=== PATIENT | female | born 1970 | race Caucasian/White ===

== ENCOUNTER 2016-04-19 21:48 | Emergency (ER) | payer MEDICARE, MEDICAID ==
--- NOTE | 2016-04-20 00:33 | ER Document Report ---
HPI - HPI Patient complains to provider of: left foot pain Onset: Last week Onset/Duration: Persistent Quality of pain: Achy Severity: Severe Pain Level: 5 Context: Patient presents to the emergency department with complaints of left foot pain. Patient reports that she tripped over her own foot last week and hurt her left foot. She denies other symptoms such as fever vomiting diarrhea. No obvious deformities of the foot good pedal pulse Associated Symptoms: None Exacerbated by: Walking Relieved by: Denies Similar symptoms previously: No Recently seen / treated by doctor: No - REPRODUCTIVE LMP: na Reproductive: DENIES: : - DERM Skin Color: Normal Past Medical History - General Information source: Patient - Social History Smoking Status: Never Smoker Chew tobacco use (# tins/day): No Frequency of alcohol use: None Drug Abuse: None Family History: Reviewed & Not Pertinent Patient has suicidal ideation: No Patient has homicidal ideation: No Pulmonary Medical History: Reports: Hx Asthma, Hx COPD Neurological Medical History: Reports: Hx Migraine, Hx Seizures - UNKNOWN Endocrine Medical History: Reports: Hx Diabetes Mellitus Type 2 Renal/ Medical History: Reports: Hx Kidney Stones. Denies: Hx Peritoneal Dialysis Musculoskeltal Medical History: Reports Hx Musculoskeletal Trauma Psychiatric Medical History: Reports: Hx Anxiety, Hx Depression, Hx Schizoaffective Disorder Past Surgical History: Reports: Hx Cholecystectomy, Hx Kidney (Renal Surgery) - stone procedure - Immunizations Immunizations up to date: Yes Hx Diphtheria, Pertussis, Tetanus Vaccination: Yes Vertical Provider Document - CONSTITUTIONAL Agree With Documented VS: Yes Exam Limitations: No Limitations General Appearance: WD/WN, No Apparent Distress - INFECTION CONTROL TRAVEL OUTSIDE OF THE [place] IN LAST 30 DAYS: No - HEENT HEENT: Atraumatic, Normocephalic, PERRLA - NECK Neck: Normal Inspection, Supple - RESPIRATORY Respiratory: Breath Sounds Normal O2 Sat by Pulse Oximetry: 96 - CARDIOVASCULAR Cardiovascular: Regular Rate - MUSCULOSKELETAL/EXTREMETIES Musculoskeletal/Extremeties: MAEW, FROM, Non-Tender - c/o pain to lateral left foot, no obvious deformity, no erythema was informed no swelling no ecchymosis good pedal pulses brisk cap refill - NEURO Level of Consciousness: Awake, Alert, Appropriate Motor/Sensory: No Motor Deficit - DERM Integumentary: Warm, Dry Adult Front & Back Diagram: 1 - Complains of pain Course - Re-evaluation Re-evalutation: 04/20/16 00:38 Patient instructed on negative x-ray. Encouraged to follow-up with her primary care provider and orthopedics as indicated. She is ambulating without problems no crutches ordered. - Vital Signs Vital signs: Temp Pulse Resp BP Pulse Ox 98.3 F 91 18 112/46 L 96 04/19/16 22:21 04/19/16 22:21 04/19/16 22:21 04/19/16 22:21 04/19/16 22:21 - Diagnostic Test Radiology reviewed: Image reviewed, Reports reviewed - IMPRESSION: NEGATIVE STUDY OF THE LEFT FOOT. NO RADIOGRAPHIC EVIDENCE OF ACUTE INJURY Discharge - Discharge Clinical Impression: Left foot pain Condition: Stable Disposition: HOME, SELF-CARE Additional Instructions: *You have been evaluated for left foot pain *The xray was negative for an acute injury *Rest/Ice/Elevate the foot *Follow up with orthopedics for continued pain-call for an appointment *Take tylenol as indicated for the pain *Return to ED for worsening condition, changes, needs Referrals: KATARINA URENA MD [Primary Care Provider] - Follow up in 3-5 days
[2016-04-20 01:02] VITALS: BP 121/56
== END 2016-04-20 01:15 | disposition home or self-care (01) ==
LOC: ER 21:48
DX: M79.672 Pain in left foot (principal); W18.40XA Slipping, tripping and stumbling without falling, unspecified, initial encounter
CPT/HCPCS: 99284

== ENCOUNTER 2016-05-16 17:24 | Emergency (ER) | payer MEDICARE, MEDICAID ==
--- NOTE | 2016-05-16 18:40 | ER Document Report ---
HPI - HPI Patient complains to provider of: back pain Pain Level: 1 Context: Patient is a 46-year-old female suffered from a fall last evening she started to get out of bed and she landed on her bottom. Able to ambulate. Admits to mild pain on the left part of her back. Patient states is chronic back problems. Takes tramadol home. Denies any urinary incontinence or stool incontinence, saddle anesthesia. - REPRODUCTIVE Reproductive: DENIES: : - DERM Skin Color: Normal Past Medical History - Social History Smoking Status: Unknown if Ever Smoked Family History: Reviewed & Not Pertinent Patient has suicidal ideation: No Patient has homicidal ideation: No Pulmonary Medical History: Reports: Hx Asthma, Hx COPD Neurological Medical History: Reports: Hx Migraine, Hx Seizures - UNKNOWN Endocrine Medical History: Reports: Hx Diabetes Mellitus Type 2 Renal/ Medical History: Reports: Hx Kidney Stones. Denies: Hx Peritoneal Dialysis Musculoskeltal Medical History: Reports Hx Musculoskeletal Trauma Psychiatric Medical History: Reports: Hx Anxiety, Hx Depression, Hx Schizoaffective Disorder Past Surgical History: Reports: Hx Cholecystectomy, Hx Kidney (Renal Surgery) - stone procedure - Immunizations Immunizations up to date: Yes Hx Diphtheria, Pertussis, Tetanus Vaccination: Yes Vertical Provider Document - CONSTITUTIONAL Agree With Documented VS: Yes Exam Limitations: No Limitations General Appearance: WD/WN, No Apparent Distress - INFECTION CONTROL TRAVEL OUTSIDE OF THE [place] IN LAST 30 DAYS: No - HEENT HEENT: Atraumatic, Normocephalic - NECK Neck: Normal Inspection, Other - No evidence of spinous process, cervical motion tenderness. No evidence of deformities or step-offs - RESPIRATORY Respiratory: Breath Sounds Normal, No Respiratory Distress, Chest Non-Tender O2 Sat by Pulse Oximetry: 96 - CARDIOVASCULAR Cardiovascular: Regular Rate, Regular Rhythm, No Murmur Pulses: Normal: Radial, Dorsalis pedis - BACK Back: Normal Inspection Notes: No evidence of spine motion tenderness, spinous process tenderness, deformity, ecchymosis, step-off - MUSCULOSKELETAL/EXTREMETIES Musculoskeletal/Extremeties: MAEW, FROM, Non-Tender, No Edema. negative: Eccymosis - NEURO Level of Consciousness: Awake, Alert, Appropriate Motor/Sensory: No Motor Deficit, No Sensory Deficit - DERM Integumentary: Warm, Dry, No Rash Course - Re-evaluation Re-evalutation: 04/03/17 20:57 The patient presents with low back pain without signs of spinal cord compression , cauda equina syndrome, infection, aneurysm, or other serious etiology. The patient is neurologically intact. Given the extremely low risk of these diagnoses further testing and evaluation for these possibilities does not appear to be indicated at this time. The patient has been instructed to return if the symptoms worsen or change in any way. - Vital Signs Vital signs: Temp Pulse Resp BP Pulse Ox 98.1 F 82 18 137/70 H 96 05/16/16 18:06 05/16/16 18:06 05/16/16 18:06 05/16/16 18:06 05/16/16 18:06 Discharge - Discharge Clinical Impression: Low back strain Condition: Good Disposition: HOME, SELF-CARE Additional Instructions: LOW BACK PAIN: Three out of every four people will have an episode of disabling back pain during their lifetime. Most commonly the pain is due to straining of the muscles and ligaments in the low back. Usual treatment includes: (1) Rest on a firm surface. Avoid lying on your stomach. (2) Ice pack the painful area. After a few days, gentle heat may be used intermittently to relax the area, or ice packs can be continued. (3) Medication may be needed -- muscle relaxers and antiinflammatory medicines are commonly used. (4) As the back improves, exercises are prescribed to strengthen the back and abdominal muscles. Your doctor will advise you on the proper care for your back at each stage in your recovery. You may be better in a few days -- or healing may take several weeks. If new symptoms of a "herniated disc" (radiation of pain, numbness, or tingling down the back of the leg or weakness in the leg) occur, you should be re-examined. Further testing may be necessary. MUSCLE RELAXERS: Muscle relaxing medications are usually prescribed for acute muscle spasm or injury to the neck and back. They are often combined with antiinflammatory pain medication for increased relief. You may stop the muscle relaxer when the pain and stiffness have improved. Start the medication again if spasms recur. Muscle relaxers may cause drowsiness, especially with the first dose. Do not operate machinery or drive while under the effects of the medication. Most muscle relaxers last up to 24 hours. Do not combine the medication with alcohol. ICE PACKS: Apply ice packs frequently against the painful area. Many different schedules are recommended, such as "20 minutes on, 20 minutes off" or "one hour ice, two hours rest." If you need to work, you may need to go longer between ice treatments. You should plan to have the area ice packed AT LEAST one fourth of the time. The ice should be applied over the wrap, tape, or splint, or over a layer of cloth -- not directly against the skin. Some ice bags have a built-in cloth and can be put directly on the skin. WARM PACKS: After approximately two days, apply gentle heat (such as a heating pad or hot water bottle) for about 20 to 30 minutes about every two hours -- at least four times daily. Warmth and elevation will help you make a more rapid recovery , and will ease the pain considerably. Do not use HOT heat, and never apply heat for longer than 30 minutes. The continuous heat can invisibly damage skin and muscles -- even when no burn is seen on the surface. Damaged muscles can make you MORE sore. FOLLOW-UP CARE: If you have been referred to a physician for follow-up care, call the physician s office for an appointment as you were instructed or within the next two days. If you experience worsening or a significant change in your symptoms, notify the physician immediately or return to the Emergency Department at any time for re-evaluation. Prescriptions: Cyclobenzaprine HCl [Flexeril 5 mg Tablet] 5 mg PO TIDP PRN #15 tablet PRN Reason: Forms: Elevated Blood Pressure Referrals: KATARINA URENA MD [Primary Care Provider] - Follow up as needed
[2016-05-16 19:17] VITALS: BP 111/74
== END 2016-05-16 20:25 | disposition home or self-care (01) ==
LOC: ER 17:24
DX: S39.012A Strain of muscle, fascia and tendon of lower back, initial encounter (principal); M54.9 Dorsalgia, unspecified; X58.XXXA Exposure to other specified factors, initial encounter
CPT/HCPCS: 99283

== ENCOUNTER 2016-05-22 16:25 | Emergency (ER) | payer MEDICARE, MEDICAID ==
--- NOTE | 2016-05-22 16:33 | ER Document Report ---
ED Psych Disorder / Suicide - General Mode of Arrival: Medic Information source: Patient TRAVEL OUTSIDE OF THE U.S. IN LAST 30 DAYS: No - HPI Patient complains to provider of: Hallucinating, Suicidal ideation Onset: This morning Suicide Risk Factors: Bipolar, Depressed, Hallucinations, Schizophrenia <MARINO CLEMENT - Last Filed: 05/22/16 16:37> <OTILIO CORONEL - Last Filed: 05/22/16 18:23> - General Chief Complaint: Psych Problem Stated Complaint: PSYCH EVALUATION Notes: Patient is a 46-year-old female, with past medical history including bipolar disorder, schizophrenia, and depression, presenting to the emergency department concerned because she is having visual and audible hallucinations to include seeing objects and people as well as hearing people tell her to kill herself. Patient states that she is on psychiatric medications as well as insulin as needed for her diabetes. (MARINO CLEMENT) - Related Data Allergies/Adverse Reactions: ibuprofen [Ibuprofen] Allergy (Mild, Verified 05/16/16 18:01) lips swell acetaminophen [From Tylenol] Allergy (Verified 05/16/16 18:01) Lips swelled aspirin [Aspirin] Allergy (Verified 05/16/16 18:01) Lips swelled Past Medical History - General Information source: Patient - Social History Smoking Status: Never Smoker Drug Abuse: None Family History: Reviewed & Not Pertinent Pulmonary Medical History: Reports: Hx Asthma, Hx COPD Neurological Medical History: Reports: Hx Migraine, Hx Seizures - UNKNOWN Endocrine Medical History: Reports: Hx Diabetes Mellitus Type 2 Renal/ Medical History: Reports: Hx Kidney Stones. Denies: Hx Peritoneal Dialysis Musculoskeltal Medical History: Reports Hx Musculoskeletal Trauma Psychiatric Medical History: Reports: Hx Anxiety, Hx Bipolar Disorder, Hx Depression, Hx Schizoaffective Disorder Past Surgical History: Reports: Hx Cholecystectomy, Hx Kidney (Renal Surgery) - stone procedure - Immunizations Immunizations up to date: Yes Hx Diphtheria, Pertussis, Tetanus Vaccination: Yes <MARINO CLEMENT - Last Filed: 05/22/16 16:37> Review of Systems - Review of Systems Constitutional: No symptoms reported EENT: No symptoms reported Cardiovascular: No symptoms reported Respiratory: No symptoms reported Gastrointestinal: No symptoms reported Genitourinary: No symptoms reported Female Genitourinary: No symptoms reported Musculoskeletal: No symptoms reported Skin: No symptoms reported Hematologic/Lymphatic: No symptoms reported Neurological/Psychological: See HPI, Hallucinations, Suicidal ideation -: Yes All other systems reviewed and negative <MARINO CLEMENT - Last Filed: 05/22/16 16:37> Physical Exam <MARINO CLEMENT - Last Filed: 05/22/16 16:37> - Vital signs Interpretation: Tachypneic <OTILIO CORONEL - Last Filed: 05/22/16 18:23> - Vital signs Vitals: Temp Pulse Resp BP Pulse Ox 98.4 F 94 18 128/67 H 96 05/22/16 16:32 05/22/16 16:32 05/22/16 16:32 05/22/16 16:32 05/22/16 16:32 - Notes Notes: GENERAL: VS as per nursing doc. Well-appearing, well-nourished and in no acute distress. "Stare" noted HEAD: Atraumatic, normocephalic. EYES: Pupils equal round and reactive to light, extraocular movements intact, sclera anicteric, no conjunctival injection or discharge. ENT: Nares patent, oropharynx clear without exudates. Moist mucous membranes. NECK: Normal range of motion, supple LUNGS: Breath sounds clear to auscultation bilaterally and equal. No wheezes rales or rhonchi. HEART: Normal S1S2. Regular rate and rhythm without murmurs. Equal peripheral pulses. ABDOMEN: Soft, non-tender EXTREMITIES: Normal range of motion. No calf tenderness. Negative Homans. No edema. NEUROLOGICAL: GCS 15, Cranial nerves grossly intact. Normal visual rashid. Normal speech without aphasia. Normal gait. Patient reports auditory hallucinations telling her to kill herself. I do not see active evidence of auditory or visual hallucinations during the examination. She maintains good eye contact though prefers to stand during the interview and has increased psychomotor agitation. No evidence of homicidal ideation. Patient is calm directable with slow speech. There is no tangentiality or flight of ideas PSYCH: Normal mood, normal affect. SKIN: Warm, Dry, no cyanosis, Cap refill < 2 sec. (OTILIO CORONEL) Course <MARINO CLEMENT - Last Filed: 05/22/16 16:37> - Laboratory Result Diagrams: 05/22/16 16:50 05/22/16 16:50 - EKG Interpretation by Me EKG shows normal: Sinus rhythm Rate: Normal Rhythm: NSR <OTILIO CORONEL - Last Filed: 05/22/16 18:23> - Re-evaluation Re-evalutation: 05/22/16 18:22 Patient contracts for safety. She is at a nursing home, [facility]. She has been evaluated by psychiatry here and this is consistent with her prior evaluations here. She does not have access to much items that would cause self harm. We will contact [facility] prior to her discharge to coordinate this. ( OTILIO CORONEL) - Vital Signs Vital signs: Temp Pulse Resp BP Pulse Ox 98.4 F 94 18 128/67 H 96 05/22/16 16:32 05/22/16 16:32 05/22/16 16:32 05/22/16 16:32 05/22/16 16:32 - Laboratory Laboratory results interpreted by me: 05/22/16 05/22/16 05/22/16 16:50 16:50 16:50 Hgb 11.9 L Hct 35.7 L RDW 14.2 H Seg Neutrophils % 36.7 L Eosinophils % 15.8 H Absolute Eosinophils 1.1 H Potassium 5.2 H Carbon Dioxide 32 H Glucose 131 H Total Protein 6.2 L Albumin 3.2 L Urine Protein 100 H Urine Ketones TRACE H Ur Leukocyte Esterase TRACE H - EKG Interpretation by Me Additional EKG results interpreted by me: 05/22/16 17:05 No clear ischemia (OTILIO CORONEL) Discharge <MARINO CLEMENT - Last Filed: 05/22/16 16:37> <OTILIO CORONEL - Last Filed: 05/22/16 18:23> - Discharge Clinical Impression: Psychosis, Anemia Condition: Good Disposition: HOME, SELF-CARE Instructions: Depression ([facility]), Schizophrenia ([facility]), Hallucinations ([facility]) Additional Instructions: Please follow up with your psychiatric provider, [facility] to discuss your stressors within your residential settings. Please continue to utilize your coping skills as discussed, to include trying not to listen to the voices and or distracting yourself. Referrals: KATARINA URENA MD [Primary Care Provider] - Follow up as needed Scribe Documentation - Scribe Written by Scribe:: Marino Clement 05/22/2016 1974 acting as scribe for :: Dudley <MARINO CLEMENT - Last Filed: 05/22/16 16:37>
[2016-05-22 17:25] LABS: ABSOLUTE EOSINOPHILS # (AUTO) 1.1 10^3/uL (0.0-0.6); ABSOLUTE LYMPHOCYTES (AUTO) 2.8 10^3/uL (0.5-4.7); ABSOLUTE MONOCYTES (AUTO) 0.5 10^3/uL (0.1-1.4); ABSOLUTE NEUT (AUTO) 2.5 10^3/uL (1.7-8.2); BASOPHILS % (AUTO) 0.4 % (0-2); EOSINOPHILS % (AUTO) 15.8 % (0-6); HEMATOCRIT 35.7 % (36.0-47.0); HEMOGLOBIN 11.9 g/dL (12.0-15.5); LYMPHOCYTES % (AUTO) 40.4 % (13-45); MEAN CORPUSCULAR HEMOGLOBIN 29.6 pg (27.0-33.4); MEAN CORPUSCULAR HGB CONC 33.5 g/dL (32.0-36.0); MEAN CORPUSCULAR VOLUME 88 fl (80-97); MONOCYTES % (AUTO) 6.7 % (3-13); RED BLOOD COUNT 4.04 10^6/uL (3.72-5.28); RED CELL DISTRIBUTION WIDTH 14.2 % (11.5-14.0); SEGMENTED NEUTROPHILS % (AUTO) 36.7 % (42-78); WHITE BLOOD COUNT 6.9 10^3/uL (4.0-10.5)
[2016-05-22 17:32] LABS: APPEARANCE,URINE CLEAR; BILIRUBIN,URINE NEGATIVE (NEGATIVE); GLUCOSE, URINE NEGATIVE (NEGATIVE); KETONES,URINE TRACE mg/dL (NEGATIVE); LEUKOCYTE ESTERASE,URINE TRACE (NEGATIVE); NITRITE,URINE NEGATIVE (NEGATIVE); PROTEIN,URINE 100 mg/dL (NEGATIVE); URINE SPECIFIC GRAVITY 1.013; UROBILINOGEN,URINE NEGATIVE mg/dL (<2.0)
[2016-05-22 17:46] LABS: ALANINE AMINOTRANSFERASE 22 U/L (9-52); ALBUMIN 3.2 g/dL (3.5-5.0); ALCOHOL < 10 mg/dL (NONE DETECTED); ALKALINE PHOSPHATASE 43 U/L (38-126); ANION GAP 10 (5-19); ASPARTATE AMINO TRANSFERASE 14 U/L (14-36); BILIRUBIN,DIRECT 0.2 mg/dL (0.0-0.4); BILIRUBIN,TOTAL 0.2 mg/dL (0.2-1.3); BLOOD UREA NITROGEN 12 mg/dL (7-20); CALCIUM 8.9 mg/dL (8.4-10.2); CARBON DIOXIDE 32 mmol/L (22-30); CHLORIDE 98 mmol/L (98-107); CREATININE RESULT 0.75 mg/dL (0.52-1.25); GLUCOSE 131 mg/dL (75-110); POTASSIUM 5.2 mmol/L (3.6-5.0); SODIUM 139.5 mmol/L (137-145); TOTAL PROTEIN 6.2 g/dL (6.3-8.2)
[2016-05-22 17:53] LABS: URINE BARBITURATES SCREEN NEGATIVE; URINE METHADONE SCREEN NEGATIVE; URINE OPIATES LOW NEGATIVE; URINE PHENCYCLIDINE SCREEN NEGATIVE
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
[2016-05-22 19:50] VITALS: BP 109/78
--- NOTE | 2016-05-22 20:50 | EKG REPORT ---
SEVERITY:- OTHERWISE NORMAL ECG - SINUS RHYTHM ATRIAL PREMATURE COMPLEX BORDERLINE LEFT AXIS DEVIATION : Confirmed by: Parag Huntley 22-May-2016 20:48:44
== END 2016-05-22 19:10 | disposition home or self-care (01) ==
LOC: ER 16:25
DX: F20.9 Schizophrenia, unspecified (principal); F31.9 Bipolar disorder, unspecified; F79 Unspecified intellectual disabilities; J44.9 Chronic obstructive pulmonary disease, unspecified; E11.9 Type 2 diabetes mellitus without complications; D64.9 Anemia, unspecified; Z88.6 Allergy status to analgesic agent; Z79.899 Other long term (current) drug therapy; Z79.52 Long term (current) use of systemic steroids
CPT/HCPCS: 36415; 80053; 80307; 81001; 84703; 85025; 93005; 93010; 99285

== ENCOUNTER 2016-07-05 20:46 | Emergency (ER) | payer MEDICARE, OTHER ==
--- NOTE | 2016-07-05 21:20 | ER Document Report ---
ED Psych Disorder / Suicide - General Chief Complaint: Depression Stated Complaint: SUICIDAL IDEATION Time Seen by Provider: 07/05/16 21:13 Mode of Arrival: Medic Information source: Patient TRAVEL OUTSIDE OF THE U.[place]. IN LAST 30 DAYS: No - HPI Patient complains to provider of: Suicidal ideation Onset: Last week Onset was: Cannot confirm Quality of pain: No pain Suicide Risk Factors: Depressed Situational problems related to: Recent Associated symptoms: Depressed, Flat affect Similar symptoms previously: Yes Recently seen / treated by doctor: Yes Notes: Patient is a 46-year-old female who is a resident of [facility] who presents to the emergency room complaining of depression with passive thoughts of suicide, she reports that her father approximately 1 month ago, she has been depressed since because she was very close to her father, she had some thoughts of suicide over the past week but has no specific plan, she admits that she does not actually want to , she dismisses her father, she follows up at the [facility] and has an appointment on July 15 - Related Data Allergies/Adverse Reactions: ibuprofen [Ibuprofen] Allergy (Mild, Verified 05/16/16 18:01) lips swell acetaminophen [From Tylenol] Allergy (Verified 05/16/16 18:01) Lips swelled aspirin [Aspirin] Allergy (Verified 05/16/16 18:01) Lips swelled Past Medical History - General Information source: Patient - Social History Smoking Status: Unknown if Ever Smoked Family History: Reviewed & Not Pertinent Patient has suicidal ideation: Yes Patient has homicidal ideation: No Pulmonary Medical History: Reports: Hx Asthma, Hx COPD Neurological Medical History: Reports: Hx Migraine, Hx Seizures - UNKNOWN Endocrine Medical History: Reports: Hx Diabetes Mellitus Type 2 Renal/ Medical History: Reports: Hx Kidney Stones. Denies: Hx Peritoneal Dialysis Musculoskeltal Medical History: Reports Hx Musculoskeletal Trauma Psychiatric Medical History: Reports: Hx Anxiety, Hx Bipolar Disorder, Hx Depression, Hx Schizoaffective Disorder Past Surgical History: Reports: Hx Cholecystectomy, Hx Kidney (Renal Surgery) - stone procedure - Immunizations Immunizations up to date: Yes Hx Diphtheria, Pertussis, Tetanus Vaccination: Yes Review of Systems - Review of Systems Constitutional: No symptoms reported EENT: No symptoms reported Cardiovascular: No symptoms reported Respiratory: No symptoms reported Gastrointestinal: No symptoms reported Genitourinary: No symptoms reported Female Genitourinary: No symptoms reported Musculoskeletal: No symptoms reported Skin: No symptoms reported Hematologic/Lymphatic: No symptoms reported Neurological/Psychological: See HPI -: Yes All other systems reviewed and negative Physical Exam - Vital signs Vitals: Temp Pulse Resp BP Pulse Ox 97.2 F 96 20 128/89 H 96 07/05/16 20:50 07/05/16 20:50 07/05/16 20:50 07/05/16 20:50 07/05/16 20:50 - Notes Notes: - General General appearance: Appears well, Alert In distress: None - HEENT Head: Normocephalic, Atraumatic Eyes: Normal Conjunctiva: Normal Extraocular movements intact: Yes Eyelashes: Normal Pupils: PERRL - Respiratory Respiratory status: No respiratory distress - Cardiovascular Rhythm: Regular - Abdominal Inspection: Normal - Back Back: Normal - Extremities General upper extremity: Normal inspection General lower extremity: Normal inspection - Neurological Neuro grossly intact: Yes Orientation: AAOx4 [place] Coma Scale Eye Opening: Spontaneous [place] Coma Scale Verbal: Oriented Dalia Coma Scale Motor: Obeys Commands Dalia Coma Scale Total: 15 - Skin Skin Temperature: Warm Skin Moisture: Dry Skin Color: Normal - Psychological Associated symptoms: Depressed, Flat affect Course - Re-evaluation Re-evalutation: 07/05/16 21:41 46-year-old female who resides at [facility] which is an assisted living facility and is staffed 05/09, she reports that she is increasingly depressed since her father approximately 1 month ago, she has had passive thoughts of suicide, denies having any plan to kill herself, no attempts in the past, she follows up at [facility] and has an appointment coming up next week on July 15. Patient resides in an living facility which is staffed , she has no plan for suicide, and has follow-up with appropriate mental health professionals next week, she will be discharged back to the assisted living facility with instructions, patient is in agreement with this plan - Vital Signs Vital signs: Temp Pulse Resp BP Pulse Ox 97.6 F 96 20 128/89 H 96 07/05/16 20:50 07/05/16 20:50 07/05/16 20:50 07/05/16 20:50 07/05/16 20:50 Discharge - Discharge Clinical Impression: Depression Qualifiers: Depression Type: unspecified Qualified Code(s): F32.9 - Major depressive disorder, single episode, unspecified Condition: Stable Disposition: HOME, SELF-CARE Instructions: Depression ([facility]) Additional Instructions: Follow up with your mental health professional as scheduled on July 15, sooner if needed. Return to the emergency room if any additional concerns.
[2016-07-06 07:09] VITALS: BP 149/99
== END 2016-07-05 22:30 | disposition home or self-care (01) ==
LOC: ER 20:46
DX: F32.9 Major depressive disorder, single episode, unspecified (principal); R45.851 Suicidal ideations; J44.9 Chronic obstructive pulmonary disease, unspecified; E11.9 Type 2 diabetes mellitus without complications; Z88.6 Allergy status to analgesic agent
CPT/HCPCS: 99285

== ENCOUNTER 2016-07-18 23:40 | Emergency (ER) | payer MEDICARE, MEDICAID ==
[2016-07-18 23:50] VITALS: BP 109/70
[2016-07-19] MEDS ORDERED: NAPROXEN 250 MG TABLET PO ONE (01:24)
--- NOTE | 2016-07-19 01:24 | ER Document Report ---
ED Extremity Problem, Lower - General Chief Complaint: Medication Refill Stated Complaint: KNEE PAIN Time Seen by Provider: 07/19/16 01:20 Notes: The patient is a 46-year-old female who presents with her usual chronic bilateral knee pain. She is requesting tramadol. She says that her primary care physician doctor stopped her Tramadol dose and she does not know why. Denies injury, redness, swelling, fevers or difficulty walking. TRAVEL OUTSIDE OF THE [place]. IN LAST 30 DAYS: No - Related Data Allergies/Adverse Reactions: ibuprofen [Ibuprofen] Allergy (Mild, Verified 05/16/16 18:01) lips swell acetaminophen [From Tylenol] Allergy (Verified 05/16/16 18:01) Lips swelled aspirin [Aspirin] Allergy (Verified 05/16/16 18:01) Lips swelled Past Medical History - General Information source: Patient - Social History Smoking Status: Unknown if Ever Smoked Family History: Reviewed & Not Pertinent Patient has suicidal ideation: No Patient has homicidal ideation: No Pulmonary Medical History: Reports: Hx Asthma, Hx COPD Neurological Medical History: Reports: Hx Migraine, Hx Seizures - UNKNOWN Endocrine Medical History: Reports: Hx Diabetes Mellitus Type 2 Renal/ Medical History: Reports: Hx Kidney Stones. Denies: Hx Peritoneal Dialysis Musculoskeltal Medical History: Reports Hx Musculoskeletal Trauma Psychiatric Medical History: Reports: Hx Anxiety, Hx Bipolar Disorder, Hx Depression, Hx Schizoaffective Disorder Past Surgical History: Reports: Hx Cholecystectomy, Hx Kidney (Renal Surgery) - stone procedure - Immunizations Immunizations up to date: Yes Hx Diphtheria, Pertussis, Tetanus Vaccination: Yes Review of Systems - Review of Systems Notes: REVIEW OF SYSTEMS: CONSTITUTIONAL: -fevers, -chills EENT: -eye pain, -difficulty swallowing, -nasal congestion CARDIOVASCULAR:-chest pain, -syncope. RESPIRATORY: -cough, -SOB GASTROINTESTINAL: -abdominal pain, - nausea, -vomiting, -diarrhea GENITOURINARY: -dysuria, -hematuria MUSCULOSKELETAL: -back pain, -neck pain, +B/L knee pain SKIN: -rash or skin lesions. HEMATOLOGIC: -easy bruising or bleeding. LYMPHATIC: -swollen, enlarged glands. NEUROLOGICAL: -altered mental status or loss of consciousness, -headache, - neurologic symptoms PSYCHIATRIC: -anxiety, -depression. ALL OTHER SYSTEMS REVIEWED AND NEGATIVE. Physical Exam - Vital signs Vitals: Temp Pulse Resp BP Pulse Ox 97.6 F 94 16 109/70 95 07/18/16 23:48 07/18/16 23:48 07/18/16 23:48 07/18/16 23:48 07/18/16 23:48 - Notes Notes: PHYSICAL EXAMINATION: GENERAL: Well-appearing, well-nourished and in no acute distress. HEAD: Atraumatic, normocephalic. EYES: Pupils equal round and reactive to light, extraocular movements intact, sclera anicteric, conjunctiva are normal. ENT: nares patent, oropharynx clear without exudates. Moist mucous membranes. NECK: Normal range of motion, supple without lymphadenopathy LUNGS: Breath sounds clear to auscultation bilaterally and equal. No wheezes rales or rhonchi. HEART: Regular rate and rhythm without murmurs ABDOMEN: Soft, nontender, normoactive bowel sounds. No guarding, no rebound. No masses appreciated. EXTREMITIES: Normal range of motion, no pitting or edema. No knee effusions or erythema around knee. No cyanosis. NEUROLOGICAL: Cranial nerves grossly intact. Normal speech, normal gait. Normal sensory and motor exams. PSYCH: Normal mood, normal affect. SKIN: Warm, Dry, normal turgor, no rashes or lesions noted. Course - Re-evaluation Re-evalutation: Patient's knee pain is chronic in nature. Provided patient with [place] emergency department narcotic prescribing guidelines and instructed her to follow-up with her primary care physician and orthopedics. Instructed her to treat with anti-inflammatories and ice. - Vital Signs Vital signs: Temp Pulse Resp BP Pulse Ox 97.6 F 94 16 109/70 95 07/18/16 23:48 07/18/16 23:48 07/18/16 23:48 07/18/16 23:48 07/18/16 23:48 Discharge - Discharge Clinical Impression: Chronic pain of both knees Condition: Stable Disposition: HOME, SELF-CARE Additional Instructions: Arthritis Your symptoms are due to arthritis. Arthritis is an inflammation of the joints. There are many types -- osteoarthritis (due to "wear and tear"), auto- immmune arthritis (such as rheumatoid, lupus, Gerard's, and others), and crystal -induced arthritis (such as gout and pseudogout). The physician's examination, combined with laboratory tests, will determine the cause of your arthritis. All types of arthritis are treated with antiinflammatory medications. Other medication may be required for special types of arthritis, or if your problem does not respond to the antiinflammatory medicine. Local warmth may be helpful. Move the involved joints through the full range of motion daily. Mild exercise is usually still possible for most persons with arthritis (ask your physician). Swimming provides good exercise without damaging the joints. Contact the physician if you are worsening in any way. Referrals: TESSY PERDOMO MD [ACTIVE STAFF] - Follow up as needed
== END 2016-07-19 02:01 | disposition home or self-care (01) ==
LOC: ER 23:40
DX: G89.29 Other chronic pain (principal); M25.561 Pain in right knee; M25.562 Pain in left knee; J44.9 Chronic obstructive pulmonary disease, unspecified; E11.9 Type 2 diabetes mellitus without complications; Z88.6 Allergy status to analgesic agent
CPT/HCPCS: 99281; A9270

== ENCOUNTER → 2016-08-11 | Outpatient (CLI) | payer MEDICARE, MEDICAID ==
[2016-08-11 09:08] LABS: ABSOLUTE EOSINOPHILS # (AUTO) 0.6 10^3/uL (0.0-0.6); ABSOLUTE LYMPHOCYTES (AUTO) 2.6 10^3/uL (0.5-4.7); ABSOLUTE MONOCYTES (AUTO) 0.4 10^3/uL (0.1-1.4); ABSOLUTE NEUT (AUTO) 1.6 10^3/uL (1.7-8.2); BASOPHILS % (AUTO) 0.4 % (0-2); EOSINOPHILS % (AUTO) 11.1 % (0-6); LYMPHOCYTES % (AUTO) 50.6 % (13-45); MEAN CORPUSCULAR HEMOGLOBIN 30.1 pg (27.0-33.4); MEAN CORPUSCULAR HGB CONC 33.4 g/dL (32.0-36.0); MEAN CORPUSCULAR VOLUME 90 fl (80-97); RED BLOOD COUNT 4.33 10^6/uL (3.72-5.28); RED CELL DISTRIBUTION WIDTH 14.6 % (11.5-14.0); SEGMENTED NEUTROPHILS % (AUTO) 30.9 % (42-78); WHITE BLOOD COUNT 5.1 10^3/uL (4.0-10.5)
[2016-08-11 09:45] LABS: ALANINE AMINOTRANSFERASE 22 U/L (9-52); ALBUMIN 3.3 g/dL (3.5-5.0); ALKALINE PHOSPHATASE 44 U/L (38-126); ANION GAP 9 (5-19); ASPARTATE AMINO TRANSFERASE 16 U/L (14-36); BILIRUBIN,DIRECT 0.3 mg/dL (0.0-0.4); BILIRUBIN,TOTAL 0.4 mg/dL (0.2-1.3); BLOOD UREA NITROGEN 16 mg/dL (7-20); CALCIUM 9.1 mg/dL (8.4-10.2); CARBON DIOXIDE 34 mmol/L (22-30); CHLORIDE 91 mmol/L (98-107); CHOLESTEROL 219.37 mg/dL (0-200); Direct HDL 44 mg/dL (>40); GLUCOSE 87 mg/dL (75-110); POTASSIUM 4.9 mmol/L (3.6-5.0); SODIUM 133.5 mmol/L (137-145); TOTAL PROTEIN 6.8 g/dL (6.3-8.2); TRIGLYCERIDES 142 mg/dL (<150)
[2016-08-11 09:56] LABS: DIRECT LDL 137 mg/dL (<100); VALPROIC ACID 72.5 ug/mL (50.0-120.0)
== END ==
LOC: OD 07:56
PROVIDERS: ATTEND Physician Assistant
DX: F25.0 Schizoaffective disorder, bipolar type (principal); Z79.899 Other long term (current) drug therapy
CPT/HCPCS: 36415; 80053; 80061; 80164; 83036; 84146; 85025

== ENCOUNTER 2016-08-31 14:12 | Emergency (ER) | payer MEDICARE, MEDICAID ==
--- NOTE | 2016-08-31 14:32 | ER Document Report ---
HPI - HPI Patient complains to provider of: Urinary tract infection Onset: Other - Several days Quality of pain: Burning Pain Level: 5 Context: 46-year-old obese diabetic who takes sliding scale insulin is complaining of burning with urination and low abdominal pain for several days. She states she has a urinary tract infection because she has had them before. No fever. She does have nausea without vomiting. No flank pain. She called an ambulance today because she did not have any way to get to the hospital. She states her glucose is 89 this morning. Associated Symptoms: None Exacerbated by: Other - Urination Relieved by: Denies Similar symptoms previously: Yes Recently seen / treated by doctor: No - ROS ROS below otherwise negative: Yes Systems Reviewed and Negative: Yes All other systems reviewed and negative - REPRODUCTIVE Reproductive: DENIES: : - DERM Skin Color: Normal Past Medical History - General Information source: Patient - Social History Smoking Status: Never Smoker Frequency of alcohol use: None Drug Abuse: None Family History: Reviewed & Not Pertinent Patient has suicidal ideation: No Patient has homicidal ideation: No Pulmonary Medical History: Reports: Hx Asthma, Hx COPD Neurological Medical History: Reports: Hx Migraine, Hx Seizures - UNKNOWN Endocrine Medical History: Reports: Hx Diabetes Mellitus Type 2 Renal/ Medical History: Reports: Hx Kidney Stones. Denies: Hx Peritoneal Dialysis Musculoskeltal Medical History: Reports Hx Musculoskeletal Trauma Psychiatric Medical History: Reports: Hx Anxiety, Hx Bipolar Disorder, Hx Depression, Hx Schizoaffective Disorder Past Surgical History: Reports: Hx Cholecystectomy, Hx Kidney (Renal Surgery) - stone procedure - Immunizations Immunizations up to date: Yes Hx Diphtheria, Pertussis, Tetanus Vaccination: Yes Vertical Provider Document - CONSTITUTIONAL Agree With Documented VS: Yes Exam Limitations: No Limitations - INFECTION CONTROL TRAVEL OUTSIDE OF THE [place] IN LAST 30 DAYS: No - HEENT HEENT: Normocephalic - NECK Neck: Supple - RESPIRATORY Respiratory: Breath Sounds Normal, No Respiratory Distress O2 Sat by Pulse Oximetry: 95 - CARDIOVASCULAR Cardiovascular: Regular Rate, Regular Rhythm - GI/ABDOMEN Gastrointestinal: Abdomen Soft, Abdomen Non-Tender, No Organomegaly - MUSCULOSKELETAL/EXTREMETIES Musculoskeletal/Extremeties: FELICIA TURNER - NEURO Level of Consciousness: Awake, Alert - DERM Integumentary: Warm, Dry, No Rash Course - Re-evaluation Re-evalutation: 08/31/16 16:18 urinalysis negative for UTI, cbc and comprehensive OK. 08/31/16 16:25 Patient is refusing for me to look at her genitalia or do a pelvic exam to see what causing the dysuria. I told her I would give her a couple days of antibiotics pending the urine culture. - Vital Signs Vital signs: Temp Pulse Resp BP Pulse Ox 98 F 106 H 16 120/86 H 95 08/31/16 14:17 08/31/16 14:17 08/31/16 14:17 08/31/16 14:17 08/31/16 14:17 - Laboratory Result Diagrams: 08/31/16 14:45 08/31/16 14:45 Discharge - Discharge Clinical Impression: Dysuria, Pelvic discomfort Condition: Good Disposition: HOME, SELF-CARE Instructions: Pelvic Pain ([facility]), Cephalexin ([facility]) Additional Instructions: return to er if you get worse, or change mind about doing more physical exam to determine the problem. Urine culture is pending Please complete the patient satisfaction survey if you get one, and return it.. If you do not receive a survey, then you can go to the [facility] website, [email or web address] and place your comments about your very good care. Thank you very much. It was a pleasure being your medical provider today. Prescriptions: Cephalexin Monohydrate [Keflex 500 mg Capsule] 500 mg PO QID #28 capsule Referrals: KATARINA URENA MD [Primary Care Provider] - Follow up as needed
[2016-08-31] MEDS ORDERED: ONDANSETRON 4 MG TAB.RAPDIS PO ONE (14:47)
[2016-08-31 15:16] LABS: ABSOLUTE EOSINOPHILS # (AUTO) 1.2 10^3/uL (0.0-0.6); ABSOLUTE LYMPHOCYTES (AUTO) 3.2 10^3/uL (0.5-4.7); ABSOLUTE MONOCYTES (AUTO) 0.5 10^3/uL (0.1-1.4); ABSOLUTE NEUT (AUTO) 4.7 10^3/uL (1.7-8.2); BASOPHILS % (AUTO) 0.4 % (0-2); EOSINOPHILS % (AUTO) 12.1 % (0-6); HEMATOCRIT 37.1 % (36.0-47.0); HEMOGLOBIN 12.2 g/dL (12.0-15.5); HGB HCT DIFFERENCE -0.5; LYMPHOCYTES % (AUTO) 33.2 % (13-45); MEAN CORPUSCULAR HEMOGLOBIN 29.7 pg (27.0-33.4); MEAN CORPUSCULAR HGB CONC 32.7 g/dL (32.0-36.0); MEAN CORPUSCULAR VOLUME 91 fl (80-97); MONOCYTES % (AUTO) 5.3 % (3-13); RED BLOOD COUNT 4.09 10^6/uL (3.72-5.28); RED CELL DISTRIBUTION WIDTH 14.3 % (11.5-14.0); WHITE BLOOD COUNT 9.6 10^3/uL (4.0-10.5)
[2016-08-31 15:34] LABS: ALANINE AMINOTRANSFERASE 14 U/L (9-52); ALBUMIN 3.2 g/dL (3.5-5.0); ALKALINE PHOSPHATASE 44 U/L (38-126); ANION GAP 10 (5-19); ASPARTATE AMINO TRANSFERASE 14 U/L (14-36); BILIRUBIN,DIRECT 0.3 mg/dL (0.0-0.4); BILIRUBIN,TOTAL 0.3 mg/dL (0.2-1.3); BLOOD UREA NITROGEN 11 mg/dL (7-20); CALCIUM 8.9 mg/dL (8.4-10.2); CARBON DIOXIDE 28 mmol/L (22-30); CHLORIDE 97 mmol/L (98-107); CREATININE RESULT 0.77 mg/dL (0.52-1.25); GLUCOSE 96 mg/dL (75-110); POTASSIUM 5.3 mmol/L (3.6-5.0); SODIUM 135.4 mmol/L (137-145); TOTAL PROTEIN 6.3 g/dL (6.3-8.2)
[2016-08-31 15:44] LABS: APPEARANCE,URINE SLIGHTLY-CLOUDY; BILIRUBIN,URINE NEGATIVE (NEGATIVE); GLUCOSE, URINE NEGATIVE (NEGATIVE); KETONES,URINE TRACE mg/dL (NEGATIVE); LEUKOCYTE ESTERASE,URINE SMALL (NEGATIVE); NITRITE,URINE NEGATIVE (NEGATIVE); PROTEIN,URINE 30 mg/dL (NEGATIVE); URINE SPECIFIC GRAVITY 1.011; UROBILINOGEN,URINE NEGATIVE mg/dL (<2.0)
[2016-08-31 18:31] VITALS: BP 129/72
== END 2016-08-31 18:30 | disposition home or self-care (01) ==
LOC: ER 14:12
DX: R30.0 Dysuria (principal); R10.2 Pelvic and perineal pain; R10.30 Lower abdominal pain, unspecified; R11.0 Nausea; E11.9 Type 2 diabetes mellitus without complications
CPT/HCPCS: 99283; 36415; 87086; 85025; 87088; 80053; 81001; A9270; S0119

== ENCOUNTER 2016-10-30 22:30 | Emergency (ER) | payer MEDICARE, MEDICAID ==
[2016-10-31 00:50] LABS: ABSOLUTE BASOPHILS # (AUTO) 0.1 10^3/uL (0.0-0.2); ABSOLUTE LYMPHOCYTES (AUTO) 2.9 10^3/uL (0.5-4.7); ABSOLUTE MONOCYTES (AUTO) 0.5 10^3/uL (0.1-1.4); ABSOLUTE NEUT (AUTO) 1.9 10^3/uL (1.7-8.2); BASOPHILS % (AUTO) 0.8 % (0-2); EOSINOPHILS % (AUTO) 16.2 % (0-6); HEMATOCRIT 34.4 % (36.0-47.0); HEMOGLOBIN 11.9 g/dL (12.0-15.5); HGB HCT DIFFERENCE 1.3; LYMPHOCYTES % (AUTO) 45.5 % (13-45); MEAN CORPUSCULAR HEMOGLOBIN 31.5 pg (27.0-33.4); MEAN CORPUSCULAR HGB CONC 34.6 g/dL (32.0-36.0); MEAN CORPUSCULAR VOLUME 91 fl (80-97); RED BLOOD COUNT 3.78 10^6/uL (3.72-5.28); RED CELL DISTRIBUTION WIDTH 13.9 % (11.5-14.0); SEGMENTED NEUTROPHILS % (AUTO) 29.5 % (42-78); WHITE BLOOD COUNT 6.4 10^3/uL (4.0-10.5)
[2016-10-31 01:02] LABS: ALANINE AMINOTRANSFERASE 18 U/L (9-52); ALBUMIN 2.8 g/dL (3.5-5.0); ALKALINE PHOSPHATASE 39 U/L (38-126); ANION GAP 5 (5-19); ASPARTATE AMINO TRANSFERASE 12 U/L (14-36); BILIRUBIN,DIRECT 0.3 mg/dL (0.0-0.4); BILIRUBIN,TOTAL 0.3 mg/dL (0.2-1.3); BLOOD UREA NITROGEN 12 mg/dL (7-20); CALCIUM 8.7 mg/dL (8.4-10.2); CARBON DIOXIDE 33 mmol/L (22-30); CHLORIDE 96 mmol/L (98-107); CREATININE RESULT 0.78 mg/dL (0.52-1.25); GLUCOSE 83 mg/dL (75-110); LIPASE 142.5 U/L (23-300); POTASSIUM 4.8 mmol/L (3.6-5.0); SODIUM 133.9 mmol/L (137-145); TOTAL PROTEIN 5.5 g/dL (6.3-8.2)
[2016-10-31 01:10] LABS: APPEARANCE,URINE CLEAR; BILIRUBIN,URINE NEGATIVE (NEGATIVE); GLUCOSE, URINE NEGATIVE (NEGATIVE); KETONES,URINE TRACE mg/dL (NEGATIVE); LEUKOCYTE ESTERASE,URINE SMALL (NEGATIVE); NITRITE,URINE NEGATIVE (NEGATIVE); PROTEIN,URINE 30 mg/dL (NEGATIVE)
--- NOTE | 2016-10-31 01:50 | ER Document Report ---
ED Cardiac - General Chief Complaint: General Weakness Stated Complaint: DIZZINESS Time Seen by Provider: 10/31/16 00:28 TRAVEL OUTSIDE OF THE [place] IN LAST 30 DAYS: No - Related Data Allergies/Adverse Reactions: ibuprofen [Ibuprofen] Allergy (Mild, Verified 10/30/16 23:06) lips swell acetaminophen [From Tylenol] Allergy (Verified 10/30/16 23:06) Lips swelled aspirin [Aspirin] Allergy (Verified 10/30/16 23:06) Lips swelled Past Medical History - Social History Family History: Reviewed & Not Pertinent Patient has suicidal ideation: No Patient has homicidal ideation: No Pulmonary Medical History: Reports: Hx Asthma, Hx COPD Neurological Medical History: Reports: Hx Migraine, Hx Seizures - UNKNOWN Endocrine Medical History: Reports: Hx Diabetes Mellitus Type 2 Renal/ Medical History: Reports: Hx Kidney Stones. Denies: Hx Peritoneal Dialysis Musculoskeltal Medical History: Reports Hx Musculoskeletal Trauma Psychiatric Medical History: Reports: Hx Anxiety, Hx Bipolar Disorder, Hx Depression, Hx Schizoaffective Disorder Past Surgical History: Reports: Hx Cholecystectomy, Hx Kidney (Renal Surgery) - stone procedure - Immunizations Immunizations up to date: Yes Hx Diphtheria, Pertussis, Tetanus Vaccination: Yes Physical Exam - Vital signs Vitals: Temp Pulse Resp BP Pulse Ox 97.5 F 86 16 113/66 94 10/30/16 23:03 10/30/16 23:03 10/30/16 23:03 10/30/16 23:03 10/30/16 23:03 Course - Vital Signs Vital signs: Temp Pulse Resp BP Pulse Ox 97.5 F 86 16 113/66 94 10/30/16 23:04 10/30/16 23:03 10/30/16 23:03 10/30/16 23:03 10/30/16 23:03 - Laboratory Result Diagrams: 10/31/16 00:40 10/31/16 00:40 Laboratory results interpreted by me: 10/31/16 10/31/16 10/31/16 00:40 00:40 00:50 Hgb 11.9 L Hct 34.4 L Seg Neutrophils % 29.5 L Lymphocytes % 45.5 H Eosinophils % 16.2 H Absolute Eosinophils 1.0 H Sodium 133.9 L Chloride 96 L Carbon Dioxide 33 H AST 12 L Total Protein 5.5 L Albumin 2.8 L Urine Protein 30 H Urine Ketones TRACE H Urine Urobilinogen 2.0 H Ur Leukocyte Esterase SMALL H Discharge - Discharge Referrals: KATARINA URENA MD [Primary Care Provider] - Follow up as needed
--- NOTE | 2016-10-31 02:14 | ER Document Report ---
ED General - General Chief Complaint: General Weakness Stated Complaint: DIZZINESS Time Seen by Provider: 10/31/16 00:28 Mode of Arrival: Ambulatory Information source: Patient TRAVEL OUTSIDE OF THE [place] IN LAST 30 DAYS: No - HPI Patient complains to provider of: Lightheadedness Onset: This morning Onset/Duration: Intermittent Quality of pain: No pain Associated symptoms: Nausea Exacerbated by: Denies Relieved by: Denies Notes: Patient is a 46-year-old female presenting to the emergency room for complaints of nausea yesterday which has since resolved, but throughout the day today she reports feeling "woozy", with dizziness, she denies any vomiting, no fevers, no pain anywhere - Related Data Allergies/Adverse Reactions: ibuprofen [Ibuprofen] Allergy (Mild, Verified 10/30/16 23:06) lips swell acetaminophen [From Tylenol] Allergy (Verified 10/30/16 23:06) Lips swelled aspirin [Aspirin] Allergy (Verified 10/30/16 23:06) Lips swelled Past Medical History - General Information source: Patient - Social History Smoking Status: Never Smoker Family History: Reviewed & Not Pertinent Patient has suicidal ideation: No Patient has homicidal ideation: No Pulmonary Medical History: Reports: Hx Asthma, Hx COPD Neurological Medical History: Reports: Hx Migraine, Hx Seizures - UNKNOWN Endocrine Medical History: Reports: Hx Diabetes Mellitus Type 2 Renal/ Medical History: Reports: Hx Kidney Stones. Denies: Hx Peritoneal Dialysis Musculoskeltal Medical History: Reports Hx Musculoskeletal Trauma Psychiatric Medical History: Reports: Hx Anxiety, Hx Bipolar Disorder, Hx Depression, Hx Schizoaffective Disorder Past Surgical History: Reports: Hx Cholecystectomy, Hx Kidney (Renal Surgery) - stone procedure - Immunizations Immunizations up to date: Yes Hx Diphtheria, Pertussis, Tetanus Vaccination: Yes Review of Systems - Review of Systems Constitutional: No symptoms reported EENT: No symptoms reported Cardiovascular: Lightheaded Respiratory: No symptoms reported Gastrointestinal: Nausea Genitourinary: No symptoms reported Female Genitourinary: No symptoms reported Musculoskeletal: No symptoms reported Skin: No symptoms reported Hematologic/Lymphatic: No symptoms reported Neurological/Psychological: No symptoms reported -: Yes All other systems reviewed and negative Physical Exam - Vital signs Vitals: Temp Pulse Resp BP Pulse Ox 97.5 F 86 16 113/66 94 10/30/16 23:03 10/30/16 23:03 10/30/16 23:03 10/30/16 23:03 10/30/16 23:03 Interpretation: Normal - General General appearance: Appears well, Alert - HEENT Head: Normocephalic, Atraumatic Eyes: Normal Pupils: PERRL - Respiratory Respiratory status: No respiratory distress Chest status: Nontender Breath sounds: Normal Chest palpation: Normal - Cardiovascular Rhythm: Regular Heart sounds: Normal auscultation Murmur: No - Abdominal Inspection: Morbidly Obese Distension: No distension Bowel sounds: Normal Tenderness: Nontender Organomegaly: No organomegaly - Back Back: Normal, Nontender - Extremities General upper extremity: Normal inspection, Nontender, Normal color, Normal ROM , Normal temperature General lower extremity: Normal inspection, Nontender, Normal color, Normal ROM , Normal temperature, Normal weight bearing. No: Fe's sign - Neurological Neuro grossly intact: Yes Cognition: Normal Orientation: AAOx4 [place] Coma Scale Eye Opening: Spontaneous Dalia Coma Scale Verbal: Oriented Dalia Coma Scale Motor: Obeys Commands Dalia Coma Scale Total: 15 Speech: Normal Motor strength normal: LUE, RUE, LLE, RLE Sensory: Normal - Psychological Associated symptoms: Normal affect, Normal mood - Skin Skin Temperature: Warm Skin Moisture: Dry Skin Color: Normal Course - Re-evaluation Re-evalutation: 10/31/16 02:13 Patient resting comfortably on stretcher, watching TV, tolerating p.o. intake, vital signs are stable, labs are unremarkable and were discussed with patient at bedside, she will be discharged back to home and advised to follow-up with her primary care provider or return if symptoms worsen, patient acknowledges understanding and agreement with this plan - Vital Signs Vital signs: Temp Pulse Resp BP Pulse Ox 97.8 F 88 16 123/82 96 10/31/16 02:30 10/31/16 02:30 10/31/16 02:30 10/31/16 02:30 10/31/16 02:30 - Laboratory Result Diagrams: 10/31/16 00:40 10/31/16 00:40 Laboratory results interpreted by me: 10/31/16 10/31/16 10/31/16 00:40 00:40 00:50 Hgb 11.9 L Hct 34.4 L Seg Neutrophils % 29.5 L Lymphocytes % 45.5 H Eosinophils % 16.2 H Absolute Eosinophils 1.0 H Sodium 133.9 L Chloride 96 L Carbon Dioxide 33 H AST 12 L Total Protein 5.5 L Albumin 2.8 L Urine Protein 30 H Urine Ketones TRACE H Urine Urobilinogen 2.0 H Ur Leukocyte Esterase SMALL H Discharge - Discharge Clinical Impression: Generalized weakness Condition: Stable Disposition: HOME, SELF-CARE Instructions: Nausea or Vomiting, Nonspecific ([facility]), Weakness ([facility]) Additional Instructions: Follow up with your primary care provider in one to 2 days. Return to the emergency room immediately if symptoms worsen or any additional concerns. Referrals: KATARINA URENA MD [Primary Care Provider] - Follow up as needed
[2016-10-31 02:32] VITALS: BP 123/82
== END 2016-10-31 02:50 | disposition home or self-care (01) ==
LOC: ER 22:30
DX: R53.1 Weakness (principal); R42 Dizziness and giddiness; R11.0 Nausea
CPT/HCPCS: 36415; 80053; 81001; 83690; 85025; 87086; 99285

== ENCOUNTER 2016-11-28 19:19 | Emergency (ER) | payer MEDICARE, MEDICAID ==
[2016-11-28] MEDS ORDERED: LIDOCAINE 5% (700 MG) TRANSDERMAL ADH..PATCH TP ONE (20:25)
--- NOTE | 2016-11-28 20:31 | ER Document Report ---
HPI - HPI Notes: Patient is a 46-year-old female who presents the ED complaining of left lateral leg pain status post fall about 2 weeks ago. Patient states that she rolled out of her bed. Patient states that she has been ambulatory since that time and does not have any trouble walking. Patient did get into an argument with her boyfriend today and she called EMS thereafter. Patient denies any violence or physical contact. Patient has not been using any [id number] meds or conservative measures for her symptoms. The pain does not radiate. No position worsens or improves her pain. The pain is intermittent on occasion. Patient has a medical history of hypertension diabetes. She denies any recent illness or new injury. Denies any headache, fever, head injury, URI, sore throat, chest pain, palpitations, syncope, cough, shortness of breath, wheeze, dyspnea, abdominal pain, nausea/vomiting/diarrhea, urinary retention, dysuria, hematuria, back pain, loss of control of bowel or bladder, numbness/tingling, saddle anesthesia, muscle paralysis/weakness, or rash. - ROS Notes: REVIEW OF SYSTEMS: CONSTITUTIONAL : Denies fever, chills, or sweats. Denies recent illness. EENT: Denies eye, ear, throat, or mouth pain or symptoms. Denies nasal or sinus congestion or discharge. Denies throat, tongue, or mouth swelling or difficulty swallowing. CARDIOVASCULAR: Denies chest pain. Denies palpitations or racing or irregular heart beat. Denies ankle edema. RESPIRATORY: Denies cough, cold, or chest congestion. Denies shortness of breath, difficulty breathing, or wheezing. GASTROINTESTINAL: Denies abdominal pain or distention. Denies nausea, vomiting , or diarrhea. Denies blood in vomitus, stools, or per rectum. Denies black, tarry stools. Denies constipation. GENITOURINARY: Denies difficulty urinating, painful urination, burning, frequency, blood in urine, or discharge. MUSCULOSKELETAL: see hpi SKIN: Denies rash, lesions or sores. NEUROLOGICAL: Denies confusion or altered mental status. Denies passing out or loss of consciousness. Denies dizziness or lightheadedness. Denies headache. Denies weakness or paralysis or loss of use of either side. Denies problems with gait or speech. Denies sensory loss, numbness, or tingling. ALL OTHER SYSTEMS REVIEWED AND NEGATIVE. Dictation was performed using freee voice recognition software - REPRODUCTIVE Reproductive: DENIES: : Past Medical History - Social History Smoking Status: Unknown if Ever Smoked Family History: Reviewed & Not Pertinent Pulmonary Medical History: Reports: Hx Asthma, Hx COPD Neurological Medical History: Reports: Hx Migraine, Hx Seizures Endocrine Medical History: Reports: Hx Diabetes Mellitus Type 2 Renal/ Medical History: Reports: Hx Kidney Stones. Denies: Hx Peritoneal Dialysis Musculoskeltal Medical History: Reports Hx Musculoskeletal Trauma Psychiatric Medical History: Reports: Hx Anxiety, Hx Bipolar Disorder, Hx Depression, Hx Schizoaffective Disorder Past Surgical History: Reports: Hx Cholecystectomy, Hx Kidney (Renal Surgery) - stone procedure - Immunizations Immunizations up to date: Yes Hx Diphtheria, Pertussis, Tetanus Vaccination: Yes Vertical Provider Document - CONSTITUTIONAL Agree With Documented VS: Yes Notes: PHYSICAL EXAMINATION: GENERAL: Well-appearing, well-nourished and in no acute distress. A&O x4. Pt able to move around on the bed and move the leg w/o any difficulty or signs of discomfort. LUNGS: Breath sounds clear to auscultation bilaterally and equal. No wheezes rales or rhonchi. HEART: Regular rate and rhythm without murmurs, rubs, gallops. ABDOMEN: Soft, nontender, nondistended abdomen. No guarding, no rebound. No masses appreciated. Normal bowel sounds present. No CVA tenderness bilaterally. Musculoskeletal: Lt leg: No erythema, ecchymosis, inflammation, abrasion, laceration, deformity. FROM to passive/active. Strength 5+/5. + Tenderness to palp of the troch bursa (tenderness elicited corresponds to pain described). No other pelvis/knee/leg tenderness. N/V intact distal. ZAN negative. Back: nontender. FROM. Strength 5+/5. Extremities: No cyanosis, clubbing, or edema b/l. Peripheral pulses 2+. Capillary refill less than 3 seconds. NEUROLOGICAL: Cranial nerves grossly intact. Normal speech, normal gait. Normal sensory, motor exams PSYCH: Normal mood, normal affect. SKIN: Warm, Dry, normal turgor, no rashes or lesions noted. - INFECTION CONTROL TRAVEL OUTSIDE OF THE [place] IN LAST 30 DAYS: No - RESPIRATORY O2 Sat by Pulse Oximetry: 97 Course - Re-evaluation Re-evalutation: 11/28/16 20:29 Patient is an afebrile, well-hydrated, 46-year-old female who presents to the ED with left trochanteric bursitis based on H&P today. Vitals are stable. PE is otherwise unremarkable for any neurovascular compromise, dislocation, obvious fracture. No imaging warranted at this time based on H&P. Patient to monitor symptoms for any acute changes and seek medical attention if so. Lidoderm patch was applied an ice pack given. Recommend conservative measures for symptoms otherwise. Recheck with your PCM in 3-5 days. Consider consult with orthopedics and physical therapy. Return to the ED with any worsening/ concerning symptoms otherwise as reviewed in discharge. Patient is in agreement. - Vital Signs Vital signs: Temp Pulse Resp BP Pulse Ox 98.3 F 88 16 108/66 97 11/28/16 19:25 11/28/16 19:25 11/28/16 19:25 11/28/16 19:25 11/28/16 19:25 Discharge - Discharge Clinical Impression: Trochanteric bursitis, left hip Condition: Stable Disposition: HOME, SELF-CARE Instructions: Bursitis ([facility]), Ice Massage ([facility]), Ice Packs ([facility]), Warm Packs ( [facility]) Additional Instructions: Rest, Ice, Compression, Elevation Light stretches daily Strength exercises as able Moist heat and massage may help F/u with your PCP in 3-5 days for a recheck Consider consult(s) with Orthopedics/physical therapy for ongoing/worsening symptoms Return to the ED with any worsening symptoms and/or development of fever, headache, chest pain, palpitations, syncope, shortness of breath, trouble breathing, abdominal pain, n/v/d, muscle weakness/paralysis, numbness/tingling, swelling, redness, or other worsening symptoms that are concerning to you. Referrals: KATARINA URENA MD [Primary Care Provider] - Follow up in 3-5 days [facility] [Provider Group] - Follow up as needed
[2016-11-28 21:33] VITALS: BP 119/76
== END 2016-11-28 21:47 | disposition home or self-care (01) ==
LOC: ER 19:19
DX: M70.62 Trochanteric bursitis, left hip (principal); M79.605 Pain in left leg; W06.XXXA Fall from bed, initial encounter; I10 Essential (primary) hypertension; E11.9 Type 2 diabetes mellitus without complications; J44.9 Chronic obstructive pulmonary disease, unspecified
CPT/HCPCS: 99283

== ENCOUNTER 2016-12-23 19:24 | Emergency (ER) | payer MEDICARE, MEDICAID ==
[2016-12-23 21:24] LABS: APPEARANCE,URINE CLEAR; BILIRUBIN,URINE NEGATIVE (NEGATIVE); GLUCOSE, URINE NEGATIVE (NEGATIVE); KETONES,URINE NEGATIVE (NEGATIVE); LEUKOCYTE ESTERASE,URINE TRACE (NEGATIVE); NITRITE,URINE NEGATIVE (NEGATIVE); PROTEIN,URINE NEGATIVE (NEGATIVE); URINE SPECIFIC GRAVITY 1.009; UROBILINOGEN,URINE NEGATIVE mg/dL (<2.0)
[2016-12-23 21:36] LABS: URINE BARBITURATES SCREEN NEGATIVE; URINE METHADONE SCREEN NEGATIVE; URINE OPIATES LOW NEGATIVE; URINE PHENCYCLIDINE SCREEN NEGATIVE
[2016-12-23 21:49] LABS: ABSOLUTE EOSINOPHILS # (AUTO) 0.2 10^3/uL (0.0-0.6); ABSOLUTE LYMPHOCYTES (AUTO) 2.8 10^3/uL (0.5-4.7); ABSOLUTE MONOCYTES (AUTO) 0.4 10^3/uL (0.1-1.4); ABSOLUTE NEUT (AUTO) 2.7 10^3/uL (1.7-8.2); BASOPHILS % (AUTO) 0.5 % (0-2); EOSINOPHILS % (AUTO) 3.1 % (0-6); HEMATOCRIT 36.5 % (36.0-47.0); HEMOGLOBIN 12.6 g/dL (12.0-15.5); HGB HCT DIFFERENCE 1.3; LYMPHOCYTES % (AUTO) 45.3 % (13-45); MEAN CORPUSCULAR HEMOGLOBIN 31.4 pg (27.0-33.4); MEAN CORPUSCULAR HGB CONC 34.4 g/dL (32.0-36.0); MEAN CORPUSCULAR VOLUME 91 fl (80-97); MONOCYTES % (AUTO) 7.1 % (3-13); RED BLOOD COUNT 3.99 10^6/uL (3.72-5.28); RED CELL DISTRIBUTION WIDTH 13.7 % (11.5-14.0); WHITE BLOOD COUNT 6.1 10^3/uL (4.0-10.5)
[2016-12-23 22:01] LABS: ALANINE AMINOTRANSFERASE 24 U/L (9-52); ALBUMIN 3.1 g/dL (3.5-5.0); ALKALINE PHOSPHATASE 41 U/L (38-126); ANION GAP 6 (5-19); ASPARTATE AMINO TRANSFERASE 14 U/L (14-36); BILIRUBIN,DIRECT 0.3 mg/dL (0.0-0.4); BILIRUBIN,TOTAL 0.3 mg/dL (0.2-1.3); BLOOD UREA NITROGEN 15 mg/dL (7-20); CALCIUM 8.6 mg/dL (8.4-10.2); CARBON DIOXIDE 32 mmol/L (22-30); CHLORIDE 93 mmol/L (98-107); CREATININE RESULT 0.83 mg/dL (0.52-1.25); GLUCOSE 82 mg/dL (75-110); POTASSIUM 5.5 mmol/L (3.6-5.0); SODIUM 130.8 mmol/L (137-145)
[2016-12-23 22:02] LABS: ALCOHOL < 10 mg/dL (NONE DETECTED)
[2016-12-24] MEDS ORDERED: TRAMADOL HCL 50 MG TABLET PO ONE (02:47)
--- NOTE | 2016-12-24 03:12 | ER Document Report ---
ED General - General Chief Complaint: Psych Problem Stated Complaint: BLOOD SUGAR PROBLEMS Time Seen by Provider: 12/23/16 20:52 Mode of Arrival: Medic Information source: Patient Notes: This is a 46-year-old female with a history of hypertension, diabetes and schizophrenia who [facility] of [facility] thoughts for 2 weeks. TRAVEL OUTSIDE OF THE [place] IN LAST 30 DAYS: No - HPI Onset: Last week Onset/Duration: Gradual Quality of pain: No pain Severity: None Pain Level: Denies Associated symptoms: denies: Chest pain, Fever, Shortness of breath Exacerbated by: Denies Relieved by: Denies Similar symptoms previously: Yes Recently seen / treated by doctor: No - Related Data Allergies/Adverse Reactions: ibuprofen [Ibuprofen] Allergy (Mild, Verified 11/28/16 19:47) lips swell acetaminophen [From Tylenol] Allergy (Verified 11/28/16 19:47) Lips swelled aspirin [Aspirin] Allergy (Verified 11/28/16 19:47) Lips swelled bee venom protein (honey bee) Allergy (Verified 11/28/16 19:47) Past Medical History - General Information source: Patient - Social History Smoking Status: Unknown if Ever Smoked Cigarette use (# per day): No Chew tobacco use (# tins/day): No Frequency of alcohol use: None Drug Abuse: None Lives with: Alf Family History: Reviewed & Not Pertinent Patient has suicidal ideation: Yes Patient has homicidal ideation: No - Past Medical History Cardiac Medical History: Reports: Hx Hypercholesterolemia Pulmonary Medical History: Reports: Hx Asthma, Hx COPD Neurological Medical History: Reports: Hx Migraine, Hx Seizures Endocrine Medical History: Reports: Hx Diabetes Mellitus Type 2 Renal/ Medical History: Reports: Hx Kidney Stones. Denies: Hx Peritoneal Dialysis GI Medical History: Reports: Hx Gastroesophageal Reflux Disease Musculoskeltal Medical History: Reports Hx Musculoskeletal Trauma Psychiatric Medical History: Reports: Hx Anxiety, Hx Bipolar Disorder, Hx Depression, Hx Schizoaffective Disorder Past Surgical History: Reports: Hx Cholecystectomy, Hx Kidney (Renal Surgery) - stone procedure - Immunizations Immunizations up to date: Yes Hx Diphtheria, Pertussis, Tetanus Vaccination: Yes Review of Systems - Review of Systems Constitutional: denies: Chills, Fever EENT: No symptoms reported Cardiovascular: No symptoms reported Respiratory: No symptoms reported Gastrointestinal: No symptoms reported Genitourinary: No symptoms reported Female Genitourinary: No symptoms reported Musculoskeletal: No symptoms reported Skin: No symptoms reported Hematologic/Lymphatic: No symptoms reported Neurological/Psychological: See HPI Physical Exam - Vital signs Vitals: Temp Pulse Resp BP Pulse Ox 97.5 F 73 18 132/87 H 96 12/23/16 21:06 12/23/16 21:06 12/23/16 21:06 12/23/16 21:06 12/23/16 21:06 Notes: Physical exam: GENERAL: A 6-year-old female, alert and oriented 3, no acute distress HEAD: Atraumatic, normocephalic. EYES: Pupils equal round and reactive to light, extraocular movements intact, sclera anicteric, conjunctiva are normal. ENT: Moist mucous membranes. NECK: Normal range of motion, supple LUNGS: Breath sounds clear to auscultation bilaterally and equal. No wheezes rales or rhonchi. HEART: Regular rate and rhythm without murmurs, rubs or gallops. ABDOMEN: Soft, normoactive bowel sounds. No tenderness to palpation. No guarding, no rebound. No masses appreciated. EXTREMITIES: Normal range of motion, no pitting or edema. No clubbing or cyanosis. NEUROLOGICAL: Cranial nerves II through XII grossly intact. Normal speech, moving all extremities. PSYCH: Depressed mood, states she suicidal, denies any visual or auditory hallucinations SKIN: Warm, Dry, normal turgor, no rashes or lesions noted. Course - Vital Signs Vital signs: Temp Pulse Resp BP Pulse Ox 97.5 F 73 18 132/87 H 96 12/23/16 21:06 12/23/16 21:06 12/23/16 21:06 12/23/16 21:06 12/23/16 21:06 - Laboratory Result Diagrams: 12/23/16 21:30 12/23/16 21:30 Laboratory results interpreted by me: 12/23/16 12/23/16 12/23/16 21:00 21:30 21:30 Lymphocytes % 45.3 H Sodium 130.8 L Potassium 5.5 H Chloride 93 L Carbon Dioxide 32 H Total Protein 6.0 L Albumin 3.1 L Ur Leukocyte Esterase TRACE H Salicylates < 1.0 L Acetaminophen < 10 L - EKG Interpretation by Me Rate: Normal Rhythm: NSR - EKG shows normal sinus rhythm with a ventricular rate of 66, there is some baseline artifact, otherwise, no acute ST-T wave changes Discharge - Discharge Clinical Impression: Depression, Suicidal ideation, UTI Condition: Stable Disposition: HOME, SELF-CARE Prescriptions: Cephalexin Monohydrate [Keflex 500 mg Capsule] 500 mg PO Q6H 5 Days capsule
[2016-12-24] MEDS ORDERED: CEPHALEXIN 500 MG CAPSULE PO SCH ×2 (03:15→09:00)
[2016-12-24] MEDS ORDERED: DIVALPROEX SODIUM 500 MG TAB.SR.24H PO ONE (04:00)
[2016-12-24] MEDS ORDERED: CEPHALEXIN 500 MG CAPSULE PO ONE (04:00)
--- NOTE | 2016-12-24 08:45 | EKG REPORT ---
SEVERITY:- ABNORMAL ECG - SINUS RHYTHM BORDERLINE LEFT AXIS DEVIATION CONSIDER ANTEROSEPTAL INFARCT : Confirmed by: Eduardo Aviles MD 24-Dec-2016 08:44:58
--- NOTE | 2016-12-24 08:57 | PSYCHOLOGICAL NOTE ---
Psych Note - Psych Note Psych Note: Report given per EMS. Pt coming from [facility] and states she has been having suicidal ideations x 2 weeks with no active plan. Pt hx bipolar and diabetes. EMS states pt's blood glucose was 65 on truck intitally. EMS gave oral glucose and did repeat blood sugar which was 89. Pt appears calm with normal skin color for ethnicity. Pt laying in stretcher by nurses station for monitoring. Clinician spoke with patient she states she does not remember how she arrived to [facility] ED and does not understand why she is here. She disclosed that she has been sad because her dad 10 months ago but denies any new events. Patient denies thoughts of wanting to hurt herself or others. Clinician notes patient's eyes are dilated with lights on and showing confusion. Patient's breakfast was in the room and she stated she would like to eat but was unable to lift herself off of the bed. Attending nurse assisted patient. Clinician conducted chart review it is noted the patient was smiling and engaging with staff when she initially arrived. Impression\plan. Patient is considered psychiatrically clear. Patient is demonstrating behaviors more congruent with medical rather than psychological at this time. Patient denies thoughts of wanting to harm herself but agrees that she has been sad since her father [address] Watt was consulted and the care and management of this patient.
[2016-12-24] MEDS ORDERED: LISINOPRIL 10 MG TABLET PO SCH (10:00)
[2016-12-24] MEDS ORDERED: CLONAZEPAM 1 MG TABLET PO SCH (10:00)
[2016-12-24] MEDS ORDERED: SITAGLIPTIN PHOSPHATE 50 MG TABLET PO SCH (10:00)
[2016-12-24] MEDS ORDERED: METFORMIN HCL 500 MG TABLET PO SCH (10:00)
[2016-12-24] MEDS ORDERED: BENZTROPINE MESYLATE 1 MG TABLET PO SCH (10:00)
--- NOTE | 2016-12-24 10:46 | ER Document Report ---
Doctor's Note Notes: 12/24/16 10:45 Patient was evaluated. I have read the previous providers notes. I have read mental health notes. At this time I do not feel patient is a harm to herself. Patient has some electrolyte abnormalities that need to be reevaluated. Possible low-grade urinary tract infection. Patient was started on antibiotics. If her electrolytes are better and is not manifesting any suicidal ideation other than her baseline depression for comfortable discharging her back to her alf facility/assisted living facility. 12/24/16 12:31 Laboratory 12/23/16 12/23/16 12/23/16 21:00 21:00 21:30 WBC 6.1 RBC 3.99 Hgb 12.6 Hct 36.5 MCV 91 MCH 31.4 MCHC 34.4 RDW 13.7 Plt Count 233 Seg Neutrophils % 44.0 Lymphocytes % 45.3 H Monocytes % 7.1 Eosinophils % 3.1 Basophils % 0.5 Absolute Neutrophils 2.7 Absolute Lymphocytes 2.8 Absolute Monocytes 0.4 Absolute Eosinophils 0.2 Absolute Basophils 0.0 Sodium Potassium Chloride Carbon Dioxide Anion Gap BUN Creatinine Est GFR ( Amer) Est GFR (Non-Af Amer) Glucose Calcium Total Bilirubin Direct Bilirubin Indirect Bilirubin Neonat Total Bilirubin AST ALT Alkaline Phosphatase Total Protein Albumin Urine Color YELLOW Urine Appearance CLEAR Urine pH 6.0 Ur Specific [place] 1.009 Urine Protein NEGATIVE Urine Glucose (UA) NEGATIVE Urine Ketones NEGATIVE Urine Blood NEGATIVE Urine Nitrite NEGATIVE Urine Bilirubin NEGATIVE Urine Urobilinogen NEGATIVE Ur Leukocyte Esterase TRACE H Urine WBC (Auto) 13 Urine RBC (Auto) 1 Urine Bacteria (Auto) TRACE Squamous Epi Cells Auto 1 Urine Mucus (Auto) RARE Urine Ascorbic Acid NEGATIVE Salicylates Urine Opiates Screen NEGATIVE Urine Methadone Screen NEGATIVE Acetaminophen Ur Barbiturates Screen NEGATIVE Ur Phencyclidine Scrn NEGATIVE Ur Amphetamines Screen NEGATIVE U Benzodiazepines Scrn NEGATIVE Urine Cocaine Screen NEGATIVE U Marijuana (THC) Screen NEGATIVE Serum Alcohol 12/23/16 12/24/16 21:30 11:37 WBC RBC Hgb Hct MCV MCH MCHC RDW Plt Count Seg Neutrophils % Lymphocytes % Monocytes % Eosinophils % Basophils % Absolute Neutrophils Absolute Lymphocytes Absolute Monocytes Absolute Eosinophils Absolute Basophils Sodium 130.8 L 134.3 L Potassium 5.5 H 5.2 H Chloride 93 L 94 L Carbon Dioxide 32 H 32 H Anion Gap 6 8 BUN 15 12 Creatinine 0.83 0.76 Est GFR ( Amer) > 60 > 60 Est GFR (Non-Af Amer) > 60 > 60 Glucose 82 87 Calcium 8.6 9.8 Total Bilirubin 0.3 Direct Bilirubin 0.3 Indirect Bilirubin Not Reportable Neonat Total Bilirubin Not Reportable AST 14 ALT 24 Alkaline Phosphatase 41 Total Protein 6.0 L Albumin 3.1 L Urine Color Urine Appearance Urine pH Ur Specific [place] Urine Protein Urine Glucose (UA) Urine Ketones Urine Blood Urine Nitrite Urine Bilirubin Urine Urobilinogen Ur Leukocyte Esterase Urine WBC (Auto) Urine RBC (Auto) Urine Bacteria (Auto) Squamous Epi Cells Auto Urine Mucus (Auto) Urine Ascorbic Acid Salicylates < 1.0 L Urine Opiates Screen Urine Methadone Screen Acetaminophen < 10 L Ur Barbiturates Screen Ur Phencyclidine Scrn Ur Amphetamines Screen U Benzodiazepines Scrn Urine Cocaine Screen U Marijuana (THC) Screen Serum Alcohol < 10 Labs are improved patient does not meet criteria for IVC. Mental health has seen and evaluated. Please see their note. Has a mild UTI will continue to treat. Comfortable at this time discharging. Discharge - Discharge Clinical Impression: Depression, Suicidal ideation, UTI Condition: Stable Disposition: HOME, SELF-CARE Instructions: Depression (OM), Urinary Tract Infection (OM) Prescriptions: Cephalexin Monohydrate [Keflex 500 mg Capsule] 500 mg PO Q6H 5 Days capsule
[2016-12-24 12:10] LABS: ANION GAP 8 (5-19); BLOOD UREA NITROGEN 12 mg/dL (7-20); CALCIUM 9.8 mg/dL (8.4-10.2); CARBON DIOXIDE 32 mmol/L (22-30); CHLORIDE 94 mmol/L (98-107); CREATININE RESULT 0.76 mg/dL (0.52-1.25); GLUCOSE 87 mg/dL (75-110); POTASSIUM 5.2 mmol/L (3.6-5.0); SODIUM 134.3 mmol/L (137-145)
[2016-12-24 12:43] VITALS: BP 122/72
[2016-12-24] MEDS ORDERED: DIVALPROEX SODIUM 500 MG TAB.SR.24H PO SCH (22:00)
[2016-12-24] MEDS ORDERED: TRAZODONE HCL 50 MG TABLET PO SCH (22:00)
== END 2016-12-24 13:22 | disposition home or self-care (01) ==
LOC: ER 19:24
DX: N39.0 Urinary tract infection, site not specified (principal); F32.9 Major depressive disorder, single episode, unspecified; R45.851 Suicidal ideations; I10 Essential (primary) hypertension; E11.9 Type 2 diabetes mellitus without complications; F20.9 Schizophrenia, unspecified; E78.00 Pure hypercholesterolemia, unspecified; J44.9 Chronic obstructive pulmonary disease, unspecified; Z88.6 Allergy status to analgesic agent; Z87.442 Personal history of urinary calculi; Z90.49 Acquired absence of other specified parts of digestive tract
CPT/HCPCS: 93005; 99285; 36415; 87086; 80307 ×4; 85025; 87088; 80048; 80053; 81001; 93010; A9270 ×8

== ENCOUNTER 2016-12-30 16:56 | Emergency (ER) | payer MEDICARE, MEDICAID ==
[2016-12-30 17:05] VITALS: BP 120/78
[2016-12-30] MEDS ORDERED: TRAMADOL HCL 50 MG TABLET PO ONE (17:52)
--- NOTE | 2016-12-30 17:54 | ER Document Report ---
ED General - General Mode of Arrival: Ambulatory Information source: Patient TRAVEL OUTSIDE OF THE [place] IN LAST 30 DAYS: No - General Chief Complaint: Headache Stated Complaint: HEADACHE/ABDOMINAL PAIN Time Seen by Provider: 12/30/16 17:42 Notes: Patient is a 46 year old female presenting to the emergency department complaining of headache, and chest pain onset this morning. Patients associated symptoms include numbness around her head. Patient denies itzel blurry vision or neck pain Patient is a poor historian. Patient initially denies chest pain, then when asked again patient states she has chest pain. When performing PEx, patient states that she is not tender around abdomen until asked about a specific location to which she states she is. Patient is only consistent when stating she has a headache. (CARMITA CAREY) - Related Data Allergies/Adverse Reactions: ibuprofen [Ibuprofen] Allergy (Mild, Verified 11/28/16 19:47) lips swell acetaminophen [From Tylenol] Allergy (Verified 11/28/16 19:47) Lips swelled aspirin [Aspirin] Allergy (Verified 11/28/16 19:47) Lips swelled bee venom protein (honey bee) Allergy (Verified 11/28/16 19:47) Past Medical History - General Information source: Patient - Social History Smoking Status: Never Smoker Chew tobacco use (# tins/day): No Frequency of alcohol use: None Drug Abuse: None Family History: Reviewed & Not Pertinent Patient has suicidal ideation: No Patient has homicidal ideation: No - Past Medical History Cardiac Medical History: Reports: Hx Hypercholesterolemia Pulmonary Medical History: Reports: Hx Asthma, Hx COPD Neurological Medical History: Reports: Hx Migraine, Hx Seizures Endocrine Medical History: Reports: Hx Diabetes Mellitus Type 2 Renal/ Medical History: Reports: Hx Kidney Stones. Denies: Hx Peritoneal Dialysis GI Medical History: Reports: Hx Gastroesophageal Reflux Disease Musculoskeltal Medical History: Reports Hx Musculoskeletal Trauma Psychiatric Medical History: Reports: Hx Anxiety, Hx Bipolar Disorder, Hx Depression, Hx Schizoaffective Disorder Past Surgical History: Reports: Hx Cholecystectomy, Hx Kidney (Renal Surgery) - stone procedure - Immunizations Immunizations up to date: Yes Hx Diphtheria, Pertussis, Tetanus Vaccination: Yes Review of Systems - Review of Systems Constitutional: No symptoms reported EENT: No symptoms reported Cardiovascular: See HPI, Chest pain Respiratory: No symptoms reported Gastrointestinal: See HPI, Abdominal pain Genitourinary: No symptoms reported Female Genitourinary: No symptoms reported Musculoskeletal: No symptoms reported Skin: No symptoms reported Hematologic/Lymphatic: No symptoms reported Neurological/Psychological: No symptoms reported -: Yes All other systems reviewed and negative Physical Exam - General General appearance: Alert - HEENT Head: Normocephalic, Atraumatic Pupils: PERRL Tympanic membrane: Injected - right - Respiratory Respiratory status: No respiratory distress Chest status: Tender - reproducable chest pain Breath sounds: Normal - Cardiovascular Rhythm: Regular Heart sounds: Normal auscultation Murmur: No Friction rub: No Gallop: None auscultated - Abdominal Inspection: Obese Tenderness: Tender - No inital tenderness. Diffuse tenderness to abdomen whe specifically asked. 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 Patient states she just wanted to take medicine for her headache but she is allergic to so many things. I did review her records from the retirement and she is prescribed tramadol 50 mg to be taken for pain including headaches, she received this yesterday but did not receive any today. I see no evidence of acute neurologic process. Patient initially stated she had chest pain but then when asked specifically if she had chest pain she said no, specifically denied any other pain but then when asked specifically about abdominal pain during the exam admitted abdominal pain but later denied abdominal pain again. At present I do not see any acute process, patient is at her neurologic baseline, patient is very happy with the plan to try a dose of tramadol and be discharged back to [facility]. 12/30/16 18:47 During discharge process patient states that she wishes to commit suicide. When I discussed this with the patient she states her plan is to kill herself by taking all of her pills. When I discussed this with her further she admitted that she simply does not want to live in [facility] anymore and she would like to live in [facility] instead. Patient admits that she does not have access to her pills at [facility] and that her pills are administered to her by the medical staff at [facility]. This is clearly not a viable plan. On further discussions with the patient she admits that she simply wants to move to [facility], states she is trying to convince [facility] that she can move to [facility] and that they do not want her [facility] anymore. Discussed with patient that this is not the appropriate way to go about trying to transfer facilities and that she will have to discuss this further with Dr. Urena. I do not find patient to be a risk to herself or others at this time and she will continue to be discharged back to [facility]. (KATELYNN LAZO) - Vital Signs Vital signs: Temp Pulse Resp BP Pulse Ox 97.8 F 86 18 120/78 97 12/30/16 17:03 12/30/16 17:03 12/30/16 17:03 12/30/16 17:03 12/30/16 17:03 Discharge - Discharge Clinical Impression: Right-sided headache Condition: Stable Disposition: HOME-ASSISTED LIVING Additional Instructions: I see no signs of stroke and no indication of bleeding in your brain. We treated you with a dose of tramadol 50 mg. If your headaches persist she should follow-up with your primary care physician Dr. Urena. If you develop any new or concerning symptoms you are always welcome to return to the emergency department at any time. Referrals: KATARINA URENA MD [Primary Care Provider] - Follow up as needed Scribe Attestation: 12/30/16 19:13 I personally performed the services described in the documentation, reviewed and edited the documentation which was dictated to the scribe in my presence, and it accurately records my words and actions. (KATELYNN LAZO) Scribe Documentation - Scribe Written by Rudy:: Rudy Donnelly, 12/30/2016 18:53 acting as scribe for :: Raoul
== END 2016-12-30 20:10 | disposition home health service (06) ==
LOC: ER 16:56
DX: R51 Headache (principal); R10.9 Unspecified abdominal pain; R07.9 Chest pain, unspecified; R20.0 Anesthesia of skin
CPT/HCPCS: 99284; A9270

== ENCOUNTER 2017-01-01 12:59 | Emergency (ER) | payer MEDICARE, MEDICAID ==
--- NOTE | 2017-01-01 14:38 | ER Document Report ---
ED Psych Disorder / Suicide - General Chief Complaint: Psych Problem Stated Complaint: PSYCH ISSUE Time Seen by Provider: 01/01/17 14:29 Mode of Arrival: Ambulatory Information source: Patient TRAVEL OUTSIDE OF THE [place] IN LAST 30 DAYS: No - HPI Patient complains to provider of: Suicidal ideation Onset: Last week Quality of pain: No pain Suicide Risk Factors: Lack of social support, Schizophrenia Normal mood: Yes Associated symptoms: Normal affect, Normal mood Similar symptoms previously: Yes Recently seen / treated by doctor: Yes Notes: Patient is a 46-year-old female who is brought to the emergency room by EMS from [facility], with thoughts of suicide, she reports that she gets sad around this time a year when the holidays, because she has no family or friends to spend the holidays with, she reports her sister approximately 10 months ago, she has a history of long-standing schizophrenia and depression, reports that she attempted to cut herself approximately 5 years ago while living in [place], she attempted to show me where she cut herself but there is no scar or evidence of any previous serious injury, she has not attempted any type of suicide since then, she has not attempted anything recently, she says she thinks about cutting herself but has no active plan to do so, reports no other means to injure herself at this point in time, no other complaints today - Related Data Allergies/Adverse Reactions: ibuprofen [Ibuprofen] Allergy (Mild, Verified 11/28/16 19:47) lips swell acetaminophen [From Tylenol] Allergy (Verified 11/28/16 19:47) Lips swelled aspirin [Aspirin] Allergy (Verified 11/28/16 19:47) Lips swelled bee venom protein (honey bee) Allergy (Verified 11/28/16 19:47) Past Medical History - General Information source: Patient - Social History Smoking Status: Unknown if Ever Smoked Chew tobacco use (# tins/day): No Frequency of alcohol use: None Drug Abuse: None Family History: Reviewed & Not Pertinent Patient has suicidal ideation: No Patient has homicidal ideation: No - Past Medical History Cardiac Medical History: Reports: Hx Hypercholesterolemia Pulmonary Medical History: Reports: Hx Asthma, Hx COPD Neurological Medical History: Reports: Hx Migraine, Hx Seizures Endocrine Medical History: Reports: Hx Diabetes Mellitus Type 2 Renal/ Medical History: Reports: Hx Kidney Stones. Denies: Hx Peritoneal Dialysis GI Medical History: Reports: Hx Gastroesophageal Reflux Disease Musculoskeltal Medical History: Reports Hx Musculoskeletal Trauma Psychiatric Medical History: Reports: Hx Anxiety, Hx Bipolar Disorder, Hx Depression, Hx Schizoaffective Disorder Past Surgical History: Reports: Hx Cholecystectomy, Hx Kidney (Renal Surgery) - stone procedure - Immunizations Immunizations up to date: Yes Hx Diphtheria, Pertussis, Tetanus Vaccination: Yes Review of Systems - Review of Systems Constitutional: No symptoms reported EENT: No symptoms reported Cardiovascular: No symptoms reported Respiratory: No symptoms reported Gastrointestinal: No symptoms reported Genitourinary: No symptoms reported Female Genitourinary: No symptoms reported Musculoskeletal: No symptoms reported Skin: No symptoms reported Hematologic/Lymphatic: No symptoms reported Neurological/Psychological: See HPI -: Yes All other systems reviewed and negative Physical Exam - Vital signs Interpretation: Normal - General General appearance: Appears well, Alert - HEENT Head: Normocephalic, Atraumatic Eyes: Normal Pupils: PERRL - Respiratory Respiratory status: No respiratory distress Chest status: Nontender Breath sounds: Normal Chest palpation: Normal - Cardiovascular Rhythm: Regular Heart sounds: Normal auscultation Murmur: No - Abdominal Inspection: Normal, Obese Distension: No distension Bowel sounds: Normal Tenderness: Nontender Organomegaly: No organomegaly - Back Back: Normal, Nontender - Extremities General upper extremity: Normal inspection, Nontender, Normal color, Normal ROM , Normal temperature General lower extremity: Normal inspection, Nontender, Normal color, Normal ROM , Normal temperature, Normal weight bearing. No: Fe's sign - Neurological Neuro grossly intact: Yes Cognition: Normal Orientation: AAOx4 [place] Coma Scale Eye Opening: Spontaneous [place] Coma Scale Verbal: Oriented [place] Coma Scale Motor: Obeys Commands [place] Coma Scale Total: 15 Speech: Normal Motor strength normal: LUE, RUE, LLE, RLE Sensory: Normal - Psychological Associated symptoms: Normal affect, Normal mood - Skin Skin Temperature: Warm Skin Moisture: Dry Skin Color: Normal Course - Re-evaluation Re-evalutation: 01/01/17 14:42 Patient is resting comfortably on stretcher, she comes from [facility] which is a 24 hour staffed facility, she has no means to injure herself or commit suicide, she has been seen here multiple times in the past and generally has no active plan to do so, she is typically just lonely because she has no family or friends, she also states that she really just does not like where she lives at this point in time, but cannot say any specific reasons why she does not like living there, she does report that her roommate of one month's time named Jess is her friend, otherwise she has no social supports outside of [facility], and has not attempted suicide for at least the past 5 years although has been seen in this emergency room on multiple occasions in the past few years with thoughts of suicide, when she does attempt to show me where she attempted to cut herself in the past there is no scar or evidence of any serious injury, therefore patient will be discharged back to [facility] with instructions for follow-up, patient is in agreement with this plan 01/01/17 14:44 Discharge - Discharge Clinical Impression: Suicidal thoughts Condition: Stable Disposition: HOME, SELF-CARE Instructions: Suicidal Ideation ([facility]) Additional Instructions: Follow up with your primary care provider and a mental health provider in one to 2 days. Return to the emergency room immediately if symptoms worsen or any additional concerns. Referrals: KATARINA URENA MD [Primary Care Provider] - Follow up as needed
[2017-01-01 14:44] LABS: AMORPHOUS SEDIMENT,URINE TRACE /HPF; APPEARANCE,URINE CLOUDY; BILIRUBIN,URINE NEGATIVE (NEGATIVE); GLUCOSE, URINE NEGATIVE (NEGATIVE); KETONES,URINE TRACE mg/dL (NEGATIVE); LEUKOCYTE ESTERASE,URINE MODERATE (NEGATIVE); NITRITE,URINE NEGATIVE (NEGATIVE); PROTEIN,URINE 30 mg/dL (NEGATIVE); URINE SPECIFIC GRAVITY 1.016; UROBILINOGEN,URINE NEGATIVE mg/dL (<2.0)
[2017-01-01 14:59] LABS: URINE BARBITURATES SCREEN NEGATIVE; URINE METHADONE SCREEN NEGATIVE; URINE OPIATES LOW NEGATIVE; URINE PHENCYCLIDINE SCREEN NEGATIVE
[2017-01-01 17:29] VITALS: BP 104/74
--- NOTE | 2017-01-02 09:15 | EKG REPORT ---
SEVERITY:- OTHERWISE NORMAL ECG - SINUS RHYTHM BORDERLINE LEFT AXIS DEVIATION : Confirmed by: Parag Huntley 02-Jan-2017 09:14:27
== END 2017-01-01 17:32 | disposition home or self-care (01) ==
LOC: ER 12:59
DX: R45.851 Suicidal ideations (principal); F20.9 Schizophrenia, unspecified; F32.9 Major depressive disorder, single episode, unspecified
CPT/HCPCS: 80307; 81001; 93005; 93010; 99285

== ENCOUNTER 2017-01-01 21:11 | Emergency (ER) | payer MEDICARE, MEDICAID ==
[2017-01-01] MEDS ORDERED: HALOPERIDOL 5 MG TABLET PO ONE (23:18)
[2017-01-01] MEDS ORDERED: TRAZODONE HCL 50 MG TABLET PO ONE (23:18)
--- NOTE | 2017-01-01 23:25 | ER Document Report ---
ED General - General Chief Complaint: Psych Problem Stated Complaint: PSYCH EVAL Time Seen by Provider: 01/01/17 21:29 Mode of Arrival: Medic Information source: Patient, Emergency Med Personnel Notes: Patient states she was suicidal earlier, but is not now. Now her complaint is chest pain. TRAVEL OUTSIDE OF THE [place] IN LAST 30 DAYS: No - HPI Onset: This afternoon Onset/Duration: Gradual Quality of pain: Burning Associated symptoms: None. denies: Chills, Fever, Nausea, Shortness of breath, Sweating Exacerbated by: Denies. denies: Deep breathing Relieved by: Denies Similar symptoms previously: No Recently seen / treated by doctor: Yes - [facility] E[facility] TODAY - Related Data Allergies/Adverse Reactions: ibuprofen [Ibuprofen] Allergy (Mild, Verified 11/28/16 19:47) lips swell acetaminophen [From Tylenol] Allergy (Verified 11/28/16 19:47) Lips swelled aspirin [Aspirin] Allergy (Verified 11/28/16 19:47) Lips swelled bee venom protein (honey bee) Allergy (Verified 11/28/16 19:47) Past Medical History - General Information source: Patient, [facility] Records - Social History Smoking Status: Unknown if Ever Smoked Cigarette use (# per day): No Chew tobacco use (# tins/day): No Frequency of alcohol use: None Drug Abuse: None Lives with: [facility] Family History: Reviewed & Not Pertinent Patient has suicidal ideation: Yes - SAYS IT'S NOW RESOLVED Patient has homicidal ideation: No - Past Medical History Cardiac Medical History: Reports: Hx Hypercholesterolemia Pulmonary Medical History: Reports: Hx Asthma, Hx COPD Neurological Medical History: Reports: Hx Migraine, Hx Seizures Endocrine Medical History: Reports: Hx Diabetes Mellitus Type 2 Renal/ Medical History: Reports: Hx Kidney Stones. Denies: Hx Peritoneal Dialysis GI Medical History: Reports: Hx Gastroesophageal Reflux Disease Musculoskeltal Medical History: Reports Hx Musculoskeletal Trauma Psychiatric Medical History: Reports: Hx Anxiety, Hx Bipolar Disorder, Hx Depression, Hx Schizoaffective Disorder Past Surgical History: Reports: Hx Cholecystectomy, Hx Kidney (Renal Surgery) - stone procedure - Immunizations Immunizations up to date: Yes Hx Diphtheria, Pertussis, Tetanus Vaccination: Yes Review of Systems - Review of Systems Constitutional: No symptoms reported EENT: No symptoms reported Cardiovascular: See HPI Respiratory: No symptoms reported Gastrointestinal: No symptoms reported Genitourinary: No symptoms reported Musculoskeletal: No symptoms reported Skin: No symptoms reported Neurological/Psychological: See HPI Physical Exam - Vital signs Vitals: Temp Pulse Resp BP Pulse Ox 97.8 F 81 18 124/63 95 01/01/17 22:00 01/01/17 22:00 01/01/17 22:00 01/01/17 22:00 01/01/17 22:00 Interpretation: Hypertensive. No: Tachycardic, Tachypneic - General General appearance: Appears well, Alert In distress: None - HEENT Head: Normocephalic Eyes: Normal Conjunctiva: Normal Ears: Normal Nasal: Normal Mouth/Lips: Normal Mucous membranes: Normal Pharynx: Normal Neck: Normal - Respiratory Respiratory status: No respiratory distress Chest status: Tender - R. [place] Breath sounds: Normal - Cardiovascular Rhythm: Regular Heart sounds: Normal auscultation Murmur: No - Abdominal Inspection: Obese Distension: No distension Bowel sounds: Normal Tenderness: Nontender - Back Back: Normal - Extremities General upper extremity: Normal inspection General lower extremity: Normal inspection. No: Tender, Edema - Neurological Neuro grossly intact: Yes Cognition: Normal Orientation: AAOx4 - Psychological Associated symptoms: Normal affect, Normal mood - Skin Skin Temperature: Warm Skin Moisture: Dry Skin Color: Normal Skin Turgor: Elastic Course - Re-evaluation Re-evalutation: 01/02/17 01:05 Results of EKG and chest x-ray discussed with patient. She does recall falling and possibly striking her right chest earlier today. She continues to deny any suicidal ideations at this time. She will be discharged back to her assisted living facility. She states she has an appointment with [facility] tomorrow. - Vital Signs Vital signs: Temp Pulse Resp BP Pulse Ox 97.8 F 81 18 124/63 95 01/01/17 22:00 01/01/17 22:00 01/01/17 22:00 01/01/17 22:00 01/01/17 22:00 - Diagnostic Test Radiology reviewed: Image reviewed, Reports reviewed - EKG Interpretation by Me EKG shows normal: Sinus rhythm, Intervals, QRS Complexes, ST-T Waves. abnormal : [place] Rate: Normal Rhythm: NSR [place]/QRS: Left axis deviation - BORDERLINE Discharge - Discharge Clinical Impression: Suicidal ideation, Chest wall pain Condition: Stable Disposition: HOME-ASSISTED LIVING Instructions: Chest Wall Pain ([facility]), Depression ([facility]), Suicidal Ideation ([facility]) Additional Instructions: CONTINUE USUAL MEDICATIONS. FOLLOW UP WITH [facility] FOR FURTHER EVALUATION OF YOUR SUICIDAL THOUGHTS, CALL TOMORROW FOR APPOINTMENT. FOLLOW UP WITH DR. URENA FOR FURTHER EVALUATION OF YOUR CHEST PAIN IF IT DOES NOT IMPROVE IN THE NEXT 2-3 DAYS. Referrals: KATARINA URENA MD [Primary Care Provider] - Follow up as needed PIETRO PRIDE MD [NO LOCAL MD] - Follow up as needed
--- NOTE | 2017-01-02 00:59 | RADIOLOGY REPORT (SQ) ---
EXAM DESCRIPTION: CHEST PA/LAT CLINICAL HISTORY: R. SIDED CHEST PAIN COMPARISON: None. FINDINGS: Frontal and lateral views of the chest. Low lung volumes. The cardiomediastinal silhouette has normal size and contour. No consolidation, pneumothorax, or pleural effusion. No displaced rib fractures identified. Upper abdominal soft tissues are unremarkable. IMPRESSION: 1. No acute pulmonary process identified.
[2017-01-02 06:40] VITALS: BP 129/74
--- NOTE | 2017-01-02 09:15 | EKG REPORT ---
SEVERITY:- OTHERWISE NORMAL ECG - SINUS RHYTHM BORDERLINE LEFT AXIS DEVIATION : Confirmed by: Parag Huntley 02-Jan-2017 09:14:18
== END 2017-01-02 06:40 | disposition home health service (06) ==
LOC: ER 21:11
DX: R45.851 Suicidal ideations (principal); R07.9 Chest pain, unspecified; E78.00 Pure hypercholesterolemia, unspecified; J44.9 Chronic obstructive pulmonary disease, unspecified; Z88.6 Allergy status to analgesic agent; Z91.030 Bee allergy status; Z87.442 Personal history of urinary calculi; Z90.49 Acquired absence of other specified parts of digestive tract
CPT/HCPCS: 93005; 99285; 71020; 93010; A9270 ×2

== ENCOUNTER 2017-01-02 20:18 | Emergency (ER) | payer MEDICARE, MEDICAID ==
--- NOTE | 2017-01-02 23:16 | ER Document Report ---
ED General - General Chief Complaint: Asthma Exacerbation Stated Complaint: DIFFICUTLY BREATHING Time Seen by Provider: 01/02/17 22:12 Notes: Patient is a 46-year-old female who comes to the ER very frequently. States an assisted living facility. She has been seen here for psych issues in the past. She presents today saying that she is got asthma. She denies any psychiatric problems at this time. She says that she has been coughing a lot and feels short of breath. She denies any fevers. No vomiting. She does not have an albuterol inhaler at home. She has no other complaints at this time. Denies chest pain. TRAVEL OUTSIDE OF THE [place] IN LAST 30 DAYS: No - Related Data Allergies/Adverse Reactions: ibuprofen [Ibuprofen] Allergy (Mild, Verified 11/28/16 19:47) lips swell acetaminophen [From Tylenol] Allergy (Verified 11/28/16 19:47) Lips swelled aspirin [Aspirin] Allergy (Verified 11/28/16 19:47) Lips swelled bee venom protein (honey bee) Allergy (Verified 11/28/16 19:47) Past Medical History - Social History Smoking Status: Unknown if Ever Smoked Frequency of alcohol use: None Drug Abuse: None Family History: Reviewed & Not Pertinent Patient has suicidal ideation: No Patient has homicidal ideation: No - Past Medical History Cardiac Medical History: Reports: Hx Hypercholesterolemia Pulmonary Medical History: Reports: Hx Asthma, Hx COPD Neurological Medical History: Reports: Hx Migraine, Hx Seizures Endocrine Medical History: Reports: Hx Diabetes Mellitus Type 2 Renal/ Medical History: Reports: Hx Kidney Stones. Denies: Hx Peritoneal Dialysis GI Medical History: Reports: Hx Gastroesophageal Reflux Disease Musculoskeltal Medical History: Reports Hx Musculoskeletal Trauma Psychiatric Medical History: Reports: Hx Anxiety, Hx Bipolar Disorder, Hx Depression, Hx Schizoaffective Disorder Past Surgical History: Reports: Hx Cholecystectomy, Hx Kidney (Renal Surgery) - stone procedure - Immunizations Immunizations up to date: Yes Hx Diphtheria, Pertussis, Tetanus Vaccination: Yes Review of Systems - Review of Systems Notes: My Normal Review Basic REVIEW OF SYSTEMS: CONSTITUTIONAL : Denies fever, chills, or sweats. Denies recent illness. EENT: Denies eye, ear, throat, or mouth pain or symptoms. Denies nasal or sinus congestion. CARDIOVASCULAR: Denies chest pain. RESPIRATORY: Coughing and feeling short of breath. GASTROINTESTINAL: Denies abdominal pain. Denies nausea, vomiting, or diarrhea. Denies constipation. Last BM: MUSCULOSKELETAL: Denies neck or back pain or joint pain or swelling. SKIN: Denies rash or skin lesions. NEUROLOGICAL: Denies altered mental status or loss of consciousness. Denies headache. Denies weakness or paralysis or loss of use of either side. Denies problems with gait or speech. Denies sensory or motor loss. ALL OTHER SYSTEMS REVIEWED AND NEGATIVE. Physical Exam - Vital signs Vitals: Temp Pulse Resp BP Pulse Ox 98.3 F 96 16 131/96 H 97 01/02/17 20:24 01/02/17 20:24 01/02/17 20:24 01/02/17 20:24 01/02/17 20:24 - Notes Notes: General Appearance: Well nourished, alert, cooperative, no acute distress, no obvious discomfort. Well-appearing. She is speaking in full sentences. She has no signs of shortness of breath. Vital signs: Vital signs reviewed. Head: no swelling or tenderness to the head Eyes: PERRL, EOMI, Conjuctiva clear Mouth: No decreasd moisture Neck: Supple, no neck tenderness, No thyromegaly Lungs: No wheezing, No rales, No rhonci, No accessory muscle use, good air exchange bilaterally. Heart: Normal rate, Regular rythm, No murmur, no rub Extremities: strength 5/5 in all extremities, good pulses in all extremities, no swelling or tenderness in the extremities, no edema. Skin: warm, dry, appropriate color, no rash Neuro: speech clear, oriented x 3, normal affect, responds appropriately to questions. Course - Re-evaluation Re-evalutation: 01/02/17 23:22 Patient looks well. She is in no distress. Her lung rashid are completely clear. She says she has been having a lot of coughing and cold-like symptoms. At this time I do not think she is an inhaler and steroids. Her lungs completely clear and she has no tachypnea and looks very well. I do not suspect PE. She does not have tachypnea or hypoxemia. She does not have any leg pain or leg swelling. Feel she is safe to be discharged home. I encouraged her return to ER if she has chest pain, difficulty breathing, wheezing, fevers, or if she feels unwell. Patient agrees with plan will be discharged home. Dictation of this chart was performed using voice recognition software; therefore, there may be some unintended grammatical errors. - Vital Signs Vital signs: Temp Pulse Resp BP Pulse Ox 98.3 F 96 16 131/96 H 97 01/02/17 20:24 01/02/17 20:24 01/02/17 20:24 01/02/17 20:24 01/02/17 20:24 Discharge - Discharge Clinical Impression: Cough Condition: Good Disposition: HOME, SELF-CARE Additional Instructions: Please return to the ER immediately if you have fevers, worsening difficulty breathing, vomiting, chest pain, or feel that you are worsening. Your xray today is clear. Your lung sounds are clear; therefore, you do not need an inhaler at this time.
--- NOTE | 2017-01-02 23:43 | RADIOLOGY REPORT (SQ) ---
EXAM DESCRIPTION: CHEST PA/LAT COMPLETED DATE/TIME: 01/02/2017 10:37 pm REASON FOR STUDY: cough, SOB COMPARISON: 01/02/2017. EXAM PARAMETERS: NUMBER OF VIEWS: two views TECHNIQUE: Digital Frontal and Lateral radiographic views of the chest acquired. RADIATION DOSE: NA LIMITATIONS: none FINDINGS: LUNGS AND PLEURA: No opacities, masses or pneumothorax. No pleural effusion. MEDIASTINUM AND HILAR STRUCTURES: No masses or contour abnormalities. HEART AND VASCULAR STRUCTURES: Heart normal size. No evidence for failure. BONES: No acute findings. HARDWARE: None in the chest. OTHER: No other significant finding. IMPRESSION: NO SIGNIFICANT RADIOGRAPHIC FINDING IN THE CHEST. TECHNICAL DOCUMENTATION: JOB ID: [id number] [employer]- All Rights Reserved
[2017-01-02 23:59] VITALS: BP 125/90
== END 2017-01-03 02:01 | disposition home or self-care (01) ==
LOC: ER 20:18
DX: R05 Cough (principal); E78.00 Pure hypercholesterolemia, unspecified; J44.9 Chronic obstructive pulmonary disease, unspecified; E11.9 Type 2 diabetes mellitus without complications; K21.9 Gastro-esophageal reflux disease without esophagitis; Z87.442 Personal history of urinary calculi; Z88.6 Allergy status to analgesic agent; Z90.49 Acquired absence of other specified parts of digestive tract
CPT/HCPCS: 71020; 99283

== ENCOUNTER 2017-01-14 19:04 | Emergency (ER) | payer MEDICARE, MEDICAID ==
[2017-01-14 19:23] LABS: ABSOLUTE EOSINOPHILS # (AUTO) 0.3 10^3/uL (0.0-0.6); ABSOLUTE LYMPHOCYTES (AUTO) 2.7 10^3/uL (0.5-4.7); ABSOLUTE MONOCYTES (AUTO) 0.4 10^3/uL (0.1-1.4); ABSOLUTE NEUT (AUTO) 3.2 10^3/uL (1.7-8.2); BASOPHILS % (AUTO) 0.5 % (0-2); HEMATOCRIT 35.8 % (36.0-47.0); HEMOGLOBIN 12.4 g/dL (12.0-15.5); HGB HCT DIFFERENCE 1.4; LYMPHOCYTES % (AUTO) 40.5 % (13-45); MEAN CORPUSCULAR HEMOGLOBIN 31.5 pg (27.0-33.4); MEAN CORPUSCULAR HGB CONC 34.5 g/dL (32.0-36.0); MEAN CORPUSCULAR VOLUME 91 fl (80-97); MONOCYTES % (AUTO) 6.6 % (3-13); RED BLOOD COUNT 3.93 10^6/uL (3.72-5.28); RED CELL DISTRIBUTION WIDTH 13.7 % (11.5-14.0); SEGMENTED NEUTROPHILS % (AUTO) 47.4 % (42-78); WHITE BLOOD COUNT 6.8 10^3/uL (4.0-10.5)
[2017-01-14 19:48] LABS: ALANINE AMINOTRANSFERASE 15 U/L (9-52); ALKALINE PHOSPHATASE 43 U/L (38-126); ANION GAP 10 (5-19); ASPARTATE AMINO TRANSFERASE 20 U/L (14-36); BILIRUBIN,DIRECT 0.3 mg/dL (0.0-0.4); BILIRUBIN,TOTAL 0.3 mg/dL (0.2-1.3); BLOOD UREA NITROGEN 14 mg/dL (7-20); CALCIUM 8.3 mg/dL (8.4-10.2); CARBON DIOXIDE 28 mmol/L (22-30); CHLORIDE 90 mmol/L (98-107); CREATINE KINASE 53 U/L (30-135); CREATININE RESULT 0.72 mg/dL (0.52-1.25); GLUCOSE 99 mg/dL (75-110); SODIUM 127.7 mmol/L (137-145); TOTAL PROTEIN 5.9 g/dL (6.3-8.2)
[2017-01-14 19:57] LABS: CREATINE KINASE MB 1.32 ng/mL (<4.55)
[2017-01-14 20:00] LABS: TROPONIN I < 0.012 ng/mL
--- NOTE | 2017-01-14 20:14 | RADIOLOGY REPORT (SQ) ---
EXAM DESCRIPTION: CHEST SINGLE VIEW COMPLETED DATE/TIME: 01/14/2017 8:02 pm REASON FOR STUDY: bed 2 cp COMPARISON: None. EXAM PARAMETERS: NUMBER OF VIEWS: One view. TECHNIQUE: Single frontal radiographic view of the chest acquired. RADIATION DOSE: NA LIMITATIONS: None. FINDINGS: LUNGS AND PLEURA: No opacities, masses or pneumothorax. No pleural effusion. MEDIASTINUM AND HILAR STRUCTURES: No masses. Contour normal. HEART AND VASCULAR STRUCTURES: Heart normal in size. Normal vasculature. BONES: No acute findings. HARDWARE: None in the chest. OTHER: No other significant finding. IMPRESSION: NO ACUTE RADIOGRAPHIC FINDING IN THE CHEST. TECHNICAL DOCUMENTATION: JOB ID: [id number] [employer]- All Rights Reserved
[2017-01-14] MEDS ORDERED: NORMAL SALINE 1000 ML 1,000 ML IV PRN (20:53)
[2017-01-15 00:01] VITALS: BP 122/74
--- NOTE | 2017-01-15 01:17 | ER Document Report ---
ED General - General Chief Complaint: Chest Pain Stated Complaint: CHEST PAIN Time Seen by Provider: 01/14/17 20:53 Mode of Arrival: Medic Information source: Patient Notes: This is a 46-year-old female with a history of schizophrenia who was brought into the emergency room with sharp chest pain constant since yesterday. She denies any shortness of breath. Patient denies leg pain. Review of systems. Patient denies Any suicidal ideations. TRAVEL OUTSIDE OF THE [place] IN LAST 30 DAYS: No - HPI Onset: Just prior to arrival Onset/Duration: Gradual Quality of pain: Dull Severity: None Pain Level: Denies Associated symptoms: denies: Fever, Shortness of breath Exacerbated by: Denies Relieved by: Denies Similar symptoms previously: No Recently seen / treated by doctor: No - Related Data Allergies/Adverse Reactions: ibuprofen [Ibuprofen] Allergy (Mild, Verified 11/28/16 19:47) lips swell acetaminophen [From Tylenol] Allergy (Verified 11/28/16 19:47) Lips swelled aspirin [Aspirin] Allergy (Verified 11/28/16 19:47) Lips swelled bee venom protein (honey bee) Allergy (Verified 11/28/16 19:47) Past Medical History - General Information source: Patient - Social History Smoking Status: Unknown if Ever Smoked Cigarette use (# per day): No Chew tobacco use (# tins/day): No Frequency of alcohol use: None Drug Abuse: None Lives with: Family Family History: Reviewed & Not Pertinent Patient has suicidal ideation: No Patient has homicidal ideation: No - Past Medical History Cardiac Medical History: Reports: Hx Hypercholesterolemia Pulmonary Medical History: Reports: Hx Asthma, Hx COPD Neurological Medical History: Reports: Hx Migraine, Hx Seizures Endocrine Medical History: Reports: Hx Diabetes Mellitus Type 2 Renal/ Medical History: Reports: Hx Kidney Stones. Denies: Hx Peritoneal Dialysis GI Medical History: Reports: Hx Gastroesophageal Reflux Disease Musculoskeltal Medical History: Reports Hx Musculoskeletal Trauma Psychiatric Medical History: Reports: Hx Anxiety, Hx Bipolar Disorder, Hx Depression, Hx Schizoaffective Disorder Past Surgical History: Reports: Hx Cholecystectomy, Hx Kidney (Renal Surgery) - stone procedure - Immunizations Immunizations up to date: Yes Hx Diphtheria, Pertussis, Tetanus Vaccination: Yes Review of Systems - Review of Systems Constitutional: denies: Chills, Fever EENT: No symptoms reported Cardiovascular: No symptoms reported Respiratory: No symptoms reported Gastrointestinal: No symptoms reported Genitourinary: No symptoms reported Female Genitourinary: No symptoms reported Musculoskeletal: See HPI Skin: No symptoms reported Hematologic/Lymphatic: No symptoms reported Neurological/Psychological: No symptoms reported Physical Exam - Vital signs Vitals: Resp Pulse Ox 17 98 01/14/17 19:14 01/14/17 19:14 Notes: Physical exam: GENERAL: 46-year-old female, lying in stretcher, no acute distress. HEAD: Atraumatic, normocephalic. EYES: Pupils equal round and reactive to light, extraocular movements intact, sclera anicteric, conjunctiva are normal. ENT: TMs normal, nares patent, oropharynx clear without exudates. Moist mucous membranes. NECK: Normal range of motion, supple without obvious mass or JVD. LUNGS: Breath sounds clear to auscultation bilaterally and equal. No wheezes rales or rhonchi. HEART: Regular rate and rhythm without murmurs, rubs or gallops. ABDOMEN: Soft, normoactive bowel sounds. No tenderness to palpation. No guarding, no rebound. No masses appreciated. EXTREMITIES: Normal range of motion, no pitting or edema. No clubbing or cyanosis. NEUROLOGICAL: Cranial nerves II through XII grossly intact. Normal speech, moving all extremities. PSYCH: Normal mood, normal affect. SKIN: Warm, Dry, normal turgor, no rashes or lesions noted. Course - Vital Signs Vital signs: Temp Pulse Resp BP Pulse Ox 98.2 F 19 122/74 98 01/14/17 19:17 01/14/17 23:01 01/14/17 23:01 01/14/17 22:01 - Laboratory Result Diagrams: 01/14/17 19:13 01/14/17 19:13 Laboratory results interpreted by me: 01/14/17 01/14/17 19:13 19:13 Hct 35.8 L Sodium 127.7 L Chloride 90 L Calcium 8.3 L Total Protein 5.9 L Albumin 3.0 L - Diagnostic Test Radiology reviewed: Image reviewed, Reports reviewed - Chest x-ray shows no infiltrates - EKG Interpretation by Me Rate: Normal Rhythm: NSR - EKG shows normal sinus rhythm with a ventricular rate of 95, no acute ST-T wave changes Discharge - Discharge Clinical Impression: Chest wall pain Condition: Stable Disposition: HOME, SELF-CARE Instructions: Chest Wall Pain ([facility]) Additional Instructions: Patient's chest x-ray and EKG look good. Cardiac enzymes were normal. Renal function studies were good. Patient did have mild hyponatremia which was felt to be due to slight volume depletion and she was given some IV fluids. Anemia studies were good. She was screened for suicidal ideations and she denied any. Recommendations: Continue current medicines Follow-up with therapist and primary care doctor.
--- NOTE | 2017-01-15 09:56 | EKG REPORT ---
SEVERITY:- BORDERLINE ECG - SINUS RHYTHM BORDERLINE LEFT AXIS DEVIATION NONSPECIFIC ST-T CHANGES : Confirmed by: Eduardo Aviles MD 15-Jan-2017 09:56:27
== END 2017-01-15 02:03 | disposition home or self-care (01) ==
LOC: ER 19:04
DX: R07.89 Other chest pain (principal); J44.9 Chronic obstructive pulmonary disease, unspecified; E11.9 Type 2 diabetes mellitus without complications; Z88.6 Allergy status to analgesic agent; Z91.030 Bee allergy status
CPT/HCPCS: 93005; 99285; 96360; 36415; 82553; 82550; 85025; 80053; 84484; 71010; 93010; J7030

== ENCOUNTER 2017-02-17 21:56 | Emergency (ER) | payer MEDICARE, MEDICAID ==
[2017-02-17 22:26] VITALS: BP 108/77
--- NOTE | 2017-02-17 23:22 | ER Document Report ---
ED Fall - General Mode of Arrival: Ambulatory Information source: Patient TRAVEL OUTSIDE OF THE [place]. IN LAST 30 DAYS: No - General Chief Complaint: Pain All Over Stated Complaint: FALL/RIGHT ELBOW Time Seen by Provider: 02/17/17 22:59 Notes: Patient is a 46-year-old female who presents to the emergency department today with complaints of a fall that occurred 2 days ago. Patient states she was at physical therapy when she fell. Patient states she fell from a sitting position. States she fell forward hitting her face, right knee, right elbow. Patient mentioned that she is out of her tramadol prescription. Patient denies any loss of consciousness or usage of blood thinners. (CRAIG HEALY) - Related data Allergies/Adverse Reactions: ibuprofen [Ibuprofen] Allergy (Mild, Verified 02/17/17 22:04) lips swell acetaminophen [From Tylenol] Allergy (Verified 02/17/17 22:04) Lips swelled aspirin [Aspirin] Allergy (Verified 02/17/17 22:04) Lips swelled bee venom protein (honey bee) Allergy (Verified 02/17/17 22:04) Past Medical History - General Information source: Patient, [facility] Records - Social History Smoking Status: Never Smoker Cigarette use (# per day): No Chew tobacco use (# tins/day): No Frequency of alcohol use: None Drug Abuse: None Lives with: Family Family History: Reviewed & Not Pertinent Patient has suicidal ideation: No Patient has homicidal ideation: No - Past Medical History Cardiac Medical History: Reports: Hx Hypercholesterolemia Pulmonary Medical History: Reports: Hx Asthma, Hx COPD Neurological Medical History: Reports: Hx Migraine, Hx Seizures Endocrine Medical History: Reports: Hx Diabetes Mellitus Type 2 Renal/ Medical History: Reports: Hx Kidney Stones GI Medical History: Reports: Hx Gastroesophageal Reflux Disease Musculoskeltal Medical History: Reports Hx Musculoskeletal Trauma Psychiatric Medical History: Reports: Hx Anxiety, Hx Bipolar Disorder, Hx Depression, Hx Schizoaffective Disorder Past Surgical History: Reports: Hx Cholecystectomy, Hx Kidney (Renal Surgery) - stone procedure - Immunizations Immunizations up to date: Yes Hx Diphtheria, Pertussis, Tetanus Vaccination: Yes Review of Systems - Review of Systems Constitutional: No symptoms reported EENT: No symptoms reported Cardiovascular: No symptoms reported Respiratory: No symptoms reported Gastrointestinal: No symptoms reported Genitourinary: No symptoms reported Female Genitourinary: No symptoms reported Musculoskeletal: See HPI, Joint pain - right knee pain, right elbow pain, right chest wall pain Skin: No symptoms reported Hematologic/Lymphatic: No symptoms reported Neurological/Psychological: denies: Lost consciousness -: Yes All other systems reviewed and negative Physical Exam - Vital signs Vitals: Temp Pulse Resp BP Pulse Ox 97.8 F 80 20 108/77 97 02/17/17 22:22 02/17/17 22:22 02/17/17 22:22 02/17/17 22:22 02/17/17 22:22 - Notes Notes: PHYSICAL EXAM GENERAL: Alert, interacts well. No acute distress. HEAD: Normocephalic, atraumatic. EYES: Pupils equal, round, and reactive to light. Extraocular movements intact. ENT: Oral mucosa moist, tongue midline. NECK: Full range of motion. Supple. Trachea midline. LUNGS: Clear to auscultation bilaterally, no wheezes, rales, or rhonchi. No respiratory distress. HEART: Regular rate and rhythm. No murmurs, gallops, or rubs. ABDOMEN: Soft, epigastric tenderness with palpation. Non-distended. Bowel sounds present in all 4 quadrants. EXTREMITIES: Moves all 4 extremities spontaneously. Moves both right knee and right elbow spontaneously without any pain or difficulty, able to use right upper extremity to pull herself up. No edema, radial and dorsalis pedis pulses 2 /4 bilaterally. No cyanosis. NEUROLOGICAL: Alert and oriented x3. Normal speech. PSYCH: Normal affect, normal mood. SKIN: Warm, dry, normal turgor. No rashes or lesions noted. Right elbow, right knee, and right anterior chest ecchymosis. (CRAIG HEALY) Course - Re-evaluation Re-evalutation: 02/17/17 23:22 No evidence of fracture, not taking blood thinners, no loss of consciousness, no altered mental status, no trauma to the head. She had a very lower risk injury which was falling onto her face from a fall from a seated position 2 days ago which was witnessed by physical therapist who did not feel she needed to be evaluated at the time. Patiently currently has a small ecchymosis under the right breast and on the right knee otherwise no evidence of trauma. Patient has been out of her tramadol for 2 weeks, is on this chronic pain medication from Dr. Urena, has been instructed to follow with Dr. Urena as an outpatient. Will be discharged to home. No indication for imaging at this time. (KATELYNN LAZO) - Vital Signs Vital signs: Temp Pulse Resp BP Pulse Ox 97.8 F 80 20 108/77 97 02/17/17 22:22 02/17/17 22:22 02/17/17 22:22 02/17/17 22:22 02/17/17 22:22 Discharge - Discharge Clinical Impression: Fall at home Qualifiers: Encounter type: initial encounter Qualified Code(s): W19.XXXA - Unspecified fall, initial encounter Traumatic ecchymosis of right knee Qualifiers: Encounter type: initial encounter Qualified Code(s): S80.01XA - Contusion of right knee, initial encounter Condition: Stable Disposition: HOME, SELF-CARE Additional Instructions: Please follow-up with Dr. Urena as an outpatient to discuss potentially refilling your tramadol. This is not a medication we refill from the emergency department. Referrals: KATARINA URENA MD [Primary Care Provider] - Follow up as needed Scribe Attestation: 02/18/17 03:30 I personally performed the services described in the documentation, reviewed and edited the documentation which was dictated to the scribe in my presence, and it accurately records my words and actions. (KATELYNN LAZO) Scribe Documentation - Scribe Written by Dieteribe:: Rudy Carmona, 02/18/2017 0153 acting as scribe for :: Raoul
== END 2017-02-17 23:55 | disposition home or self-care (01) ==
LOC: ER 21:56
DX: S80.01XA Contusion of right knee, initial encounter (principal); W19.XXXA Unspecified fall, initial encounter; Y92.531 Health care provider office as the place of occurrence of the external cause; Z88.6 Allergy status to analgesic agent; E78.00 Pure hypercholesterolemia, unspecified; J44.9 Chronic obstructive pulmonary disease, unspecified; E11.9 Type 2 diabetes mellitus without complications; Z87.442 Personal history of urinary calculi; Z90.49 Acquired absence of other specified parts of digestive tract
CPT/HCPCS: 99283

== ENCOUNTER 2017-02-19 16:12 | Emergency (ER) | payer MEDICARE, MEDICAID ==
[2017-02-19 22:37] LABS: ACETAMINOPHEN < 10 ug/mL (10-30); ALCOHOL < 10 mg/dL (NONE DETECTED); SALICYLATE < 1.0 mg/dL (2.0-20.0)
--- NOTE | 2017-02-19 23:03 | RADIOLOGY REPORT (SQ) ---
EXAM DESCRIPTION: CT HEAD WITHOUT COMPLETED DATE/TIME: 02/19/2017 10:46 pm REASON FOR STUDY: FELL OUT OF BED COMPARISON: None. TECHNIQUE: Axial images acquired through the brain without intravenous contrast. Images reviewed wi th bone, brain and subdural windows. Images stored on PACS. All CT scanners at this facility use dose modulation, iterative reconstruction, and/or weight based d osing when appropriate to reduce radiation dose to as low as reasonably achievable (ALARA). [facility]: Dose Right [facility]: CareDose [facility]: Dose Right [facility]: Teradose 4D [facility]: [employer] RADIATION DOSE: mGy. LIMITATIONS: None. FINDINGS: VENTRICLES: Prominent. CEREBRUM: No masses. No hemorrhage. No midline shift. Areas of low density in the white matter mos t likely due to chronic micro-vascular ischemic change. No evidence for acute infarction. CEREBELLUM: No masses. No hemorrhage. No alteration of density. No evidence for acute infarction. EXTRAAXIAL SPACES: Mild age-related involutional change. No fluid collections. No masses. ORBITS AND GLOBE: No intra- or extraconal masses. Normal contour of globe without masses. CALVARIUM: No fracture. PARANASAL SINUSES: Marked chronic left maxillary sinus disease. SOFT TISSUES: No mass or hematoma. OTHER: No other significant finding. IMPRESSION: MILD CHRONIC CHANGES OF ATROPHY AND MICROVASCULAR ISCHEMIA. NO ACUTE PROCESS. EVIDENCE OF ACUTE STROKE: NO. TECHNICAL DOCUMENTATION: JOB ID: [id number] Quality ID # [id number]: Final reports with documentation of one or more dose reduction techniques (e.g., Au tomated exposure control, adjustment of the mA and/or kV according to patient size, use of iterative reconstruction technique) 2010 [employer]- All Rights Reserved
--- NOTE | 2017-02-19 23:03 | RADIOLOGY REPORT (SQ) ---
EXAM DESCRIPTION: CT ABD/PELVIS WITH IV ORAL COMPLETED DATE/TIME: 02/19/2017 10:46 pm REASON FOR STUDY: FELL OUT OF BED COMPARISON: None. TECHNIQUE: CT scan of the abdomen and pelvis performed with intravenous and oral contrast using tatianna lori scanning technique with dynamic intravenous contrast injection. Images reviewed with lung, soft t issue, and bone windows. Reconstructed coronal and sagittal MPR images reviewed. Delayed images for e valuation of the urinary system also acquired. All images stored on PACS. All CT scanners at this facility use dose modulation, iterative reconstruction, and/or weight based d osing when appropriate to reduce radiation dose to as low as reasonably achievable (ALARA). [facility]: Dose Right [facility]: CareDose [facility]: Dose Right [facility]: Teradose 4D [facility]: [employer] A/S CONTRAST TYPE AND DOSE: 100 cc Isovue 370 RENAL FUNCTION: GFR > 60. RADIATION DOSE: . LIMITATIONS: None. FINDINGS: LOWER CHEST: See separate report of the CT of the chest. LIVER: Normal size. No masses. No dilated ducts. SPLEEN: Normal size. No focal lesions. PANCREAS: No masses. No significant calcifications. No adjacent inflammation or peripancreatic fluid collections. Pancreatic duct not dilated. GALLBLADDER: Surgically absent. ADRENAL GLANDS: No significant masses or asymmetry. RIGHT KIDNEY AND URETER: No solid masses. No significant calcifications. No hydronephrosis or hyd roureter. LEFT KIDNEY AND URETER: No solid masses. No significant calcifications. No hydronephrosis or hydr oureter. AORTA AND VESSELS: No aneurysm. No dissection. Renal arteries, SMA, celiac without stenosis. RETROPERITONEUM: No retroperitoneal adenopathy, hemorrhage or masses. BOWEL AND PERITONEAL CAVITY: No obstruction. No visualized masses. No free fluid. No inflammatory ch anges or thickening of bowel wall. APPENDIX: Normal. PELVIS: No significant masses. Normal bladder. No free fluid. ABDOMINAL WALL: No masses. No hernias. BONES: No significant or acute findings. OTHER: No other significant finding. IMPRESSION: NO SIGNIFICANT OR ACUTE FINDINGS IN THE ABDOMEN OR PELVIS. TECHNICAL DOCUMENTATION: JOB ID: [id number] Quality ID # [id number]: Final reports with documentation of one or more dose reduction techniques (e.g., Au tomated exposure control, adjustment of the mA and/or kV according to patient size, use of iterative reconstruction technique) 2010 [employer]- All Rights Reserved
--- NOTE | 2017-02-19 23:04 | RADIOLOGY REPORT (SQ) ---
EXAM DESCRIPTION: CT CHEST WITH COMPLETED DATE/TIME: 02/19/2017 10:46 pm REASON FOR STUDY: FELL OUT OF BED COMPARISON: None. TECHNIQUE: CT scan of the chest performed using helical scanning technique with dynamic intravenous contrast injection. Images reviewed with lung, soft tissue and bone windows. Reconstructed coronal and sagittal MPR images reviewed. All images stored on PACS. All CT scanners at this facility use dose modulation, iterative reconstruction, and/or weight based d osing when appropriate to reduce radiation dose to as low as reasonably achievable (ALARA). [facility]: Dose Right [facility]: CareDose [facility]: Dose Right [facility]: Teradose 4D [facility]: [employer] CONTRAST TYPE AND DOSE: Not available RENAL FUNCTION: Not available RADIATION DOSE: . LIMITATIONS: None. FINDINGS: LUNGS AND PLEURA: No opacities, nodules, masses. No pneumothorax. No effusions. HILAR AND MEDIASTINAL STRUCTURES: No identified masses or abnormal nodes. HEART AND VASCULAR STRUCTURES: No aneurysm or dissection. No central pulmonary emboli. No pericardi al effusion. HARDWARE: None in the chest. UPPER ABDOMEN: See separate report of the CT of the abdomen. THYROID AND OTHER SOFT TISSUES: No masses. No adenopathy. BONES: No significant finding. OTHER: No other significant finding. IMPRESSION: NORMAL CT OF THE CHEST WITH IV CONTRAST. TECHNICAL DOCUMENTATION: JOB ID: [id number] Quality ID # [id number]: Final reports with documentation of one or more dose reduction techniques (e.g., Au tomated exposure control, adjustment of the mA and/or kV according to patient size, use of iterative reconstruction technique) 2010 [employer]- All Rights Reserved
--- NOTE | 2017-02-19 23:05 | RADIOLOGY REPORT (SQ) ---
EXAM DESCRIPTION: CT CERVICAL SPINE WITHOUT COMPLETED DATE/TIME: 02/19/2017 10:46 pm REASON FOR STUDY: FELL OUT OF BED COMPARISON: None. TECHNIQUE: Axial images acquired through the cervical spine without intravenous contrast. Images re viewed with lung, soft tissue and bone windows. Reconstructed coronal and sagittal MPR images review ed. Images stored on PACS. All CT scanners at this facility use dose modulation, iterative reconstruction, and/or weight based d osing when appropriate to reduce radiation dose to as low as reasonably achievable (ALARA). [facility]: Dose Right [facility]: CareDose [facility]: Dose Right [facility]: Teradose 4D [facility]: [employer] RADIATION DOSE: mGy. LIMITATIONS: None. FINDINGS: ALIGNMENT: Anatomic. MINERALIZATION: Normal. VERTEBRAL BODIES: No fractures or dislocation. DISCS: No significant disc disease. FACETS, LATERAL MASSES, POSTERIOR ELEMENTS: No fractures. No dislocation. No acute findings. HARDWARE: None in the spine. VISUALIZED RIBS: No fractures. LUNG APICES AND SOFT TISSUES: No significant or acute findings. OTHER: No other significant finding. IMPRESSION: NO ACUTE OR SIGNIFICANT FINDINGS IN THE CERVICAL SPINE. TECHNICAL DOCUMENTATION: JOB ID: [id number] Quality ID # [id number]: Final reports with documentation of one or more dose reduction techniques (e.g., Au tomated exposure control, adjustment of the mA and/or kV according to patient size, use of iterative reconstruction technique) 2010 [employer]- All Rights Reserved
--- NOTE | 2017-02-19 23:39 | EKG REPORT ---
SEVERITY:- NORMAL ECG - SINUS RHYTHM : Confirmed by: Parag Huntley 19-Feb-2017 23:38:32
[2017-02-20] MEDS ORDERED: HYDROXYZINE PAMOATE 50 MG CAPSULE PO ONE (00:58)
[2017-02-20 01:15] LABS: URINE AMPHETAMINES SCREEN NEGATIVE; URINE BARBITURATES SCREEN NEGATIVE; URINE BENZODIAZEPINES SCREEN NEGATIVE; URINE COCAINE SCREEN NEGATIVE; URINE MARIJUANA (THC) SCREEN NEGATIVE; URINE METHADONE SCREEN NEGATIVE; URINE PHENCYCLIDINE SCREEN NEGATIVE
[2017-02-20 03:59] LABS: ABSOLUTE EOSINOPHILS # (AUTO) 0.5 10^3/uL (0.0-0.6); ABSOLUTE LYMPHOCYTES (AUTO) 2.6 10^3/uL (0.5-4.7); ABSOLUTE MONOCYTES (AUTO) 0.5 10^3/uL (0.1-1.4); ABSOLUTE NEUT (AUTO) 2.8 10^3/uL (1.7-8.2); BASOPHILS % (AUTO) 0.5 % (0-2); EOSINOPHILS % (AUTO) 7.9 % (0-6); HEMATOCRIT 39.8 % (36.0-47.0); HEMOGLOBIN 13.5 g/dL (12.0-15.5); LYMPHOCYTES % (AUTO) 40.8 % (13-45); MEAN CORPUSCULAR HGB CONC 33.9 g/dL (32.0-36.0); MEAN CORPUSCULAR VOLUME 92 fl (80-97); MONOCYTES % (AUTO) 7.2 % (3-13); PLATELET COUNT 276 10^3/uL (150-450); RED BLOOD COUNT 4.35 10^6/uL (3.72-5.28); RED CELL DISTRIBUTION WIDTH 13.9 % (11.5-14.0); SEGMENTED NEUTROPHILS % (AUTO) 43.6 % (42-78); TOTAL CELLS COUNTED % (AUTO) 100 %; WHITE BLOOD COUNT 6.4 10^3/uL (4.0-10.5)
[2017-02-20 04:05] LABS: APPEARANCE,URINE CLEAR; BILIRUBIN,URINE NEGATIVE (NEGATIVE); COLOR,URINE YELLOW; GLUCOSE, URINE NEGATIVE (NEGATIVE); KETONES,URINE NEGATIVE (NEGATIVE); LEUKOCYTE ESTERASE,URINE NEGATIVE (NEGATIVE); NITRITE,URINE NEGATIVE (NEGATIVE); PROTEIN,URINE 30 mg/dL (NEGATIVE); URINE SPECIFIC GRAVITY 1.009; UROBILINOGEN,URINE NEGATIVE mg/dL (<2.0)
--- NOTE | 2017-02-20 08:53 | ER Document Report ---
Doctor's Note Notes: 02/20/17 14:09 As the rounding physician for our psychiatric patients, I have reviewed the chart, vitals, lab work. Patient has been examined and noted to be stable. I am awaiting mental health in put.
--- NOTE | 2017-02-20 08:59 | RADIOLOGY REPORT (SQ) ---
EXAM DESCRIPTION: KNEE LEFT 4 VIEW COMPLETED DATE/TIME: 02/20/2017 12:21 am REASON FOR STUDY: FALL, LEFT KNEE PAIN COMPARISON: None. NUMBER OF VIEWS: Four views. TECHNIQUE: AP, lateral, and both oblique radiographic images acquired of the left knee. LIMITATIONS: None. FINDINGS: MINERALIZATION: Normal. BONES: No acute fracture or dislocation. No worrisome bone lesions. Medial and lateral osteophytes. JOINT: No effusion. SOFT TISSUES: No soft tissue swelling. No radio-opaque foreign body. OTHER: No other significant finding. IMPRESSION: No acute fracture. Degenerative changes. TECHNICAL DOCUMENTATION: JOB ID: [id number] [employer]- All Rights Reserved
--- NOTE | 2017-02-20 10:48 | ER Document Report ---
ED Medical Screen (RME) <MANDI SUH - Last Filed: 02/20/17 10:56> - General TRAVEL OUTSIDE OF THE [place] IN LAST 30 DAYS: No <ILANA FENG - Last Filed: 02/20/17 14:13> - General Chief Complaint: Suicidal Ideation Stated Complaint: psych Time Seen by Provider: 02/19/17 22:24 - Related Data Allergies/Adverse Reactions: ibuprofen [Ibuprofen] Allergy (Mild, Verified 02/17/17 22:04) lips swell acetaminophen [From Tylenol] Allergy (Verified 02/17/17 22:04) Lips swelled aspirin [Aspirin] Allergy (Verified 02/17/17 22:04) Lips swelled bee venom protein (honey bee) Allergy (Verified 02/17/17 22:04) Past Medical History - Past Medical History Cardiac Medical History: Reports: Hx Hypercholesterolemia Pulmonary Medical History: Reports: Hx Asthma, Hx COPD Neurological Medical History: Reports: Hx Migraine, Hx Seizures Endocrine Medical History: Reports: Hx Diabetes Mellitus Type 2 Renal/ Medical History: Reports: Hx Kidney Stones. Denies: Hx Peritoneal Dialysis GI Medical History: Reports: Hx Gastroesophageal Reflux Disease Musculoskeltal Medical History: Reports Hx Musculoskeletal Trauma Psychiatric Medical History: Reports: Hx Anxiety, Hx Bipolar Disorder, Hx Depression, Hx Schizoaffective Disorder Past Surgical History: Reports: Hx Cholecystectomy, Hx Kidney (Renal Surgery) - stone procedure - Immunizations Immunizations up to date: Yes Hx Diphtheria, Pertussis, Tetanus Vaccination: Yes <ILANA FENG - Last Filed: 02/20/17 14:13> - Vital signs Vitals: Temp Pulse Resp BP Pulse Ox 98.2 F 88 20 128/76 H 98 02/20/17 06:17 02/20/17 06:17 02/20/17 06:17 02/20/17 06:17 02/20/17 06:17 Course - Laboratory Result Diagrams: 02/19/17 17:45 02/19/17 17:45 <MANDI SUH - Last Filed: 02/20/17 10:56> - Laboratory Result Diagrams: 02/19/17 17:45 02/19/17 17:45 <ILANA FENG - Last Filed: 02/20/17 14:13> - Vital Signs Vital signs: Temp Pulse Resp BP Pulse Ox 97.9 F 102 H 18 133/91 H 95 02/20/17 11:35 02/20/17 11:35 02/20/17 11:35 02/20/17 11:35 02/20/17 11:35 - Laboratory Laboratory results interpreted by me: 02/19/17 02/19/17 02/19/17 17:45 17:45 17:45 Eosinophils % 7.9 H Sodium Chloride Carbon Dioxide Urine Protein 30 H Salicylates < 1.0 L Acetaminophen < 10 L 02/19/17 17:45 Eosinophils % Sodium 135.1 L Chloride 95 L Carbon Dioxide 32 H Urine Protein Salicylates Acetaminophen Doctor's Discharge <MANDI SUH - Last Filed: 02/20/17 10:56> <ILANA FENG - Last Filed: 02/20/17 14:13> - Discharge Clinical Impression: Suicidal ideation Condition: Stable Disposition: HOME, SELF-CARE Additional Instructions: SUICIDAL IDEATION: Suicidal ideation is a common medical term for thoughts about suicide, which may be as detailed as a formulated plan, without the suicidal act itself. Although most people who undergo suicidal ideation do not commit suicide, some go on to make suicide attempts. The range of suicidal ideation varies greatly from fleeting to detailed planning, role playing, and unsuccessful attempts. While thoughts about suicide are common, most people do not carry out serious actions to commit suicide. Based upon your evaluation and discussion with you, we do not believe you are currently at risk to act upon your thoughts of suicide. You have agreed to return to the Emergency Department, at any time , if you feel inclined to act upon your suicidal thoughts. FOLLOW-UP CARE: You have been discharged to your facility. It is recommended you follow up with your established providers and prescribed medications. Please keep in mind utilization of hospital resources should only be for actual emergencies and/or illnesses. If you experience worsening or a significant change in your symptoms , notify the physician immediately or return to the Emergency Department at any time for re-evaluation. Referrals: KATARINA URENA MD [Primary Care Provider] - Follow up as needed [facility] [Outside] - Follow up as needed
[2017-02-20 11:36] VITALS: BP 133/91
--- NOTE | 2017-02-20 11:54 | PSYCHOLOGICAL NOTE ---
Psych Note - Psych Note Psych Note: Reason for Consult: Suicidal Ideation Consents given: None Patient is a 46 year old woman who presented to the Emergency Department for a fall. Once she presented to the Emergency Department she endorsed suicidal ideation. Patient stated she had flashbacks about her family that has passed in recent years. Patient stated she has lost her mother, sister and father within the past two years. Patient reported she is currently living at the [facility], an Assisted [facility] (GROUP HOME). She stated the facility "gave me a hard time" about calling 911. She stated she was being "bullied" by the aides at her facility. She was unable to explain how they were bullying her. She denied hearing voices but endorsed seeing blue and white lights when no one is around. She stated she did not want to go back to the [facility], she wants to move to another facility. Patient reported she had one previous suicide attempt, in [facility], several years ago. She stated she "cut on myself." When the patient showed this celluloid trimmer her wrist there was no evidence of scarring. Patient stated her current suicidal ideation included a plan to take "all of my meds." This celluloid trimmer asked about where the medication was kept at the facility. The patient stated she kept her medications in her room. It should be noted that per state law, GROUP HOME's monitor patients, patient's have no access to sharp objects , cleaning supplies, or medications. Upon chart review, it was revealed the patient has been seen in the Emergency Department more than a dozen times in the past few months with complaints of suicidal ideation subsequent to disagreements with facility staff or residents. When confronted about access to medications and suicidal ideation, patient admitted she did not have access to her medications and had no suicidal ideation. She stated she "doesn't want to live there anymore." Patient admitted she made suicidal statements so she would not have to return to the facility. Patient was alert and oriented to person, place, time and circumstance. Mood was subdued with congruent affect. Patient denied suicidal/homicidal ideation, intent or plan. Patient admitted she has no access to medications and made the statements because she doesn't like her current living situation. Patient reports visual hallucinations but denied auditory hallucinations. She did not appear to be responding to internal stimuli as evidenced by appropriate eye contact, maintaining conversation and staying on topic. No delusions or psychosis noted. Thought processes were organized and linear. Conversational speech was within normal limits for rate, tone and prosody. Intellectual abilities were estimated in the low average range. Insight, judgment and impulse control were poor. 1. 298.9 (F29) Unspecified Schizophrenia Spectrum and Other Psychotic Disorder, per history 2. 319 (F79) Unspecified Intellectual Disability, per history Impression/Plan: Patient is psychiatrically clear. Patient is recommended for discharge to return to her GROUP HOME. Patient denied suicidal/homicidal ideation, intent or plan. Patient admitted she has no access to medications and made the statements because she doesn't like her current living situation. Patient historically presents with complaints of suicidal ideation when a disagreement occurs within the residential setting, per records. Provided education around using hospital resources appropriately and the consequences of making false statements and inappropriate use of the Emergency Department. Consulted with Dr. Watt regarding the care and management of this patient. ED physician in agreement with disposition and recommendations.
[2017-02-20 12:32] LABS: GLUCOSE 99 mg/dL (75-110)
[2017-02-20 12:33] LABS: ALANINE AMINOTRANSFERASE 19 U/L (9-52); ALBUMIN 3.9 g/dL (3.5-5.0); ALKALINE PHOSPHATASE 50 U/L (38-126); ANION GAP 8 (5-19); ASPARTATE AMINO TRANSFERASE 15 U/L (14-36); BILIRUBIN,DIRECT 0.2 mg/dL (0.0-0.4); BILIRUBIN,TOTAL 0.2 mg/dL (0.2-1.3); BLOOD UREA NITROGEN 10 mg/dL (7-20); CARBON DIOXIDE 32 mmol/L (22-30); CHLORIDE 95 mmol/L (98-107); POTASSIUM 4.8 mmol/L (3.6-5.0); SODIUM 135.1 mmol/L (137-145)
[2017-02-20 12:34] LABS: TOTAL PROTEIN 7.1 g/dL (6.3-8.2)
== END 2017-02-20 11:47 | disposition home or self-care (01) ==
LOC: ER 16:12
DX: R45.851 Suicidal ideations (principal)
CPT/HCPCS: 99285; 36415; 80307 ×4; 85025; 80053; 81001; 73562; 70450; 71260; 72125; 74177; 93005; 93010; A9270

== ENCOUNTER 2017-03-02 11:56 | Emergency (ER) | payer MEDICARE, MEDICAID ==
[2017-03-02 13:10] LABS: ABSOLUTE EOSINOPHILS # (AUTO) 0.4 10^3/uL (0.0-0.6); ABSOLUTE LYMPHOCYTES (AUTO) 1.9 10^3/uL (0.5-4.7); ABSOLUTE MONOCYTES (AUTO) 0.6 10^3/uL (0.1-1.4); ABSOLUTE NEUT (AUTO) 3.7 10^3/uL (1.7-8.2); BASOPHILS % (AUTO) 0.7 % (0-2); EOSINOPHILS % (AUTO) 5.7 % (0-6); HEMATOCRIT 35.1 % (36.0-47.0); LYMPHOCYTES % (AUTO) 28.5 % (13-45); MEAN CORPUSCULAR HEMOGLOBIN 31.5 pg (27.0-33.4); MEAN CORPUSCULAR HGB CONC 34.1 g/dL (32.0-36.0); MEAN CORPUSCULAR VOLUME 92 fl (80-97); MONOCYTES % (AUTO) 8.5 % (3-13); PLATELET COUNT 289 10^3/uL (150-450); RED CELL DISTRIBUTION WIDTH 13.8 % (11.5-14.0); SEGMENTED NEUTROPHILS % (AUTO) 56.6 % (42-78); TOTAL CELLS COUNTED % (AUTO) 100 %; WHITE BLOOD COUNT 6.5 10^3/uL (4.0-10.5)
[2017-03-02] MEDS: NORMAL SALINE 1000 ML 1,000 ML IV PRN ×2 (13:11→13:19)
[2017-03-02 13:29] LABS: ALANINE AMINOTRANSFERASE 14 U/L (9-52); ALBUMIN 3.5 g/dL (3.5-5.0); ALKALINE PHOSPHATASE 43 U/L (38-126); ANION GAP 9 (5-19); ASPARTATE AMINO TRANSFERASE 17 U/L (14-36); BILIRUBIN,DIRECT 0.3 mg/dL (0.0-0.4); BILIRUBIN,TOTAL 0.3 mg/dL (0.2-1.3); BLOOD UREA NITROGEN 11 mg/dL (7-20); CALCIUM 9.1 mg/dL (8.4-10.2); CARBON DIOXIDE 34 mmol/L (22-30); CHLORIDE 97 mmol/L (98-107); GLUCOSE 91 mg/dL (75-110); LIPASE 34.7 U/L (23-300); POTASSIUM 4.9 mmol/L (3.6-5.0); SODIUM 139.5 mmol/L (137-145)
--- NOTE | 2017-03-02 14:25 | RADIOLOGY REPORT (SQ) ---
EXAM DESCRIPTION: CHEST SINGLE VIEW COMPLETED DATE/TIME: 03/02/2017 1:58 pm REASON FOR STUDY: cough COMPARISON: None. EXAM PARAMETERS: NUMBER OF VIEWS: Three views TECHNIQUE: Single frontal radiographic view of the chest acquired. RADIATION DOSE: NA LIMITATIONS: None. FINDINGS: LUNGS AND PLEURA: No opacities, masses or pneumothorax. No pleural effusion. MEDIASTINUM AND HILAR STRUCTURES: No masses. Contour normal. HEART AND VASCULAR STRUCTURES: Heart normal in size. Normal vasculature. BONES: No acute findings. HARDWARE: None in the chest. OTHER: Chest leads in place IMPRESSION: NO ACUTE RADIOGRAPHIC FINDING IN THE CHEST. TECHNICAL DOCUMENTATION: JOB ID: [id number] 2010 [employer]- All Rights Reserved
[2017-03-02] MEDS ORDERED: NORMAL SALINE 1000 ML 1,000 ML IV ONE ×2 (14:56→17:57)
--- NOTE | 2017-03-02 15:11 | ER Document Report ---
ED General - General Chief Complaint: Flu Symptoms Stated Complaint: SORE THROAT, CHILLS Time Seen by Provider: 03/02/17 12:51 Mode of Arrival: Medic Information source: Patient TRAVEL OUTSIDE OF THE [place] IN LAST 30 DAYS: No - HPI Patient complains to provider of: sore throat Context: Pt. is poor historian Associated symptoms: Other - pt. denies Exacerbated by: Denies - Related Data Allergies/Adverse Reactions: ibuprofen [Ibuprofen] Allergy (Mild, Verified 03/02/17 11:57) lips swell acetaminophen [From Tylenol] Allergy (Verified 03/02/17 11:57) Lips swelled aspirin [Aspirin] Allergy (Verified 03/02/17 11:57) Lips swelled bee venom protein (honey bee) Allergy (Verified 03/02/17 11:57) Past Medical History - General Information source: Outside Facility Records - Social History Smoking Status: Never Smoker Frequency of alcohol use: None Drug Abuse: None Lives with: Residential Family History: Reviewed & Not Pertinent Patient has suicidal ideation: No Patient has homicidal ideation: No - Past Medical History Cardiac Medical History: Reports: Hx Hypercholesterolemia Pulmonary Medical History: Reports: Hx Asthma, Hx COPD Neurological Medical History: Reports: Hx Migraine, Hx Seizures Endocrine Medical History: Reports: Hx Diabetes Mellitus Type 2 Renal/ Medical History: Reports: Hx Kidney Stones. Denies: Hx Peritoneal Dialysis GI Medical History: Reports: Hx Gastroesophageal Reflux Disease Musculoskeltal Medical History: Reports Hx Musculoskeletal Trauma Psychiatric Medical History: Reports: Hx Anxiety, Hx Bipolar Disorder, Hx Depression, Hx Schizoaffective Disorder Past Surgical History: Reports: None, Hx Cholecystectomy, Hx Kidney (Renal Surgery) - stone procedure - Immunizations Immunizations up to date: Yes Hx Diphtheria, Pertussis, Tetanus Vaccination: Yes Review of Systems - Review of Systems Constitutional: No symptoms reported EENT: No symptoms reported, See HPI Cardiovascular: No symptoms reported Respiratory: No symptoms reported Gastrointestinal: No symptoms reported Musculoskeletal: No symptoms reported Skin: No symptoms reported Hematologic/Lymphatic: No symptoms reported Neurological/Psychological: No symptoms reported Physical Exam - Vital signs Vitals: Temp Pulse Resp BP Pulse Ox 98.6 F 117 H 22 H 114/56 L 94 03/02/17 12:03 03/02/17 12:03 03/02/17 12:03 03/02/17 12:03 03/02/17 12:03 - Notes Notes: PHYSICAL EXAMINATION: GENERAL: Appears markedly dehydrated, in no acute distress. HEAD: Atraumatic, normocephalic. EYES: Pupils equal round and reactive to light, extraocular movements intact, conjunctiva are normal. ENT: Nares patent, oropharynx clear without exudates. Dry mucous membranes. NECK: Normal range of motion, supple without lymphadenopathy LUNGS: Breath sounds clear to auscultation bilaterally and equal. No wheezes rales or rhonchi. HEART: Regular rate and rhythm without murmurs ABDOMEN: Obese, s know the she is oft, nontender, nondistended abdomen. No guarding, no rebound. No masses appreciated. Female : deferred Musculoskeletal: Normal range of motion, no pitting or edema. No cyanosis. NEUROLOGICAL: Cranial nerves grossly intact. Normal speech, normal gait. Normal sensory, motor exams PSYCH: Normal mood, normal affect. SKIN: Warm, Dry, normal turgor, no rashes or lesions noted. Course - Re-evaluation Re-evalutation: 03/02/17 16:38 His heart rate is 102. Her blood pressure is stable. She sat up in bed when I asked her to. She appears at baseline. She did tolerate p.o. fluids. She states she does not like to drink fluids I told her that she definitely has to start drinking more. Patient verbalized understanding. She will be discharged when her third liter fluid is done infusing. - Vital Signs Vital signs: Temp Pulse Resp BP Pulse Ox 98.6 F 117 H 20 112/64 100 03/02/17 12:03 03/02/17 12:03 03/02/17 15:01 03/02/17 15:01 03/02/17 15:01 - Laboratory Result Diagrams: 03/02/17 12:57 03/02/17 12:57 Laboratory results interpreted by me: 03/02/17 03/02/17 03/02/17 12:57 12:57 15:54 Hct 35.1 L Chloride 97 L Carbon Dioxide 34 H Urine Protein 30 H Urine Ketones 20 H Urine Urobilinogen 4.0 H 03/02/17 15:14 BMP CBC and lactic acid are all unremarkable Discharge - Discharge Clinical Impression: Dehydration Condition: Stable Disposition: HOME, SELF-CARE Additional Instructions: You are clinically dehydrated today. Please increase your water intake. Return to the emergency department if you have any concerns. Referrals: KATARINA URENA MD [Primary Care Provider] - Follow up in 3-5 days (Return to the emergency department if you have high fevers vomiting diarrhea or any other concerns)
[2017-03-02 16:06] LABS: APPEARANCE,URINE CLEAR; BILIRUBIN,URINE NEGATIVE (NEGATIVE); COLOR,URINE YELLOW; GLUCOSE, URINE NEGATIVE (NEGATIVE); KETONES,URINE 20 mg/dL (NEGATIVE); LEUKOCYTE ESTERASE,URINE NEGATIVE (NEGATIVE); NITRITE,URINE NEGATIVE (NEGATIVE); PROTEIN,URINE 30 mg/dL (NEGATIVE); URINE SPECIFIC GRAVITY 1.014
--- NOTE | 2017-03-02 19:33 | ER Document Report ---
Doctor's Note Notes: 03/02/17 19:32 Called to evaluate patient prior to discharge. Patient tachycardic still after 3 L of fluid. Patient has some obvious cognitive challenges making HPI and ROS difficult. Cannot tell me what is going on. Heart rate is 105. Blood pressure 117/81. Of note, initial blood pressures were extremely elevated but question the validity of those readings being that the BP is now normal without intervention. Will add on a cardiac troponin as well as a BNP and an EKG. 03/02/17 19:35 General: Alert no acute distress HEENT: Atraumatic, normocephalic, pupils equal round react to light and accommodation, extraocular muscles are intact, nose is non tender, posterior pharynx is without erythema or exudate. Tongue is unremarkable Heart: Tachycardic rate and rhythm, no murmurs, no rubs, no clicks Lungs: Lungs clear to auscultation bilaterally, no wheezes, rhonchi, rales Abdomen: Abdomen is soft, nontender, nondistended, normal bowel sounds Neuro: cranial nerves II through XII intact, reflexes intact, sensation intact, Extremities:Moving all extremities. Equal strength bilaterally in the upper lower extremities. No significant deformity Skin: No lesions. Skin intact Assessment/plan: We will add cardiac labs and EKG at this time. We will put a hold on the DC and then reassess. EKG: Sinus Tachycardia, nonspecific ST/T wave changes, Left axis deviation 03/02/17 23:[address] angiogram of the chest ordered. Awaiting results at this time. 03/02/17 23:07 Cardiac labs unremarkable. Patient still little tachycardic but blood pressure unremarkable. Uncertain what to make of the recorded blood pressures that were initially extremely high. Patient has not had anymore extreme hypertensive readings. Does not have a fever. Lungs are clear. Afebrile. 03/02/17 23:47 03/03/17 00:01 CTA of chest negative. Will proceed with tthe DC plan as previous planned.
[2017-03-02] MEDS ORDERED: ALBUTEROL SULFATE 0.083% NEB 2.5 MG/3 ML AMPUL NEB ONE (19:35)
[2017-03-02 20:20] LABS: NT PRO BNP 55 pg/mL (<125)
[2017-03-02 20:22] LABS: TROPONIN I < 0.012 ng/mL
[2017-03-02] MEDS ORDERED: HALOPERIDOL 5 MG TABLET PO ONE (21:25)
[2017-03-02] MEDS ORDERED: TRAZODONE HCL 50 MG TABLET PO ONE (21:25)
--- NOTE | 2017-03-02 23:55 | RADIOLOGY REPORT (SQ) ---
EXAM DESCRIPTION: CTA CHEST CLINICAL HISTORY: 46 years Female, tachycardia, low o2 sats COMPARISON: CR, same day. TECHNIQUE: 80 mL Isovue-370 IV contrast. Multiplanar reformat. This exam was performed according to our departmental dose-optimization program, which includes automated exposure control, adjustment of the mA and/or kV according to patient size and/or use of iterative reconstruction technique. Limitation: As below. FINDINGS: No evidence of pulmonary embolus; suboptimal pulmonary arterial enhancement measures 192 Hounsfield units somewhat decreasing sensitivity-specificity. No right ventricular strain. Cholecystectomy clips. Prominent upper abdominal 1.2 x 0.7 cm lymph node. Mild nonspecific dilation of the distal esophagus. Mild L1 vertebral compression deformity. 1.3 cm likely benign left renal cyst/calyceal diverticulum. Inferior neck, axillae, mediastinum, lungs, airway, lymphatics, heart, vasculature, upper abdomen, and musculoskeleton appear otherwise unremarkable. IMPRESSION: No acute cardiopulmonary findings. No evidence of pulmonary embolus. Limitation.
[2017-03-03 01:21] VITALS: BP 125/79
--- NOTE | 2017-03-03 09:47 | EKG REPORT ---
SEVERITY:- ABNORMAL ECG - SINUS TACHYCARDIA BORDERLINE LEFT AXIS DEVIATION NONSPECIFIC T ABNORMALITIES, LATERAL LEADS : Confirmed by: Parag Huntley 03-Mar-2017 09:47:11
== END 2017-03-03 01:45 | disposition home or self-care (01) ==
LOC: ER 11:56
DX: E86.0 Dehydration (principal); R00.0 Tachycardia, unspecified; E66.9 Obesity, unspecified; E78.00 Pure hypercholesterolemia, unspecified; J44.9 Chronic obstructive pulmonary disease, unspecified; E11.9 Type 2 diabetes mellitus without complications; Z90.49 Acquired absence of other specified parts of digestive tract; Z88.6 Allergy status to analgesic agent
CPT/HCPCS: 93005; 94640; 99285; 96360; 96361; 51701; 36415; 87040; 83690; 85025; 80053; 81001; 84484; 83605; 83880; 71045; 71275; 93010; A9270 ×3; J7030

== ENCOUNTER 2017-03-19 22:36 | Inpatient (IN) | payer MEDICARE, MEDICAID ==
--- NOTE | 2017-03-19 23:06 | ER Document Report ---
ED General - General Information source: Patient TRAVEL OUTSIDE OF THE [place] IN LAST 30 DAYS: No <CARMITA CAREY - Last Filed: 03/20/17 06:34> <KATELYNN LAZO - Last Filed: 03/20/17 06:50> - General Chief Complaint: Tremor Stated Complaint: NOT FEELING WELL Time Seen by Provider: 03/19/17 22:59 Notes: Patient is a 46 year old female with a history of diabetes type 2, anxiety, depression, bipolar disorder, schizoaffective disorder presents to the emergency department complaining of not feeling well per nurses note. At bedside patient is less verbal than usual and does not answer orientation questions. At bedside patient only states she feels pain but can not elaborate. Patient's PCP is Dr. Zhang. (CARMITA CAREY) - Related Data Allergies/Adverse Reactions: ibuprofen [Ibuprofen] Allergy (Mild, Verified 03/02/17 11:57) lips swell acetaminophen [From Tylenol] Allergy (Verified 03/02/17 11:57) Lips swelled aspirin [Aspirin] Allergy (Verified 03/02/17 11:57) Lips swelled bee venom protein (honey bee) Allergy (Verified 03/02/17 11:57) Past Medical History - General Information source: Patient Cannot obtain history due to: Other - Social History Smoking Status: Unknown if Ever Smoked Family History: Reviewed & Not Pertinent - Past Medical History Cardiac Medical History: Reports: Hx Hypercholesterolemia Pulmonary Medical History: Reports: Hx Asthma, Hx COPD Neurological Medical History: Reports: Hx Migraine, Hx Seizures Endocrine Medical History: Reports: Hx Diabetes Mellitus Type 2 Renal/ Medical History: Reports: Hx Kidney Stones GI Medical History: Reports: Hx Gastroesophageal Reflux Disease Musculoskeltal Medical History: Reports Hx Musculoskeletal Trauma Psychiatric Medical History: Reports: Hx Anxiety, Hx Bipolar Disorder, Hx Depression, Hx Schizoaffective Disorder Past Surgical History: Reports: Hx Cholecystectomy, Hx Kidney (Renal Surgery) - stone procedure - Immunizations Immunizations up to date: Yes Hx Diphtheria, Pertussis, Tetanus Vaccination: Yes <CARMITA CAREY - Last Filed: 03/20/17 06:34> Review of Systems - Review of Systems -: Yes ROS unobtainable due to patient's medical condition <CARMITA CAREY - Last Filed: 03/20/17 06:34> Physical Exam <CARMITA CAREY - Last Filed: 03/20/17 06:34> <KATELYNN LAZO - Last Filed: 03/20/17 06:50> - Vital signs Vitals: Temp Pulse Resp BP Pulse Ox 99.9 F 110 H 20 124/85 95 03/19/17 22:36 03/19/17 22:36 03/19/17 22:36 03/19/17 22:36 03/19/17 22:36 - Notes Notes: GENERAL: Somnolent , patient is less verbal than normal, does not answer orientation questions. No acute distress. HEAD: Normocephalic, atraumatic. EYES: Pupils equal, round, and reactive to light. Extraocular movements intact. ENT: Oral mucosa is dry, tongue midline. NECK: Full range of motion. Supple. Trachea midline. LUNGS: Clear to auscultation bilaterally, no wheezes, rales, or rhonchi. No respiratory distress. HEART: Tachycardic. No murmurs, gallops, or rubs. ABDOMEN: Soft, diffuse right sided tenderness to palpation. Non-distended. Bowel sounds present in all 4 quadrants. EXTREMITIES: Moves all 4 extremities spontaneously. No edema, radial and dorsalis pedis pulses 2/4 bilaterally. No cyanosis. NEUROLOGICAL: Somnolent, does not answers questions. PSYCH: Patient will say hello but does not answer orientation questions, less responsive than baseline, follows command to sit up then proceeded to lay back down. SKIN: Warm, dry, normal turgor. No rashes or lesions noted. (CARMITA CAREY) Course - Laboratory Result Diagrams: 03/19/17 23:35 03/19/17 23:35 <CARMITA CAREY - Last Filed: 03/20/17 06:34> - Laboratory Result Diagrams: 03/19/17 23:35 03/19/17 23:35 <KATELYNN LAZO - Last Filed: 03/20/17 06:50> - Re-evaluation Re-evalutation: 03/20/17 04:52 Patient is quite different than her baseline, somnolent, not answering questions appropriately, not her usual cheerful interactive self. Speaks very little. I am concerned for possibility of sepsis at this point. CBC unremarkable, coags normal, CMP shows elevated potassium of 5.2, elevated BUN at 26, otherwise unremarkable, lactic acid is normal, urinalysis shows moderate leukocyte esterase and 1+ bacteria. Patient was treated with Rocephin. Patient was tender in the right lower quadrant versus CT scan of the abdomen and pelvis was performed, this was negative for acute process, chest x-ray also showed no acute process. It had mild cardiomegaly with no vascular congestion. CT scan of the head did not show any acute bleed but it did show complete opacification of left maxillary sinus with interval increase in the lobulated low-attenuation soft tissue density extending into the left nostril which may represent large mucocele. ENT should be consulted as an inpatient. Venous blood gas showed acidosis with elevated CO2, arterial blood gas confirms this as well with a PCO2 of 69 and some change. Patient was initially unable to tolerate BiPAP. We are going to try it again. Should she still be unable to tolerate it we may have to intubate the patient for her altered mental status however she is currently protecting her airway well. 03/20/17 04:[address] Ortiz who agrees to admit the patient to the hospital while covering for Dr. Zhang to the IMCU. 03/20/17 06:50 Patient tolerated BiPAP well for approximately 30 minutes then took it off again , she was given 0.5 of Ativan is now tolerating BiPAP quite well and has been for the past hour. (KATELYNN LAZO) - Vital Signs Vital signs: Temp Pulse Resp BP Pulse Ox 99.9 F 110 H 14 108/59 L 96 03/19/17 22:36 03/19/17 22:36 03/20/17 06:30 03/20/17 06:03 03/20/17 06:30 - Laboratory Laboratory results interpreted by mi: 03/19/17 03/19/17 03/20/17 23:35 23:35 00:20 RDW 14.4 H Carbonic Acid ABG pH ABG pCO2 ABG pO2 ABG HCO3 ABG Total CO2 ABG O2 Saturation VBG pCO2 VBG HCO3 Potassium 5.2 H Carbon Dioxide 37 H BUN 26 H Est GFR (Non-Af Amer) 55 L ALT 8 L Urine Protein 30 H Urine Ketones TRACE H Urine Bilirubin SMALL H Urine Urobilinogen 4.0 H Ur Leukocyte Esterase MODERATE H 03/20/17 03/20/17 02:44 04:05 RDW Carbonic Acid 2.10 H ABG pH 7.32 L ABG pCO2 69.8 H* ABG pO2 75.2 L ABG HCO3 35.1 H ABG Total CO2 37.2 H ABG O2 Saturation 93.4 L VBG pCO2 71.8 H* VBG HCO3 35.5 H Potassium Carbon Dioxide BUN Est GFR (Non-Af Amer) ALT Urine Protein Urine Ketones Urine Bilirubin Urine Urobilinogen Ur Leukocyte Esterase - EKG Interpretation by Me Additional EKG results interpreted by me: 03/20/17 04:58 EKG shows sinus tachycardia at a rate of 104, left axis deviation, normal intervals, no ST segment elevations or depressions, no T-wave inversions per my interpretation. (KATELYNN LAZO) Discharge <CARMITA CAREY - Last Filed: 03/20/17 06:34> - Discharge Admitting Provider: [facility] Unit Admitted: IMCU <KATELYNN LAZO - Last Filed: 03/20/17 06:50> - Discharge Clinical Impression: CO2 narcosis, Acute respiratory acidosis Altered mental status Qualifiers: Altered mental status type: somnolence Qualified Code(s): R40.0 - Somnolence Urinary tract infection Qualifiers: Urinary tract infection type: acute cystitis Hematuria presence: with hematuria Qualified Code(s): N30.01 - Acute cystitis with hematuria Condition: Serious Disposition: ADMITTED INPATIENT Scribe Attestation: 03/20/17 06:50 I personally performed the services described in the documentation, reviewed and edited the documentation which was dictated to the scribe in my presence, and it accurately records my words and actions. (KATELYNN LAZO) Scribe Documentation - Scribe Written by Rudy:: Rudy Donnelly, 03/19/2017 23:29 acting as scribe for :: Raoul <CARMITA CAREY - Last Filed: 03/20/17 06:34>
[2017-03-19] MEDS ORDERED: NORMAL SALINE 1000 ML 1,000 ML IV ONE (23:07)
[2017-03-19 23:49] LABS: ABSOLUTE EOSINOPHILS # (AUTO) 0.2 10^3/uL (0.0-0.6); ABSOLUTE LYMPHOCYTES (AUTO) 1.9 10^3/uL (0.5-4.7); ABSOLUTE MONOCYTES (AUTO) 0.4 10^3/uL (0.1-1.4); ABSOLUTE NEUT (AUTO) 2.2 10^3/uL (1.7-8.2); BASOPHILS % (AUTO) 0.9 % (0-2); EOSINOPHILS % (AUTO) 3.7 % (0-6); HEMATOCRIT 37.9 % (36.0-47.0); HEMOGLOBIN 12.5 g/dL (12.0-15.5); LYMPHOCYTES % (AUTO) 40.4 % (13-45); MEAN CORPUSCULAR HEMOGLOBIN 31.2 pg (27.0-33.4); MEAN CORPUSCULAR HGB CONC 32.9 g/dL (32.0-36.0); MEAN CORPUSCULAR VOLUME 95 fl (80-97); MONOCYTES % (AUTO) 8.1 % (3-13); PLATELET COUNT 212 10^3/uL (150-450); RED CELL DISTRIBUTION WIDTH 14.4 % (11.5-14.0); SEGMENTED NEUTROPHILS % (AUTO) 46.9 % (42-78); TOTAL CELLS COUNTED % (AUTO) 100 %; WHITE BLOOD COUNT 4.7 10^3/uL (4.0-10.5)
--- NOTE | 2017-03-19 23:56 | RADIOLOGY REPORT (SQ) ---
EXAM DESCRIPTION: CHEST SINGLE VIEW COMPLETED DATE/TIME: 03/19/2017 11:47 pm REASON FOR STUDY: altered mental status COMPARISON: CT angiogram chest 03/02/2017. Chest x-ray 01/14/2017. EXAM PARAMETERS: NUMBER OF VIEWS: One view. TECHNIQUE: Single frontal radiographic view of the chest acquired. RADIATION DOSE: NA LIMITATIONS: None. FINDINGS: LUNGS AND PLEURA: No consolidation, pneumothorax or pleural effusion. MEDIASTINUM AND HILAR STRUCTURES: No masses. Contour normal. HEART AND VASCULAR STRUCTURES: The heart is mildly enlarged. Normal vasculature. BONES: No acute findings. HARDWARE: None in the chest. IMPRESSION: Mild cardiomegaly with no vascular congestion. TECHNICAL DOCUMENTATION: JOB ID: [id number] [place]-[id number] 2010 [employer]- All Rights Reserved
[2017-03-20 00:02] LABS: INTERNATIONAL RATION (INR) 0.92
[2017-03-20 00:16] LABS: ALANINE AMINOTRANSFERASE 8 U/L (9-52); ALBUMIN 3.8 g/dL (3.5-5.0); ALKALINE PHOSPHATASE 43 U/L (38-126); ANION GAP 7 (5-19); ASPARTATE AMINO TRANSFERASE 32 U/L (14-36); BILIRUBIN,DIRECT 0.3 mg/dL (0.0-0.4); BILIRUBIN,TOTAL 0.4 mg/dL (0.2-1.3); BLOOD UREA NITROGEN 26 mg/dL (7-20); CALCIUM 9.2 mg/dL (8.4-10.2); CARBON DIOXIDE 37 mmol/L (22-30); CHLORIDE 100 mmol/L (98-107); GLUCOSE 102 mg/dL (75-110); POTASSIUM 5.2 mmol/L (3.6-5.0); SODIUM 144.3 mmol/L (137-145); TOTAL PROTEIN 7.6 g/dL (6.3-8.2)
[2017-03-20 01:17] LABS: APPEARANCE,URINE CLEAR; BILIRUBIN,URINE SMALL (NEGATIVE); COLOR,URINE DARK YELLOW; GLUCOSE, URINE NEGATIVE (NEGATIVE); KETONES,URINE TRACE mg/dL (NEGATIVE); LEUKOCYTE ESTERASE,URINE MODERATE (NEGATIVE); NITRITE,URINE NEGATIVE (NEGATIVE); PROTEIN,URINE 30 mg/dL (NEGATIVE); URINE SPECIFIC GRAVITY 1.024
[2017-03-20] MEDS ORDERED: CEFTRIAXONE 1 GM/D5W RTU 1 GM/50 ML RTUPB IV ONE ×2 (01:31→23:00)
[2017-03-20] MEDS ORDERED: CEFTRIAXONE INJ 1000 MG VIAL ONE ×2 (02:19→23:31)
[2017-03-20 02:50] LABS: VENOUS BLOOD BASE EXCESS 7.2 mmol/L; VENOUS BLOOD HCO3 35.5 mmol/L (20-32); VENOUS BLOOD PH 7.31 (7.30-7.42)
[2017-03-20 02:52] LABS: VENOUS BLOOD PCO2 71.8 mmHg (35-63)
--- NOTE | 2017-03-20 04:02 | RADIOLOGY REPORT (SQ) ---
EXAM DESCRIPTION: CT HEAD WITHOUT COMPLETED DATE/TIME: 03/20/2017 3:43 am REASON FOR STUDY: altered mental status, confusion COMPARISON: CT brain 03/01/2017. TECHNIQUE: Axial images acquired through the brain without intravenous contrast. Images reviewed wi th bone, brain and subdural windows. Images stored on PACS. All CT scanners at this facility use dose modulation, iterative reconstruction, and/or weight based d osing when appropriate to reduce radiation dose to as low as reasonably achievable (ALARA). [facility]: Dose Right [facility]: CareDose [facility]: Dose Right [facility]: Teradose 4D [facility]: [employer] RADIATION DOSE: CT Rad equipment meets quality standard of care and radiation dose reduction techniq ues were employed. CTDIvol: 55.2 mGy. DLP: 974 mGy-cm. mGy. LIMITATIONS: None. FINDINGS: VENTRICLES: Normal size and contour. CEREBRUM: No mass effect. No hemorrhage. No midline shift. Normal gandhi/white matter differentiatio n. No evidence for acute territorial infarction. CEREBELLUM: No mass effect. No hemorrhage. No alteration of density. No evidence for acute infarct ion. EXTRAAXIAL SPACES: No fluid collections. ORBITS AND GLOBE: Symmetrical contour of the globes. CALVARIUM: No depressed skull fracture. PARANASAL SINUSES: No air-fluid level. There is complete opacification of the left maxillary sinus w ith lobulated soft tissue density extending into the left nostril, increased in size in the interval. There is periosteal reaction at the ricardo of the left maxillary sinus. SOFT TISSUES: No hematoma. IMPRESSION: 1. No acute intracranial hemorrhage or acute territorial infarct. 2. Complete opacification of the left maxillary sinus with interval increase in the lobulated low-att enuation soft tissue density extending into the left nostril, may represent a large mucocele. ENT co nsult recommended. Evaluation with contrast-enhanced MRI may be worthwhile to exclude neoplasm. EVIDENCE OF ACUTE STROKE: NO. COMMENT: Quality ID # [id number]: Final reports with documentation of one or more dose reduction techniques (e.g., Automated exposure control, adjustment of the mA and/or kV according to patient size, use of iterative reconstruction technique) TECHNICAL DOCUMENTATION: JOB ID: [id number] [place]-[id number] 2010 [employer]- All Rights Reserved
--- NOTE | 2017-03-20 04:13 | RADIOLOGY REPORT (SQ) ---
EXAM DESCRIPTION: CT ABD/PELVIS WITH IV ONLY COMPLETED DATE/TIME: 03/20/2017 3:43 am REASON FOR STUDY: RLQ tenderness to palpation COMPARISON: CT chest, abdomen and pelvis 02/19/2017. TECHNIQUE: CT scan of the abdomen and pelvis performed using helical scanning technique with dynamic intravenous contrast injection. No oral contrast. Images reviewed with lung, soft tissue, and bone windows. Reconstructed coronal and sagittal MPR images reviewed. Delayed images for evaluation of the urinary system also acquired. All images stored on PACS. All CT scanners at this facility use dose modulation, iterative reconstruction, and/or weight based d osing when appropriate to reduce radiation dose to as low as reasonably achievable (ALARA). [facility]: Dose Right [facility]: CareDose [facility]: Dose Right [facility]: Teradose 4D [facility]: [employer] CONTRAST TYPE AND DOSE: contrast/concentration: Isovue 370.00 mg/ml; Total Contrast Delivered: 182.0 ml; Total Saline Delivered: 60.0 ml RENAL FUNCTION: Creatinine 1.07 RADIATION DOSE: CT Rad equipment meets quality standard of care and radiation dose reduction techniq ues were employed. CTDIvol: 20.4 mGy. DLP: 4480 mGy-cm.. LIMITATIONS: Motion. FINDINGS: LOWER CHEST: No consolidation or pleural effusion. The heart is enlarged. LIVER: Normal size. No masses. No dilated ducts. SPLEEN: Normal size. PANCREAS: No significant calcifications. No adjacent inflammation or peripancreatic fluid collections . Pancreatic duct not dilated. GALLBLADDER: Surgically absent. ADRENAL GLANDS: No significant masses or asymmetry. RIGHT KIDNEY AND URETER: Lobulated contour of the kidney. No significant calcifications. No hydron ephrosis or hydroureter. LEFT KIDNEY AND URETER: Lobulated contour of the kidney. There is a 1.2 cm cyst at the superior pole of the left kidney. No significant calcifications. No hydronephrosis or hydroureter. AORTA AND VESSELS: No abdominal aortic aneurysm. RETROPERITONEUM: No retroperitoneal hemorrhage or masses. BOWEL AND PERITONEAL CAVITY: No dilated bowel loops or focal inflammatory changes. No free fluid or free air. APPENDIX: Normal. PELVIS: The urinary bladder is partially distended. The uterus has a lobulated contour, suggestive o f fibroids. No free fluid. ABDOMINAL WALL: No hernias. BONES: Degenerative changes in the spine. Remote compression deformity through the superior endplat e of L1 vertebral body. IMPRESSION: 1. No acute findings in the abdomen or pelvis. 2. Fibroid uterus. 3. Cardiomegaly. TECHNICAL DOCUMENTATION: JOB ID: [id number] [facility] Quality ID # [id number]: Final reports with documentation of one or more dose reduction techniques (e.g., Au tomated exposure control, adjustment of the mA and/or kV according to patient size, use of iterative reconstruction technique) 2010 [employer]- All Rights Reserved
[2017-03-20 04:22] LABS: ARTERIAL BLOOD HCO3 35.1 mmol/L (20-26); ARTERIAL BLOOD O2 SATURATION 93.4 % (94-98); ARTERIAL BLOOD PH 7.32 (7.35-7.45); ARTERIAL BLOOD PO2 75.2 mmHg (80-100); ARTERIAL BLOOD TOTAL CO2 37.2 mmol/L (21-25)
[2017-03-20 04:26] LABS: ARTERIAL BLOOD FIO2 3L
[2017-03-20 04:28] LABS: ARTERIAL BLOOD PCO2 69.8 mmHg (35-45)
[2017-03-20] MEDS ORDERED: LORAZEPAM INJ 2 MG/1 ML VIAL IV ONE (05:29)
--- NOTE | 2017-03-20 06:30 | EKG REPORT ---
SEVERITY:- ABNORMAL ECG - SINUS TACHYCARDIA BORDERLINE LEFT AXIS DEVIATION NONSPECIFIC T ABNORMALITIES, LATERAL LEADS : Confirmed by: Eduardo Aviles MD 20-Mar-2017 06:29:54
[2017-03-20] MEDS ORDERED: IPRATROPIUM/ALBUTEROL 0.5-2.5 MG/3 ML AMPUL NEB PRN (08:00)
[2017-03-20] MEDS: ENOXAPARIN SODIUM INJ 40 MG/0.4 ML DISP.SYRIN SUBCUT SCH (10:43)
[2017-03-20 10:54] LABS: INTERNATIONAL RATION (INR) 0.95; PROTHROMBIN TIME 13.4 SEC (11.4-15.4)
[2017-03-20 10:55] LABS: PARTIAL THROMBOPLASTIN TIME 30.9 SEC (23.5-35.8)
[2017-03-20] MEDS: NORMAL SALINE 1000 ML 1,000 ML IV PRN (10:56)
[2017-03-20 13:31] LABS: LIPASE 54.4 U/L (23-300); MAGNESIUM 1.8 mg/dL (1.6-2.3); PHOSPHORUS 4.1 mg/dL (2.5-4.5)
[2017-03-20 13:32] LABS: AMYLASE < 30 U/L (30-110)
[2017-03-20 13:45] LABS: CREATINE KINASE MB 0.51 ng/mL (<4.55); TROPONIN I < 0.012 ng/mL
[2017-03-20 13:48] LABS: FREE T4 (FREE THYROXINE) 1.87 ng/dL (0.78-2.19)
[2017-03-20 14:02] LABS: THYROID STIMULATING HORMONE 1.55 uIU/mL (0.47-4.68)
[2017-03-20 14:10] LABS: URINE AMPHETAMINES SCREEN NEGATIVE; URINE BARBITURATES SCREEN NEGATIVE; URINE BENZODIAZEPINES SCREEN NEGATIVE; URINE COCAINE SCREEN NEGATIVE; URINE MARIJUANA (THC) SCREEN NEGATIVE; URINE METHADONE SCREEN NEGATIVE; URINE PHENCYCLIDINE SCREEN NEGATIVE
[2017-03-20 19:06] LABS: CREATINE KINASE MB 0.44 ng/mL (<4.55)
[2017-03-20 19:10] LABS: TROPONIN I < 0.012 ng/mL
[2017-03-20] MEDS ORDERED: DEXTROSE 40% GEL 15 GM TUBE PO PRN ×2 (21:56)
[2017-03-20] MEDS ORDERED: INSULIN LISPRO 100 UNIT/ML 3 ML VIAL SUBCUT PRN (21:56)
[2017-03-20] MEDS ORDERED: GLUCAGON,HUMAN RECOMB 1 MG INJ IM PRN (21:56)
[2017-03-20] MEDS ORDERED: DEXTROSE 50%-WATER 25 GM/50 ML DISP.SYRIN IV PRN ×2 (21:56)
[2017-03-20] MEDS ORDERED: ALBUTEROL SULFATE HFA (90 MCG/PUFF) 8 GM MDI (1 MDI/ER DISP) IH PRN (21:57)
--- NOTE | 2017-03-20 22:08 | PDOC H&P ---
History of Present Illness Admission Date/PCP: 03/20/17 05:28 History of Present Illness: STEVE CONKLIN is a 46 year old female, She is a resident of assisted living facility she was transferred from the facility to the emergency room for evaluation of altered mental status. The emergency room she was evaluated CT head without contrast was obtained he showed no acute intracranial hemorrhage but there was complete opacification of the left maxillary sinus with interval increase in the lobulated low attenuation soft tissue density extending into the left nostril, blood gas was done in the ER, pH 7.32 PCO2 39.8 PO2 35.2 bicarbonate 35.1, FiO2 3 L the exact etiology of the acute hypercapnic respiratory failure was not clear, she was supported with a noninvasive positive pressure ventilation BiPAP in the emergency room Past Medical History Cardiac Medical History: Reports: Hyperlipidema Pulmonary Medical History: Reports: Asthma Neurological Medical History: Reports: Migraine, Seizures Endocrine Medical History: Reports: Diabetes Mellitus Type 2 GI Medical History: Reports: Gastroesophageal Reflux Disease Psychiatric Medical History: Reports: Bipolar Disorder, Depression, Schizoaffective Disorder Hematology: Denies: Anemia Past Surgical History Past Surgical History: Reports: Cholecystectomy Social History Smoking Status: Never Smoker Frequency of Alcohol Use: None Hx Recreational Drug Use: No Hx Prescription Drug Abuse: No - Advance Directive Resuscitation Status: Full Code Family History Family History: Reviewed & Not Pertinent Parental Family History Reviewed: Yes Children Family History Reviewed: Yes Sibling(s) Family History Reviewed.: Yes Medication/Allergy Home Medications: Albuterol Sulfate [Ventolin HFA MDI 18 GM] 2 puff IH Q4HP PRN 03/20/17 Benztropine Mesylate 1 mg PO BID 03/20/17 Bismuth Subsalicylate [Bismuth] 30 ml PO Q4HP PRN 03/20/17 Cetirizine HCl [Zyrtec 10 mg Tablet] 10 mg PO DAILY 03/20/17 Clonazepam [Klonopin] 0.25 mg PO Q12 03/20/17 Diphenhydramine HCl [Benadryl 25 mg Capsule] 50 mg PO QHS 03/20/17 Divalproex Sodium [Depakote ER 500 mg Tab.sr] 2,000 mg PO QHS 03/20/17 Docusate Sodium [Colace 100 mg Capsule] 100 mg PO BIDP PRN 03/20/17 Duloxetine HCl [Cymbalta] 60 mg PO Q12 03/20/17 Fluticasone Propionate [Flonase Nasal Reubens 50 Mcg/Reubens 16 gm] 2 spray NASL Q12 03/20/17 Haloperidol 10 mg PO DAILY 03/20/17 Insulin Regular, Human [Novolin R (Reg) Insulin 100 unit/mL] 0 unit SQ .SLIDING SCALE 03/20/17 Lisinopril [Prinivil 40 mg Tablet] 40 mg PO DAILY 03/20/17 Metformin HCl [Glucophage] 1,000 mg PO Q12 03/20/17 Omeprazole 20 mg PO DAILY 03/20/17 Prazosin HCl [Minipress] 1 mg PO QHS 03/20/17 Sitagliptin Phosphate [Januvia] 100 mg PO DAILY 03/20/17 Tramadol HCl [Ultram 50 mg Tablet] 50 mg PO Q8 03/20/17 Trazodone HCl [Desyrel 50 mg Tablet] 50 mg PO QHS 03/20/17 Zolpidem Tartrate [Ambien] 10 mg PO QHS 03/20/17 Allergies/Adverse Reactions: ibuprofen [Ibuprofen] Allergy (Mild, Verified 03/02/17 11:57) lips swell acetaminophen [From Tylenol] Allergy (Verified 03/02/17 11:57) Lips swelled aspirin [Aspirin] Allergy (Verified 03/02/17 11:57) Lips swelled bee venom protein (honey bee) Allergy (Verified 03/02/17 11:57) Review of Systems ROS unobtainable: Due to mental status Ears: ABSENT: hearing changes Physical Exam Vital Signs: Temp Pulse Resp BP Pulse Ox 99.2 F 89 14 115/67 100 03/20/17 17:42 03/20/17 19:00 03/20/17 17:42 03/20/17 17:12 03/20/17 17:42 Intake & Output 03/19/17 03/20/17 03/21/17 06:59 06:59 06:59 Intake Total 140 Balance 140 Weight 88.9 kg General appearance: PRESENT: no acute distress, well-developed, well-nourished Head exam: PRESENT: atraumatic, normocephalic Eye exam: PRESENT: conjunctiva pink, EOMI, PERRLA. ABSENT: scleral icterus Ear exam: PRESENT: normal external ear exam Mouth exam: PRESENT: moist, tongue midline Neck exam: PRESENT: full ROM Respiratory exam: PRESENT: clear to auscultation kim Cardiovascular exam: PRESENT: RRR, +S1, +S2 Vascular exam: PRESENT: normal capillary refill GI/Abdominal exam: PRESENT: normal bowel sounds, soft Rectal exam: PRESENT: deferred Neurological exam: PRESENT: alert, altered Skin exam: PRESENT: dry, intact, warm. ABSENT: cyanosis, rash Results Laboratory Results: 03/20/17 03/20/17 03/20/17 12:25 12:25 12:25 Phosphorus 4.1 Magnesium 1.8 Ammonia 31.9 Amylase < 30 L Lipase 54.4 TSH 1.55 Free T4 1.87 03/20/17 03/20/17 03/20/17 12:25 12:25 18:15 Creatine Kinase 33 29 L CK-MB (CK-2) 0.51 Troponin I < 0.012 03/20/17 18:15 Creatine Kinase CK-MB (CK-2) 0.44 Troponin I < 0.012 Impressions: Chest X-Ray 03/19/17 23:07 IMPRESSION: Mild cardiomegaly with no vascular congestion. Abdomen/Pelvis CT 03/20/17 00:00 IMPRESSION: 1. No acute findings in the abdomen or pelvis. 2. Fibroid uterus. 3. Cardiomegaly. Head CT 03/20/17 02:31 IMPRESSION: 1. No acute intracranial hemorrhage or acute territorial infarct. 2. Complete opacification of the left maxillary sinus with interval increase in the lobulated low-attenuation soft tissue density extending into the left nostril, may represent a large mucocele. ENT consult recommended. Evaluation with contrast-enhanced MRI may be worthwhile to exclude neoplasm. EVIDENCE OF ACUTE STROKE: NO. Assessment & Plan - Diagnosis (1) Acute hypercapnic respiratory failure Is this a current diagnosis for this admission?: Yes Plan: The differential diagnosis includes obesity associated hypoventilation syndrome , psychotropic medications, presently she is supported with noninvasive positive pressure ventilation (2) Urinary tract infection Qualifiers: Urinary tract infection type: acute cystitis Hematuria presence: with hematuria Qualified Code(s): N30.01 - Acute cystitis with hematuria Is this a current diagnosis for this admission?: Yes Plan: The urinalysis suggests UTI with bacteriuria, pyuria, she will be treated empirically with IV antibiotic pending results of urine culture (3) Abnormal CT scan, sinus Plan: CT scan of the head suggests complete opacification of the left maxillary sinus with a soft tissue density cannot rule out neoplasm, MRI with contrast to be ordered
[2017-03-20] MEDS ORDERED: LISINOPRIL 10 MG TABLET PO ONE (22:30)
[2017-03-20] MEDS ORDERED: LANSOPRAZOLE 15 MG TAB.RAP.DR PO ONE (22:30)
[2017-03-20] MEDS ORDERED: SITAGLIPTIN PHOSPHATE 50 MG TABLET PO ONE (22:30)
[2017-03-20] MEDS: METFORMIN HCL 500 MG TABLET PO SCH (23:02)
[2017-03-20] MEDS: TRAMADOL HCL 50 MG TABLET PO SCH (23:02)
[2017-03-20] MEDS: DULOXETINE HCL 30 MG CAPSULE.DR PO SCH (23:07)
[2017-03-20] MEDS: TRAZODONE HCL 50 MG TABLET PO SCH (23:07)
[2017-03-20] MEDS: CLONAZEPAM 1 MG TABLET PO SCH (23:07)
[2017-03-20] MEDS: DIVALPROEX SODIUM 500 MG TAB.SR.24H PO SCH (23:08)
[2017-03-21 02:15] LABS: CREATINE KINASE MB 0.55 ng/mL (<4.55)
[2017-03-21 02:19] LABS: TROPONIN I < 0.012 ng/mL
[2017-03-21 06:03] LABS: ABSOLUTE EOSINOPHILS # (AUTO) 0.3 10^3/uL (0.0-0.6); ABSOLUTE LYMPHOCYTES (AUTO) 1.9 10^3/uL (0.5-4.7); ABSOLUTE MONOCYTES (AUTO) 0.4 10^3/uL (0.1-1.4); ABSOLUTE NEUT (AUTO) 1.6 10^3/uL (1.7-8.2); BASOPHILS % (AUTO) 0.6 % (0-2); EOSINOPHILS % (AUTO) 6.6 % (0-6); HEMATOCRIT 35.1 % (36.0-47.0); HEMOGLOBIN 11.5 g/dL (12.0-15.5); LYMPHOCYTES % (AUTO) 44.8 % (13-45); MEAN CORPUSCULAR HGB CONC 32.9 g/dL (32.0-36.0); MEAN CORPUSCULAR VOLUME 94 fl (80-97); MONOCYTES % (AUTO) 10.1 % (3-13); PLATELET COUNT 169 10^3/uL (150-450); RED BLOOD COUNT 3.72 10^6/uL (3.72-5.28); RED CELL DISTRIBUTION WIDTH 13.9 % (11.5-14.0); SEGMENTED NEUTROPHILS % (AUTO) 37.9 % (42-78); TOTAL CELLS COUNTED % (AUTO) 100 %; WHITE BLOOD COUNT 4.2 10^3/uL (4.0-10.5)
[2017-03-21 06:23] LABS: ALANINE AMINOTRANSFERASE 15 U/L (9-52); ALBUMIN 2.9 g/dL (3.5-5.0); ALKALINE PHOSPHATASE 37 U/L (38-126); ANION GAP 6 (5-19); ASPARTATE AMINO TRANSFERASE 9 U/L (14-36); BILIRUBIN,DIRECT 0.3 mg/dL (0.0-0.4); BILIRUBIN,TOTAL 0.3 mg/dL (0.2-1.3); BLOOD UREA NITROGEN 14 mg/dL (7-20); CARBON DIOXIDE 31 mmol/L (22-30); CHLORIDE 105 mmol/L (98-107); CHOLESTEROL 179.63 mg/dL (0-200); GLUCOSE 83 mg/dL (75-110); POTASSIUM 4.6 mmol/L (3.6-5.0); SODIUM 142.1 mmol/L (137-145); TOTAL PROTEIN 6.2 g/dL (6.3-8.2); TRIGLYCERIDES 211 mg/dL (<150)
[2017-03-21] MEDS: TRAMADOL HCL 50 MG TABLET PO SCH ×3 (06:33→22:00)
[2017-03-21 06:34] LABS: DIRECT LDL 91 mg/dL (<100)
[2017-03-21] MEDS ORDERED: ALBUTEROL SULFATE HFA (90 MCG/PUFF) 200 PUFF/8.5 GM MDI IH PRN (07:06)
[2017-03-21 07:25] LABS: VLDL CHOLESTEROL 42.2 mg/dL (10-31)
[2017-03-21 08:26] LABS: ARTERIAL BLOOD BASE EXCESS 6.6 mmol/L; ARTERIAL BLOOD FIO2 36%; ARTERIAL BLOOD H2CO3 2.15 mmol/L (1.05-1.35); ARTERIAL BLOOD HCO3 34.9 mmol/L (20-26); ARTERIAL BLOOD O2 SATURATION 96.4 % (94-98); ARTERIAL BLOOD PH 7.31 (7.35-7.45); ARTERIAL BLOOD PO2 95.4 mmHg (80-100)
[2017-03-21 08:28] LABS: ARTERIAL BLOOD PCO2 71.3 mmHg (35-45)
[2017-03-21] MEDS: DULOXETINE HCL 30 MG CAPSULE.DR PO SCH ×2 (11:43→22:00)
[2017-03-21] MEDS: CLONAZEPAM 1 MG TABLET PO SCH ×2 (11:44→22:00)
[2017-03-21] MEDS: SITAGLIPTIN PHOSPHATE 50 MG TABLET PO SCH (11:44)
[2017-03-21] MEDS: LISINOPRIL 10 MG TABLET PO SCH (11:46)
[2017-03-21] MEDS: METFORMIN HCL 500 MG TABLET PO SCH ×2 (11:47→22:00)
[2017-03-21] MEDS: LANSOPRAZOLE 15 MG TAB.RAP.DR PO SCH (11:48)
[2017-03-21] MEDS: ENOXAPARIN SODIUM INJ 40 MG/0.4 ML DISP.SYRIN SUBCUT SCH (11:48)
--- NOTE | 2017-03-21 14:53 | RADIOLOGY REPORT (SQ) ---
EXAM DESCRIPTION: MRI HEAD COMBO COMPLETED DATE/TIME: 03/21/2017 2:23 pm REASON FOR STUDY: suspicious lesion in left maxilla COMPARISON: CT brain 03/20/2017, 02/19/2017 TECHNIQUE: Multiplanar imaging includes noncontrasted T1, T2, FLAIR, diffusion with ADC map and post gadolinium contrast T1 sequences. Images stored on PACS. CONTRAST TYPE AND DOSE: 15 mL Multihance. RENAL FUNCTION: GFR > 60. LIMITATIONS: Motion artifact on the coronal and sagittal post contrasted images FINDINGS: The left maxillary sinus is near completely opacified with mucous membrane thickening. Th ere are dried secretions centrally in the left maxillary sinus. Multi cystic appearing mucous membra ne thickening extends through the left maxillary sinus outlet into the posterior half of the nasal ca vity and nasopharynx with a multi septated 4 x 2.5 cm cyst present on axial image 7. There is mild m ucosal surface contrast enhancement. No discrete enhancing mass worrisome for papilloma Elsewhere in the paranasal sinuses, there is opacification of the left sphenoid sinus with fluid and mucous membrane thickening in the right sphenoid sinus and left ethmoid air cells. Trace fluid in the bilateral mastoid air cells. ANATOMY: No developmental anomalies. Normal vascular flow voids. Pituitary fossa normal. CSF SPACES: Normal in size and contour. No hemorrhage. CEREBRUM: Sulci and gyri normal in size and contour. Minimal spotty increased white matter signal on FLAIR imaging from small vessel disease. No evidence of hemorrhage, mass, or extraaxial fluid collec tion. No abnormal enhancement post contrast. POSTERIOR FOSSA: No signal alteration. No hemorrhage. No edema, masses, or mass effect. Internal jhonny tory canals, cerebellopontine angles, mastoids normal. No enhancing lesions. No abnormal enhancement post contrast. DIFFUSION IMAGING: Negative for acute or subacute infarction. ORBITS: No masses. Globes normal. PARANASAL SINUSES: As above OTHER: No other significant finding. IMPRESSION: Fluid signal cystic lesion extending through the left maxillary sinus outlet into the po sterior half of the nasal cavity and nasopharynx. Dried secretions in the left maxillary sinus centr ally. Findings likely represent benign hypertrophy. Inverting papilloma could not entirely be exclu ded. No acute intracranial changes. Minimal white matter disease, chronic EVIDENCE OF ACUTE STROKE: NO. TECHNICAL DOCUMENTATION: JOB ID: [id number] [employer]- All Rights Reserved
[2017-03-21 17:01] LABS: ARTERIAL BLOOD BASE EXCESS 6.9 mmol/L; ARTERIAL BLOOD FIO2 40%; ARTERIAL BLOOD H2CO3 2.13 mmol/L (1.05-1.35); ARTERIAL BLOOD HCO3 35.8 mmol/L (20-26); ARTERIAL BLOOD O2 SATURATION 98.8 % (94-98); ARTERIAL BLOOD PH 7.32 (7.35-7.45); ARTERIAL BLOOD PO2 154.5 mmHg (80-100); ARTERIAL BLOOD TOTAL CO2 37.9 mmol/L (21-25)
[2017-03-21 17:04] LABS: ARTERIAL BLOOD PCO2 70.7 mmHg (35-45)
--- NOTE | 2017-03-21 20:56 | PDOC PROGRESS REPORT ---
Subjective Progress Note for:: 03/21/17 Subjective:: She was seen by the bedside, she continues to require BiPAP, the setting was adjusted to optimize oxygenation and acid-base balance. MRI of the head was done with contrast he showed that the left maxillary sinus was near completely opacified with mucosal membrane thickening. There are dried secretions centrally in the left axillary sinus. Multicystic appearing mucosal membrane thickening extends to the left maxillary sinus outlet into the posterior half of the nasal cavity and nasopharynx with a moderate-sized septated 4 x 2.5 cm cyst. There is mild mucosal surface contrast enhancement no discrete enhancing mass worrisome for papilloma. Reason For Visit: ACUTE HYPERCAPNIC RESPIRATORY FAILURE Physical Exam Vital Signs: Temp Pulse Resp BP Pulse Ox 97.4 F 91 10 L 128/89 H 100 03/21/17 20:09 03/21/17 20:09 03/21/17 20:09 03/21/17 20:09 03/21/17 20:09 Intake & Output 03/20/17 03/21/17 03/22/17 06:59 06:59 06:59 Intake Total 840 Balance 840 Weight 88.9 kg General appearance: PRESENT: morbidly obese Eye exam: PRESENT: PERRLA Respiratory exam: PRESENT: clear to auscultation kim Cardiovascular exam: PRESENT: +S1, +S2 GI/Abdominal exam: PRESENT: soft Neurological exam: PRESENT: altered Results Laboratory Results: 03/21/17 05:12 03/21/17 05:12 03/21/17 03/21/17 03/21/17 05:12 05:12 07:38 WBC 4.2 RBC 3.72 Hgb 11.5 L Hct 35.1 L MCV 94 MCH 31.0 MCHC 32.9 RDW 13.9 Plt Count 169 Seg Neutrophils % 37.9 L Lymphocytes % 44.8 Monocytes % 10.1 Eosinophils % 6.6 H Basophils % 0.6 Absolute Neutrophils 1.6 L Absolute Lymphocytes 1.9 Absolute Monocytes 0.4 Absolute Eosinophils 0.3 Absolute Basophils 0.0 Carbonic Acid 2.15 H HCO3/H2CO3 Ratio 16:1 ABG pH 7.31 L ABG pCO2 71.3 H* ABG pO2 95.4 ABG HCO3 34.9 H ABG O2 Saturation 96.4 ABG Base Excess 6.6 FiO2 36% Sodium 142.1 Potassium 4.6 Chloride 105 Carbon Dioxide 31 H Anion Gap 6 BUN 14 Creatinine 0.72 Est GFR ( Amer) > 60 Est GFR (Non-Af Amer) > 60 Glucose 83 Calcium 9.0 Total Bilirubin 0.3 AST 9 L ALT 15 Alkaline Phosphatase 37 L Total Protein 6.2 L Albumin 2.9 L Triglycerides 211 H Cholesterol 179.63 LDL Cholesterol Direct 91 VLDL Cholesterol 42.2 H HDL Cholesterol 33 L 03/21/17 16:00 WBC RBC Hgb Hct MCV MCH MCHC RDW Plt Count Seg Neutrophils % Lymphocytes % Monocytes % Eosinophils % Basophils % Absolute Neutrophils Absolute Lymphocytes Absolute Monocytes Absolute Eosinophils Absolute Basophils Carbonic Acid 2.13 H HCO3/H2CO3 Ratio 16:1 ABG pH 7.32 L ABG pCO2 70.7 H* ABG pO2 154.5 H ABG HCO3 35.8 H ABG O2 Saturation 98.8 H ABG Base Excess 6.9 FiO2 40% Sodium Potassium Chloride Carbon Dioxide Anion Gap BUN Creatinine Est GFR ( Amer) Est GFR (Non-Af Amer) Glucose Calcium Total Bilirubin AST ALT Alkaline Phosphatase Total Protein Albumin Triglycerides Cholesterol LDL Cholesterol Direct VLDL Cholesterol HDL Cholesterol 03/20/17 03/20/17 03/20/17 12:25 12:25 18:15 Creatine Kinase 33 29 L CK-MB (CK-2) 0.51 Troponin I < 0.012 03/20/17 03/21/17 03/21/17 18:15 00:30 00:30 Creatine Kinase Cancelled CK-MB (CK-2) 0.44 Cancelled Troponin I < 0.012 Cancelled 03/21/17 03/21/17 01:30 01:30 Creatine Kinase 32 CK-MB (CK-2) 0.55 Troponin I < 0.012 Impressions: Chest X-Ray 03/19/17 23:07 IMPRESSION: Mild cardiomegaly with no vascular congestion. Abdomen/Pelvis CT 03/20/17 00:00 IMPRESSION: 1. No acute findings in the abdomen or pelvis. 2. Fibroid uterus. 3. Cardiomegaly. Head CT 03/20/17 02:31 IMPRESSION: 1. No acute intracranial hemorrhage or acute territorial infarct. 2. Complete opacification of the left maxillary sinus with interval increase in the lobulated low-attenuation soft tissue density extending into the left nostril, may represent a large mucocele. ENT consult recommended. Evaluation with contrast-enhanced MRI may be worthwhile to exclude neoplasm. EVIDENCE OF ACUTE STROKE: NO. Head MRI 03/21/17 00:00 IMPRESSION: Fluid signal cystic lesion extending through the left maxillary sinus outlet into the posterior half of the nasal cavity and nasopharynx. Dried secretions in the left maxillary sinus centrally. Findings likely represent benign hypertrophy. Inverting papilloma could not entirely be excluded. No acute intracranial changes. Minimal white matter disease, chronic EVIDENCE OF ACUTE STROKE: NO. Assessment & Plan - Diagnosis (1) Acute hypercapnic respiratory failure Is this a current diagnosis for this admission?: Yes Plan: She continues to require noninvasive positive pressure ventilation with BiPAP (2) Urinary tract infection Qualifiers: Urinary tract infection type: acute cystitis Hematuria presence: with hematuria Qualified Code(s): N30.01 - Acute cystitis with hematuria Is this a current diagnosis for this admission?: Yes (3) Maxillary sinus cyst Is this a current diagnosis for this admission?: Yes Plan: Outpatient ENT evaluation once stable (4) Left maxillary sinus opacification Is this a current diagnosis for this admission?: Yes (5) Type 2 diabetes mellitus Qualifiers: Diabetes mellitus complication status: with unspecified complications Diabetes mellitus jail insulin use: without buttermilk drier operator use Qualified Code( s): E11.8 - Type 2 diabetes mellitus with unspecified complications Is this a current diagnosis for this admission?: Yes
[2017-03-21] MEDS: CEFTRIAXONE SODIUM 1,000 MG in NORMAL SALINE 50 ML IV SCH (21:35)
[2017-03-21] MEDS ORDERED: CEFTRIAXONE 1 GM/D5W RTU 1 GM/50 ML RTUPB IV SCH (22:00)
[2017-03-21] MEDS: TRAZODONE HCL 50 MG TABLET PO SCH (22:00)
[2017-03-21] MEDS: DIVALPROEX SODIUM 500 MG TAB.SR.24H PO SCH (22:00)
[2017-03-22] MEDS: NORMAL SALINE 1000 ML 1,000 ML IV PRN (04:01)
[2017-03-22] MEDS: TRAMADOL HCL 50 MG TABLET PO SCH ×3 (05:30→21:33)
[2017-03-22 06:06] LABS: ABSOLUTE EOSINOPHILS # (AUTO) 0.1 10^3/uL (0.0-0.6); ABSOLUTE LYMPHOCYTES (AUTO) 1.5 10^3/uL (0.5-4.7); ABSOLUTE MONOCYTES (AUTO) 0.4 10^3/uL (0.1-1.4); BASOPHILS % (AUTO) 0.6 % (0-2); EOSINOPHILS % (AUTO) 3.4 % (0-6); HEMATOCRIT 32.9 % (36.0-47.0); HEMOGLOBIN 11.2 g/dL (12.0-15.5); LYMPHOCYTES % (AUTO) 38.2 % (13-45); MEAN CORPUSCULAR HEMOGLOBIN 31.4 pg (27.0-33.4); MEAN CORPUSCULAR HGB CONC 33.9 g/dL (32.0-36.0); MEAN CORPUSCULAR VOLUME 93 fl (80-97); MONOCYTES % (AUTO) 8.9 % (3-13); PLATELET COUNT 165 10^3/uL (150-450); RED BLOOD COUNT 3.56 10^6/uL (3.72-5.28); RED CELL DISTRIBUTION WIDTH 13.5 % (11.5-14.0); SEGMENTED NEUTROPHILS % (AUTO) 48.9 % (42-78); TOTAL CELLS COUNTED % (AUTO) 100 %; WHITE BLOOD COUNT 4.1 10^3/uL (4.0-10.5)
[2017-03-22 06:24] LABS: ALANINE AMINOTRANSFERASE 16 U/L (9-52); ALKALINE PHOSPHATASE 36 U/L (38-126); ANION GAP 6 (5-19); ASPARTATE AMINO TRANSFERASE 11 U/L (14-36); BILIRUBIN,DIRECT 0.1 mg/dL (0.0-0.4); BILIRUBIN,TOTAL 0.2 mg/dL (0.2-1.3); BLOOD UREA NITROGEN 12 mg/dL (7-20); CARBON DIOXIDE 33 mmol/L (22-30); CHLORIDE 104 mmol/L (98-107); GLUCOSE 77 mg/dL (75-110); SODIUM 142.6 mmol/L (137-145); TOTAL PROTEIN 6.1 g/dL (6.3-8.2)
[2017-03-22] MEDS: CLONAZEPAM 1 MG TABLET PO SCH ×2 (10:19→21:34)
[2017-03-22] MEDS: DULOXETINE HCL 30 MG CAPSULE.DR PO SCH ×2 (10:19→21:33)
[2017-03-22] MEDS: ENOXAPARIN SODIUM INJ 40 MG/0.4 ML DISP.SYRIN SUBCUT SCH (10:20)
[2017-03-22] MEDS: LISINOPRIL 10 MG TABLET PO SCH (10:21)
[2017-03-22] MEDS: LANSOPRAZOLE 15 MG TAB.RAP.DR PO SCH (10:21)
[2017-03-22] MEDS: METFORMIN HCL 500 MG TABLET PO SCH ×2 (10:23→21:34)
[2017-03-22] MEDS: SITAGLIPTIN PHOSPHATE 50 MG TABLET PO SCH (10:23)
[2017-03-22] MEDS ORDERED: DOCUSATE SODIUM 100 MG CAPSULE PO PRN (16:53)
--- NOTE | 2017-03-22 16:56 | PDOC PROGRESS REPORT ---
Subjective Progress Note for:: 03/22/17 Subjective:: Patient was seen by the bedside, she is better today compared to yesterday, not presently on the noninvasive device BiPAP, she will be started back on psychotropic drugs, because she is beginning to show signs of agitation. Reason For Visit: ACUTE HYPERCAPNIC RESPIRATORY FAILURE Physical Exam Vital Signs: Temp Pulse Resp BP Pulse Ox 97.9 F 97 20 115/56 L 96 03/22/17 15:22 03/22/17 15:22 03/22/17 15:22 03/22/17 15:22 03/22/17 16:24 Intake & Output 03/21/17 03/22/17 03/23/17 06:59 06:59 06:59 Intake Total 840 700 50 Balance 840 700 50 Weight 88.9 kg 92.5 kg General appearance: PRESENT: no acute distress Eye exam: PRESENT: PERRLA Respiratory exam: PRESENT: clear to auscultation kim Cardiovascular exam: PRESENT: +S1, +S2 GI/Abdominal exam: PRESENT: soft Neurological exam: PRESENT: alert Results Laboratory Results: 03/22/17 05:27 03/22/17 05:27 03/21/17 03/22/17 03/22/17 16:00 05:27 05:27 WBC 4.1 RBC 3.56 L Hgb 11.2 L Hct 32.9 L MCV 93 MCH 31.4 MCHC 33.9 RDW 13.5 Plt Count 165 Seg Neutrophils % 48.9 Lymphocytes % 38.2 Monocytes % 8.9 Eosinophils % 3.4 Basophils % 0.6 Absolute Neutrophils 2.0 Absolute Lymphocytes 1.5 Absolute Monocytes 0.4 Absolute Eosinophils 0.1 Absolute Basophils 0.0 Carbonic Acid 2.13 H HCO3/H2CO3 Ratio 16:1 ABG pH 7.32 L ABG pCO2 70.7 H* ABG pO2 154.5 H ABG HCO3 35.8 H ABG O2 Saturation 98.8 H ABG Base Excess 6.9 FiO2 40% Sodium 142.6 Potassium 5.0 Chloride 104 Carbon Dioxide 33 H Anion Gap 6 BUN 12 Creatinine 0.67 Est GFR ( Amer) > 60 Est GFR (Non-Af Amer) > 60 Glucose 77 Calcium 9.0 Total Bilirubin 0.2 AST 11 L ALT 16 Alkaline Phosphatase 36 L Total Protein 6.1 L Albumin 3.0 L 03/20/17 03/20/17 03/20/17 12:25 12:25 18:15 Creatine Kinase 33 29 L CK-MB (CK-2) 0.51 Troponin I < 0.012 03/20/17 03/21/17 03/21/17 18:15 00:30 00:30 Creatine Kinase Cancelled CK-MB (CK-2) 0.44 Cancelled Troponin I < 0.012 Cancelled 03/21/17 03/21/17 01:30 01:30 Creatine Kinase 32 CK-MB (CK-2) 0.55 Troponin I < 0.012 Impressions: Chest X-Ray 03/19/17 23:07 IMPRESSION: Mild cardiomegaly with no vascular congestion. Abdomen/Pelvis CT 03/20/17 00:00 IMPRESSION: 1. No acute findings in the abdomen or pelvis. 2. Fibroid uterus. 3. Cardiomegaly. Head CT 03/20/17 02:31 IMPRESSION: 1. No acute intracranial hemorrhage or acute territorial infarct. 2. Complete opacification of the left maxillary sinus with interval increase in the lobulated low-attenuation soft tissue density extending into the left nostril, may represent a large mucocele. ENT consult recommended. Evaluation with contrast-enhanced MRI may be worthwhile to exclude neoplasm. EVIDENCE OF ACUTE STROKE: NO. Head MRI 03/21/17 00:00 IMPRESSION: Fluid signal cystic lesion extending through the left maxillary sinus outlet into the posterior half of the nasal cavity and nasopharynx. Dried secretions in the left maxillary sinus centrally. Findings likely represent benign hypertrophy. Inverting papilloma could not entirely be excluded. No acute intracranial changes. Minimal white matter disease, chronic EVIDENCE OF ACUTE STROKE: NO. Assessment & Plan - Diagnosis (1) Acute hypercapnic respiratory failure Is this a current diagnosis for this admission?: Yes (2) Urinary tract infection Qualifiers: Urinary tract infection type: acute cystitis Hematuria presence: with hematuria Qualified Code(s): N30.01 - Acute cystitis with hematuria Is this a current diagnosis for this admission?: Yes (3) Maxillary sinus cyst Is this a current diagnosis for this admission?: Yes (4) Left maxillary sinus opacification Is this a current diagnosis for this admission?: Yes (5) Type 2 diabetes mellitus Qualifiers: Diabetes mellitus complication status: with unspecified complications Diabetes mellitus technician terminal and repeater insulin use: without technician terminal and repeater use Qualified Code( s): E11.8 - Type 2 diabetes mellitus with unspecified complications Is this a current diagnosis for this admission?: Yes - Plan Summary Plan Summary: She will be started on psychotropic drugs, she we continue antibiotic for presumed UTI, she has standby BiPAP in case needed
[2017-03-22] MEDS ORDERED: (PENDING PHARMACY ID) (Haloperidol [Haloperidol] 10 MG) PO SCH (17:00)
[2017-03-22] MEDS ORDERED: CETIRIZINE 10 MG TABLET PO ONE (18:00)
[2017-03-22] MEDS ORDERED: HALOPERIDOL 5 MG TABLET PO ONE (18:00)
[2017-03-22] MEDS: BENZTROPINE MESYLATE 1 MG TABLET PO SCH (18:38)
[2017-03-22] MEDS: TRAZODONE HCL 50 MG TABLET PO SCH (21:33)
[2017-03-22] MEDS: DIVALPROEX SODIUM 500 MG TAB.SR.24H PO SCH (21:34)
[2017-03-22] MEDS: CEFTRIAXONE SODIUM 1,000 MG in NORMAL SALINE 50 ML IV SCH (21:41)
[2017-03-22] MEDS ORDERED: (PENDING PHARMACY ID) (Prazosin Hcl [Minipress] 1 MG) PO SCH (22:00)
[2017-03-23 04:30] LABS: UR PRO/CREAT RATIO RESULT 0.9 mg/mg (0.0-0.2); URINE CREATININE 47.5 mg/dL (15-278); URINE PROTEIN 40.7 mg/dL (<12)
[2017-03-23] MEDS: TRAMADOL HCL 50 MG TABLET PO SCH ×3 (05:39→21:59)
[2017-03-23 06:27] LABS: ALANINE AMINOTRANSFERASE 13 U/L (9-52); ALBUMIN 2.8 g/dL (3.5-5.0); ALKALINE PHOSPHATASE 37 U/L (38-126); ANION GAP 6 (5-19); ASPARTATE AMINO TRANSFERASE 12 U/L (14-36); BILIRUBIN,DIRECT 0.3 mg/dL (0.0-0.4); BILIRUBIN,TOTAL 0.3 mg/dL (0.2-1.3); BLOOD UREA NITROGEN 10 mg/dL (7-20); CALCIUM 9.3 mg/dL (8.4-10.2); CARBON DIOXIDE 30 mmol/L (22-30); CHLORIDE 104 mmol/L (98-107); GLUCOSE 70 mg/dL (75-110); POTASSIUM 4.6 mmol/L (3.6-5.0); TOTAL PROTEIN 6.1 g/dL (6.3-8.2)
[2017-03-23 06:40] LABS: ABSOLUTE EOSINOPHILS # (AUTO) 0.2 10^3/uL (0.0-0.6); ABSOLUTE LYMPHOCYTES (AUTO) 1.9 10^3/uL (0.5-4.7); ABSOLUTE MONOCYTES (AUTO) 0.4 10^3/uL (0.1-1.4); ABSOLUTE NEUT (AUTO) 1.5 10^3/uL (1.7-8.2); BASOPHILS % (AUTO) 0.8 % (0-2); EOSINOPHILS % (AUTO) 4.4 % (0-6); HEMOGLOBIN 11.2 g/dL (12.0-15.5); LYMPHOCYTES % (AUTO) 47.7 % (13-45); MEAN CORPUSCULAR HEMOGLOBIN 31.1 pg (27.0-33.4); MEAN CORPUSCULAR HGB CONC 33.8 g/dL (32.0-36.0); MEAN CORPUSCULAR VOLUME 92 fl (80-97); PLATELET COUNT 160 10^3/uL (150-450); RED BLOOD COUNT 3.59 10^6/uL (3.72-5.28); RED CELL DISTRIBUTION WIDTH 13.5 % (11.5-14.0); SEGMENTED NEUTROPHILS % (AUTO) 38.1 % (42-78); TOTAL CELLS COUNTED % (AUTO) 100 %; WHITE BLOOD COUNT 3.9 10^3/uL (4.0-10.5)
[2017-03-23] MEDS: NORMAL SALINE 1000 ML 1,000 ML IV PRN (09:42)
[2017-03-23] MEDS: BENZTROPINE MESYLATE 1 MG TABLET PO SCH ×2 (10:04→17:18)
[2017-03-23] MEDS: CETIRIZINE 10 MG TABLET PO SCH (10:06)
[2017-03-23] MEDS: CLONAZEPAM 1 MG TABLET PO SCH ×2 (10:07→21:59)
[2017-03-23] MEDS: DULOXETINE HCL 30 MG CAPSULE.DR PO SCH ×2 (10:07→21:59)
[2017-03-23] MEDS: ENOXAPARIN SODIUM INJ 40 MG/0.4 ML DISP.SYRIN SUBCUT SCH (10:08)
[2017-03-23] MEDS: HALOPERIDOL 5 MG TABLET PO SCH (10:10)
[2017-03-23] MEDS: LANSOPRAZOLE 15 MG TAB.RAP.DR PO SCH (10:11)
[2017-03-23] MEDS: LISINOPRIL 10 MG TABLET PO SCH (10:12)
[2017-03-23] MEDS: METFORMIN HCL 500 MG TABLET PO SCH ×2 (10:13→21:59)
[2017-03-23] MEDS: SITAGLIPTIN PHOSPHATE 50 MG TABLET PO SCH (10:15)
--- NOTE | 2017-03-23 21:45 | PDOC PROGRESS REPORT ---
Subjective Progress Note for:: 03/23/17 Subjective:: Patient is seen by the bedside, she is less agitated, not requiring BiPAP as much as she was in the last 2 days though still somewhat sleepy but easily arousable Reason For Visit: ACUTE HYPERCAPNIC RESPIRATORY FAILURE Physical Exam Vital Signs: Temp Pulse Resp BP Pulse Ox 97.4 F 84 18 127/91 H 93 03/23/17 20:01 03/23/17 20:01 03/23/17 20:01 03/23/17 20:01 03/23/17 20:01 Intake & Output 03/22/17 03/23/17 03/24/17 06:59 06:59 06:59 Intake Total 700 2550 864 Balance 700 2550 864 Weight 92.5 kg 91.8 kg General appearance: PRESENT: no acute distress Head exam: PRESENT: atraumatic, normocephalic Eye exam: PRESENT: PERRLA Ear exam: PRESENT: normal external ear exam Mouth exam: PRESENT: moist, tongue midline Neck exam: PRESENT: full ROM Respiratory exam: PRESENT: clear to auscultation kim Cardiovascular exam: PRESENT: RRR, +S1, +S2 Pulses: PRESENT: normal dorsalis pedis pul, +2 pedal pulses bilateral Vascular exam: PRESENT: normal capillary refill GI/Abdominal exam: PRESENT: normal bowel sounds, soft Rectal exam: PRESENT: deferred Neurological exam: PRESENT: alert, awake, oriented to person, oriented to place , oriented to time, oriented to situation, CN II-XII grossly intact Psychiatric exam: PRESENT: appropriate affect, normal mood Skin exam: PRESENT: dry, intact, warm Results Laboratory Results: 03/23/17 05:27 03/23/17 05:27 03/23/17 03/23/17 05:27 05:27 WBC 3.9 L RBC 3.59 L Hgb 11.2 L Hct 33.0 L MCV 92 MCH 31.1 MCHC 33.8 RDW 13.5 Plt Count 160 Seg Neutrophils % 38.1 L Lymphocytes % 47.7 H Monocytes % 9.0 Eosinophils % 4.4 Basophils % 0.8 Absolute Neutrophils 1.5 L Absolute Lymphocytes 1.9 Absolute Monocytes 0.4 Absolute Eosinophils 0.2 Absolute Basophils 0.0 Sodium 140.0 Potassium 4.6 Chloride 104 Carbon Dioxide 30 Anion Gap 6 BUN 10 Creatinine 0.65 Est GFR ( Amer) > 60 Est GFR (Non-Af Amer) > 60 Glucose 70 L Calcium 9.3 Total Bilirubin 0.3 AST 12 L ALT 13 Alkaline Phosphatase 37 L Total Protein 6.1 L Albumin 2.8 L 03/20/17 03/20/17 03/20/17 12:25 12:25 18:15 Creatine Kinase 33 29 L CK-MB (CK-2) 0.51 Troponin I < 0.012 03/20/17 03/21/17 03/21/17 18:15 00:30 00:30 Creatine Kinase Cancelled CK-MB (CK-2) 0.44 Cancelled Troponin I < 0.012 Cancelled 03/21/17 03/21/17 01:30 01:30 Creatine Kinase 32 CK-MB (CK-2) 0.55 Troponin I < 0.012 Impressions: Chest X-Ray 03/19/17 23:07 IMPRESSION: Mild cardiomegaly with no vascular congestion. Abdomen/Pelvis CT 03/20/17 00:00 IMPRESSION: 1. No acute findings in the abdomen or pelvis. 2. Fibroid uterus. 3. Cardiomegaly. Head CT 03/20/17 02:31 IMPRESSION: 1. No acute intracranial hemorrhage or acute territorial infarct. 2. Complete opacification of the left maxillary sinus with interval increase in the lobulated low-attenuation soft tissue density extending into the left nostril, may represent a large mucocele. ENT consult recommended. Evaluation with contrast-enhanced MRI may be worthwhile to exclude neoplasm. EVIDENCE OF ACUTE STROKE: NO. Head MRI 03/21/17 00:00 IMPRESSION: Fluid signal cystic lesion extending through the left maxillary sinus outlet into the posterior half of the nasal cavity and nasopharynx. Dried secretions in the left maxillary sinus centrally. Findings likely represent benign hypertrophy. Inverting papilloma could not entirely be excluded. No acute intracranial changes. Minimal white matter disease, chronic EVIDENCE OF ACUTE STROKE: NO. Assessment & Plan - Diagnosis (1) Acute hypercapnic respiratory failure Is this a current diagnosis for this admission?: Yes (2) Urinary tract infection Qualifiers: Urinary tract infection type: acute cystitis Hematuria presence: with hematuria Qualified Code(s): N30.01 - Acute cystitis with hematuria Is this a current diagnosis for this admission?: Yes (3) Maxillary sinus cyst Is this a current diagnosis for this admission?: Yes (4) Left maxillary sinus opacification Is this a current diagnosis for this admission?: Yes (5) Type 2 diabetes mellitus Qualifiers: Diabetes mellitus complication status: with unspecified complications Diabetes mellitus detention insulin use: without detention use Qualified Code( s): E11.8 - Type 2 diabetes mellitus with unspecified complications Is this a current diagnosis for this admission?: Yes
[2017-03-23] MEDS: DIVALPROEX SODIUM 500 MG TAB.SR.24H PO SCH (21:58)
[2017-03-23] MEDS: TRAZODONE HCL 50 MG TABLET PO SCH (21:59)
[2017-03-23] MEDS: CEFTRIAXONE SODIUM 1,000 MG in NORMAL SALINE 50 ML IV SCH (21:59)
[2017-03-24] MEDS: TRAMADOL HCL 50 MG TABLET PO SCH ×3 (05:44→22:03)
[2017-03-24] MEDS: NORMAL SALINE 1000 ML 1,000 ML IV PRN (06:04)
[2017-03-24] MEDS: METFORMIN HCL 500 MG TABLET PO SCH ×2 (09:13→22:02)
[2017-03-24] MEDS: LISINOPRIL 10 MG TABLET PO SCH (09:13)
[2017-03-24] MEDS: DULOXETINE HCL 30 MG CAPSULE.DR PO SCH ×2 (09:14→22:03)
[2017-03-24] MEDS: CETIRIZINE 10 MG TABLET PO SCH (09:14)
[2017-03-24] MEDS: SITAGLIPTIN PHOSPHATE 50 MG TABLET PO SCH (09:14)
[2017-03-24] MEDS: LANSOPRAZOLE 15 MG TAB.RAP.DR PO SCH (09:14)
[2017-03-24] MEDS: ENOXAPARIN SODIUM INJ 40 MG/0.4 ML DISP.SYRIN SUBCUT SCH (09:14)
[2017-03-24] MEDS: CLONAZEPAM 1 MG TABLET PO SCH ×2 (09:14→22:04)
[2017-03-24] MEDS: BENZTROPINE MESYLATE 1 MG TABLET PO SCH ×2 (09:14→17:12)
[2017-03-24] MEDS: HALOPERIDOL 5 MG TABLET PO SCH (09:17)
[2017-03-24 10:15] LABS: ABSOLUTE EOSINOPHILS # (AUTO) 0.3 10^3/uL (0.0-0.6); ABSOLUTE LYMPHOCYTES (AUTO) 1.7 10^3/uL (0.5-4.7); ABSOLUTE MONOCYTES (AUTO) 0.3 10^3/uL (0.1-1.4); ABSOLUTE NEUT (AUTO) 1.5 10^3/uL (1.7-8.2); BASOPHILS % (AUTO) 0.7 % (0-2); HEMOGLOBIN 11.6 g/dL (12.0-15.5); MEAN CORPUSCULAR HEMOGLOBIN 31.3 pg (27.0-33.4); MEAN CORPUSCULAR HGB CONC 34.2 g/dL (32.0-36.0); MEAN CORPUSCULAR VOLUME 92 fl (80-97); MONOCYTES % (AUTO) 7.8 % (3-13); PLATELET COUNT 172 10^3/uL (150-450); RED BLOOD COUNT 3.71 10^6/uL (3.72-5.28); SEGMENTED NEUTROPHILS % (AUTO) 39.5 % (42-78); TOTAL CELLS COUNTED % (AUTO) 100 %; WHITE BLOOD COUNT 3.8 10^3/uL (4.0-10.5)
[2017-03-24 10:34] LABS: ALANINE AMINOTRANSFERASE 14 U/L (9-52); ALBUMIN 3.1 g/dL (3.5-5.0); ALKALINE PHOSPHATASE 41 U/L (38-126); ANION GAP 7 (5-19); ASPARTATE AMINO TRANSFERASE 15 U/L (14-36); BILIRUBIN,DIRECT 0.3 mg/dL (0.0-0.4); BILIRUBIN,TOTAL 0.3 mg/dL (0.2-1.3); BLOOD UREA NITROGEN 8 mg/dL (7-20); CALCIUM 9.3 mg/dL (8.4-10.2); CARBON DIOXIDE 31 mmol/L (22-30); CHLORIDE 101 mmol/L (98-107); GLUCOSE 74 mg/dL (75-110); POTASSIUM 4.3 mmol/L (3.6-5.0); SODIUM 138.6 mmol/L (137-145); TOTAL PROTEIN 6.5 g/dL (6.3-8.2)
--- NOTE | 2017-03-24 21:20 | PDOC PROGRESS REPORT ---
Subjective Progress Note for:: 03/24/17 Subjective:: She was admitted for the management of acute hypercapnic respiratory failure associated with encephalopathy, she is no longer requiring BiPAP to support breathing, she is more awake, responsive, would like to go home Reason For Visit: ACUTE HYPERCAPNIC RESPIRATORY FAILURE Physical Exam Vital Signs: Temp Pulse Resp BP Pulse Ox 98.0 F 92 17 140/90 H 96 03/24/17 15:25 03/24/17 15:25 03/24/17 15:25 03/24/17 15:25 03/24/17 15:25 Intake & Output 03/23/17 03/24/17 03/25/17 06:59 06:59 06:59 Intake Total 2550 1704 597 Output Total 450 Balance 2550 1704 147 Weight 91.8 kg 91.7 kg General appearance: PRESENT: no acute distress, well-developed, well-nourished Head exam: PRESENT: atraumatic, normocephalic Eye exam: PRESENT: conjunctiva pink, EOMI, PERRLA Ear exam: PRESENT: normal external ear exam Mouth exam: PRESENT: moist, tongue midline Neck exam: PRESENT: full ROM Respiratory exam: PRESENT: clear to auscultation kim Cardiovascular exam: PRESENT: RRR, +S1, +S2 Pulses: PRESENT: normal dorsalis pedis pul, +2 pedal pulses bilateral Vascular exam: PRESENT: normal capillary refill GI/Abdominal exam: PRESENT: normal bowel sounds, soft Rectal exam: PRESENT: deferred Neurological exam: PRESENT: alert Psychiatric exam: PRESENT: appropriate affect, normal mood Skin exam: PRESENT: dry, intact, warm Results Laboratory Results: 03/24/17 09:50 03/24/17 09:50 03/24/17 03/24/17 09:50 09:50 WBC 3.8 L RBC 3.71 L Hgb 11.6 L Hct 34.0 L MCV 92 MCH 31.3 MCHC 34.2 RDW 14.0 Plt Count 172 Seg Neutrophils % 39.5 L Lymphocytes % 45.0 Monocytes % 7.8 Eosinophils % 7.0 H Basophils % 0.7 Absolute Neutrophils 1.5 L Absolute Lymphocytes 1.7 Absolute Monocytes 0.3 Absolute Eosinophils 0.3 Absolute Basophils 0.0 Sodium 138.6 Potassium 4.3 Chloride 101 Carbon Dioxide 31 H Anion Gap 7 BUN 8 Creatinine 0.66 Est GFR ( Amer) > 60 Est GFR (Non-Af Amer) > 60 Glucose 74 L Calcium 9.3 Total Bilirubin 0.3 AST 15 ALT 14 Alkaline Phosphatase 41 Total Protein 6.5 Albumin 3.1 L 03/20/17 03/20/17 03/20/17 12:25 12:25 18:15 Creatine Kinase 33 29 L CK-MB (CK-2) 0.51 Troponin I < 0.012 03/20/17 03/21/17 03/21/17 18:15 00:30 00:30 Creatine Kinase Cancelled CK-MB (CK-2) 0.44 Cancelled Troponin I < 0.012 Cancelled 03/21/17 03/21/17 01:30 01:30 Creatine Kinase 32 CK-MB (CK-2) 0.55 Troponin I < 0.012 Impressions: Chest X-Ray 03/19/17 23:07 IMPRESSION: Mild cardiomegaly with no vascular congestion. Abdomen/Pelvis CT 03/20/17 00:00 IMPRESSION: 1. No acute findings in the abdomen or pelvis. 2. Fibroid uterus. 3. Cardiomegaly. Head CT 03/20/17 02:31 IMPRESSION: 1. No acute intracranial hemorrhage or acute territorial infarct. 2. Complete opacification of the left maxillary sinus with interval increase in the lobulated low-attenuation soft tissue density extending into the left nostril, may represent a large mucocele. ENT consult recommended. Evaluation with contrast-enhanced MRI may be worthwhile to exclude neoplasm. EVIDENCE OF ACUTE STROKE: NO. Head MRI 03/21/17 00:00 IMPRESSION: Fluid signal cystic lesion extending through the left maxillary sinus outlet into the posterior half of the nasal cavity and nasopharynx. Dried secretions in the left maxillary sinus centrally. Findings likely represent benign hypertrophy. Inverting papilloma could not entirely be excluded. No acute intracranial changes. Minimal white matter disease, chronic EVIDENCE OF ACUTE STROKE: NO. Assessment & Plan - Diagnosis (1) Acute hypercapnic respiratory failure Is this a current diagnosis for this admission?: Yes (2) Urinary tract infection Qualifiers: Urinary tract infection type: acute cystitis Hematuria presence: with hematuria Qualified Code(s): N30.01 - Acute cystitis with hematuria Is this a current diagnosis for this admission?: Yes (3) Maxillary sinus cyst Is this a current diagnosis for this admission?: Yes (4) Left maxillary sinus opacification Is this a current diagnosis for this admission?: Yes (5) Type 2 diabetes mellitus Qualifiers: Diabetes mellitus complication status: with unspecified complications Diabetes mellitus intermediate insulin use: without intermediate use Qualified Code( s): E11.8 - Type 2 diabetes mellitus with unspecified complications Is this a current diagnosis for this admission?: Yes
[2017-03-24] MEDS: DIVALPROEX SODIUM 500 MG TAB.SR.24H PO SCH (22:03)
[2017-03-24] MEDS: CEFTRIAXONE SODIUM 1,000 MG in NORMAL SALINE 50 ML IV SCH (22:04)
[2017-03-24] MEDS: TRAZODONE HCL 50 MG TABLET PO SCH (22:04)
[2017-03-25] MEDS: TRAMADOL HCL 50 MG TABLET PO SCH ×2 (05:08→14:01)
[2017-03-25] MEDS: CLONAZEPAM 1 MG TABLET PO SCH (09:52)
[2017-03-25] MEDS: BENZTROPINE MESYLATE 1 MG TABLET PO SCH (09:52)
[2017-03-25] MEDS: DULOXETINE HCL 30 MG CAPSULE.DR PO SCH (09:52)
[2017-03-25] MEDS: CETIRIZINE 10 MG TABLET PO SCH (09:52)
[2017-03-25] MEDS: LANSOPRAZOLE 15 MG TAB.RAP.DR PO SCH (09:53)
[2017-03-25] MEDS: SITAGLIPTIN PHOSPHATE 50 MG TABLET PO SCH (09:53)
[2017-03-25] MEDS: METFORMIN HCL 500 MG TABLET PO SCH (09:53)
[2017-03-25] MEDS: ENOXAPARIN SODIUM INJ 40 MG/0.4 ML DISP.SYRIN SUBCUT SCH (09:53)
[2017-03-25] MEDS: LISINOPRIL 10 MG TABLET PO SCH (09:53)
[2017-03-25] MEDS: HALOPERIDOL 5 MG TABLET PO SCH (09:54)
[2017-03-25 11:55] VITALS: BP 123/65
--- NOTE | 2017-03-25 13:46 | PDOC TRANSFER SUMMARY ---
General - Admit/Disc Date/PCP Admission Date/Primary Care Provider: 03/20/17 05:28 Discharge Date: 03/25/17 - Discharge Diagnosis (1) Acute hypercapnic respiratory failure Is this a current diagnosis for this admission?: Yes (2) Urinary tract infection Is this a current diagnosis for this admission?: Yes (3) Maxillary sinus cyst Is this a current diagnosis for this admission?: Yes (4) Left maxillary sinus opacification Is this a current diagnosis for this admission?: Yes (5) Type 2 diabetes mellitus Is this a current diagnosis for this admission?: Yes (6) Obesity hypoventilation syndrome Is this a current diagnosis for this admission?: Yes - Additional Information Resuscitation Status: Full Code Discharge Activity: Activity As Tolerated Home Medications: Albuterol Sulfate [Ventolin HFA MDI 18 GM] 2 puff IH Q4HP PRN 03/20/17 Benztropine Mesylate 1 mg PO BID 03/20/17 Bismuth Subsalicylate [Bismuth] 30 ml PO Q4HP PRN 03/20/17 Cetirizine HCl [Zyrtec 10 mg Tablet] 10 mg PO DAILY 03/20/17 Clonazepam [Klonopin] 0.25 mg PO Q12 03/20/17 Diphenhydramine HCl [Benadryl 25 mg Capsule] 50 mg PO QHS 03/20/17 Divalproex Sodium [Depakote ER 500 mg Tab.sr] 2,000 mg PO QHS 03/20/17 Docusate Sodium [Colace 100 mg Capsule] 100 mg PO BIDP PRN 03/20/17 Duloxetine HCl [Cymbalta] 60 mg PO Q12 03/20/17 Fluticasone Propionate [Flonase Nasal [place] 50 Mcg/[place] 16 gm] 2 spray NASL Q12 03/20/17 Haloperidol 10 mg PO DAILY 03/20/17 Insulin Regular, Human [Novolin R (Reg) Insulin 100 unit/mL] 0 unit SQ .SLIDING SCALE 03/20/17 Lisinopril [Prinivil 40 mg Tablet] 40 mg PO DAILY 03/20/17 Metformin HCl [Glucophage] 1,000 mg PO Q12 03/20/17 Omeprazole 20 mg PO DAILY 03/20/17 Prazosin HCl [Minipress] 1 mg PO QHS 02/05/18 Sitagliptin Phosphate [Januvia] 100 mg PO DAILY 03/20/17 Trazodone HCl [Desyrel 50 mg Tablet] 50 mg PO QHS 03/20/17 History of Present Illness Admission Date/PCP: 03/20/17 05:28 History of Present Illness: STEVE CONKLIN is a 46 year old female, She is a resident of assisted living facility she was transferred from the facility to the emergency room for evaluation of altered mental status. The emergency room she was evaluated CT head without contrast was obtained he showed no acute intracranial hemorrhage but there was complete opacification of the left maxillary sinus with interval increase in the lobulated low attenuation soft tissue density extending into the left nostril, blood gas was done in the ER, pH 7.32 PCO2 39.8 PO2 35.2 bicarbonate 35.1, FiO2 3 L the exact etiology of the acute hypercapnic respiratory failure was not clear, she was supported with a noninvasive positive pressure ventilation BiPAP in the emergency room Hospital Course Hospital Course: She was admitted for the management of hypercapnic respiratory failure, she requires positive pressure ventilation with BiPAP machine. MRI brain was done partly to evaluate for the etiology of the hypercapnic respiratory failure, it showed a cystic lesion in the left maxilla and extending into the nasal cavity. There was abnormal urinalysis does suggest UTI no specific pathogen was isolated from urine culture, she was empirically treated with IV antibiotic for UTI. It was felt that the etiology of the hypercapnic respiratory failure is due to the combination of obesity and psychotropic drugs. She improved with treatment, the plan is to discharge her back to assisted living facility. Physical Exam Vital Signs: Temp Pulse Resp BP Pulse Ox 98.2 F 92 17 123/65 93 03/25/17 11:16 03/25/17 11:16 03/25/17 11:16 03/25/17 11:16 03/25/17 11:16 Intake & Output 03/24/17 03/25/17 03/26/17 06:59 06:59 06:59 Intake Total 1704 1794 Output Total 450 Balance 1704 1344 Weight 91.7 kg 93.1 kg General appearance: PRESENT: no acute distress, well-developed, well-nourished Head exam: PRESENT: atraumatic, normocephalic Eye exam: PRESENT: conjunctiva pink, EOMI, PERRLA Ear exam: PRESENT: normal external ear exam Mouth exam: PRESENT: moist, tongue midline Respiratory exam: PRESENT: clear to auscultation kim Cardiovascular exam: PRESENT: RRR Pulses: PRESENT: normal dorsalis pedis pul Vascular exam: PRESENT: normal capillary refill GI/Abdominal exam: PRESENT: normal bowel sounds, soft Rectal exam: PRESENT: deferred Extremities exam: PRESENT: full ROM Neurological exam: PRESENT: alert, awake, oriented to person, oriented to place , oriented to time, oriented to situation, CN II-XII grossly intact Psychiatric exam: PRESENT: appropriate affect, normal mood Skin exam: PRESENT: dry, intact, warm Results Laboratory Results: 03/24/17 09:50 03/24/17 09:50 03/20/17 03/20/17 03/20/17 12:25 12:25 18:15 Creatine Kinase 33 29 L CK-MB (CK-2) 0.51 Troponin I < 0.012 03/20/17 03/21/17 03/21/17 18:15 00:30 00:30 Creatine Kinase Cancelled CK-MB (CK-2) 0.44 Cancelled Troponin I < 0.012 Cancelled 03/21/17 03/21/17 01:30 01:30 Creatine Kinase 32 CK-MB (CK-2) 0.55 Troponin I < 0.012 Impressions: Chest X-Ray 03/19/17 23:07 IMPRESSION: Mild cardiomegaly with no vascular congestion. Abdomen/Pelvis CT 03/20/17 00:00 IMPRESSION: 1. No acute findings in the abdomen or pelvis. 2. Fibroid uterus. 3. Cardiomegaly. Head CT 03/20/17 02:31 IMPRESSION: 1. No acute intracranial hemorrhage or acute territorial infarct. 2. Complete opacification of the left maxillary sinus with interval increase in the lobulated low-attenuation soft tissue density extending into the left nostril, may represent a large mucocele. ENT consult recommended. Evaluation with contrast-enhanced MRI may be worthwhile to exclude neoplasm. EVIDENCE OF ACUTE STROKE: NO. Head MRI 03/21/17 00:00 IMPRESSION: Fluid signal cystic lesion extending through the left maxillary sinus outlet into the posterior half of the nasal cavity and nasopharynx. Dried secretions in the left maxillary sinus centrally. Findings likely represent benign hypertrophy. Inverting papilloma could not entirely be excluded. No acute intracranial changes. Minimal white matter disease, chronic EVIDENCE OF ACUTE STROKE: NO. Transfer Plan - Disposition Transfer Plan: She will need to see ENT outpatient for the evaluation of the cystic lesion in the left maxilla she may need surgical intervention and evacuation of this lesion.
== END 2017-03-25 16:15 | DRG 189 ==
LOC: ER 22:36 → EH 03-20 05:28 → 3W 03-20 16:54 → 4N 03-24 05:40
PROVIDERS: ADMIT Internal Medicine; ATTEND Internal Medicine
PROC: 5A09557 Assistance with Respiratory Ventilation, Greater than 96 Consecutive Hours, Continuous Positive Airway Pressure (ICD-10-PCS; principal; 2017-03-20)
DX: J96.02 Acute respiratory failure with hypercapnia (principal); E66.2 Morbid (severe) obesity with alveolar hypoventilation; Z68.41 Body mass index [BMI] 40.0-44.9, adult; N39.0 Urinary tract infection, site not specified; T43.95XA Adverse effect of unspecified psychotropic drug, initial encounter; E78.2 Mixed hyperlipidemia; J45.909 Unspecified asthma, uncomplicated; G43.909 Migraine, unspecified, not intractable, without status migrainosus; R41.82 Altered mental status, unspecified; J34.1 Cyst and mucocele of nose and nasal sinus; E78.5 Hyperlipidemia, unspecified; E11.9 Type 2 diabetes mellitus without complications; K21.9 Gastro-esophageal reflux disease without esophagitis; F25.9 Schizoaffective disorder, unspecified; F31.9 Bipolar disorder, unspecified; Z90.49 Acquired absence of other specified parts of digestive tract; Z79.4 Long term (current) use of insulin; Z88.6 Allergy status to analgesic agent; Z91.030 Bee allergy status
CPT/HCPCS: 36415; 36600; 70450; 70553; 71045; 74177; 80048; 80053; 80061; 80076; 80307; 81001; 82140; 82150; 82550; 82553; 82570; 82803; 82962; 83605; 83690; 83735; 84100; 84156; 84439; 84443; 84484; 85025; 85610; 85730; 87040; 87086; 93005; 93010; 94660; 99285; A9577; J0696; J1650; J2060; J3490; J7030

== ENCOUNTER 2017-04-07 10:10 | Emergency (ER) | payer MEDICARE, MEDICAID ==
--- NOTE | 2017-04-07 10:39 | ER Document Report ---
ED General - General Chief Complaint: Fall Stated Complaint: FALL/HEAD PAIN Time Seen by Provider: 04/07/17 10:24 Mode of Arrival: Medic Information source: Patient, Emergency Med Personnel Cannot obtain history due to: Dementia Notes: 46-year-old female history of dementia diabetic who was given her Januvia and metformin this morning without being fed presents after a fall. Patient's roommate notes she fell when she was trying to get up and put her pants on. Patient herself denies any pain denies any complaints, EMS notes she is at her baseline TRAVEL OUTSIDE OF THE [place] IN LAST 30 DAYS: No - HPI Patient complains to provider of: She noted to be hypoglycemic by EMS given glucose Onset: Just prior to arrival Onset/Duration: Sudden Quality of pain: No pain Severity: Mild Pain Level: Denies Associated symptoms: None Exacerbated by: Denies Relieved by: Denies Similar symptoms previously: Yes Recently seen / treated by doctor: Yes - Related Data Allergies/Adverse Reactions: ibuprofen [Ibuprofen] Allergy (Mild, Verified 03/02/17 11:57) lips swell acetaminophen [From Tylenol] Allergy (Verified 03/02/17 11:57) Lips swelled aspirin [Aspirin] Allergy (Verified 03/02/17 11:57) Lips swelled bee venom protein (honey bee) Allergy (Verified 03/02/17 11:57) Past Medical History - Social History Smoking Status: Never Smoker Cigarette use (# per day): No Chew tobacco use (# tins/day): No Smoking Education Provided: No Family History: Reviewed & Not Pertinent - Past Medical History Cardiac Medical History: Reports: Hx Hypercholesterolemia Pulmonary Medical History: Reports: Hx Asthma, Hx COPD Neurological Medical History: Reports: Hx Migraine, Hx Seizures Endocrine Medical History: Reports: Hx Diabetes Mellitus Type 2 Renal/ Medical History: Reports: Hx Kidney Stones. Denies: Hx Peritoneal Dialysis GI Medical History: Reports: Hx Gastroesophageal Reflux Disease Musculoskeltal Medical History: Reports Hx Musculoskeletal Trauma Psychiatric Medical History: Reports: Hx Anxiety, Hx Bipolar Disorder, Hx Depression, Hx Schizoaffective Disorder Past Surgical History: Reports: Hx Cholecystectomy, Hx Kidney (Renal Surgery) - stone procedure - Immunizations Immunizations up to date: Yes Hx Diphtheria, Pertussis, Tetanus Vaccination: Yes Review of Systems - Review of Systems Notes: REVIEW OF SYSTEMS: CONSTITUTIONAL : Denies fever, chills, or sweats. Denies recent illness. EENT: Denies eye, ear, throat, or mouth pain or symptoms. Denies nasal or sinus congestion or discharge. Denies throat, tongue, or mouth swelling or difficulty swallowing. CARDIOVASCULAR: Denies chest pain. Denies palpitations or racing or irregular heart beat. Denies ankle edema. RESPIRATORY: Denies cough, cold, or chest congestion. Denies shortness of breath, difficulty breathing, or wheezing. GASTROINTESTINAL: Denies abdominal pain or distention. Denies nausea, vomiting , or diarrhea. Denies blood in vomitus, stools, or per rectum. Denies black, tarry stools. Denies constipation. GENITOURINARY: Denies difficulty urinating, painful urination, burning, frequency, blood in urine, or discharge. FEMALE GENITOURINARY: Denies vaginal bleeding, heavy or abnormal periods, irregular periods. Denies vaginal discharge or odor. MUSCULOSKELETAL: Denies back or neck pain or stiffness. Denies joint pain or swelling. SKIN: Denies rash, lesions or sores. HEMATOLOGIC : Denies easy bruising or bleeding. LYMPHATIC: Denies swollen, enlarged glands. NEUROLOGICAL: Denies confusion or altered mental status. Denies passing out or loss of consciousness. Denies dizziness or lightheadedness. Denies headache. Denies weakness or paralysis or loss of use of either side. Denies problems with gait or speech. Denies sensory loss, numbness, or tingling. Denies seizures. PSYCHIATRIC: Denies anxiety or stress. Denies depression, suicidal ideation, or homicidal ideation. ALL OTHER SYSTEMS REVIEWED AND NEGATIVE. PHYSICAL EXAMINATION: GENERAL: Baseline appearing female no acute distress HEAD: Atraumatic, normocephalic. EYES: Pupils equal round and reactive to light, extraocular movements intact, conjunctiva are normal. ENT: Nares patent, oropharynx clear without exudates. Moist mucous membranes. NECK: Normal range of motion, supple without lymphadenopathy LUNGS: Breath sounds clear to auscultation bilaterally and equal. No wheezes rales or rhonchi. HEART: Regular rate and rhythm without murmurs ABDOMEN: Soft, nontender, nondistended abdomen. No guarding, no rebound. No masses appreciated. Female : deferred Musculoskeletal: Normal range of motion, no pitting or edema. No cyanosis. NEUROLOGICAL: Baseline mentation PSYCH: Normal mood, normal affect. SKIN: Warm, Dry, normal turgor, no rashes or lesions noted. Dictation was performed using [employer] voice recognition software Physical Exam - Vital signs Vitals: Temp Pulse Resp BP Pulse Ox 98.1 F 98 15 117/62 90 L 04/07/17 10:19 04/07/17 10:19 04/07/17 10:19 04/07/17 10:19 04/07/17 10:19 Course - Re-evaluation Re-evalutation: 04/07/17 10:38 Patient was given Januvia metformin and Accu-Chek was evaluated this morning was noted to be 92 Novolin was not given, her blood sugar is now upon arrival 62 after glucose was given it went up to 73 on recheck I will feed the patient as she has not been fed this morning otherwise she denies any complaints 04/07/17 11:16 Patient is eating now is alert and oriented to herself and location, given that she looks well has no complaints is able to tell me where she is located I believe she is stable for discharge After performing a Medical Screening Examination, I estimate there is LOW risk for ACUTE CORONARY SYNDROME, PULMONARY EMBOLI, RESPIRATORY FAILURE, SEPSIS OR MENINGITIS, thus I consider the discharge disposition reasonable. I have reevaluated this patient multiple times and no significant life threatening changes are noted. The patient and I have discussed the diagnosis and risks, and we agree with discharging home with close follow-up. We also discussed returning to the Emergency Department immediately if new or worsening symptoms occur. We have discussed the symptoms which are most concerning (e.g., changing or worsening pain, trouble swallowing or breathing, neck stiffness, fever) that necessitate immediate return. Obviously given patient's dementia I would rely heavily on care facility to make these decisions as well - Vital Signs Vital signs: Temp Pulse Resp BP Pulse Ox 98.1 F 98 15 117/62 90 L 04/07/17 10:19 04/07/17 10:19 04/07/17 10:04/07/17 10:19 04/07/17 10:19 Discharge - Discharge Clinical Impression: Hypoglycemia Fall Qualifiers: Encounter type: initial encounter Qualified Code(s): W19.XXXA - Unspecified fall, initial encounter Condition: Stable Disposition: HOME, SELF-CARE Instructions: Hypoglycemia ([facility]) Additional Instructions: Please make sure patient eats prior to giving her any medications for diabetes, obviously this will lower her blood sugar inappropriately Referrals: KATARINA URENA MD [Primary Care Provider] - Follow up as needed
[2017-04-07 12:25] VITALS: BP 112/74
== END 2017-04-07 12:25 | disposition home or self-care (01) ==
LOC: ER 10:10
DX: N30.00 Acute cystitis without hematuria (principal); R41.82 Altered mental status, unspecified; R53.1 Weakness
CPT/HCPCS: 82962; 99285

== ENCOUNTER 2017-04-08 09:03 | Inpatient (IN) | payer MEDICARE, MEDICAID ==
[2017-04-08] MEDS ORDERED: NORMAL SALINE 1000 ML 1,000 ML IV ONE (09:23)
--- NOTE | 2017-04-08 09:30 | ER Document Report ---
ED General - General Stated Complaint: WEAKNESS Time Seen by Provider: 04/08/17 09:15 Mode of Arrival: Medic Information source: Patient, Transfer Record, Emergency Med Personnel Notes: 46-year-old female with past medical history including schizophrenia who comes from the [facility] after some increased confusion with some "dry lips" this morning. Patient supposedly fell while attempting to put on her pants yesterday and was seen and evaluated and discharged home. Patient received no imaging at that time. Patient supposedly has had no fevers, vomiting, diarrhea , complaints of chest pain, shortness of breath, or abdominal pain. Patient denies any complaints at this time. Accu-Chek 92 by EMS. TRAVEL OUTSIDE OF THE [place] IN LAST 30 DAYS: No - HPI Onset: Other - See above Onset/Duration: Gradual Quality of pain: No pain Severity: Mild Pain Level: 1 Associated symptoms: Other - See above Exacerbated by: Denies Relieved by: Denies Similar symptoms previously: No Recently seen / treated by doctor: No - Related Data Allergies/Adverse Reactions: ibuprofen [Ibuprofen] Allergy (Mild, Verified 03/02/17 11:57) lips swell acetaminophen [From Tylenol] Allergy (Verified 03/02/17 11:57) Lips swelled aspirin [Aspirin] Allergy (Verified 03/02/17 11:57) Lips swelled bee venom protein (honey bee) Allergy (Verified 03/02/17 11:57) Past Medical History - General Information source: Patient - Social History Smoking Status: Unknown if Ever Smoked Cigarette use (# per day): No Chew tobacco use (# tins/day): No Smoking Education Provided: No Frequency of alcohol use: None Family History: Reviewed & Not Pertinent - Past Medical History Cardiac Medical History: Reports: Hx Hypercholesterolemia Pulmonary Medical History: Reports: Hx Asthma, Hx COPD Neurological Medical History: Reports: Hx Migraine, Hx Seizures Endocrine Medical History: Reports: Hx Diabetes Mellitus Type 2 Renal/ Medical History: Reports: Hx Kidney Stones. Denies: Hx Peritoneal Dialysis GI Medical History: Reports: Hx Gastroesophageal Reflux Disease Musculoskeltal Medical History: Reports Hx Musculoskeletal Trauma Psychiatric Medical History: Reports: Hx Anxiety, Hx Bipolar Disorder, Hx Depression, Hx Schizoaffective Disorder Past Surgical History: Reports: Hx Cholecystectomy, Hx Kidney (Renal Surgery) - stone procedure - Immunizations Immunizations up to date: Yes Hx Diphtheria, Pertussis, Tetanus Vaccination: Yes Review of Systems - Review of Systems Constitutional: denies: Fever EENT: denies: Eye discharge, Nose discharge Cardiovascular: denies: Chest pain Respiratory: denies: Short of breath Gastrointestinal: denies: Vomiting Genitourinary: denies: Dysuria Musculoskeletal: denies: Leg swelling Skin: Other - no hives. denies: Rash Neurological/Psychological: Other - no slurred speech -: Yes All other systems reviewed and negative Physical Exam - Vital signs Vitals: Temp Pulse Resp BP Pulse Ox 97.7 F 104 H 19 105/76 98 04/08/17 09:36 04/08/17 09:36 04/08/17 09:36 04/08/17 09:36 04/08/17 09:36 Notes: Reviewed vital signs and nursing note as charted by RN. CONSTITUTIONAL: Alert and answers questions but seems slightly confused. This is baseline according to EMS HEAD: Normocephalic; atraumatic EYES: PERRL ENT: Normal nose; no rhinorrhea; dry mucous membranes; pharynx without lesions noted NECK: Supple without meningismus; non-tender CARD: Tachycardic and regular; no murmurs RESP: Normal chest excursion without splinting or tachypnea; breath sounds clear and equal bilaterally ABD/GI: Normal bowel sounds; non-distended; soft, non-tender BACK: The back appears normal and is non-tender to palpation, there is no CVA tenderness EXT: Normal ROM in all joints; non-tender to palpation SKIN: Normal color for age and race; no acute lesions noted NEURO: CN 2-12 intact; Moves all extremities equally; Motor and sensory function intact PSYCH: The patient's mood and manner are appropriate. Grooming and personal hygiene are appropriate. Course - Re-evaluation Re-evalutation: 04/08/17 09:30 Given the history of a fall, no tenderness to the back, ribs, or extremities, with some slightly altered mental status today supposedly above baseline, with dry mucous membranes, slightly tachycardic, we will evaluate for possible intracranial abnormality as well as electrolyte imbalance. We will also perform a catheterized urine analysis. 04/08/17 11:42 Catheterized urine analysis as recorded showing what appears to be an obvious urinary tract infection. Vital signs are stable with a heart rate of 85. Blood pressure was stable. Kidney function is recorded. I have provided a liter and a half of fluid and have provided antibiotics. Urine culture has been sent. CT scan of the head as recorded. Given the lack of vomiting, pain, with stable vital signs as recorded, I believe it is reasonable to discharge the patient home to her facility with strict return precautions and antibiotics that I will prescribe. - Vital Signs Vital signs: Temp Pulse Resp BP Pulse Ox 97.7 F 104 H 15 100/59 L 98 04/08/17 09:36 04/08/17 09:36 04/08/17 11:01 04/08/17 11:01 04/08/17 09:36 - Laboratory Result Diagrams: 04/08/17 08:22 04/08/17 08:22 Laboratory results interpreted by me: 04/08/17 04/08/17 04/08/17 08:22 08:22 09:30 RDW 14.4 H Potassium 5.1 H Carbon Dioxide 31 H Est GFR (Non-Af Amer) 57 L AST 12 L Urine Protein 30 H Urine Ketones TRACE H Urine Bilirubin SMALL H Urine Urobilinogen 4.0 H Ur Leukocyte Esterase MODERATE H Discharge - Discharge Clinical Impression: Altered mental status, unspecified Qualifiers: Altered mental status type: unspecified Qualified Code(s): R41.82 - Altered mental status, unspecified UTI (urinary tract infection) Qualifiers: Urinary tract infection type: acute cystitis Hematuria presence: without hematuria Qualified Code(s): N30.00 - Acute cystitis without hematuria Condition: Good Disposition: HOME, SELF-CARE Additional Instructions: Come back immediately for any pain, vomiting, worsening mental status, inability to urinate, rash, or any other acute problems. Please provide the antibiotics as prescribed and please follow-up with the primary care physician for reassessment and evaluation of the urine culture we have sent in the next 48 hours. Prescriptions: Cephalexin Monohydrate [Keflex 500 mg Capsule] 500 mg PO QID #28 capsule
[2017-04-08 09:48] LABS: ABSOLUTE EOSINOPHILS # (AUTO) 0.2 10^3/uL (0.0-0.6); ABSOLUTE LYMPHOCYTES (AUTO) 1.7 10^3/uL (0.5-4.7); ABSOLUTE MONOCYTES (AUTO) 0.4 10^3/uL (0.1-1.4); ABSOLUTE NEUT (AUTO) 2.5 10^3/uL (1.7-8.2); BASOPHILS % (AUTO) 0.1 % (0-2); EOSINOPHILS % (AUTO) 4.2 % (0-6); HEMATOCRIT 42.7 % (36.0-47.0); HEMOGLOBIN 14.3 g/dL (12.0-15.5); LYMPHOCYTES % (AUTO) 35.4 % (13-45); MEAN CORPUSCULAR HEMOGLOBIN 31.3 pg (27.0-33.4); MEAN CORPUSCULAR HGB CONC 33.6 g/dL (32.0-36.0); MEAN CORPUSCULAR VOLUME 93 fl (80-97); PLATELET COUNT 212 10^3/uL (150-450); RED BLOOD COUNT 4.58 10^6/uL (3.72-5.28); RED CELL DISTRIBUTION WIDTH 14.4 % (11.5-14.0); SEGMENTED NEUTROPHILS % (AUTO) 52.3 % (42-78); TOTAL CELLS COUNTED % (AUTO) 100 %; WHITE BLOOD COUNT 4.9 10^3/uL (4.0-10.5)
--- NOTE | 2017-04-08 10:00 | RADIOLOGY REPORT (SQ) ---
EXAM DESCRIPTION: CT HEAD WITHOUT COMPLETED DATE/TIME: 04/08/2017 9:49 am REASON FOR STUDY: 16, fall yesterday; change in mental status COMPARISON: 03/21/2017 and 03/20/2017 TECHNIQUE: Axial images acquired through the brain without intravenous contrast. Images reviewed wi th bone, brain and subdural windows. Images stored on PACS. All CT scanners at this facility use dose modulation, iterative reconstruction, and/or weight based d osing when appropriate to reduce radiation dose to as low as reasonably achievable (ALARA). [facility]: Dose Right [facility]: CareDose [facility]: Dose Right [facility]: Teradose 4D [facility]: Smart [employer] RADIATION DOSE: CT Rad equipment meets quality standard of care and radiation dose reduction techniq ues were employed. CTDIvol: 64.6 mGy. DLP: 1163 mGy-cm. mGy. LIMITATIONS: None. FINDINGS: VENTRICLES: Normal size and contour. CEREBRUM: No masses. No hemorrhage. No midline shift. No evidence for acute infarction. Normal gra y/white matter differentiation. No areas of low density in the white matter. CEREBELLUM: No masses. No hemorrhage. No alteration of density. No evidence for acute infarction. EXTRAAXIAL SPACES: No fluid collections. No masses. ORBITS AND GLOBE: No intra- or extraconal masses. Normal contour of globe without masses. CALVARIUM: No fracture. PARANASAL SINUSES: Similar appearance from prior exam with complete opacification of the left maxilla ry sinus and lobular soft tissue extending out of the left maxillary sinus. SOFT TISSUES: No mass or hematoma. OTHER: No other significant finding. IMPRESSION: 1. No evidence of an acute intracranial process 2. Similar appearance of the left maxillary sinus process, previously evaluated on MRI EVIDENCE OF ACUTE STROKE: NO. COMMENT: Quality ID # [id number]: Final reports with documentation of one or more dose reduction techniques (e.g., Automated exposure control, adjustment of the mA and/or kV according to patient size, use of iterative reconstruction technique) TECHNICAL DOCUMENTATION: JOB ID: [id number] [employer]- All Rights Reserved Reading location - IP/workstation name: [email or web address]
[2017-04-08 10:02] LABS: APPEARANCE,URINE CLOUDY; BILIRUBIN,URINE SMALL (NEGATIVE); COLOR,URINE AMBER; GLUCOSE, URINE NEGATIVE (NEGATIVE); KETONES,URINE TRACE mg/dL (NEGATIVE); LEUKOCYTE ESTERASE,URINE MODERATE (NEGATIVE); NITRITE,URINE NEGATIVE (NEGATIVE); PROTEIN,URINE 30 mg/dL (NEGATIVE); URINE SPECIFIC GRAVITY 1.025
[2017-04-08 10:06] LABS: ALANINE AMINOTRANSFERASE 13 U/L (9-52); ALBUMIN 3.9 g/dL (3.5-5.0); ALKALINE PHOSPHATASE 71 U/L (38-126); ANION GAP 12 (5-19); ASPARTATE AMINO TRANSFERASE 12 U/L (14-36); BILIRUBIN,DIRECT 0.3 mg/dL (0.0-0.4); BILIRUBIN,TOTAL 0.5 mg/dL (0.2-1.3); BLOOD UREA NITROGEN 20 mg/dL (7-20); CALCIUM 9.6 mg/dL (8.4-10.2); CARBON DIOXIDE 31 mmol/L (22-30); CHLORIDE 99 mmol/L (98-107); GLUCOSE 91 mg/dL (75-110); POTASSIUM 5.1 mmol/L (3.6-5.0); SODIUM 141.7 mmol/L (137-145); TOTAL PROTEIN 7.4 g/dL (6.3-8.2)
[2017-04-08] MEDS ORDERED: CEFTRIAXONE 1 GM/D5W RTU 1 GM/50 ML RTUPB IV ONE (10:40)
[2017-04-08] MEDS ORDERED: CEFTRIAXONE INJ 500 MG VIAL ONE (11:14)
[2017-04-08] MEDS ORDERED: NORMAL SALINE 1000 ML 500 ML IV ONE (11:40)
[2017-04-08] MEDS ORDERED: ZOLPIDEM TARTRATE 5 MG TABLET PO PRN (17:03)
[2017-04-08] MEDS ORDERED: TRAMADOL HCL 50 MG TABLET PO PRN (17:03)
[2017-04-08] MEDS ORDERED: DOCUSATE SODIUM 100 MG CAPSULE PO PRN (17:03)
[2017-04-08] MEDS ORDERED: (PENDING PHARMACY ID) (Bismuth Subsalicylate 30 ML) PO PRN (17:03)
[2017-04-08] MEDS ORDERED: ALBUTEROL SULFATE HFA (90 MCG/PUFF) 8 GM MDI (1 MDI/ER DISP) IH PRN (17:15)
[2017-04-08] MEDS ORDERED: BISMUTH SUBSALICYLATE 262 MG TAB.CHEW PO PRN (17:16)
[2017-04-08] MEDS: CLONAZEPAM 1 MG TABLET PO SCH (18:02)
[2017-04-08] MEDS: BENZTROPINE MESYLATE 1 MG TABLET PO SCH (18:02)
[2017-04-08] MEDS ORDERED: DIPHENHYDRAMINE HCL 25 MG CAPSULE PO SCH (22:00)
[2017-04-08] MEDS: DULOXETINE HCL 30 MG CAPSULE.DR PO SCH (22:24)
[2017-04-08] MEDS: DIVALPROEX SODIUM 500 MG TAB.SR.24H PO SCH (22:25)
[2017-04-08] MEDS: ATORVASTATIN CALCIUM 10 MG TABLET PO SCH (22:25)
[2017-04-08] MEDS: TRAZODONE HCL 50 MG TABLET PO SCH (22:27)
[2017-04-08] MEDS ORDERED: FLUTICASONE NASAL SPRAY 50 MCG/SPRY 120 SPRAY/16 GM ONE (22:30)
[2017-04-08] MEDS: FLUTICASONE NASAL SPRAY 50 MCG/SPRY 120 SPRAY/16 GM NASL SCH (22:34)
[2017-04-08] MEDS: DOXAZOSIN MESYLATE 2 MG TABLET PO SCH (22:56)
[2017-04-08] MEDS: NORMAL SALINE 1000 ML 1,000 ML IV PRN (23:02)
[2017-04-09] MEDS: LANSOPRAZOLE 15 MG TAB.RAP.DR PO SCH (05:47)
[2017-04-09] MEDS: CLONAZEPAM 1 MG TABLET PO SCH ×2 (05:47→17:48)
[2017-04-09] MEDS: BENZTROPINE MESYLATE 1 MG TABLET PO SCH ×2 (05:47→17:48)
[2017-04-09] MEDS ORDERED: ALBUTEROL SULFATE HFA (90 MCG/PUFF) 200 PUFF/8.5 GM MDI IH PRN (09:00)
[2017-04-09] MEDS: METFORMIN HCL 500 MG TABLET PO SCH ×2 (09:28→17:48)
[2017-04-09] MEDS: DULOXETINE HCL 30 MG CAPSULE.DR PO SCH ×2 (09:29→22:52)
[2017-04-09] MEDS: LISINOPRIL 10 MG TABLET PO SCH (09:29)
[2017-04-09] MEDS: HALOPERIDOL 5 MG TABLET PO SCH (09:30)
[2017-04-09] MEDS: CETIRIZINE 10 MG TABLET PO SCH (09:30)
[2017-04-09] MEDS: SITAGLIPTIN PHOSPHATE 50 MG TABLET PO SCH (09:30)
[2017-04-09] MEDS: FLUTICASONE NASAL SPRAY 50 MCG/SPRY 120 SPRAY/16 GM NASL SCH ×2 (09:31→22:53)
[2017-04-09] MEDS: CEFTRIAXONE 2 GM/D5W RTU 2 GM/50 ML RTUPB IV SCH (11:34)
--- NOTE | 2017-04-09 12:27 | PDOC H&P ---
History of Present Illness Admission Date/PCP: 04/08/17 13:17 KATARINA URENA MD History of Present Illness: STEVE CONKLIN is a 46 year old female she came to the emergency room for evaluation of confusion, resident of assisted living facility, in the emergency room she was found to have urinary tract infection she was initially discharged from the emergency room but ultimately the plan was changed that she needed to be admitted for observation. She had a history of schizophrenia, obesity, type 2 diabetes mellitus, sedentary lifestyle. Past Medical History Cardiac Medical History: Reports: Hyperlipidema Pulmonary Medical History: Reports: Asthma, Chronic Obstructive Pulmonary Disease (COPD) Neurological Medical History: Reports: Migraine, Seizures Endocrine Medical History: Reports: Diabetes Mellitus Type 2 GI Medical History: Reports: Gastroesophageal Reflux Disease Psychiatric Medical History: Reports: Bipolar Disorder, Depression, Schizoaffective Disorder Past Surgical History Past Surgical History: Reports: Cholecystectomy Social History Smoking Status: Unknown if Ever Smoked Frequency of Alcohol Use: None Hx Recreational Drug Use: No Drugs: None Hx Prescription Drug Abuse: No - Advance Directive Resuscitation Status: Full Code Family History Family History: Reviewed & Not Pertinent Parental Family History Reviewed: Yes Children Family History Reviewed: Yes Sibling(s) Family History Reviewed.: Yes Medication/Allergy Home Medications: Albuterol Sulfate [Ventolin Hfa] 2 puff IH Q4HP PRN 04/08/17 Atorvastatin Calcium [Lipitor 10 mg Tablet] 10 mg PO QHS 04/08/17 Benztropine Mesylate 1 mg PO Q12 04/08/17 Bismuth Subsalicylate [Pepto-Bismol Susp 524 mg/30 ml Udcup] 30 ml PO Q4HP PRN 04/08/17 Cetirizine HCl [Zyrtec 10 mg Tablet] 10 mg PO DAILY 04/08/17 Clonazepam [Klonopin] 0.25 mg PO Q12 04/08/17 Diphenhydramine HCl [Benadryl 25 mg Capsule] 50 mg PO QHS 04/08/17 Divalproex Sodium [Depakote ER 500 mg Tab.sr] 2,000 mg PO QHS 04/08/17 Docusate Sodium [Colace 100 mg Capsule] 100 mg PO BIDP PRN 04/08/17 Duloxetine HCl [Cymbalta] 60 mg PO Q12 04/08/17 Fluticasone Propionate [Flonase Nasal Jennings 50 Mcg/Jennings 16 gm] 2 spray NASL Q12 04/08/17 Haloperidol 10 mg PO DAILY 04/08/17 Insulin Regular, Human [Novolin R (Reg) Insulin 100 unit/mL] See Protocol SQ BID 04/08/17 Lisinopril [Zestril] 40 mg PO DAILY 04/08/17 Metformin HCl [Glucophage] 1,000 mg PO Q12 04/08/17 Omeprazole 20 mg PO DAILY 04/08/17 Prazosin HCl [Minipress] 1 mg PO QHS 04/08/17 Sitagliptin Phosphate [Januvia] 100 mg PO DAILY 04/08/17 Tramadol HCl [Ultram 50 mg Tablet] 50 mg PO Q8HP PRN 04/08/17 Trazodone HCl [Desyrel 50 mg Tablet] 50 mg PO QHS 04/08/17 Zolpidem Tartrate [Ambien 5 mg Tablet] 5 mg PO HSP PRN 04/08/17 Allergies/Adverse Reactions: ibuprofen [Ibuprofen] Allergy (Mild, Verified 03/02/17 11:57) lips swell acetaminophen [From Tylenol] Allergy (Verified 03/02/17 11:57) Lips swelled aspirin [Aspirin] Allergy (Verified 03/02/17 11:57) Lips swelled bee venom protein (honey bee) Allergy (Verified 03/02/17 11:57) Review of Systems Eyes: ABSENT: visual disturbances Ears: ABSENT: hearing changes Cardiovascular: ABSENT: chest pain, dyspnea on exertion, edema, orthropnea, palpitations Respiratory: ABSENT: cough, hemoptysis Gastrointestinal: ABSENT: abdominal pain, constipation, diarrhea, hematemesis, hematochezia, nausea, vomiting Genitourinary: ABSENT: dysuria, hematuria Musculoskeletal: ABSENT: joint swelling Integumentary: ABSENT: rash, wounds Neurological: ABSENT: abnormal gait, abnormal speech, confusion, dizziness, focal weakness, syncope Psychiatric: ABSENT: anxiety, depression, homidical ideation, suicidal ideation Endocrine: ABSENT: cold intolerance, heat intolerance, menstrual abnormalities, polydipsia, polyuria Hematologic/Lymphatic: ABSENT: easy bleeding, easy bruising, lymphadenopathy Physical Exam Vital Signs: Temp Pulse Resp BP Pulse Ox 98.0 F 99 24 H 113/63 96 04/09/17 08:00 04/09/17 08:00 04/09/17 08:00 04/09/17 08:00 04/09/17 08:00 Intake & Output 04/08/17 04/09/17 04/10/17 06:59 06:59 06:59 Intake Total 200 Balance 200 Weight 88.7 kg General appearance: PRESENT: no acute distress, well-developed, well-nourished Head exam: PRESENT: atraumatic, normocephalic Eye exam: PRESENT: conjunctiva pink, EOMI, PERRLA Ear exam: PRESENT: normal external ear exam Mouth exam: PRESENT: moist, tongue midline Neck exam: PRESENT: full ROM Respiratory exam: PRESENT: clear to auscultation kim Cardiovascular exam: PRESENT: RRR, +S1, +S2 Pulses: PRESENT: normal dorsalis pedis pul, +2 pedal pulses bilateral Vascular exam: PRESENT: normal capillary refill GI/Abdominal exam: PRESENT: normal bowel sounds, soft Rectal exam: PRESENT: deferred Neurological exam: PRESENT: alert, awake, oriented to person, oriented to place , oriented to time, oriented to situation, CN II-XII grossly intact Psychiatric exam: PRESENT: appropriate affect, normal mood Skin exam: PRESENT: dry, intact, warm Results Impressions: Head CT 04/08/17 09:24 IMPRESSION: 1. No evidence of an acute intracranial process 2. Similar appearance of the left maxillary sinus process, previously evaluated on MRI EVIDENCE OF ACUTE STROKE: NO. Assessment & Plan - Diagnosis (1) Urinary tract infection Qualifiers: Urinary tract infection type: acute cystitis Hematuria presence: without hematuria Qualified Code(s): N30.00 - Acute cystitis without hematuria Is this a current diagnosis for this admission?: Yes Plan: She supposedly had altered mental status but when I saw she was oriented to time place and person, she is admitted for observation for the management of UTI.
[2017-04-09] MEDS: DIPHENHYDRAMINE HCL 50 MG CAPSULE PO SCH (22:52)
[2017-04-09] MEDS: DOXAZOSIN MESYLATE 2 MG TABLET PO SCH (22:52)
[2017-04-09] MEDS: ATORVASTATIN CALCIUM 10 MG TABLET PO SCH (22:52)
[2017-04-09] MEDS: DIVALPROEX SODIUM 500 MG TAB.SR.24H PO SCH (22:53)
[2017-04-09] MEDS: TRAZODONE HCL 50 MG TABLET PO SCH (22:54)
[2017-04-10] MEDS: LANSOPRAZOLE 15 MG TAB.RAP.DR PO SCH (06:35)
[2017-04-10] MEDS: BENZTROPINE MESYLATE 1 MG TABLET PO SCH ×2 (06:36→18:40)
[2017-04-10] MEDS: CLONAZEPAM 1 MG TABLET PO SCH ×2 (06:36→18:40)
[2017-04-10] MEDS: METFORMIN HCL 500 MG TABLET PO SCH ×2 (09:39→17:47)
[2017-04-10] MEDS: CEFTRIAXONE 2 GM/D5W RTU 2 GM/50 ML RTUPB IV SCH (09:39)
[2017-04-10] MEDS: FLUTICASONE NASAL SPRAY 50 MCG/SPRY 120 SPRAY/16 GM NASL SCH ×2 (09:40→22:58)
[2017-04-10] MEDS: SITAGLIPTIN PHOSPHATE 50 MG TABLET PO SCH (09:40)
[2017-04-10] MEDS: HALOPERIDOL 5 MG TABLET PO SCH (09:40)
[2017-04-10] MEDS: CETIRIZINE 10 MG TABLET PO SCH (09:40)
[2017-04-10] MEDS: LISINOPRIL 10 MG TABLET PO SCH (09:40)
[2017-04-10] MEDS: DULOXETINE HCL 30 MG CAPSULE.DR PO SCH ×2 (09:40→22:57)
[2017-04-10] MEDS: NORMAL SALINE 1000 ML 1,000 ML IV PRN (17:35)
--- NOTE | 2017-04-10 21:42 | PDOC PROGRESS REPORT ---
Subjective Progress Note for:: 04/10/17 Subjective:: She was seen by the bedside, she is sometimes confused, continues to receive IV antibiotic Reason For Visit: UTI Physical Exam Vital Signs: Temp Pulse Resp BP Pulse Ox 98.4 F 102 H 18 120/80 91 L 04/10/17 15:28 04/10/17 15:28 04/10/17 15:28 04/10/17 15:28 04/10/17 15:28 Intake & Output 04/09/17 04/10/17 04/11/17 06:59 06:59 06:59 Intake Total 676 Balance 676 General appearance: PRESENT: no acute distress Eye exam: PRESENT: PERRLA Respiratory exam: PRESENT: clear to auscultation kim Cardiovascular exam: PRESENT: +S1, +S2 GI/Abdominal exam: PRESENT: soft Neurological exam: PRESENT: alert Results Impressions: Head CT 04/08/17 09:24 IMPRESSION: 1. No evidence of an acute intracranial process 2. Similar appearance of the left maxillary sinus process, previously evaluated on MRI EVIDENCE OF ACUTE STROKE: NO. 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
[2017-04-10 22:23] LABS: ABSOLUTE EOSINOPHILS # (AUTO) 0.1 10^3/uL (0.0-0.6); ABSOLUTE LYMPHOCYTES (AUTO) 1.8 10^3/uL (0.5-4.7); ABSOLUTE MONOCYTES (AUTO) 0.3 10^3/uL (0.1-1.4); BASOPHILS % (AUTO) 0.4 % (0-2); EOSINOPHILS % (AUTO) 3.4 % (0-6); HEMATOCRIT 32.1 % (36.0-47.0); LYMPHOCYTES % (AUTO) 42.3 % (13-45); MEAN CORPUSCULAR HEMOGLOBIN 31.4 pg (27.0-33.4); MEAN CORPUSCULAR HGB CONC 34.3 g/dL (32.0-36.0); MEAN CORPUSCULAR VOLUME 92 fl (80-97); MONOCYTES % (AUTO) 7.3 % (3-13); PLATELET COUNT 118 10^3/uL (150-450); RED CELL DISTRIBUTION WIDTH 13.8 % (11.5-14.0); SEGMENTED NEUTROPHILS % (AUTO) 46.6 % (42-78); TOTAL CELLS COUNTED % (AUTO) 100 %; WHITE BLOOD COUNT 4.2 10^3/uL (4.0-10.5)
[2017-04-10 22:35] LABS: ALANINE AMINOTRANSFERASE 17 U/L (9-52); ALBUMIN 2.9 g/dL (3.5-5.0); ALKALINE PHOSPHATASE 48 U/L (38-126); ANION GAP 9 (5-19); ASPARTATE AMINO TRANSFERASE 13 U/L (14-36); BILIRUBIN,DIRECT 0.2 mg/dL (0.0-0.4); BILIRUBIN,TOTAL 0.2 mg/dL (0.2-1.3); BLOOD UREA NITROGEN 8 mg/dL (7-20); CARBON DIOXIDE 29 mmol/L (22-30); CHLORIDE 101 mmol/L (98-107); GLUCOSE 75 mg/dL (75-110); TOTAL PROTEIN 5.7 g/dL (6.3-8.2)
[2017-04-10 22:45] LABS: POTASSIUM 4.5 mmol/L (3.6-5.0)
[2017-04-10] MEDS: DIVALPROEX SODIUM 500 MG TAB.SR.24H PO SCH (22:56)
[2017-04-10] MEDS: DIPHENHYDRAMINE HCL 50 MG CAPSULE PO SCH (22:56)
[2017-04-10] MEDS: TRAZODONE HCL 50 MG TABLET PO SCH (22:57)
[2017-04-10] MEDS: DOXAZOSIN MESYLATE 2 MG TABLET PO SCH (22:57)
[2017-04-10] MEDS: ATORVASTATIN CALCIUM 10 MG TABLET PO SCH (22:57)
[2017-04-11 05:17] LABS: ABSOLUTE EOSINOPHILS # (AUTO) 0.2 10^3/uL (0.0-0.6); ABSOLUTE LYMPHOCYTES (AUTO) 1.9 10^3/uL (0.5-4.7); ABSOLUTE MONOCYTES (AUTO) 0.3 10^3/uL (0.1-1.4); ABSOLUTE NEUT (AUTO) 1.6 10^3/uL (1.7-8.2); BASOPHILS % (AUTO) 0.4 % (0-2); EOSINOPHILS % (AUTO) 4.4 % (0-6); HEMATOCRIT 33.7 % (36.0-47.0); HEMOGLOBIN 11.5 g/dL (12.0-15.5); LYMPHOCYTES % (AUTO) 48.1 % (13-45); MEAN CORPUSCULAR HEMOGLOBIN 31.3 pg (27.0-33.4); MEAN CORPUSCULAR VOLUME 92 fl (80-97); MONOCYTES % (AUTO) 7.8 % (3-13); PLATELET COUNT 110 10^3/uL (150-450); RED BLOOD COUNT 3.66 10^6/uL (3.72-5.28); RED CELL DISTRIBUTION WIDTH 14.1 % (11.5-14.0); SEGMENTED NEUTROPHILS % (AUTO) 39.3 % (42-78); TOTAL CELLS COUNTED % (AUTO) 100 %
[2017-04-11] MEDS: CLONAZEPAM 1 MG TABLET PO SCH ×2 (05:30→17:21)
[2017-04-11] MEDS: LANSOPRAZOLE 15 MG TAB.RAP.DR PO SCH (05:30)
[2017-04-11] MEDS: BENZTROPINE MESYLATE 1 MG TABLET PO SCH ×2 (05:30→17:21)
[2017-04-11 05:34] LABS: ALANINE AMINOTRANSFERASE 19 U/L (9-52); ALBUMIN 2.7 g/dL (3.5-5.0); ALKALINE PHOSPHATASE 43 U/L (38-126); ANION GAP 6 (5-19); ASPARTATE AMINO TRANSFERASE 13 U/L (14-36); BILIRUBIN,DIRECT 0.3 mg/dL (0.0-0.4); BILIRUBIN,TOTAL 0.3 mg/dL (0.2-1.3); BLOOD UREA NITROGEN 7 mg/dL (7-20); CALCIUM 8.9 mg/dL (8.4-10.2); CARBON DIOXIDE 29 mmol/L (22-30); CHLORIDE 104 mmol/L (98-107); GLUCOSE 69 mg/dL (75-110); POTASSIUM 4.4 mmol/L (3.6-5.0); SODIUM 138.9 mmol/L (137-145); TOTAL PROTEIN 5.8 g/dL (6.3-8.2)
[2017-04-11] MEDS: DULOXETINE HCL 30 MG CAPSULE.DR PO SCH ×2 (09:53→22:47)
[2017-04-11] MEDS: LISINOPRIL 10 MG TABLET PO SCH (09:54)
[2017-04-11] MEDS: METFORMIN HCL 500 MG TABLET PO SCH ×2 (09:54→17:20)
[2017-04-11] MEDS: CETIRIZINE 10 MG TABLET PO SCH (09:54)
[2017-04-11] MEDS: SITAGLIPTIN PHOSPHATE 50 MG TABLET PO SCH (09:54)
[2017-04-11] MEDS: HALOPERIDOL 5 MG TABLET PO SCH (09:56)
[2017-04-11] MEDS: FLUTICASONE NASAL SPRAY 50 MCG/SPRY 120 SPRAY/16 GM NASL SCH ×2 (09:56→22:47)
[2017-04-11] MEDS: CEFTRIAXONE 2 GM/D5W RTU 2 GM/50 ML RTUPB IV SCH (09:56)
--- NOTE | 2017-04-11 19:36 | PDOC PROGRESS REPORT ---
Subjective Progress Note for:: 04/11/17 Subjective:: Patient was seen by the bedside she is very deconditioned, presently from [facility] she will need to be discharged to long-term care for rehab and physical therapy Reason For Visit: UTI Physical Exam Vital Signs: Temp Pulse Resp BP Pulse Ox 99.0 F 119 H 16 131/71 H 99 04/11/17 15:28 04/11/17 15:28 04/11/17 15:28 04/11/17 15:28 04/11/17 15:28 Intake & Output 04/10/17 04/11/17 04/12/17 06:59 06:59 06:59 Intake Total 1326 1519 Balance 1326 1519 General appearance: PRESENT: no acute distress Eye exam: PRESENT: PERRLA Respiratory exam: PRESENT: clear to auscultation kim Cardiovascular exam: PRESENT: +S1, +S2 GI/Abdominal exam: PRESENT: soft Results Laboratory Results: 04/11/17 03:54 04/11/17 03:54 04/10/17 04/10/17 04/11/17 22:00 22:00 03:54 WBC 4.2 4.0 RBC 3.50 L 3.66 L Hgb 11.0 L D 11.5 L Hct 32.1 L 33.7 L MCV 92 92 MCH 31.4 31.3 MCHC 34.3 34.0 RDW 13.8 14.1 H Plt Count 118 L 110 L Seg Neutrophils % 46.6 39.3 L Lymphocytes % 42.3 48.1 H Monocytes % 7.3 7.8 Eosinophils % 3.4 4.4 Basophils % 0.4 0.4 Absolute Neutrophils 2.0 1.6 L Absolute Lymphocytes 1.8 1.9 Absolute Monocytes 0.3 0.3 Absolute Eosinophils 0.1 0.2 Absolute Basophils 0.0 0.0 Sodium 139.0 Potassium 4.5 Chloride 101 Carbon Dioxide 29 Anion Gap 9 BUN 8 Creatinine 0.67 Est GFR ( Amer) > 60 Est GFR (Non-Af Amer) > 60 Glucose 75 Calcium 9.0 Total Bilirubin 0.2 AST 13 L ALT 17 Alkaline Phosphatase 48 Total Protein 5.7 L Albumin 2.9 L 04/11/17 03:54 WBC RBC Hgb Hct MCV MCH MCHC RDW Plt Count Seg Neutrophils % Lymphocytes % Monocytes % Eosinophils % Basophils % Absolute Neutrophils Absolute Lymphocytes Absolute Monocytes Absolute Eosinophils Absolute Basophils Sodium 138.9 Potassium 4.4 Chloride 104 Carbon Dioxide 29 Anion Gap 6 BUN 7 Creatinine 0.62 Est GFR ( Amer) > 60 Est GFR (Non-Af Amer) > 60 Glucose 69 L Calcium 8.9 Total Bilirubin 0.3 AST 13 L ALT 19 Alkaline Phosphatase 43 Total Protein 5.8 L Albumin 2.7 L Impressions: Head CT 04/08/17 09:24 IMPRESSION: 1. No evidence of an acute intracranial process 2. Similar appearance of the left maxillary sinus process, previously evaluated on MRI EVIDENCE OF ACUTE STROKE: NO. Assessment & Plan - Diagnosis (1) Urinary tract infection Qualifiers: Urinary tract infection type: acute cystitis Hematuria presence: without hematuria Qualified Code(s): N30.00 - Acute cystitis without hematuria Is this a current diagnosis for this admission?: Yes (2) Schizophrenia Qualifiers: Schizophrenia type: unspecified Qualified Code(s): F20.9 - Schizophrenia, unspecified Is this a current diagnosis for this admission?: Yes (3) Type 2 diabetes mellitus Qualifiers: Diabetes mellitus complication status: with unspecified complications Diabetes mellitus m[facility] insulin use: without recreational therapy aide use Qualified Code( s): E11.8 - Type 2 diabetes mellitus with unspecified complications Is this a current diagnosis for this admission?: Yes
[2017-04-11] MEDS: DOXAZOSIN MESYLATE 2 MG TABLET PO SCH (22:47)
[2017-04-11] MEDS: DIVALPROEX SODIUM 500 MG TAB.SR.24H PO SCH (22:47)
[2017-04-11] MEDS: ATORVASTATIN CALCIUM 10 MG TABLET PO SCH (22:47)
[2017-04-11] MEDS: DIPHENHYDRAMINE HCL 50 MG CAPSULE PO SCH (22:48)
[2017-04-11] MEDS: TRAZODONE HCL 50 MG TABLET PO SCH (22:48)
[2017-04-12] MEDS: BENZTROPINE MESYLATE 1 MG TABLET PO SCH ×2 (05:34→17:08)
[2017-04-12] MEDS: LANSOPRAZOLE 15 MG TAB.RAP.DR PO SCH (05:34)
[2017-04-12] MEDS: CLONAZEPAM 1 MG TABLET PO SCH ×2 (05:34→17:08)
[2017-04-12] MEDS: SITAGLIPTIN PHOSPHATE 50 MG TABLET PO SCH (09:40)
[2017-04-12] MEDS: CETIRIZINE 10 MG TABLET PO SCH (09:40)
[2017-04-12] MEDS: NORMAL SALINE 1000 ML 1,000 ML IV PRN (09:40)
[2017-04-12] MEDS: DULOXETINE HCL 30 MG CAPSULE.DR PO SCH ×2 (09:41→21:25)
[2017-04-12] MEDS: LISINOPRIL 10 MG TABLET PO SCH (09:41)
[2017-04-12] MEDS: METFORMIN HCL 500 MG TABLET PO SCH ×2 (09:41→17:08)
[2017-04-12] MEDS: CEFTRIAXONE 2 GM/D5W RTU 2 GM/50 ML RTUPB IV SCH (09:42)
[2017-04-12] MEDS: FLUTICASONE NASAL SPRAY 50 MCG/SPRY 120 SPRAY/16 GM NASL SCH ×2 (09:42→21:25)
[2017-04-12] MEDS: HALOPERIDOL 5 MG TABLET PO SCH (09:43)
--- NOTE | 2017-04-12 21:22 | PDOC PROGRESS REPORT ---
Subjective Progress Note for:: 04/11/17 Subjective:: Patient came from assisted living facility she has underlining schizophrenia she is deconditioned, she will need rehabilitation Reason For Visit: UTI Physical Exam Vital Signs: Temp Pulse Resp BP Pulse Ox 97.4 F 84 16 126/69 H 98 04/12/17 11:47 04/12/17 14:00 04/12/17 11:47 04/12/17 11:47 04/12/17 11:47 Intake & Output 04/11/17 04/12/17 04/13/17 06:59 06:59 06:59 Intake Total 1326 2194 1539 Balance 1326 2194 1539 General appearance: PRESENT: no acute distress Eye exam: PRESENT: PERRLA Respiratory exam: PRESENT: clear to auscultation kim Cardiovascular exam: PRESENT: +S1, +S2 GI/Abdominal exam: PRESENT: soft Neurological exam: PRESENT: alert Results Laboratory Results: 04/11/17 03:54 04/11/17 03:54 Impressions: Head CT 04/08/17 09:24 IMPRESSION: 1. No evidence of an acute intracranial process 2. Similar appearance of the left maxillary sinus process, previously evaluated on MRI EVIDENCE OF ACUTE STROKE: NO. Assessment & Plan - Diagnosis (1) Urinary tract infection Qualifiers: Urinary tract infection type: acute cystitis Hematuria presence: without hematuria Qualified Code(s): N30.00 - Acute cystitis without hematuria Is this a current diagnosis for this admission?: Yes (2) Schizophrenia Qualifiers: Schizophrenia type: unspecified Qualified Code(s): F20.9 - Schizophrenia, unspecified Is this a current diagnosis for this admission?: Yes (3) Type 2 diabetes mellitus Qualifiers: Diabetes mellitus complication status: with unspecified complications Diabetes mellitus fci insulin use: without fci use Qualified Code( s): E11.8 - Type 2 diabetes mellitus with unspecified complications Is this a current diagnosis for this admission?: Yes
--- NOTE | 2017-04-12 21:24 | PDOC PROGRESS REPORT ---
Subjective Progress Note for:: 04/12/17 Subjective:: She was seen by the bedside, discharge planning consultation will be requested Reason For Visit: UTI Physical Exam Vital Signs: Temp Pulse Resp BP Pulse Ox 97.4 F 84 16 126/69 H 98 04/12/17 11:47 04/12/17 14:00 04/12/17 11:47 04/12/17 11:47 04/12/17 11:47 Intake & Output 04/11/17 04/12/17 04/13/17 06:59 06:59 06:59 Intake Total 1326 2194 1539 Balance 1326 2194 1539 General appearance: PRESENT: no acute distress Eye exam: PRESENT: PERRLA Respiratory exam: PRESENT: clear to auscultation kim Cardiovascular exam: PRESENT: +S1, +S2 GI/Abdominal exam: PRESENT: soft Neurological exam: PRESENT: alert Results Laboratory Results: 04/11/17 03:54 04/11/17 03:54 Impressions: Head CT 04/08/17 09:24 IMPRESSION: 1. No evidence of an acute intracranial process 2. Similar appearance of the left maxillary sinus process, previously evaluated on MRI EVIDENCE OF ACUTE STROKE: NO. Assessment & Plan - Diagnosis (1) Urinary tract infection Qualifiers: Urinary tract infection type: acute cystitis Hematuria presence: without hematuria Qualified Code(s): N30.00 - Acute cystitis without hematuria Is this a current diagnosis for this admission?: Yes (2) Schizophrenia Qualifiers: Schizophrenia type: unspecified Qualified Code(s): F20.9 - Schizophrenia, unspecified Is this a current diagnosis for this admission?: Yes (3) Type 2 diabetes mellitus Qualifiers: Diabetes mellitus complication status: with unspecified complications Diabetes mellitus prison insulin use: without prison use Qualified Code( s): E11.8 - Type 2 diabetes mellitus with unspecified complications Is this a current diagnosis for this admission?: Yes
[2017-04-12] MEDS: DOXAZOSIN MESYLATE 2 MG TABLET PO SCH (21:25)
[2017-04-12] MEDS: ATORVASTATIN CALCIUM 10 MG TABLET PO SCH (21:25)
[2017-04-12] MEDS: TRAZODONE HCL 50 MG TABLET PO SCH (21:25)
[2017-04-12] MEDS: DIPHENHYDRAMINE HCL 50 MG CAPSULE PO SCH (21:25)
[2017-04-12] MEDS: DIVALPROEX SODIUM 500 MG TAB.SR.24H PO SCH (21:25)
[2017-04-13] MEDS: NORMAL SALINE 1000 ML 1,000 ML IV PRN (02:47)
[2017-04-13] MEDS: LANSOPRAZOLE 15 MG TAB.RAP.DR PO SCH (05:30)
[2017-04-13] MEDS: CLONAZEPAM 1 MG TABLET PO SCH ×2 (05:30→18:30)
[2017-04-13] MEDS: BENZTROPINE MESYLATE 1 MG TABLET PO SCH ×2 (05:31→18:30)
[2017-04-13] MEDS: DULOXETINE HCL 30 MG CAPSULE.DR PO SCH ×2 (11:30→23:09)
[2017-04-13] MEDS: FLUTICASONE NASAL SPRAY 50 MCG/SPRY 120 SPRAY/16 GM NASL SCH ×2 (11:30→23:00)
[2017-04-13] MEDS: CETIRIZINE 10 MG TABLET PO SCH (11:45)
[2017-04-13] MEDS: METFORMIN HCL 500 MG TABLET PO SCH ×2 (11:45→18:00)
[2017-04-13] MEDS: HALOPERIDOL 5 MG TABLET PO SCH (11:45)
[2017-04-13] MEDS: LISINOPRIL 10 MG TABLET PO SCH (11:45)
[2017-04-13] MEDS: SITAGLIPTIN PHOSPHATE 50 MG TABLET PO SCH (11:45)
[2017-04-13] MEDS: CEFTRIAXONE 2 GM/D5W RTU 2 GM/50 ML RTUPB IV SCH (11:53)
--- NOTE | 2017-04-13 22:17 | PDOC PROGRESS REPORT ---
Subjective Progress Note for:: 04/13/17 Subjective:: Patient was seen by the bedside she is very deconditioned, presently from [facility] she will need to be discharged to long-term care for rehab and physical therapy Reason For Visit: UTI Physical Exam Vital Signs: Temp Pulse Resp BP Pulse Ox 98.9 F 94 17 131/78 H 92 04/13/17 15:23 04/13/17 15:23 04/13/17 15:23 04/13/17 15:23 04/13/17 15:23 Intake & Output 04/12/17 04/13/17 04/14/17 06:59 06:59 06:59 Intake Total 2194 1779 760 Balance 2194 1779 760 General appearance: PRESENT: no acute distress Eye exam: PRESENT: PERRLA Respiratory exam: PRESENT: clear to auscultation kim Cardiovascular exam: PRESENT: +S1, +S2 GI/Abdominal exam: PRESENT: soft Neurological exam: PRESENT: alert Results Laboratory Results: 04/11/17 03:54 04/11/17 03:54 Impressions: Head CT 04/08/17 09:24 IMPRESSION: 1. No evidence of an acute intracranial process 2. Similar appearance of the left maxillary sinus process, previously evaluated on MRI EVIDENCE OF ACUTE STROKE: NO. 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
[2017-04-13] MEDS: TRAZODONE HCL 50 MG TABLET PO SCH (23:10)
[2017-04-13] MEDS: ATORVASTATIN CALCIUM 10 MG TABLET PO SCH (23:12)
[2017-04-13] MEDS: DOXAZOSIN MESYLATE 2 MG TABLET PO SCH (23:15)
[2017-04-13] MEDS: DIVALPROEX SODIUM 500 MG TAB.SR.24H PO SCH (23:15)
[2017-04-13] MEDS: DIPHENHYDRAMINE HCL 50 MG CAPSULE PO SCH (23:15)
[2017-04-14] MEDS: BENZTROPINE MESYLATE 1 MG TABLET PO SCH ×2 (05:30→17:23)
[2017-04-14] MEDS: CLONAZEPAM 1 MG TABLET PO SCH ×2 (05:31→17:23)
[2017-04-14] MEDS: LANSOPRAZOLE 15 MG TAB.RAP.DR PO SCH (05:31)
[2017-04-14] MEDS: METFORMIN HCL 500 MG TABLET PO SCH ×2 (10:00→17:23)
[2017-04-14] MEDS: CETIRIZINE 10 MG TABLET PO SCH (10:00)
[2017-04-14] MEDS: DULOXETINE HCL 30 MG CAPSULE.DR PO SCH ×2 (10:00→21:53)
[2017-04-14] MEDS: SITAGLIPTIN PHOSPHATE 50 MG TABLET PO SCH (10:00)
[2017-04-14] MEDS: CEFTRIAXONE 2 GM/D5W RTU 2 GM/50 ML RTUPB IV SCH (10:00)
[2017-04-14] MEDS: LISINOPRIL 10 MG TABLET PO SCH (10:01)
[2017-04-14] MEDS: FLUTICASONE NASAL SPRAY 50 MCG/SPRY 120 SPRAY/16 GM NASL SCH ×2 (10:01→21:54)
[2017-04-14] MEDS: HALOPERIDOL 5 MG TABLET PO SCH (10:02)
[2017-04-14] MEDS: DIPHENHYDRAMINE HCL 50 MG CAPSULE PO SCH (21:53)
[2017-04-14] MEDS: DOXAZOSIN MESYLATE 2 MG TABLET PO SCH (21:53)
[2017-04-14] MEDS: ATORVASTATIN CALCIUM 10 MG TABLET PO SCH (21:53)
[2017-04-14] MEDS: TRAZODONE HCL 50 MG TABLET PO SCH (21:53)
[2017-04-14] MEDS: DIVALPROEX SODIUM 500 MG TAB.SR.24H PO SCH (21:53)
[2017-04-15] MEDS: BENZTROPINE MESYLATE 1 MG TABLET PO SCH ×2 (05:15→17:09)
[2017-04-15] MEDS: LANSOPRAZOLE 15 MG TAB.RAP.DR PO SCH (05:15)
[2017-04-15] MEDS: CLONAZEPAM 1 MG TABLET PO SCH (05:15)
[2017-04-15] MEDS: SITAGLIPTIN PHOSPHATE 50 MG TABLET PO SCH (10:23)
[2017-04-15] MEDS: HALOPERIDOL 5 MG TABLET PO SCH (10:23)
[2017-04-15] MEDS: CETIRIZINE 10 MG TABLET PO SCH (10:23)
[2017-04-15] MEDS: FLUTICASONE NASAL SPRAY 50 MCG/SPRY 120 SPRAY/16 GM NASL SCH ×2 (10:23→22:48)
[2017-04-15] MEDS: LISINOPRIL 10 MG TABLET PO SCH (10:23)
[2017-04-15] MEDS: METFORMIN HCL 500 MG TABLET PO SCH ×2 (10:24→17:09)
[2017-04-15] MEDS: CEFTRIAXONE 2 GM/D5W RTU 2 GM/50 ML RTUPB IV SCH (10:24)
[2017-04-15] MEDS: DULOXETINE HCL 30 MG CAPSULE.DR PO SCH ×2 (10:24→22:44)
--- NOTE | 2017-04-15 11:17 | PDOC PROGRESS REPORT ---
Subjective Progress Note for:: 04/15/17 Subjective:: Patients from the assisted living's admitted because of the urinary tract infections Currently doing well Denied any chest pain denied any shortness of the breath per to the patient's she usually walk with the physical therapy Reason For Visit: UTI Physical Exam Vital Signs: Temp Pulse Resp BP Pulse Ox 98.4 F 96 16 137/92 H 100 04/15/17 07:34 04/15/17 07:34 04/15/17 07:34 04/15/17 07:34 04/15/17 07:34 Intake & Output 04/14/17 04/15/17 04/16/17 06:59 06:59 06:59 Intake Total 1730 1740 Output Total 3 Balance 1730 1737 General appearance: PRESENT: no acute distress, well-developed, well-nourished Head exam: PRESENT: atraumatic, normocephalic Eye exam: PRESENT: conjunctiva pink, EOMI, PERRLA. ABSENT: scleral icterus Ear exam: PRESENT: normal external ear exam Mouth exam: PRESENT: moist, tongue midline Neck exam: PRESENT: full ROM. ABSENT: carotid bruit, JVD, lymphadenopathy, thyromegaly Respiratory exam: PRESENT: clear to auscultation kim Cardiovascular exam: PRESENT: RRR. ABSENT: diastolic murmur, rubs, systolic murmur Pulses: PRESENT: normal dorsalis pedis pul, +2 pedal pulses bilateral Vascular exam: PRESENT: normal capillary refill GI/Abdominal exam: PRESENT: normal bowel sounds, soft. ABSENT: distended, guarding, mass, organolmegaly, rebound, tenderness Rectal exam: PRESENT: deferred Extremities exam: ABSENT: pedal edema Neurological exam: PRESENT: alert, awake, oriented to person, oriented to place , oriented to time, oriented to situation, CN II-XII grossly intact. ABSENT: motor sensory deficit Psychiatric exam: PRESENT: appropriate affect, normal mood. ABSENT: homicidal ideation, suicidal ideation Skin exam: PRESENT: dry, intact, warm. ABSENT: cyanosis, rash Results Laboratory Results: 04/11/17 03:54 04/11/17 03:54 Impressions: Head CT 04/08/17 09:24 IMPRESSION: 1. No evidence of an acute intracranial process 2. Similar appearance of the left maxillary sinus process, previously evaluated on MRI EVIDENCE OF ACUTE STROKE: NO. Assessment & Plan - Diagnosis (1) Urinary tract infection Qualifiers: Urinary tract infection type: acute cystitis Hematuria presence: without hematuria Qualified Code(s): N30.00 - Acute cystitis without hematuria Is this a current diagnosis for this admission?: Yes (2) Schizophrenia Qualifiers: Schizophrenia type: unspecified Qualified Code(s): F20.9 - Schizophrenia, unspecified Is this a current diagnosis for this admission?: Yes (3) Obesity hypoventilation syndrome Is this a current diagnosis for this admission?: Yes (4) Type 2 diabetes mellitus Qualifiers: Diabetes mellitus complication status: with unspecified complications Diabetes mellitus senior care insulin use: without senior care use Qualified Code( s): E11.8 - Type 2 diabetes mellitus with unspecified complications Is this a current diagnosis for this admission?: Yes (5) Morbid (severe) obesity due to excess calories Is this a current diagnosis for this admission?: Yes - Time Time Spent with patient: 15-24 minutes Medications reviewed and adjusted accordingly: Yes Anticipated discharge: Other Within: Other - Inpatient Certification Medical Necessity: Need Close Monitoring Due to Risk of Patient Decompensation, Need for IV Antibiotics Post Hospital Care: D/C Activity Therapy Specialist Documentation - Plan Summary Plan Summary: Continues to IV antibiotic will order the CBC and Chem-7 in the morning and order the physical therapy
[2017-04-15] MEDS: DIPHENHYDRAMINE HCL 50 MG CAPSULE PO SCH (22:44)
[2017-04-15] MEDS: DIVALPROEX SODIUM 500 MG TAB.SR.24H PO SCH (22:44)
[2017-04-15] MEDS: DOXAZOSIN MESYLATE 2 MG TABLET PO SCH (22:44)
[2017-04-15] MEDS: TRAZODONE HCL 50 MG TABLET PO SCH (22:48)
[2017-04-15] MEDS: ATORVASTATIN CALCIUM 10 MG TABLET PO SCH (22:48)
[2017-04-16] MEDS: LANSOPRAZOLE 15 MG TAB.RAP.DR PO SCH (05:16)
[2017-04-16] MEDS: BENZTROPINE MESYLATE 1 MG TABLET PO SCH ×2 (05:16→17:37)
[2017-04-16 07:50] LABS: ABSOLUTE EOSINOPHILS # (AUTO) 0.3 10^3/uL (0.0-0.6); ABSOLUTE LYMPHOCYTES (AUTO) 2.3 10^3/uL (0.5-4.7); ABSOLUTE MONOCYTES (AUTO) 0.6 10^3/uL (0.1-1.4); BASOPHILS % (AUTO) 0.3 % (0-2); EOSINOPHILS % (AUTO) 5.2 % (0-6); HEMATOCRIT 31.9 % (36.0-47.0); HEMOGLOBIN 10.9 g/dL (12.0-15.5); LYMPHOCYTES % (AUTO) 36.9 % (13-45); MEAN CORPUSCULAR HEMOGLOBIN 31.2 pg (27.0-33.4); MEAN CORPUSCULAR HGB CONC 34.1 g/dL (32.0-36.0); MEAN CORPUSCULAR VOLUME 92 fl (80-97); MONOCYTES % (AUTO) 9.2 % (3-13); PLATELET COUNT 159 10^3/uL (150-450); RED BLOOD COUNT 3.48 10^6/uL (3.72-5.28); RED CELL DISTRIBUTION WIDTH 14.3 % (11.5-14.0); SEGMENTED NEUTROPHILS % (AUTO) 48.4 % (42-78); TOTAL CELLS COUNTED % (AUTO) 100 %; WHITE BLOOD COUNT 6.2 10^3/uL (4.0-10.5)
[2017-04-16 08:17] LABS: ANION GAP 7 (5-19); BLOOD UREA NITROGEN 9 mg/dL (7-20); CALCIUM 8.9 mg/dL (8.4-10.2); CARBON DIOXIDE 31 mmol/L (22-30); CHLORIDE 101 mmol/L (98-107); GLUCOSE 85 mg/dL (75-110)
[2017-04-16] MEDS: FLUTICASONE NASAL SPRAY 50 MCG/SPRY 120 SPRAY/16 GM NASL SCH ×2 (09:42→21:26)
[2017-04-16] MEDS: DULOXETINE HCL 30 MG CAPSULE.DR PO SCH ×2 (09:43→21:26)
[2017-04-16] MEDS: METFORMIN HCL 500 MG TABLET PO SCH ×2 (09:43→17:37)
[2017-04-16] MEDS: HALOPERIDOL 5 MG TABLET PO SCH (09:43)
[2017-04-16] MEDS: CETIRIZINE 10 MG TABLET PO SCH (09:43)
[2017-04-16] MEDS: SITAGLIPTIN PHOSPHATE 50 MG TABLET PO SCH (09:43)
[2017-04-16] MEDS: LISINOPRIL 10 MG TABLET PO SCH (09:44)
--- NOTE | 2017-04-16 10:28 | PDOC PROGRESS REPORT ---
Subjective Progress Note for:: 04/16/17 Subjective:: Patients from the assisted living's admitted because of the urinary tract infections Currently doing well Denied any chest pain denied any shortness of the breath per to the patient's she usually walk with the physical therapy Reason For Visit: UTI Physical Exam Vital Signs: Temp Pulse Resp BP Pulse Ox 99.9 F 100 16 146/86 H 99 04/15/17 19:34 04/16/17 07:00 04/15/17 19:34 04/15/17 19:34 04/15/17 19:34 Intake & Output 04/15/17 04/16/17 04/17/17 06:59 06:59 06:59 Intake Total 1740 1540 Output Total 3 Balance 1737 1540 General appearance: PRESENT: no acute distress, well-developed, well-nourished Head exam: PRESENT: atraumatic, normocephalic Eye exam: PRESENT: conjunctiva pink, EOMI, PERRLA. ABSENT: scleral icterus Ear exam: PRESENT: normal external ear exam Mouth exam: PRESENT: moist, tongue midline Neck exam: PRESENT: full ROM. ABSENT: carotid bruit, JVD, lymphadenopathy, thyromegaly Respiratory exam: PRESENT: clear to auscultation kim Cardiovascular exam: PRESENT: RRR. ABSENT: diastolic murmur, rubs, systolic murmur Pulses: PRESENT: normal dorsalis pedis pul, +2 pedal pulses bilateral Vascular exam: PRESENT: normal capillary refill GI/Abdominal exam: PRESENT: normal bowel sounds, soft. ABSENT: distended, guarding, mass, organolmegaly, rebound, tenderness Rectal exam: PRESENT: deferred Neurological exam: PRESENT: alert, awake, oriented to person, oriented to place. ABSENT: motor sensory deficit Psychiatric exam: PRESENT: appropriate affect, normal mood. ABSENT: homicidal ideation, suicidal ideation Skin exam: PRESENT: dry, intact, warm. ABSENT: cyanosis, rash Results Laboratory Results: 04/16/17 06:36 04/16/17 06:36 04/16/17 04/16/17 06:36 06:36 WBC 6.2 RBC 3.48 L Hgb 10.9 L Hct 31.9 L MCV 92 MCH 31.2 MCHC 34.1 RDW 14.3 H Plt Count 159 Seg Neutrophils % 48.4 Lymphocytes % 36.9 Monocytes % 9.2 Eosinophils % 5.2 Basophils % 0.3 Absolute Neutrophils 3.0 Absolute Lymphocytes 2.3 Absolute Monocytes 0.6 Absolute Eosinophils 0.3 Absolute Basophils 0.0 Sodium 139.0 Potassium 4.0 Chloride 101 Carbon Dioxide 31 H Anion Gap 7 BUN 9 Creatinine 0.61 Est GFR ( Amer) > 60 Est GFR (Non-Af Amer) > 60 Glucose 85 Calcium 8.9 Impressions: Head CT 04/08/17 09:24 IMPRESSION: 1. No evidence of an acute intracranial process 2. Similar appearance of the left maxillary sinus process, previously evaluated on MRI EVIDENCE OF ACUTE STROKE: NO. Assessment & Plan - Diagnosis (1) Urinary tract infection Qualifiers: Urinary tract infection type: acute cystitis Hematuria presence: without hematuria Qualified Code(s): N30.00 - Acute cystitis without hematuria Is this a current diagnosis for this admission?: Yes (2) Schizophrenia Qualifiers: Schizophrenia type: unspecified Qualified Code(s): F20.9 - Schizophrenia, unspecified Is this a current diagnosis for this admission?: Yes (3) Obesity hypoventilation syndrome Is this a current diagnosis for this admission?: Yes (4) Type 2 diabetes mellitus Qualifiers: Diabetes mellitus complication status: with unspecified complications Diabetes mellitus rodent exterminator insulin use: without snf use Qualified Code( s): E11.8 - Type 2 diabetes mellitus with unspecified complications Is this a current diagnosis for this admission?: Yes (5) Morbid (severe) obesity due to excess calories Is this a current diagnosis for this admission?: Yes - Time Time Spent with patient: 15-24 minutes Medications reviewed and adjusted accordingly: Yes Anticipated discharge: Other Within: Other - Inpatient Certification Medical Necessity: Need Close Monitoring Due to Risk of Patient Decompensation, Need for IV Antibiotics 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
[2017-04-16] MEDS: DOXAZOSIN MESYLATE 2 MG TABLET PO SCH (21:26)
[2017-04-16] MEDS: ATORVASTATIN CALCIUM 10 MG TABLET PO SCH (21:26)
[2017-04-16] MEDS: TRAZODONE HCL 50 MG TABLET PO SCH (21:26)
[2017-04-16] MEDS: DIVALPROEX SODIUM 500 MG TAB.SR.24H PO SCH (21:26)
[2017-04-16] MEDS: DIPHENHYDRAMINE HCL 50 MG CAPSULE PO SCH (21:26)
[2017-04-17 05:41] LABS: ANION GAP 5 (5-19); BLOOD UREA NITROGEN 8 mg/dL (7-20); CALCIUM 8.5 mg/dL (8.4-10.2); GLUCOSE 72 mg/dL (75-110)
[2017-04-17 05:46] LABS: CARBON DIOXIDE 30 mmol/L (22-30); CHLORIDE 104 mmol/L (98-107); SODIUM 139.3 mmol/L (137-145)
[2017-04-17] MEDS: BENZTROPINE MESYLATE 1 MG TABLET PO SCH ×2 (05:46→17:08)
[2017-04-17] MEDS: LANSOPRAZOLE 15 MG TAB.RAP.DR PO SCH (05:46)
[2017-04-17] MEDS: HALOPERIDOL 5 MG TABLET PO SCH (09:16)
[2017-04-17] MEDS: CETIRIZINE 10 MG TABLET PO SCH (09:16)
[2017-04-17] MEDS: METFORMIN HCL 500 MG TABLET PO SCH ×2 (09:16→17:08)
[2017-04-17] MEDS: NORMAL SALINE 1000 ML 1,000 ML IV PRN (09:16)
[2017-04-17] MEDS: DULOXETINE HCL 30 MG CAPSULE.DR PO SCH ×2 (09:16→22:09)
[2017-04-17] MEDS: LISINOPRIL 10 MG TABLET PO SCH (09:16)
[2017-04-17] MEDS: FLUTICASONE NASAL SPRAY 50 MCG/SPRY 120 SPRAY/16 GM NASL SCH ×2 (09:17→22:09)
[2017-04-17] MEDS: SITAGLIPTIN PHOSPHATE 50 MG TABLET PO SCH (09:17)
--- NOTE | 2017-04-17 21:01 | PDOC PROGRESS REPORT ---
Subjective Progress Note for:: 04/17/17 Subjective:: Patient was seen by the bedside, she is deconditioned, she needs rehabilitation in the intermediate consultation will be requested from discharge planning to arrange for intermediate placement for rehabilitation Reason For Visit: UTI Physical Exam Vital Signs: Temp Pulse Resp BP Pulse Ox 99.2 F 80 14 123/78 97 04/17/17 19:33 04/17/17 19:33 04/17/17 19:33 04/17/17 19:33 04/17/17 19:33 Intake & Output 04/16/17 04/17/17 04/18/17 06:59 06:59 06:59 Intake Total 1540 1777 660 Output Total 2 Balance 1540 1777 658 General appearance: PRESENT: no acute distress Eye exam: PRESENT: PERRLA Respiratory exam: PRESENT: clear to auscultation kim Cardiovascular exam: PRESENT: +S1, +S2 GI/Abdominal exam: PRESENT: soft Neurological exam: PRESENT: alert Results Laboratory Results: 04/16/17 06:36 04/17/17 04:08 04/17/17 04:08 Sodium 139.3 Potassium 4.0 Chloride 104 Carbon Dioxide 30 Anion Gap 5 BUN 8 Creatinine 0.61 Est GFR ( Amer) > 60 Est GFR (Non-Af Amer) > 60 Glucose 72 L Calcium 8.5 Impressions: Head CT 04/08/17 09:24 IMPRESSION: 1. No evidence of an acute intracranial process 2. Similar appearance of the left maxillary sinus process, previously evaluated on MRI EVIDENCE OF ACUTE STROKE: NO. Assessment & Plan - Diagnosis (1) Urinary tract infection Qualifiers: Urinary tract infection type: acute cystitis Hematuria presence: without hematuria Qualified Code(s): N30.00 - Acute cystitis without hematuria Is this a current diagnosis for this admission?: Yes (2) Schizophrenia Qualifiers: Schizophrenia type: unspecified Qualified Code(s): F20.9 - Schizophrenia, unspecified Is this a current diagnosis for this admission?: Yes (3) Type 2 diabetes mellitus Qualifiers: Diabetes mellitus complication status: with unspecified complications Diabetes mellitus rn long term care insulin use: without rn long term care use Qualified Code( s): E11.8 - Type 2 diabetes mellitus with unspecified complications Is this a current diagnosis for this admission?: Yes
[2017-04-17] MEDS: DIPHENHYDRAMINE HCL 50 MG CAPSULE PO SCH (22:09)
[2017-04-17] MEDS: DOXAZOSIN MESYLATE 2 MG TABLET PO SCH (22:09)
[2017-04-17] MEDS: DIVALPROEX SODIUM 500 MG TAB.SR.24H PO SCH (22:09)
[2017-04-17] MEDS: ATORVASTATIN CALCIUM 10 MG TABLET PO SCH (22:09)
[2017-04-17] MEDS: TRAZODONE HCL 50 MG TABLET PO SCH (22:09)
[2017-04-18 05:30] LABS: ANION GAP 8 (5-19); BLOOD UREA NITROGEN 9 mg/dL (7-20); CALCIUM 8.9 mg/dL (8.4-10.2); CARBON DIOXIDE 30 mmol/L (22-30); CHLORIDE 104 mmol/L (98-107); GLUCOSE 71 mg/dL (75-110); POTASSIUM 4.1 mmol/L (3.6-5.0); SODIUM 141.8 mmol/L (137-145)
[2017-04-18] MEDS: BENZTROPINE MESYLATE 1 MG TABLET PO SCH ×2 (05:30→16:54)
[2017-04-18] MEDS: LANSOPRAZOLE 15 MG TAB.RAP.DR PO SCH (05:30)
[2017-04-18] MEDS: METFORMIN HCL 500 MG TABLET PO SCH ×2 (09:09→16:54)
[2017-04-18] MEDS: CETIRIZINE 10 MG TABLET PO SCH (09:09)
[2017-04-18] MEDS: DULOXETINE HCL 30 MG CAPSULE.DR PO SCH ×2 (09:10→23:27)
[2017-04-18] MEDS: LISINOPRIL 10 MG TABLET PO SCH (09:10)
[2017-04-18] MEDS: SITAGLIPTIN PHOSPHATE 50 MG TABLET PO SCH (09:10)
[2017-04-18] MEDS: HALOPERIDOL 5 MG TABLET PO SCH (09:10)
[2017-04-18] MEDS: FLUTICASONE NASAL SPRAY 50 MCG/SPRY 120 SPRAY/16 GM NASL SCH ×2 (09:10→23:29)
--- NOTE | 2017-04-18 20:38 | PDOC PROGRESS REPORT ---
Subjective Progress Note for:: 04/18/17 Subjective:: She is waiting for placement in a long-term home for rehabilitation Reason For Visit: UTI Physical Exam Vital Signs: Temp Pulse Resp BP Pulse Ox 98.8 F 92 17 124/78 95 04/18/17 15:12 04/18/17 15:12 04/18/17 15:12 04/18/17 15:12 04/18/17 15:12 Intake & Output 04/17/17 04/18/17 04/19/17 06:59 06:59 06:59 Intake Total 1777 1360 818 Output Total 2 Balance 1777 1358 818 Weight 88.1 kg General appearance: PRESENT: no acute distress Eye exam: PRESENT: PERRLA Respiratory exam: PRESENT: clear to auscultation kim Cardiovascular exam: PRESENT: +S1, +S2 GI/Abdominal exam: PRESENT: soft Neurological exam: PRESENT: alert Results Laboratory Results: 04/16/17 06:36 04/18/17 04:18 04/18/17 04:18 Sodium 141.8 Potassium 4.1 Chloride 104 Carbon Dioxide 30 Anion Gap 8 BUN 9 Creatinine 0.59 Est GFR ( Amer) > 60 Est GFR (Non-Af Amer) > 60 Glucose 71 L Calcium 8.9 Impressions: Head CT 04/08/17 09:24 IMPRESSION: 1. No evidence of an acute intracranial process 2. Similar appearance of the left maxillary sinus process, previously evaluated on MRI EVIDENCE OF ACUTE STROKE: NO. Assessment & Plan - Diagnosis (1) Urinary tract infection Qualifiers: Urinary tract infection type: acute cystitis Hematuria presence: without hematuria Qualified Code(s): N30.00 - Acute cystitis without hematuria Is this a current diagnosis for this admission?: Yes (2) Schizophrenia Qualifiers: Schizophrenia type: unspecified Qualified Code(s): F20.9 - Schizophrenia, unspecified Is this a current diagnosis for this admission?: Yes (3) Type 2 diabetes mellitus Qualifiers: Diabetes mellitus complication status: with unspecified complications Diabetes mellitus stable helper insulin use: without retirement use Qualified Code( s): E11.8 - Type 2 diabetes mellitus with unspecified complications Is this a current diagnosis for this admission?: Yes
[2017-04-18] MEDS: DIVALPROEX SODIUM 500 MG TAB.SR.24H PO SCH (23:28)
[2017-04-18] MEDS: DIPHENHYDRAMINE HCL 50 MG CAPSULE PO SCH (23:28)
[2017-04-18] MEDS: ATORVASTATIN CALCIUM 10 MG TABLET PO SCH (23:28)
[2017-04-18] MEDS: DOXAZOSIN MESYLATE 2 MG TABLET PO SCH (23:28)
[2017-04-18] MEDS: TRAZODONE HCL 50 MG TABLET PO SCH (23:28)
[2017-04-19] MEDS: BENZTROPINE MESYLATE 1 MG TABLET PO SCH ×2 (05:12→18:45)
[2017-04-19] MEDS: LANSOPRAZOLE 15 MG TAB.RAP.DR PO SCH (05:12)
[2017-04-19] MEDS: METFORMIN HCL 500 MG TABLET PO SCH ×2 (08:34→18:44)
[2017-04-19] MEDS: DULOXETINE HCL 30 MG CAPSULE.DR PO SCH ×2 (09:07→21:18)
[2017-04-19] MEDS: CETIRIZINE 10 MG TABLET PO SCH (09:07)
[2017-04-19] MEDS: SITAGLIPTIN PHOSPHATE 50 MG TABLET PO SCH (09:07)
[2017-04-19] MEDS: HALOPERIDOL 5 MG TABLET PO SCH (09:07)
[2017-04-19] MEDS: LISINOPRIL 10 MG TABLET PO SCH (09:07)
[2017-04-19] MEDS: FLUTICASONE NASAL SPRAY 50 MCG/SPRY 120 SPRAY/16 GM NASL SCH ×2 (09:08→21:22)
--- NOTE | 2017-04-19 15:24 | PDOC PROGRESS REPORT ---
Subjective Progress Note for:: 04/26/17 Subjective:: She is waiting for placement in a long-term home for rehabilitation Reason For Visit: UTI Physical Exam Vital Signs: Temp Pulse Resp BP Pulse Ox 98.8 F 83 17 124/71 94 04/19/17 11:33 04/19/17 11:33 04/19/17 11:33 04/19/17 11:33 04/19/17 11:33 Intake & Output 04/18/17 04/19/17 04/20/17 06:59 06:59 06:59 Intake Total 1360 1018 Output Total 2 Balance 1358 1018 Weight 88.1 kg General appearance: PRESENT: no acute distress Eye exam: PRESENT: PERRLA Cardiovascular exam: PRESENT: +S1, +S2 GI/Abdominal exam: PRESENT: soft Neurological exam: PRESENT: alert Results Laboratory Results: 04/16/17 06:36 04/18/17 04:18 Impressions: Head CT 04/08/17 09:24 IMPRESSION: 1. No evidence of an acute intracranial process 2. Similar appearance of the left maxillary sinus process, previously evaluated on MRI EVIDENCE OF ACUTE STROKE: NO. Assessment & Plan - Diagnosis (1) Urinary tract infection Qualifiers: Urinary tract infection type: acute cystitis Hematuria presence: without hematuria Qualified Code(s): N30.00 - Acute cystitis without hematuria Is this a current diagnosis for this admission?: Yes (2) Schizophrenia Qualifiers: Schizophrenia type: unspecified Qualified Code(s): F20.9 - Schizophrenia, unspecified Is this a current diagnosis for this admission?: Yes (3) Type 2 diabetes mellitus Qualifiers: Diabetes mellitus complication status: with unspecified complications Diabetes mellitus nocturnist insulin use: without nocturnist use Qualified Code( s): E11.8 - Type 2 diabetes mellitus with unspecified complications Is this a current diagnosis for this admission?: Yes
[2017-04-19] MEDS: DIVALPROEX SODIUM 500 MG TAB.SR.24H PO SCH (21:16)
[2017-04-19] MEDS: TRAZODONE HCL 50 MG TABLET PO SCH (21:18)
[2017-04-19] MEDS: ATORVASTATIN CALCIUM 10 MG TABLET PO SCH (21:19)
[2017-04-19] MEDS: DIPHENHYDRAMINE HCL 50 MG CAPSULE PO SCH (21:19)
[2017-04-19] MEDS: DOXAZOSIN MESYLATE 2 MG TABLET PO SCH (21:20)
[2017-04-20] MEDS: BENZTROPINE MESYLATE 1 MG TABLET PO SCH ×2 (05:17→18:54)
[2017-04-20] MEDS: LANSOPRAZOLE 15 MG TAB.RAP.DR PO SCH (05:17)
[2017-04-20] MEDS: HALOPERIDOL 5 MG TABLET PO SCH (09:16)
[2017-04-20] MEDS: LISINOPRIL 10 MG TABLET PO SCH (09:16)
[2017-04-20] MEDS: METFORMIN HCL 500 MG TABLET PO SCH ×2 (09:17→18:54)
[2017-04-20] MEDS: DULOXETINE HCL 30 MG CAPSULE.DR PO SCH ×2 (09:17→21:57)
[2017-04-20] MEDS: SITAGLIPTIN PHOSPHATE 50 MG TABLET PO SCH (09:17)
[2017-04-20] MEDS: CETIRIZINE 10 MG TABLET PO SCH (09:17)
[2017-04-20] MEDS: FLUTICASONE NASAL SPRAY 50 MCG/SPRY 120 SPRAY/16 GM NASL SCH ×2 (09:17→21:58)
--- NOTE | 2017-04-20 20:25 | PDOC DISCHARGE SUMMARY ---
General - Admit/Disc Date/PCP Admission Date/Primary Care Provider: 04/10/17 14:10 KATARINA URENA MD Discharge Date: 04/21/17 - Discharge Diagnosis (1) Urinary tract infection Is this a current diagnosis for this admission?: Yes (2) Schizophrenia Is this a current diagnosis for this admission?: Yes (3) Type 2 diabetes mellitus Is this a current diagnosis for this admission?: Yes (4) Physical deconditioning Is this a current diagnosis for this admission?: Yes (5) Morbid obesity Is this a current diagnosis for this admission?: Yes (6) Metabolic encephalopathy Is this a current diagnosis for this admission?: Yes - Additional Information Resuscitation Status: Full Code Discharge Diet: Diabetic Discharge Activity: Activity As Tolerated Home Medications: Albuterol Sulfate [Ventolin Hfa] 2 puff IH Q4HP PRN 04/08/17 Atorvastatin Calcium [Lipitor 10 mg Tablet] 10 mg PO QHS 04/08/17 Benztropine Mesylate 1 mg PO Q12 04/08/17 Bismuth Subsalicylate [Pepto-Bismol Susp 524 mg/30 ml Udcup] 30 ml PO Q4HP PRN 04/08/17 Cetirizine HCl [Zyrtec 10 mg Tablet] 10 mg PO DAILY 04/08/17 Divalproex Sodium [Depakote ER 500 mg Tab.sr] 2,000 mg PO QHS 04/08/17 Docusate Sodium [Colace 100 mg Capsule] 100 mg PO BIDP PRN 04/08/17 Duloxetine HCl [Cymbalta] 60 mg PO Q12 04/08/17 Fluticasone Propionate [Flonase Nasal [place] 50 Mcg/[place] 16 gm] 2 spray NASL Q12 04/08/17 Haloperidol 10 mg PO DAILY 04/08/17 Lisinopril [Zestril] 40 mg PO DAILY 04/08/17 Metformin HCl [Glucophage] 1,000 mg PO Q12 04/08/17 Omeprazole 20 mg PO DAILY 04/08/17 Prazosin HCl [Minipress] 1 mg PO QHS 04/08/17 Sitagliptin Phosphate [Januvia] 100 mg PO DAILY 04/08/17 Trazodone HCl [Desyrel 50 mg Tablet] 50 mg PO QHS 04/08/17 Clonazepam [Klonopin] 0.25 mg PO Q12 #60 04/20/17 History of Present Illness History of Present Illness: STEVE CONKLIN is a 46 year old female she came to the emergency room for evaluation of confusion, resident of assisted living facility, in the emergency room she was found to have urinary tract infection she was initially discharged from the emergency room but ultimately the plan was changed that she needed to be admitted for observation. She had a history of schizophrenia, obesity, type 2 diabetes mellitus, sedentary lifestyle. Hospital Course Hospital Course: She was admitted for the management of urinary tract infection associated with metabolic encephalopathy. She has history of schizophrenia, resident of [facility], she is physically deconditioned, morbidly obese. She was treated successfully with IV antibiotic she regained full consciousness she was more alert and oriented to time place and person was able to engage in conversation but she is physically deconditioned she would need physical therapy and that is the reason for transfer to correction home for rehabilitation. Physical Exam Vital Signs: Temp Pulse Resp BP Pulse Ox 98.4 F 120 H 20 131/70 H 91 L 04/20/17 15:07 04/20/17 15:07 04/20/17 15:07 04/20/17 15:07 04/20/17 15:07 Intake & Output 04/19/17 04/20/17 04/21/17 06:59 06:59 06:59 Intake Total 1018 1004 300 Balance 1018 1004 300 General appearance: PRESENT: no acute distress Eye exam: PRESENT: PERRLA Respiratory exam: PRESENT: clear to auscultation kim Cardiovascular exam: PRESENT: +S1, +S2 GI/Abdominal exam: PRESENT: soft Neurological exam: PRESENT: alert, CN II-XII grossly intact Results Laboratory Results: 04/16/17 06:36 04/18/17 04:18 Impressions: Head CT 04/08/17 09:24 IMPRESSION: 1. No evidence of an acute intracranial process 2. Similar appearance of the left maxillary sinus process, previously evaluated on MRI EVIDENCE OF ACUTE STROKE: NO. Qualifiers - * PATEINT BEING DISCHARGED WITH ANY OF THE FOLLOWING DIAGNOSIS?: No
--- NOTE | 2017-04-20 20:32 | PDOC TRANSFER SUMMARY ---
General - Admit/Disc Date/PCP Admission Date/Primary Care Provider: 04/10/17 14:10 KATARINA URENA MD Discharge Date: 04/21/17 - Discharge Diagnosis (1) Urinary tract infection Is this a current diagnosis for this admission?: Yes (2) Schizophrenia Is this a current diagnosis for this admission?: Yes (3) Type 2 diabetes mellitus Is this a current diagnosis for this admission?: Yes (4) Physical deconditioning Is this a current diagnosis for this admission?: Yes (5) Morbid obesity Is this a current diagnosis for this admission?: Yes (6) Metabolic encephalopathy Is this a current diagnosis for this admission?: Yes - Additional Information Resuscitation Status: Full Code Discharge Diet: Diabetic Discharge Activity: Activity As Tolerated Home Medications: Albuterol Sulfate [Ventolin Hfa] 2 puff IH Q4HP PRN 04/08/17 Atorvastatin Calcium [Lipitor 10 mg Tablet] 10 mg PO QHS 04/08/17 Benztropine Mesylate 1 mg PO Q12 04/08/17 Bismuth Subsalicylate [Pepto-Bismol Susp 524 mg/30 ml Udcup] 30 ml PO Q4HP PRN 04/08/17 Cetirizine HCl [Zyrtec 10 mg Tablet] 10 mg PO DAILY 04/08/17 Divalproex Sodium [Depakote ER 500 mg Tab.sr] 2,000 mg PO QHS 04/08/17 Docusate Sodium [Colace 100 mg Capsule] 100 mg PO BIDP PRN 04/08/17 Duloxetine HCl [Cymbalta] 60 mg PO Q12 04/08/17 Fluticasone Propionate [Flonase Nasal [place] 50 Mcg/[place] 16 gm] 2 spray NASL Q12 04/08/17 Haloperidol 10 mg PO DAILY 04/08/17 Lisinopril [Zestril] 40 mg PO DAILY 04/08/17 Metformin HCl [Glucophage] 1,000 mg PO Q12 04/08/17 Omeprazole 20 mg PO DAILY 04/08/17 Prazosin HCl [Minipress] 1 mg PO QHS 04/08/17 Sitagliptin Phosphate [Januvia] 100 mg PO DAILY 04/08/17 Trazodone HCl [Desyrel 50 mg Tablet] 50 mg PO QHS 04/08/17 Clonazepam [Klonopin] 0.25 mg PO Q12 #60 04/20/17 History of Present Illness Admission Date/PCP: 04/10/17 14:10 KATARINA URENA MD History of Present Illness: STEVE CONKLIN is a 46 year old female she came to the emergency room for evaluation of confusion, resident of assisted living facility, in the emergency room she was found to have urinary tract infection she was initially discharged from the emergency room but ultimately the plan was changed that she needed to be admitted for observation. She had a history of schizophrenia, obesity, type 2 diabetes mellitus, sedentary lifestyle. Hospital Course Hospital Course: See the discharge summary for details Physical Exam Vital Signs: Temp Pulse Resp BP Pulse Ox 98.4 F 120 H 20 131/70 H 91 L 04/20/17 15:07 04/20/17 15:07 04/20/17 15:07 04/20/17 15:07 04/20/17 15:07 Intake & Output 04/19/17 04/20/17 04/21/17 06:59 06:59 06:59 Intake Total 1018 1004 300 Balance 1018 1004 300 General appearance: PRESENT: no acute distress Eye exam: PRESENT: PERRLA Respiratory exam: PRESENT: clear to auscultation kim Neurological exam: PRESENT: alert, CN II-XII grossly intact Results Laboratory Results: 04/16/17 06:36 04/18/17 04:18 Impressions: Head CT 04/08/17 09:24 IMPRESSION: 1. No evidence of an acute intracranial process 2. Similar appearance of the left maxillary sinus process, previously evaluated on MRI EVIDENCE OF ACUTE STROKE: NO. Qualifiers - * PATEINT BEING DISCHARGED WITH ANY OF THE FOLLOWING DIAGNOSIS?: No
[2017-04-20] MEDS: DIVALPROEX SODIUM 500 MG TAB.SR.24H PO SCH (21:57)
[2017-04-20] MEDS: ATORVASTATIN CALCIUM 10 MG TABLET PO SCH (21:57)
[2017-04-20] MEDS: TRAZODONE HCL 50 MG TABLET PO SCH (21:57)
[2017-04-20] MEDS: DIPHENHYDRAMINE HCL 50 MG CAPSULE PO SCH (21:57)
[2017-04-20] MEDS: DOXAZOSIN MESYLATE 2 MG TABLET PO SCH (21:57)
[2017-04-21] MEDS: BENZTROPINE MESYLATE 1 MG TABLET PO SCH ×2 (06:18→17:53)
[2017-04-21] MEDS: LANSOPRAZOLE 15 MG TAB.RAP.DR PO SCH (06:18)
[2017-04-21] MEDS: LISINOPRIL 10 MG TABLET PO SCH (09:53)
[2017-04-21] MEDS: METFORMIN HCL 500 MG TABLET PO SCH ×2 (09:53→17:53)
[2017-04-21] MEDS: DULOXETINE HCL 30 MG CAPSULE.DR PO SCH ×2 (09:53→21:34)
[2017-04-21] MEDS: HALOPERIDOL 5 MG TABLET PO SCH (09:53)
[2017-04-21] MEDS: FLUTICASONE NASAL SPRAY 50 MCG/SPRY 120 SPRAY/16 GM NASL SCH ×2 (09:53→21:34)
[2017-04-21] MEDS: SITAGLIPTIN PHOSPHATE 50 MG TABLET PO SCH (09:53)
[2017-04-21] MEDS: CETIRIZINE 10 MG TABLET PO SCH (09:53)
[2017-04-21] MEDS: DIPHENHYDRAMINE HCL 50 MG CAPSULE PO SCH (21:34)
[2017-04-21] MEDS: DOXAZOSIN MESYLATE 2 MG TABLET PO SCH (21:34)
[2017-04-21] MEDS: ATORVASTATIN CALCIUM 10 MG TABLET PO SCH (21:34)
[2017-04-21] MEDS: DIVALPROEX SODIUM 500 MG TAB.SR.24H PO SCH (21:34)
[2017-04-21] MEDS: TRAZODONE HCL 50 MG TABLET PO SCH (21:34)
[2017-04-22] MEDS: BENZTROPINE MESYLATE 1 MG TABLET PO SCH ×2 (05:22→17:13)
[2017-04-22] MEDS: LANSOPRAZOLE 15 MG TAB.RAP.DR PO SCH (05:22)
[2017-04-22] MEDS: METFORMIN HCL 500 MG TABLET PO SCH ×2 (08:10→16:27)
[2017-04-22] MEDS: HALOPERIDOL 5 MG TABLET PO SCH (09:30)
[2017-04-22] MEDS: LISINOPRIL 10 MG TABLET PO SCH (09:31)
[2017-04-22] MEDS: SITAGLIPTIN PHOSPHATE 50 MG TABLET PO SCH (09:31)
[2017-04-22] MEDS: DULOXETINE HCL 30 MG CAPSULE.DR PO SCH ×2 (09:32→21:03)
[2017-04-22] MEDS: FLUTICASONE NASAL SPRAY 50 MCG/SPRY 120 SPRAY/16 GM NASL SCH ×2 (09:32→21:05)
[2017-04-22] MEDS: CETIRIZINE 10 MG TABLET PO SCH (09:32)
[2017-04-22] MEDS ORDERED: INSULIN LISPRO 100 UNIT/ML 3 ML VIAL SUBCUT PRN (16:20)
[2017-04-22] MEDS ORDERED: DEXTROSE 40% GEL 15 GM TUBE X 2 PO PRN (16:20)
[2017-04-22] MEDS ORDERED: DEXTROSE 50%-WATER SYRINGE 12.5 GM/25 ML DOSE IV PRN (16:20)
[2017-04-22] MEDS ORDERED: DEXTROSE 40% GEL 15 GM TUBE PO PRN (16:20)
[2017-04-22] MEDS ORDERED: DEXTROSE 50%-WATER SYRINGE 25 GM/50 ML DOSE IV PRN (16:20)
[2017-04-22] MEDS ORDERED: GLUCAGON,HUMAN RECOMB 1 MG INJ IM PRN (16:20)
[2017-04-22] MEDS: DIPHENHYDRAMINE HCL 50 MG CAPSULE PO SCH (21:03)
[2017-04-22] MEDS: DOXAZOSIN MESYLATE 2 MG TABLET PO SCH (21:04)
[2017-04-22] MEDS: ATORVASTATIN CALCIUM 10 MG TABLET PO SCH (21:04)
[2017-04-22] MEDS: TRAZODONE HCL 50 MG TABLET PO SCH (21:04)
[2017-04-22] MEDS: DIVALPROEX SODIUM 500 MG TAB.SR.24H PO SCH (21:04)
[2017-04-23] MEDS: LANSOPRAZOLE 15 MG TAB.RAP.DR PO SCH (05:39)
[2017-04-23] MEDS: BENZTROPINE MESYLATE 1 MG TABLET PO SCH ×2 (05:39→17:45)
[2017-04-23] MEDS: SITAGLIPTIN PHOSPHATE 50 MG TABLET PO SCH (10:03)
[2017-04-23] MEDS: METFORMIN HCL 500 MG TABLET PO SCH ×2 (10:03→17:45)
[2017-04-23] MEDS: CETIRIZINE 10 MG TABLET PO SCH (10:04)
[2017-04-23] MEDS: LISINOPRIL 10 MG TABLET PO SCH (10:04)
[2017-04-23] MEDS: DULOXETINE HCL 30 MG CAPSULE.DR PO SCH ×2 (10:04→22:21)
[2017-04-23] MEDS: FLUTICASONE NASAL SPRAY 50 MCG/SPRY 120 SPRAY/16 GM NASL SCH ×2 (10:06→22:22)
[2017-04-23] MEDS: HALOPERIDOL 5 MG TABLET PO SCH (10:06)
--- NOTE | 2017-04-23 13:02 | PDOC PROGRESS REPORT ---
Subjective Progress Note for:: 04/23/17 Subjective:: Patient is seen by the bedside still awaiting bed for transfer Reason For Visit: UTI Physical Exam Vital Signs: Temp Pulse Resp BP Pulse Ox 98.4 F 95 16 126/85 H 94 04/23/17 07:32 04/23/17 07:32 04/23/17 07:32 04/23/17 07:32 04/23/17 07:32 Intake & Output 04/22/17 04/23/17 04/24/17 05:59 06:59 06:59 Intake Total Balance Weight General appearance: PRESENT: no acute distress Eye exam: PRESENT: PERRLA Respiratory exam: PRESENT: decreased breath sounds Cardiovascular exam: PRESENT: +S1, +S2 GI/Abdominal exam: PRESENT: soft Neurological exam: PRESENT: alert Results Laboratory Results: 04/16/17 06:36 04/18/17 04:18 Impressions: Head CT 04/08/17 09:24 IMPRESSION: 1. No evidence of an acute intracranial process 2. Similar appearance of the left maxillary sinus process, previously evaluated on MRI EVIDENCE OF ACUTE STROKE: NO. Assessment & Plan - Diagnosis (1) Urinary tract infection Qualifiers: Urinary tract infection type: acute cystitis Hematuria presence: without hematuria Qualified Code(s): N30.00 - Acute cystitis without hematuria Is this a current diagnosis for this admission?: Yes (2) Schizophrenia Qualifiers: Schizophrenia type: unspecified Qualified Code(s): F20.9 - Schizophrenia, unspecified Is this a current diagnosis for this admission?: Yes (3) Type 2 diabetes mellitus Qualifiers: Diabetes mellitus fdc insulin use: without fdc use Diabetes mellitus complication status: with unspecified complications Qualified Code(s) : E11.8 - Type 2 diabetes mellitus with unspecified complications Is this a current diagnosis for this admission?: Yes (4) Physical deconditioning Is this a current diagnosis for this admission?: Yes (5) Morbid obesity Is this a current diagnosis for this admission?: Yes (6) Metabolic encephalopathy Is this a current diagnosis for this admission?: Yes
[2017-04-23] MEDS ORDERED: LORAZEPAM 1 MG TABLET PO PRN (15:40)
[2017-04-23] MEDS ORDERED: LORAZEPAM INJ 2 MG/1 ML VIAL IM PRN ×2 (16:00)
[2017-04-23] MEDS: TRAZODONE HCL 50 MG TABLET PO SCH (22:21)
[2017-04-23] MEDS: DIPHENHYDRAMINE HCL 50 MG CAPSULE PO SCH (22:21)
[2017-04-23] MEDS: ATORVASTATIN CALCIUM 10 MG TABLET PO SCH (22:21)
[2017-04-23] MEDS: DIVALPROEX SODIUM 500 MG TAB.SR.24H PO SCH (22:21)
[2017-04-23] MEDS: DOXAZOSIN MESYLATE 2 MG TABLET PO SCH (22:21)
[2017-04-24] MEDS: BENZTROPINE MESYLATE 1 MG TABLET PO SCH ×2 (05:39→17:18)
[2017-04-24] MEDS: LANSOPRAZOLE 15 MG TAB.RAP.DR PO SCH (05:39)
[2017-04-24] MEDS: LISINOPRIL 10 MG TABLET PO SCH (12:24)
[2017-04-24] MEDS: DULOXETINE HCL 30 MG CAPSULE.DR PO SCH ×2 (12:25→23:12)
[2017-04-24] MEDS: CETIRIZINE 10 MG TABLET PO SCH (12:25)
[2017-04-24] MEDS: HALOPERIDOL 5 MG TABLET PO SCH (12:26)
[2017-04-24] MEDS: FLUTICASONE NASAL SPRAY 50 MCG/SPRY 120 SPRAY/16 GM NASL SCH ×2 (12:27→23:02)
[2017-04-24] MEDS: METFORMIN HCL 500 MG TABLET PO SCH ×2 (12:38→17:18)
[2017-04-24] MEDS: SITAGLIPTIN PHOSPHATE 50 MG TABLET PO SCH (14:37)
[2017-04-24] MEDS: DIPHENHYDRAMINE HCL 50 MG CAPSULE PO SCH (23:12)
[2017-04-24] MEDS: ATORVASTATIN CALCIUM 10 MG TABLET PO SCH (23:12)
[2017-04-24] MEDS: DIVALPROEX SODIUM 500 MG TAB.SR.24H PO SCH (23:12)
[2017-04-24] MEDS: TRAZODONE HCL 50 MG TABLET PO SCH (23:12)
[2017-04-25] MEDS: DOXAZOSIN MESYLATE 2 MG TABLET PO SCH ×2 (03:13→23:27)
[2017-04-25] MEDS: BENZTROPINE MESYLATE 1 MG TABLET PO SCH ×2 (06:07→18:16)
[2017-04-25] MEDS: LANSOPRAZOLE 15 MG TAB.RAP.DR PO SCH (06:07)
[2017-04-25] MEDS: LISINOPRIL 10 MG TABLET PO SCH (11:30)
[2017-04-25] MEDS: CETIRIZINE 10 MG TABLET PO SCH (11:39)
[2017-04-25] MEDS: SITAGLIPTIN PHOSPHATE 50 MG TABLET PO SCH (11:40)
[2017-04-25] MEDS: METFORMIN HCL 500 MG TABLET PO SCH ×2 (11:40→18:12)
[2017-04-25] MEDS: FLUTICASONE NASAL SPRAY 50 MCG/SPRY 120 SPRAY/16 GM NASL SCH ×2 (11:40→23:28)
[2017-04-25] MEDS: DULOXETINE HCL 30 MG CAPSULE.DR PO SCH ×2 (11:41→23:26)
[2017-04-25] MEDS: HALOPERIDOL 5 MG TABLET PO SCH (12:00)
[2017-04-25] MEDS: DIVALPROEX SODIUM 500 MG TAB.SR.24H PO SCH (23:27)
[2017-04-25] MEDS: ATORVASTATIN CALCIUM 10 MG TABLET PO SCH (23:27)
[2017-04-25] MEDS: TRAZODONE HCL 50 MG TABLET PO SCH (23:28)
[2017-04-25] MEDS: DIPHENHYDRAMINE HCL 50 MG CAPSULE PO SCH (23:28)
[2017-04-26] MEDS: LANSOPRAZOLE 15 MG TAB.RAP.DR PO SCH (06:06)
[2017-04-26] MEDS: BENZTROPINE MESYLATE 1 MG TABLET PO SCH (06:07)
[2017-04-26] MEDS: METFORMIN HCL 500 MG TABLET PO SCH (08:33)
[2017-04-26] MEDS: LISINOPRIL 10 MG TABLET PO SCH (11:26)
[2017-04-26] MEDS: SITAGLIPTIN PHOSPHATE 50 MG TABLET PO SCH (11:27)
[2017-04-26] MEDS: DULOXETINE HCL 30 MG CAPSULE.DR PO SCH (11:27)
[2017-04-26] MEDS: CETIRIZINE 10 MG TABLET PO SCH (11:28)
[2017-04-26] MEDS: FLUTICASONE NASAL SPRAY 50 MCG/SPRY 120 SPRAY/16 GM NASL SCH (11:28)
[2017-04-26] MEDS: HALOPERIDOL 5 MG TABLET PO SCH (11:28)
[2017-04-26 11:53] VITALS: BP 103/68
== END 2017-04-26 16:10 | DRG 71 ==
LOC: ER 09:03 → EH 13:17 → 4N 16:35 → OBSVTOIN 04-10 14:10 → 4W 04-19 04:09 → 4N 04-19 04:10
PROVIDERS: ADMIT Internal Medicine; ATTEND Internal Medicine
DX: G93.41 Metabolic encephalopathy (principal); N30.00 Acute cystitis without hematuria; E66.01 Morbid (severe) obesity due to excess calories; R56.9 Unspecified convulsions; F20.9 Schizophrenia, unspecified; E11.9 Type 2 diabetes mellitus without complications; Z68.35 Body mass index [BMI] 35.0-35.9, adult; Z79.899 Other long term (current) drug therapy; E78.5 Hyperlipidemia, unspecified; G43.909 Migraine, unspecified, not intractable, without status migrainosus; K21.9 Gastro-esophageal reflux disease without esophagitis; Z90.49 Acquired absence of other specified parts of digestive tract
CPT/HCPCS: 36415; 51701; 70450; 80048; 80053; 80076; 80164; 81001; 82962; 85025; 87086; 96361; 96365; 99285; G0378; G8978-GP; G8979-GP; J0696; J3490; J7030

== ENCOUNTER 2017-05-10 11:13 | Observation (INO) | payer MEDICARE, MEDICAID ==
[2017-05-10] MEDS ORDERED: NORMAL SALINE 1000 ML 1,000 ML IV ONE (11:57)
--- NOTE | 2017-05-10 11:57 | ER Document Report ---
ED Medical Screen (RME) - General Chief Complaint: Shortness Of Breath Stated Complaint: SHORTNESS OF BREATH Time Seen by Provider: 05/10/17 11:56 Notes: Patient has a history of bipolar disorder and schizophrenia. She lives at an assisted living. EMS was called for low oxygen saturations. EMS states when they arrived saturations were in the low 80s. They state that they asked her to take deep breaths and they came up to 100. Patient denies any symptoms but seems somewhat somnolent. Patient is not a good historian. TRAVEL OUTSIDE OF THE [place] IN LAST 30 DAYS: No - Related Data Allergies/Adverse Reactions: ibuprofen [Ibuprofen] Allergy (Mild, Verified 03/02/17 11:57) lips swell acetaminophen [From Tylenol] Allergy (Verified 03/02/17 11:57) Lips swelled aspirin [Aspirin] Allergy (Verified 03/02/17 11:57) Lips swelled bee venom protein (honey bee) Allergy (Verified 03/02/17 11:57) Past Medical History - Social History Chew tobacco use (# tins/day): No Frequency of alcohol use: None Drug Abuse: None - Past Medical History Cardiac Medical History: Reports: Hx Hypercholesterolemia Pulmonary Medical History: Reports: Hx Asthma, Hx COPD Neurological Medical History: Reports: Hx Migraine, Hx Seizures Endocrine Medical History: Reports: Hx Diabetes Mellitus Type 2 Renal/ Medical History: Reports: Hx Kidney Stones. Denies: Hx Peritoneal Dialysis GI Medical History: Reports: Hx Gastroesophageal Reflux Disease Musculoskeltal Medical History: Reports Hx Musculoskeletal Trauma Psychiatric Medical History: Reports: Hx Anxiety, Hx Bipolar Disorder, Hx Depression, Hx Schizoaffective Disorder, Hx Schizophrenia Past Surgical History: Reports: Hx Cholecystectomy, Hx Kidney (Renal Surgery) - stone procedure - Immunizations Immunizations up to date: Yes Hx Diphtheria, Pertussis, Tetanus Vaccination: Yes History of Influenza Vaccine for 11/2016 - 04/2017 Season: Yes Influenza Administration Date for 11/2016 - 04/2017 Season: 12/08/16 Physical Exam - Vital signs Vitals: Temp Pulse Resp BP Pulse Ox 97.7 F 82 12 96/75 L 99 05/10/17 11:22 05/10/17 11:22 05/10/17 11:22 05/10/17 11:22 05/10/17 11:22 Course - Vital Signs Vital signs: Temp Pulse Resp BP Pulse Ox 97.7 F 82 12 96/75 L 99 05/10/17 11:22 05/10/17 11:22 05/10/17 11:22 05/10/17 11:22 05/10/17 11:22
[2017-05-10 12:58] LABS: ABSOLUTE EOSINOPHILS # (AUTO) 0.1 10^3/uL (0.0-0.6); ABSOLUTE MONOCYTES (AUTO) 0.4 10^3/uL (0.1-1.4); ABSOLUTE NEUT (AUTO) 1.4 10^3/uL (1.7-8.2); BASOPHILS % (AUTO) 0.3 % (0-2); HEMATOCRIT 36.5 % (36.0-47.0); HEMOGLOBIN 12.1 g/dL (12.0-15.5); LYMPHOCYTES % (AUTO) 51.7 % (13-45); MEAN CORPUSCULAR HEMOGLOBIN 31.3 pg (27.0-33.4); MEAN CORPUSCULAR HGB CONC 33.3 g/dL (32.0-36.0); MEAN CORPUSCULAR VOLUME 94 fl (80-97); MONOCYTES % (AUTO) 9.9 % (3-13); PLATELET COUNT 139 10^3/uL (150-450); RED BLOOD COUNT 3.88 10^6/uL (3.72-5.28); SEGMENTED NEUTROPHILS % (AUTO) 35.1 % (42-78); TOTAL CELLS COUNTED % (AUTO) 100 %; WHITE BLOOD COUNT 3.9 10^3/uL (4.0-10.5)
[2017-05-10 13:24] LABS: ALANINE AMINOTRANSFERASE 17 U/L (9-52); ALBUMIN 3.2 g/dL (3.5-5.0); ALKALINE PHOSPHATASE 44 U/L (38-126); ASPARTATE AMINO TRANSFERASE 16 U/L (14-36); BILIRUBIN,DIRECT 0.4 mg/dL (0.0-0.4); BILIRUBIN,TOTAL 0.4 mg/dL (0.2-1.3); BLOOD UREA NITROGEN 19 mg/dL (7-20); CALCIUM 9.2 mg/dL (8.4-10.2); CARBON DIOXIDE 33 mmol/L (22-30); CHLORIDE 99 mmol/L (98-107); GLUCOSE 71 mg/dL (75-110); TOTAL PROTEIN 6.8 g/dL (6.3-8.2)
[2017-05-10 13:29] LABS: ANION GAP 5 (5-19); SODIUM 136.7 mmol/L (137-145)
--- NOTE | 2017-05-10 14:12 | RADIOLOGY REPORT (SQ) ---
EXAM DESCRIPTION: CHEST SINGLE VIEW COMPLETED DATE/TIME: 05/10/2017 1:50 pm REASON FOR STUDY: Low O2 sat COMPARISON: CT chest 02/20/2017, 02/19/2017 AP chest 03/19/2017 EXAM PARAMETERS: NUMBER OF VIEWS: One view. TECHNIQUE: Single frontal radiographic view of the chest acquired. RADIATION DOSE: NA LIMITATIONS: None. FINDINGS: LUNGS AND PLEURA: No opacities, masses or pneumothorax. No pleural effusion. MEDIASTINUM AND HILAR STRUCTURES: No masses. Contour normal. HEART AND VASCULAR STRUCTURES: Heart normal in size. Normal vasculature. BONES: No acute findings. HARDWARE: None in the chest. OTHER: No other significant finding. IMPRESSION: NO ACUTE RADIOGRAPHIC FINDING IN THE CHEST. TECHNICAL DOCUMENTATION: JOB ID: [id number] [employer]- All Rights Reserved Reading location - IP/workstation name: [email or web address]
[2017-05-10 14:42] LABS: ARTERIAL BLOOD BASE EXCESS -1.3 mmol/L; ARTERIAL BLOOD H2CO3 1.41 mmol/L (1.05-1.35); ARTERIAL BLOOD HCO3 24.8 mmol/L (20-26); ARTERIAL BLOOD O2 SATURATION 93.3 % (94-98); ARTERIAL BLOOD PH 7.34 (7.35-7.45); ARTERIAL BLOOD PO2 71.3 mmHg (80-100); ARTERIAL BLOOD TOTAL CO2 26.2 mmol/L (21-25)
[2017-05-10 14:46] LABS: ARTERIAL BLOOD FIO2 ROOM AIR
[2017-05-10 16:11] LABS: APPEARANCE,URINE CLEAR; BILIRUBIN,URINE NEGATIVE (NEGATIVE); COLOR,URINE YELLOW; GLUCOSE, URINE NEGATIVE (NEGATIVE); KETONES,URINE TRACE mg/dL (NEGATIVE); LEUKOCYTE ESTERASE,URINE NEGATIVE (NEGATIVE); NITRITE,URINE NEGATIVE (NEGATIVE); PROTEIN,URINE NEGATIVE (NEGATIVE); URINE SPECIFIC GRAVITY 1.016
--- NOTE | 2017-05-10 16:39 | ER Document Report ---
ED General - General Chief Complaint: Shortness Of Breath Stated Complaint: SHORTNESS OF BREATH Time Seen by Provider: 05/10/17 11:56 Notes: Patient was brought in by EMS for low oxygen saturation level. She lives in assisted living at [facility]. Staff there noted her O2 sats to be in the low 80s and called EMS. EMS verified her oxygen level to be low. She was given oxygen which improved her levels. She said that she felt short of breath , denies having much cough or cold or chest congestion. Denies any fevers. Patient does not have oxygen available at her living facility. She says that she does have a history of COPD. TRAVEL OUTSIDE OF THE [place] IN LAST 30 DAYS: No - Related Data Allergies/Adverse Reactions: ibuprofen [Ibuprofen] Allergy (Mild, Verified 03/02/17 11:57) lips swell acetaminophen [From Tylenol] Allergy (Verified 03/02/17 11:57) Lips swelled aspirin [Aspirin] Allergy (Verified 03/02/17 11:57) Lips swelled bee venom protein (honey bee) Allergy (Verified 03/02/17 11:57) Past Medical History - Social History Smoking Status: Never Smoker Chew tobacco use (# tins/day): No Frequency of alcohol use: None Drug Abuse: None Family History: Reviewed & Not Pertinent Patient has suicidal ideation: No Patient has homicidal ideation: No - Past Medical History Cardiac Medical History: Reports: Hx Hypercholesterolemia Pulmonary Medical History: Reports: Hx Asthma, Hx COPD Neurological Medical History: Reports: Hx Migraine, Hx Seizures Endocrine Medical History: Reports: Hx Diabetes Mellitus Type 2 Renal/ Medical History: Reports: Hx Kidney Stones GI Medical History: Reports: Hx Gastroesophageal Reflux Disease Musculoskeltal Medical History: Reports Hx Musculoskeletal Trauma Psychiatric Medical History: Reports: Hx Anxiety, Hx Bipolar Disorder, Hx Depression, Hx Schizoaffective Disorder, Hx Schizophrenia Past Surgical History: Reports: Hx Cholecystectomy, Hx Kidney (Renal Surgery) - stone procedure - Immunizations Immunizations up to date: Yes Hx Diphtheria, Pertussis, Tetanus Vaccination: Yes Review of Systems - Review of Systems Notes: REVIEW OF SYSTEMS: CONSTITUTIONAL : Denies fever. EENT: Denies eye, ear, nose or mouth or throat pain or other symptoms. CARDIOVASCULAR: Denies chest pain. RESPIRATORY: Denies cough, chest congestion, but felt some shortness of breath. GASTROINTESTINAL: Denies abdominal pain or nausea, vomiting, or diarrhea. GENITOURINARY: Denies difficulty or painful urinating, urinary frequency, blood in urine. MUSCULOSKELETAL: Denies back or neck pain. Denies joint pain or swelling. SKIN: Denies rash or skin lesions. NEUROLOGICAL: Denies LOC or altered mental status. Denies headache. Denies sensory loss or motor deficits. Psychiatric: Patient has a history of multiple psychiatric disorders. ALL OTHER SYSTEMS REVIEWED AND NEGATIVE. Physical Exam - Vital signs Vitals: Temp Pulse Resp BP Pulse Ox 97.7 F 82 12 96/75 L 99 05/10/17 11:22 05/10/17 11:22 05/10/17 11:22 05/10/17 11:22 05/10/17 11:22 Interpretation: Hypotensive - Mild.. No: Hypoxic - Notes Notes: PHYSICAL EXAMINATION: GENERAL: Well-appearing, in no acute distress. Sleepy. Seems to answer questions appropriately, however. HEAD: Atraumatic, normocephalic. EYES: Pupils equal round and reactive to light, extraocular movements intact. ENT: oropharynx clear without exudates. Moist mucous membranes. NECK: Normal range of motion, supple. LUNGS: Breath sounds clear and equal bilaterally. HEART: Regular rate and rhythm without murmurs. ABDOMEN: Soft, nontender. No guarding or rebound. No masses. BACK: No tenderness throughout entire back. EXTREMITIES: Normal range of motion without pain. NEUROLOGICAL: Normal speech. Normal sensory, motor, and reflex exams. Awake, alert, and oriented x3. PSYCH: Normal mood, normal affect. SKIN: Warm, dry, no rashes. Course - Re-evaluation Re-evalutation: 05/10/17 16:39 Patient was put on BiPAP to assist her respirations. Lab studies were all essentially normal except for low-grade hypoxia with a slightly low PO2 and O2 sat on the patient's arterial blood gas specimen. Chest x-ray was unremarkable. Spoke with Dr. Urena and patient will be observed while he can arrange for her to have oxygen at her assisted living facility. - Vital Signs Vital signs: Temp Pulse Resp BP Pulse Ox 97.7 F 82 0 L 106/69 97 05/10/17 11:22 05/10/17 11:22 05/10/17 15:34 05/10/17 15:34 05/10/17 15:02 - Laboratory Result Diagrams: 05/10/17 12:40 05/10/17 12:40 Laboratory results interpreted by me: 05/10/17 05/10/17 05/10/17 12:40 12:40 13:50 WBC 3.9 L RDW 15.0 H Plt Count 139 L Seg Neutrophils % 35.1 L Lymphocytes % 51.7 H Absolute Neutrophils 1.4 L Carbonic Acid 1.41 H ABG pH 7.34 L ABG pCO2 47.0 H ABG pO2 71.3 L ABG Total CO2 26.2 H ABG O2 Saturation 93.3 L Sodium 136.7 L Carbon Dioxide 33 H Glucose 71 L Albumin 3.2 L Urine Ketones Urine Urobilinogen 05/10/17 14:37 WBC RDW Plt Count Seg Neutrophils % Lymphocytes % Absolute Neutrophils Carbonic Acid ABG pH ABG pCO2 ABG pO2 ABG Total CO2 ABG O2 Saturation Sodium Carbon Dioxide Glucose Albumin Urine Ketones TRACE H Urine Urobilinogen 2.0 H - Diagnostic Test Radiology results interpreted by me: 05/10/17 16:40 Chest x-ray is unremarkable and normal. Spoke with Dr. Hunter. This is patient's primary care provider. He wants the patient admitted for observation while he ranges oxygen for her at the assisted living facility. Discharge - Discharge Clinical Impression: Hypoxia Condition: Stable Disposition: ADMITTED OBSERVATION Admitting Provider: Vicente Unit Admitted: Telemetry Referrals: KATARINA URENA MD [Primary Care Provider] - Follow up as needed
[2017-05-10 20:27] LABS: HEMATOCRIT 32.2 % (36.0-47.0); HEMOGLOBIN 10.8 g/dL (12.0-15.5); MEAN CORPUSCULAR HEMOGLOBIN 31.3 pg (27.0-33.4); MEAN CORPUSCULAR HGB CONC 33.5 g/dL (32.0-36.0); MEAN CORPUSCULAR VOLUME 94 fl (80-97); PLATELET COUNT 124 10^3/uL (150-450); RED BLOOD COUNT 3.44 10^6/uL (3.72-5.28); RED CELL DISTRIBUTION WIDTH 14.8 % (11.5-14.0); WHITE BLOOD COUNT 3.3 10^3/uL (4.0-10.5)
[2017-05-10] MEDS ORDERED: ENOXAPARIN SODIUM INJ 40 MG/0.4 ML DISP.SYRIN SUBCUT ONE (20:30)
[2017-05-10] MEDS ORDERED: BISMUTH SUBSALICYLATE 262 MG TAB.CHEW PO PRN (21:46)
[2017-05-10] MEDS ORDERED: ALBUTEROL SULFATE HFA (90 MCG/PUFF) 8 GM MDI (1 MDI/ER DISP) IH PRN (21:46)
[2017-05-10] MEDS ORDERED: ZOLPIDEM TARTRATE 5 MG TABLET PO PRN (21:46)
[2017-05-10] MEDS ORDERED: LORAZEPAM 1 MG TABLET PO PRN (21:46)
[2017-05-10] MEDS ORDERED: DOCUSATE SODIUM 100 MG CAPSULE PO PRN (21:46)
[2017-05-10 21:59] LABS: BLOOD UREA NITROGEN 17 mg/dL (7-20); CALCIUM 8.5 mg/dL (8.4-10.2); CREATINE KINASE 23 U/L (30-135); GLUCOSE 65 mg/dL (75-110); PHOSPHORUS 4.5 mg/dL (2.5-4.5); POTASSIUM 5.2 mmol/L (3.6-5.0)
[2017-05-10] MEDS ORDERED: (PENDING PHARMACY ID) (Clonazepam [Klonopin] 0.25 MG) PO SCH (22:00)
[2017-05-10] MEDS ORDERED: (PENDING PHARMACY ID) (Prazosin Hcl [Minipress] 1 MG) PO SCH (22:00)
[2017-05-10] MEDS ORDERED: DIPHENHYDRAMINE HCL 25 MG CAPSULE PO SCH (22:00)
[2017-05-10 22:05] LABS: CARBON DIOXIDE 31 mmol/L (22-30); CHLORIDE 102 mmol/L (98-107); SODIUM 136.3 mmol/L (137-145)
[2017-05-10] MEDS ORDERED: ALBUTEROL SULFATE HFA (90 MCG/PUFF) 200 PUFF/8.5 GM MDI IH PRN (22:06)
[2017-05-10 22:09] LABS: ANION GAP 3 (5-19)
[2017-05-10] MEDS: DIVALPROEX SODIUM 500 MG TAB.SR.24H PO SCH (22:56)
[2017-05-10] MEDS: METFORMIN HCL 500 MG TABLET PO SCH (22:56)
[2017-05-10] MEDS: ATORVASTATIN CALCIUM 10 MG TABLET PO SCH (22:57)
[2017-05-10] MEDS: DULOXETINE HCL 30 MG CAPSULE.DR PO SCH (22:57)
[2017-05-10] MEDS: BENZTROPINE MESYLATE 1 MG TABLET PO SCH (22:57)
[2017-05-10] MEDS: CLONAZEPAM 1 MG TABLET PO SCH (22:58)
[2017-05-10] MEDS: TRAZODONE HCL 50 MG TABLET PO SCH (22:58)
[2017-05-10] MEDS: DOXAZOSIN MESYLATE 2 MG TABLET PO SCH (22:58)
[2017-05-10] MEDS: FLUTICASONE NASAL SPRAY 50 MCG/SPRY 120 SPRAY/16 GM NASL SCH (23:04)
[2017-05-11] MEDS: LANSOPRAZOLE 15 MG TAB.RAP.DR PO SCH (05:06)
[2017-05-11 07:22] LABS: CHOLESTEROL 125.53 mg/dL (0-200); TRIGLYCERIDES 206 mg/dL (<150)
[2017-05-11] MEDS ORDERED: LORAZEPAM 1 MG TABLET PO PRN (07:30)
[2017-05-11 07:34] LABS: DIRECT LDL 49 mg/dL (<100)
[2017-05-11 07:37] LABS: VLDL CHOLESTEROL 41.2 mg/dL (10-31)
[2017-05-11] MEDS: BENZTROPINE MESYLATE 1 MG TABLET PO SCH ×2 (09:33→21:06)
[2017-05-11] MEDS: CLONAZEPAM 1 MG TABLET PO SCH ×2 (09:33→21:07)
[2017-05-11] MEDS: SITAGLIPTIN PHOSPHATE 50 MG TABLET PO SCH (09:33)
[2017-05-11] MEDS: HALOPERIDOL 5 MG TABLET PO SCH (09:33)
[2017-05-11] MEDS: METFORMIN HCL 500 MG TABLET PO SCH ×2 (09:33→21:08)
[2017-05-11] MEDS: LISINOPRIL 10 MG TABLET PO SCH (09:33)
[2017-05-11] MEDS: DULOXETINE HCL 30 MG CAPSULE.DR PO SCH ×2 (09:33→21:06)
[2017-05-11] MEDS: ENOXAPARIN SODIUM INJ 40 MG/0.4 ML DISP.SYRIN SUBCUT SCH (09:34)
[2017-05-11] MEDS: FLUTICASONE NASAL SPRAY 50 MCG/SPRY 120 SPRAY/16 GM NASL SCH ×2 (09:34→21:08)
[2017-05-11] MEDS: CETIRIZINE 10 MG TABLET PO SCH (09:34)
[2017-05-11] MEDS ORDERED: (PENDING PHARMACY ID) (Haloperidol [Haloperidol] 10 MG) PO SCH (10:00)
[2017-05-11] MEDS ORDERED: (PENDING PHARMACY ID) (Pantoprazole Sodium [Protonix] 20 MG) PO SCH (10:00)
[2017-05-11] MEDS: NYSTATIN TOPICAL POWDER 15 GM TP SCH (18:28)
[2017-05-11] MEDS: DIVALPROEX SODIUM 500 MG TAB.SR.24H PO SCH (21:05)
[2017-05-11] MEDS: DOXAZOSIN MESYLATE 2 MG TABLET PO SCH (21:07)
[2017-05-11] MEDS: ATORVASTATIN CALCIUM 10 MG TABLET PO SCH (21:07)
[2017-05-11] MEDS: TRAZODONE HCL 50 MG TABLET PO SCH (21:07)
[2017-05-11] MEDS: DIPHENHYDRAMINE HCL 50 MG CAPSULE PO SCH (21:08)
--- NOTE | 2017-05-11 21:08 | PDOC H&P ---
History of Present Illness Admission Date/PCP: 05/10/17 17:09 KATARINA URENA MD History of Present Illness: STEVE CONKLIN is a 47 year old female,She has a history of schizophrenia, resident of assisted living at [facility] EMS was called to [facility] because patient oxygen saturation was low in the 80s, when EMS arrived at the facility the low oxygen saturation was verified she was placed on nasal cannula oxygen with improvement in the oxygen saturation she was then transferred to the emergency room for further evaluation.The arterial blood gas on room air that was done in the emergency room, pH 7.34, PO2 71.3, PCO2 47, bicarbonate 24.8, this is consistent with acute respiratory acidosis with mild hypoxemia. She has manifested hypercapnic respiratory failure in the past which was attributed to morbid obesity. She has obesity hypoventilation syndrome. She needs a noninvasive positive pressure ventilation more that she needs the oxygen. Past Medical History Cardiac Medical History: Reports: Hyperlipidema Pulmonary Medical History: Reports: Asthma, Chronic Obstructive Pulmonary Disease (COPD) Neurological Medical History: Reports: Migraine, Seizures Endocrine Medical History: Reports: Diabetes Mellitus Type 2, Obesity GI Medical History: Reports: Gastroesophageal Reflux Disease Psychiatric Medical History: Reports: Bipolar Disorder, Depression, Schizoaffective Disorder Past Surgical History Past Surgical History: Reports: Cholecystectomy Social History Smoking Status: Never Smoker Frequency of Alcohol Use: None Hx Recreational Drug Use: No Drugs: None Hx Prescription Drug Abuse: No - Advance Directive Resuscitation Status: Full Code Family History Family History: Reviewed & Not Pertinent Parental Family History Reviewed: Yes Children Family History Reviewed: Yes Sibling(s) Family History Reviewed.: Yes Medication/Allergy Home Medications: Albuterol Sulfate [Ventolin HFA MDI 18 GM] 2 puff IH Q4HP PRN 05/10/17 Atorvastatin Calcium [Lipitor 10 mg Tablet] 10 mg PO QHS 05/10/17 Benztropine Mesylate 1 mg PO Q12 05/10/17 Bismuth Subsalicylate [Bismuth] 262 mg PO Q4HP PRN 05/10/17 Cetirizine HCl [Zyrtec 10 mg Tablet] 10 mg PO DAILY 05/10/17 Clonazepam [Klonopin] 0.25 mg PO Q12 05/10/17 Diphenhydramine HCl [Benadryl 25 mg Capsule] 50 mg PO QHS 05/10/17 Divalproex Sodium [Divalproex Sodium ER] 2,000 mg PO QHS 05/10/17 Docusate Sodium [Colace 100 mg Capsule] 100 mg PO BIDP PRN 05/10/17 Doxazosin Mesylate [Cardura 2 mg Tablet] 2 mg PO QHS 05/10/17 Duloxetine HCl [Cymbalta] 60 mg PO Q12 05/10/17 Fluticasone Propionate [Flonase Nasal Angie 50 Mcg/Angie 16 gm] 2 sprays NASL Q12 05/10/17 Haloperidol 10 mg PO DAILY 05/10/17 Lisinopril [Prinivil 40 mg Tablet] 40 mg PO DAILY 05/10/17 Lorazepam [Ativan 1 mg Tablet] 1 mg PO Q4HP PRN 05/10/17 Metformin HCl [Glucophage] 1,000 mg PO Q12 05/10/17 Pantoprazole Sodium [Protonix] 20 mg PO DAILY 05/10/17 Prazosin HCl [Minipress] 1 mg PO QHS 05/10/17 Sitagliptin Phosphate [Januvia] 100 mg PO DAILY 05/10/17 Trazodone HCl [Desyrel 50 mg Tablet] 50 mg PO QHS 05/10/17 Zolpidem Tartrate [Ambien 5 mg Tablet] 5 mg PO HSP PRN 05/10/17 Allergies/Adverse Reactions: ibuprofen [Ibuprofen] Allergy (Mild, Verified 03/02/17 11:57) lips swell acetaminophen [From Tylenol] Allergy (Verified 03/02/17 11:57) Lips swelled aspirin [Aspirin] Allergy (Verified 03/02/17 11:57) Lips swelled bee venom protein (honey bee) Allergy (Verified 03/02/17 11:57) Review of Systems Constitutional: ABSENT: chills, fever(s), headache(s), weight gain, weight loss Eyes: ABSENT: visual disturbances Ears: ABSENT: hearing changes Cardiovascular: ABSENT: chest pain, dyspnea on exertion, edema, orthropnea, palpitations Respiratory: PRESENT: dyspnea Gastrointestinal: ABSENT: abdominal pain, constipation, diarrhea, hematemesis, hematochezia, nausea, vomiting Genitourinary: ABSENT: dysuria, hematuria Musculoskeletal: ABSENT: joint swelling Integumentary: ABSENT: rash, wounds Neurological: ABSENT: abnormal gait, abnormal speech, confusion, dizziness, focal weakness, syncope Psychiatric: ABSENT: anxiety, depression, homidical ideation, suicidal ideation Endocrine: ABSENT: cold intolerance, heat intolerance, menstrual abnormalities, polydipsia, polyuria Hematologic/Lymphatic: ABSENT: easy bleeding, easy bruising, lymphadenopathy Physical Exam Vital Signs: Temp Pulse Resp BP Pulse Ox 97.8 F 89 19 123/78 95 05/11/17 19:52 05/11/17 19:52 05/11/17 19:52 05/11/17 19:52 05/11/17 19:52 Intake & Output 05/10/17 05/11/17 05/12/17 06:59 06:59 06:59 Intake Total 150 384 Output Total 420 500 Balance -270 -116 Weight 81.6 kg General appearance: PRESENT: no acute distress, well-developed, well-nourished Head exam: PRESENT: atraumatic, normocephalic Eye exam: PRESENT: conjunctiva pink, EOMI, PERRLA Ear exam: PRESENT: normal external ear exam Mouth exam: PRESENT: moist, tongue midline Neck exam: PRESENT: full ROM Respiratory exam: PRESENT: clear to auscultation kim Cardiovascular exam: PRESENT: RRR, +S1, +S2 Vascular exam: PRESENT: normal capillary refill GI/Abdominal exam: PRESENT: normal bowel sounds, soft Rectal exam: PRESENT: deferred Neurological exam: PRESENT: alert, awake, oriented to person, oriented to place , oriented to time, oriented to situation, CN II-XII grossly intact Psychiatric exam: PRESENT: appropriate affect, normal mood Skin exam: PRESENT: dry, intact, warm Results Laboratory Results: 05/10/17 20:05 05/10/17 21:30 05/10/17 05/10/17 05/11/17 20:05 21:30 07:02 Sodium Cancelled 136.3 L Potassium Cancelled 5.2 H Chloride Cancelled 102 Carbon Dioxide Cancelled 31 H Anion Gap Cancelled 3 L BUN Cancelled 17 Creatinine Cancelled 0.68 Est GFR ( Amer) Cancelled > 60 Est GFR (Non-Af Amer) Cancelled > 60 Glucose Cancelled 65 L Calcium Cancelled 8.5 Phosphorus Cancelled 4.5 Magnesium Cancelled 1.5 L Triglycerides 206 H Cholesterol 125.53 LDL Cholesterol Direct 49 VLDL Cholesterol 41.2 H HDL Cholesterol 31 L TSH 05/11/17 07:02 Sodium Potassium Chloride Carbon Dioxide Anion Gap BUN Creatinine Est GFR ( Amer) Est GFR (Non-Af Amer) Glucose Calcium Phosphorus Magnesium Triglycerides Cholesterol LDL Cholesterol Direct VLDL Cholesterol HDL Cholesterol TSH 0.57 05/10/17 05/10/17 05/10/17 20:05 20:05 21:30 Creatine Kinase Cancelled 23 L Troponin I < 0.012 05/11/17 05/11/17 01:21 07:02 Creatine Kinase Troponin I < 0.012 < 0.012 Impressions: Chest X-Ray 05/10/17 13:38 IMPRESSION: NO ACUTE RADIOGRAPHIC FINDING IN THE CHEST. Assessment & Plan - Diagnosis (1) Acute hypercapnic respiratory failure Is this a current diagnosis for this admission?: Yes Plan: She was treated with noninvasive positive pressure ventilation BiPAP machine, she will need to be discharged back to the facility with BiPAP (2) Morbid (severe) obesity due to excess calories Is this a current diagnosis for this admission?: Yes (3) Obesity hypoventilation syndrome Is this a current diagnosis for this admission?: Yes (4) Schizophrenia Qualifiers: Schizophrenia type: unspecified Qualified Code(s): F20.9 - Schizophrenia, unspecified Is this a current diagnosis for this admission?: Yes (5) Type 2 diabetes mellitus Qualifiers: Diabetes mellitus assisted insulin use: without assisted use Diabetes mellitus complication status: with unspecified complications Qualified Code(s) : E11.8 - Type 2 diabetes mellitus with unspecified complications Is this a current diagnosis for this admission?: Yes
[2017-05-12] MEDS: NYSTATIN TOPICAL POWDER 15 GM TP SCH ×4 (00:46→18:00)
[2017-05-12] MEDS: LANSOPRAZOLE 15 MG TAB.RAP.DR PO SCH (05:42)
[2017-05-12] MEDS: SITAGLIPTIN PHOSPHATE 50 MG TABLET PO SCH (11:26)
[2017-05-12] MEDS: LISINOPRIL 10 MG TABLET PO SCH (11:27)
[2017-05-12] MEDS: DULOXETINE HCL 30 MG CAPSULE.DR PO SCH ×2 (11:27→22:12)
[2017-05-12] MEDS: METFORMIN HCL 500 MG TABLET PO SCH ×2 (11:29→22:13)
[2017-05-12] MEDS: CLONAZEPAM 1 MG TABLET PO SCH ×2 (11:29→22:12)
[2017-05-12] MEDS: BENZTROPINE MESYLATE 1 MG TABLET PO SCH ×2 (11:30→22:13)
[2017-05-12] MEDS: CETIRIZINE 10 MG TABLET PO SCH (11:30)
[2017-05-12] MEDS: HALOPERIDOL 5 MG TABLET PO SCH (11:31)
[2017-05-12] MEDS: FLUTICASONE NASAL SPRAY 50 MCG/SPRY 120 SPRAY/16 GM NASL SCH ×2 (11:31→22:13)
[2017-05-12] MEDS: ENOXAPARIN SODIUM INJ 40 MG/0.4 ML DISP.SYRIN SUBCUT SCH (11:31)
[2017-05-12] MEDS: DOXAZOSIN MESYLATE 2 MG TABLET PO SCH (22:12)
[2017-05-12] MEDS: ATORVASTATIN CALCIUM 10 MG TABLET PO SCH (22:12)
[2017-05-12] MEDS: DIPHENHYDRAMINE HCL 50 MG CAPSULE PO SCH (22:12)
[2017-05-12] MEDS: DIVALPROEX SODIUM 500 MG TAB.SR.24H PO SCH (22:13)
[2017-05-12] MEDS: TRAZODONE HCL 50 MG TABLET PO SCH (22:15)
[2017-05-13] MEDS: NYSTATIN TOPICAL POWDER 15 GM TP SCH ×5 (00:22→23:26)
[2017-05-13] MEDS: LANSOPRAZOLE 15 MG TAB.RAP.DR PO SCH (05:36)
[2017-05-13] MEDS: DULOXETINE HCL 30 MG CAPSULE.DR PO SCH ×2 (11:07→21:56)
[2017-05-13] MEDS: HALOPERIDOL 5 MG TABLET PO SCH (11:07)
[2017-05-13] MEDS: CLONAZEPAM 1 MG TABLET PO SCH ×2 (11:08→21:55)
[2017-05-13] MEDS: LISINOPRIL 10 MG TABLET PO SCH (11:08)
[2017-05-13] MEDS: BENZTROPINE MESYLATE 1 MG TABLET PO SCH ×2 (11:08→21:56)
[2017-05-13] MEDS: METFORMIN HCL 500 MG TABLET PO SCH ×2 (11:08→21:56)
[2017-05-13] MEDS: CETIRIZINE 10 MG TABLET PO SCH (11:09)
[2017-05-13] MEDS: FLUTICASONE NASAL SPRAY 50 MCG/SPRY 120 SPRAY/16 GM NASL SCH ×2 (11:09→21:57)
[2017-05-13] MEDS: ENOXAPARIN SODIUM INJ 40 MG/0.4 ML DISP.SYRIN SUBCUT SCH (11:09)
[2017-05-13] MEDS: SITAGLIPTIN PHOSPHATE 50 MG TABLET PO SCH (12:50)
--- NOTE | 2017-05-13 17:50 | PDOC PROGRESS REPORT ---
Subjective Progress Note for:: 05/13/17 Subjective:: She was seen by the bedside, there is no new issue, discharge planning is making arrangement for BiPAP for today but to the facility where she resides Reason For Visit: HYPOXEMIA, MORBID OBESITY Physical Exam Vital Signs: Temp Pulse Resp BP Pulse Ox 97.4 F 94 19 108/88 H 94 05/13/17 15:18 05/13/17 15:18 05/13/17 15:18 05/13/17 15:18 05/13/17 15:18 Intake & Output 05/12/17 05/13/17 05/14/17 06:59 06:59 06:59 Intake Total 622 328 384 Output Total 1560 1345 425 Balance -938 -1017 -41 Weight 84 kg 82.7 kg General appearance: PRESENT: no acute distress Eye exam: PRESENT: PERRLA Respiratory exam: PRESENT: clear to auscultation kim Cardiovascular exam: PRESENT: +S1, systolic murmur GI/Abdominal exam: PRESENT: soft Results Laboratory Results: 05/10/17 20:05 05/10/17 21:30 05/10/17 05/10/17 05/10/17 20:05 20:05 21:30 Creatine Kinase Cancelled 23 L Troponin I < 0.012 05/11/17 05/11/17 01:21 07:02 Creatine Kinase Troponin I < 0.012 < 0.012 Impressions: Chest X-Ray 05/10/17 13:38 IMPRESSION: NO ACUTE RADIOGRAPHIC FINDING IN THE CHEST. Assessment & Plan - Diagnosis (1) Acute hypercapnic respiratory failure Is this a current diagnosis for this admission?: Yes (2) Morbid (severe) obesity due to excess calories Is this a current diagnosis for this admission?: Yes (3) Obesity hypoventilation syndrome Is this a current diagnosis for this admission?: Yes (4) Schizophrenia Qualifiers: Schizophrenia type: unspecified Qualified Code(s): F20.9 - Schizophrenia, unspecified Is this a current diagnosis for this admission?: Yes (5) Type 2 diabetes mellitus Qualifiers: Diabetes mellitus care home insulin use: without remote computer terminal operator use Diabetes mellitus complication status: with unspecified complications Qualified Code(s) : E11.8 - Type 2 diabetes mellitus with unspecified complications Is this a current diagnosis for this admission?: Yes
[2017-05-13] MEDS: TRAZODONE HCL 50 MG TABLET PO SCH (21:56)
[2017-05-13] MEDS: DOXAZOSIN MESYLATE 2 MG TABLET PO SCH (21:56)
[2017-05-13] MEDS: ATORVASTATIN CALCIUM 10 MG TABLET PO SCH (21:56)
[2017-05-13] MEDS: DIPHENHYDRAMINE HCL 50 MG CAPSULE PO SCH (21:57)
[2017-05-13] MEDS: DIVALPROEX SODIUM 500 MG TAB.SR.24H PO SCH (21:57)
[2017-05-14] MEDS: NYSTATIN TOPICAL POWDER 15 GM TP SCH ×4 (05:15→23:10)
[2017-05-14] MEDS: LANSOPRAZOLE 15 MG TAB.RAP.DR PO SCH (05:15)
[2017-05-14] MEDS: CLONAZEPAM 1 MG TABLET PO SCH ×2 (10:43→21:23)
[2017-05-14] MEDS: CETIRIZINE 10 MG TABLET PO SCH (10:43)
[2017-05-14] MEDS: METFORMIN HCL 500 MG TABLET PO SCH ×2 (10:43→21:33)
[2017-05-14] MEDS: BENZTROPINE MESYLATE 1 MG TABLET PO SCH ×2 (10:43→21:20)
[2017-05-14] MEDS: DULOXETINE HCL 30 MG CAPSULE.DR PO SCH ×2 (10:44→21:20)
[2017-05-14] MEDS: FLUTICASONE NASAL SPRAY 50 MCG/SPRY 120 SPRAY/16 GM NASL SCH ×2 (10:44→21:25)
[2017-05-14] MEDS: ENOXAPARIN SODIUM INJ 40 MG/0.4 ML DISP.SYRIN SUBCUT SCH (10:44)
[2017-05-14] MEDS: HALOPERIDOL 5 MG TABLET PO SCH (10:44)
[2017-05-14] MEDS: SITAGLIPTIN PHOSPHATE 50 MG TABLET PO SCH (10:44)
[2017-05-14] MEDS: LISINOPRIL 10 MG TABLET PO SCH (10:44)
--- NOTE | 2017-05-14 15:17 | PDOC TRANSFER SUMMARY ---
General - Admit/Disc Date/PCP Admission Date/Primary Care Provider: 05/10/17 17:09 KATARINA URENA MD Discharge Date: 05/15/17 - Discharge Diagnosis (1) Acute hypercapnic respiratory failure Is this a current diagnosis for this admission?: Yes (2) Morbid (severe) obesity due to excess calories Is this a current diagnosis for this admission?: Yes (3) Obesity hypoventilation syndrome Is this a current diagnosis for this admission?: Yes (4) Schizophrenia Is this a current diagnosis for this admission?: Yes (5) Type 2 diabetes mellitus Is this a current diagnosis for this admission?: Yes - Additional Information Resuscitation Status: Full Code Home Medications: Albuterol Sulfate [Ventolin HFA MDI 18 GM] 2 puff IH Q4HP PRN 05/10/17 Atorvastatin Calcium [Lipitor 10 mg Tablet] 10 mg PO QHS 05/10/17 Benztropine Mesylate 1 mg PO Q12 05/10/17 Bismuth Subsalicylate [Bismuth] 262 mg PO Q4HP PRN 05/10/17 Cetirizine HCl [Zyrtec 10 mg Tablet] 10 mg PO DAILY 05/10/17 Clonazepam [Klonopin] 0.25 mg PO Q12 05/10/17 Diphenhydramine HCl [Benadryl 25 mg Capsule] 50 mg PO QHS 05/10/17 Divalproex Sodium [Divalproex Sodium ER] 2,000 mg PO QHS 05/10/17 Docusate Sodium [Colace 100 mg Capsule] 100 mg PO BIDP PRN 05/10/17 Doxazosin Mesylate [Cardura 2 mg Tablet] 2 mg PO QHS 05/10/17 Duloxetine HCl [Cymbalta] 60 mg PO Q12 05/10/17 Fluticasone Propionate [Flonase Nasal [place] 50 Mcg/[place] 16 gm] 2 sprays NASL Q12 05/10/17 Haloperidol 10 mg PO DAILY 05/10/17 Lisinopril [Prinivil 40 mg Tablet] 40 mg PO DAILY 05/10/17 Lorazepam [Ativan 1 mg Tablet] 1 mg PO Q4HP PRN 05/10/17 Metformin HCl [Glucophage] 1,000 mg PO Q12 05/10/17 Pantoprazole Sodium [Protonix] 20 mg PO DAILY 05/10/17 Prazosin HCl [Minipress] 1 mg PO QHS 05/10/17 Sitagliptin Phosphate [Januvia] 100 mg PO DAILY 05/10/17 Trazodone HCl [Desyrel 50 mg Tablet] 50 mg PO QHS 05/10/17 Zolpidem Tartrate [Ambien 5 mg Tablet] 5 mg PO HSP PRN 05/10/17 History of Present Illness Admission Date/PCP: 05/10/17 17:09 KATARINA URENA MD History of Present Illness: STEVE CONKLIN is a 47 year old female,She has a history of schizophrenia, resident of assisted living at [facility] EMS was called to [facility] because patient oxygen saturation was low in the 80s, when EMS arrived at the facility the low oxygen saturation was verified she was placed on nasal cannula oxygen with improvement in the oxygen saturation she was then transferred to the emergency room for further evaluation.The arterial blood gas on room air that was done in the emergency room, pH 7.34, PO2 71.3, PCO2 47, bicarbonate 24.8, this is consistent with acute respiratory acidosis with mild hypoxemia. She has manifested hypercapnic respiratory failure in the past which was attributed to morbid obesity. She has obesity hypoventilation syndrome. She needs a noninvasive positive pressure ventilation more that she needs the oxygen. Hospital Course Hospital Course: Patient was admitted for the management of acute hypercapnic respiratory failure requiring noninvasive positive pressure ventilation, she was brought in for observation. Discharge planning could not obtain the device 24 hours after admission, that is the reason for the delay in discharge Physical Exam Vital Signs: Temp Pulse Resp BP Pulse Ox 97.6 F 93 16 120/74 91 L 05/14/17 11:15 05/14/17 14:00 05/14/17 11:15 05/14/17 11:15 05/14/17 11:15 Intake & Output 05/13/17 05/14/17 05/15/17 06:59 06:59 06:59 Intake Total 328 504 Output Total 1345 1425 Balance -1017 -921 Weight 82.7 kg 82.6 kg General appearance: PRESENT: no acute distress Eye exam: PRESENT: PERRLA Respiratory exam: PRESENT: clear to auscultation kim GI/Abdominal exam: PRESENT: soft Neurological exam: PRESENT: alert Results Laboratory Results: 05/10/17 20:05 05/10/17 21:30 05/10/17 05/10/17 05/10/17 20:05 20:05 21:30 Creatine Kinase Cancelled 23 L Troponin I < 0.012 05/11/17 05/11/17 01:21 07:02 Creatine Kinase Troponin I < 0.012 < 0.012 Impressions: Chest X-Ray 05/10/17 13:38 IMPRESSION: NO ACUTE RADIOGRAPHIC FINDING IN THE CHEST. Qualifiers - * PATEINT BEING DISCHARGED WITH ANY OF THE FOLLOWING DIAGNOSIS?: No
[2017-05-14] MEDS ORDERED: BISACODYL 5 MG TABEC PO ONE (16:00)
[2017-05-14] MEDS: DIVALPROEX SODIUM 500 MG TAB.SR.24H PO SCH (21:19)
[2017-05-14] MEDS: DIPHENHYDRAMINE HCL 50 MG CAPSULE PO SCH (21:20)
[2017-05-14] MEDS: TRAZODONE HCL 50 MG TABLET PO SCH (21:20)
[2017-05-14] MEDS: ATORVASTATIN CALCIUM 10 MG TABLET PO SCH (21:21)
[2017-05-14] MEDS: DOXAZOSIN MESYLATE 2 MG TABLET PO SCH (21:34)
[2017-05-15] MEDS: NYSTATIN TOPICAL POWDER 15 GM TP SCH ×3 (05:30→18:41)
[2017-05-15] MEDS: LANSOPRAZOLE 15 MG TAB.RAP.DR PO SCH (05:30)
[2017-05-15] MEDS: BENZTROPINE MESYLATE 1 MG TABLET PO SCH ×2 (11:51→21:48)
[2017-05-15] MEDS: SITAGLIPTIN PHOSPHATE 50 MG TABLET PO SCH (11:52)
[2017-05-15] MEDS: CETIRIZINE 10 MG TABLET PO SCH (11:52)
[2017-05-15] MEDS: METFORMIN HCL 500 MG TABLET PO SCH ×2 (11:52→21:47)
[2017-05-15] MEDS: DULOXETINE HCL 30 MG CAPSULE.DR PO SCH ×2 (11:52→21:49)
[2017-05-15] MEDS: LISINOPRIL 10 MG TABLET PO SCH (11:52)
[2017-05-15] MEDS: CLONAZEPAM 1 MG TABLET PO SCH ×2 (11:53→21:46)
[2017-05-15] MEDS: HALOPERIDOL 5 MG TABLET PO SCH (11:53)
[2017-05-15] MEDS: FLUTICASONE NASAL SPRAY 50 MCG/SPRY 120 SPRAY/16 GM NASL SCH ×2 (11:54→21:47)
[2017-05-15] MEDS: ENOXAPARIN SODIUM INJ 40 MG/0.4 ML DISP.SYRIN SUBCUT SCH (11:54)
[2017-05-15] MEDS: DIPHENHYDRAMINE HCL 50 MG CAPSULE PO SCH (21:47)
[2017-05-15] MEDS: DIVALPROEX SODIUM 500 MG TAB.SR.24H PO SCH (21:48)
[2017-05-15] MEDS: DOXAZOSIN MESYLATE 2 MG TABLET PO SCH (21:48)
[2017-05-15] MEDS: TRAZODONE HCL 50 MG TABLET PO SCH (21:49)
[2017-05-15] MEDS: ATORVASTATIN CALCIUM 10 MG TABLET PO SCH (21:49)
[2017-05-16 02:53] VITALS: BP 114/71
== END 2017-05-15 23:00 ==
LOC: ER 11:13 → EH 17:09 → 4N 18:50
PROVIDERS: ADMIT Internal Medicine; ATTEND Internal Medicine
DX: J96.02 Acute respiratory failure with hypercapnia (principal); E66.01 Morbid (severe) obesity due to excess calories; E66.2 Morbid (severe) obesity with alveolar hypoventilation; F20.9 Schizophrenia, unspecified; E11.9 Type 2 diabetes mellitus without complications; J44.9 Chronic obstructive pulmonary disease, unspecified; K21.9 Gastro-esophageal reflux disease without esophagitis; Z79.84 Long term (current) use of oral hypoglycemic drugs
CPT/HCPCS: 99285; 36415 ×2; 87040; 82962 ×2; 82803; 82550; 83735; 84100; 84443; 85025; 85027; 80048; 80053; 81001; 84484 ×2; 83036; 80061; 71045; 36600; 94660; G0378 ×6; A9270 ×80; J1650 ×5; J3490 ×5; J7030

== ENCOUNTER 2017-05-17 11:09 | Inpatient (IN) | payer MEDICARE, MEDICAID ==
--- NOTE | 2017-05-17 11:16 | ER Document Report ---
ED General - General Stated Complaint: FALL Time Seen by Provider: 05/17/17 11:15 Mode of Arrival: Medic Information source: Patient, [facility] Records, Outside Facility Records TRAVEL OUTSIDE OF THE [place] IN LAST 30 DAYS: No - HPI Notes: 47-year-old female with a past medical history of schizophrenia, bipolar disorder hypercholesterolemia, asthma, COPD, type 2 diabetes, GERD presents via EMS to the ER for complaints of falling twice today as well as confusion. Patient is a resident at [facility]. Patient was admitted on 05/10/2017 to [facility] for acute hypercapnia respiratory failure, was discharged yesterday and sent back to [facility]. Facility states that she does seem to be more confused. Patient had a unwitnessed fall, second fall was witnessed. Patient does wear oxygen at night. Denies fevers, chills, chest pain,palpitations, shortness of breath, dyspnea, nausea, vomiting, diarrhea, abdominal pain, hematuria,blurred vision, double vision, loss of vision, speech changes, LH, dizziness, syncope, headaches, wheezing, ST, URI, neck pain, bowel or bladder dysfunction, saddle anesthesia, numbness or tingling in bilateral upper or lower extremities equally, muscle paralysis, weakness in bilateral upper or lower extremities equally or rash. Denies IV drug use. - Related Data Allergies/Adverse Reactions: ibuprofen [Ibuprofen] Allergy (Mild, Verified 05/17/17 12:04) lips swell acetaminophen [From Tylenol] Allergy (Verified 05/17/17 12:04) Lips swelled aspirin [Aspirin] Allergy (Verified 05/17/17 12:04) Lips swelled bee venom protein (honey bee) Allergy (Verified 05/17/17 12:04) Past Medical History - General Information source: [facility] Records, Outside Facility Records Cannot obtain history due to: Altered mental status - Social History Smoking Status: Unknown if Ever Smoked Family History: Reviewed & Not Pertinent - Past Medical History Cardiac Medical History: Reports: Hx Hypercholesterolemia Pulmonary Medical History: Reports: Hx Asthma, Hx COPD Neurological Medical History: Reports: Hx Migraine, Hx Seizures Endocrine Medical History: Reports: Hx Diabetes Mellitus Type 2 Renal/ Medical History: Reports: Hx Kidney Stones. Denies: Hx Peritoneal Dialysis GI Medical History: Reports: Hx Gastroesophageal Reflux Disease Musculoskeltal Medical History: Reports Hx Musculoskeletal Trauma Psychiatric Medical History: Reports: Hx Anxiety, Hx Bipolar Disorder, Hx Depression, Hx Schizoaffective Disorder, Hx Schizophrenia Past Surgical History: Reports: Hx Cholecystectomy, Hx Kidney (Renal Surgery) - stone procedure - Immunizations Immunizations up to date: Yes Hx Diphtheria, Pertussis, Tetanus Vaccination: Yes Hx Pneumococcal Vaccination: 12/08/16 Review of Systems - Review of Systems Notes: PHYSICAL EXAMINATION: GENERAL: Chronically ill well-nourished and in no acute distress. HEAD: Atraumatic, normocephalic. EYES: Pupils equal round and reactive to light, extraocular movements intact, conjunctiva are normal. ENT: Nares patent, oropharynx clear without exudates. Moist mucous membranes. NECK: Normal range of motion, supple without lymphadenopathy LUNGS: Breath sounds clear to auscultation bilaterally and equal. No wheezes rales or rhonchi. HEART: Regular rate and rhythm without murmurs ABDOMEN: Soft, nontender, nondistended abdomen. No guarding, no rebound. No masses appreciated. Female : deferred Musculoskeletal: Normal range of motion, no pitting or edema. No cyanosis. NEUROLOGICAL: Cranial nerves grossly intact except for not being orientated to year, president, month. Normal speech, normal gait. Normal sensory, motor exams. S PSYCH: Normal mood, normal affect. SKIN: Warm, Dry, normal turgor, no rashes or lesions noted. Dictation was performed using [employer] voice recognition software Constitutional: See HPI EENT: No symptoms reported Cardiovascular: No symptoms reported Respiratory: No symptoms reported Gastrointestinal: No symptoms reported Genitourinary: No symptoms reported Female Genitourinary: No symptoms reported Musculoskeletal: No symptoms reported Skin: No symptoms reported Hematologic/Lymphatic: No symptoms reported Neurological/Psychological: See HPI Physical Exam - Vital signs Vitals: Temp Resp 98.5 F 16 05/17/17 11:17 05/17/17 11:17 Course - Re-evaluation Re-evalutation: 05/17/17 13:26 47-year-old female presents today for evaluation of altered mental status and falling after she was discharged [facility] yesterday to her assisted living home for acute hypercapnia respiratory distress. first set of labs able to be used, reviewed on for redraw. CT head and neck negative for any acute findings per radiology. patient is stable, on 2 L of nasal cannula oxygen C-collar taken off. Pulse ox remains at 94%. Patient is afebrile, vitals remained stable. Patient's blood pressure 90/70 and fluctuates to 81/60 , patient given IV patient afebrile. Patient is orientated to year, month, president. Creatinine 1.20, elevated from 05/10/17 Cr of 0.62. recent creatinine level of 0.68, ultrasound ordered to assess for any obstruction, etc. cardiac enzymes negative. EKG negative for any acute STEMI. UTI noted in urinalysis, unsure if this is due to pyelonephritis or she does have an obstruction in her left kidney. Results of CT chest abdomen with IV contrast shows that patient does have a cystic lesion on her left upper kidney, also shows that patient has a T11 vertebral compression fracture that appears to be new from previous imaging, ordered a MRI of thoracic spine without contrast. This could be from her recent unwitnessed fall at the retirement today as well as venous congestion in bilateral lobes. Awaiting on BNP. venous blood gas shows respiratory acidosis. Remains stable, afebrile consult with , patient's PCP regarding pertinent laboratory, diagnostic and clinical findings. Would like patient to go to the stepdown ICU for acute respiratory acidosis, acute renal failure, T11 T12 compression fracture, UTI for further medical care as well as evaluation. She did agree with plan of care , questions and concerns answered by this provider. Patient admitted to stepdown ICU - Vital Signs Vital signs: Temp Pulse Resp BP Pulse Ox 98.5 F 16 73/44 L 99 05/17/17 11:17 05/17/17 13:53 05/17/17 13:53 05/17/17 13:53 - Laboratory Result Diagrams: 05/17/17 13:45 05/17/17 13:45 Laboratory results interpreted by me: 05/17/17 05/17/17 05/17/17 13:39 13:45 13:45 Hgb 11.9 L Hct 35.7 L RDW 14.7 H VBG pH VBG pCO2 VBG HCO3 Potassium 5.3 H Chloride 97 L Carbon Dioxide 32 H BUN 33 H Est GFR ( Amer) 59 L Est GFR (Non-Af Amer) 48 L Ammonia Creatine Kinase 25 L Albumin 3.1 L Urine Protein 30 H Urine Blood SMALL H Urine Bilirubin SMALL H Urine Urobilinogen 4.0 H Ur Leukocyte Esterase MODERATE H 05/17/17 05/17/17 13:45 13:45 Hgb Hct RDW VBG pH 7.24 L VBG pCO2 78.1 H* VBG HCO3 32.6 H Potassium Chloride Carbon Dioxide BUN Est GFR ( Amer) Est GFR (Non-Af Amer) Ammonia < 8.7 L Creatine Kinase Albumin Urine Protein Urine Blood Urine Bilirubin Urine Urobilinogen Ur Leukocyte Esterase - EKG Interpretation by Co EKG shows normal: Sinus rhythm Rate: Normal [place]/QRS: Left axis deviation - Nonspecific ST segment elevations. Heart rate 93 bpm. No STEMI noted. Unchanged from previous EKG Discharge - Discharge Clinical Impression: Acute respiratory failure with hypercapnia, Acute respiratory acidosis, UTI ( urinary tract infection) Acute renal failure Qualifiers: Acute renal failure type: unspecified Qualified Code(s): N17.9 - Acute kidney failure, unspecified Traumatic compression fracture of T11 thoracic vertebra Qualifiers: Encounter type: initial encounter Fracture type: closed Qualified Code(s): S22.080A - Wedge compression fracture of T11-T12 vertebra, initial encounter for closed fracture CHF (congestive heart failure) Qualifiers: Heart failure type: unspecified Condition: Good Disposition: ADMITTED INPATIENT Admitting Provider: [facility] Admitted: [facility]
[2017-05-17] MEDS ORDERED: NORMAL SALINE 1000 ML 1,000 ML IV ONE (11:28)
[2017-05-17] MEDS ORDERED: NORMAL SALINE 1000 ML 1,000 ML IV PRN (13:06)
--- NOTE | 2017-05-17 13:20 | RADIOLOGY REPORT (SQ) ---
EXAM DESCRIPTION: CT HEAD WITHOUT COMPLETED DATE/TIME: 05/17/2017 1:10 pm REASON FOR STUDY: unwit fall, +AMS COMPARISON: 04/08/2017, 03/21/2017, 03/20/2017 TECHNIQUE: Axial images acquired through the brain without intravenous contrast. Images reviewed wi th bone, brain and subdural windows. Images stored on PACS. All CT scanners at this facility use dose modulation, iterative reconstruction, and/or weight based d osing when appropriate to reduce radiation dose to as low as reasonably achievable (ALARA). [facility]: Dose Right [facility]: CareDose [facility]: Dose Right [facility]: Teradose 4D [facility]: Smart [employer] RADIATION DOSE: CT Rad equipment meets quality standard of care and radiation dose reduction techniq ues were employed. CTDIvol: 53.2 mGy. DLP: 991 mGy-cm. mGy. LIMITATIONS: None. FINDINGS: VENTRICLES: Normal size and contour. CEREBRUM: No masses. No hemorrhage. No midline shift. No evidence for acute infarction. Normal gra y/white matter differentiation. No areas of low density in the white matter. CEREBELLUM: No masses. No hemorrhage. No alteration of density. No evidence for acute infarction. EXTRAAXIAL SPACES: No fluid collections. No masses. ORBITS AND GLOBE: No intra- or extraconal masses. Normal contour of globe without masses. CALVARIUM: No fracture. PARANASAL SINUSES: Re- demonstration of chronic left maxillary sinusitis. SOFT TISSUES: No mass or hematoma. OTHER: No other significant finding. IMPRESSION: No evidence of calvarial fracture or intracranial hemorrhage. Persistent appearance of chronic left maxillary sinusitis. EVIDENCE OF ACUTE STROKE: NO. COMMENT: Quality ID # 436: Final reports with documentation of one or more dose reduction techniques (e.g., Automated exposure control, adjustment of the mA and/or kV according to patient size, use of iterative reconstruction technique) TECHNICAL DOCUMENTATION: JOB ID: [id number] [employer]- All Rights Reserved Reading location - IP/workstation name: [email or web address]
--- NOTE | 2017-05-17 13:22 | RADIOLOGY REPORT (SQ) ---
EXAM DESCRIPTION: CT CERVICAL SPINE WITHOUT COMPLETED DATE/TIME: 05/17/2017 1:10 pm REASON FOR STUDY: unwit fall, +AMS COMPARISON: 02/19/2017 TECHNIQUE: Axial images acquired through the cervical spine without intravenous contrast. Images re viewed with lung, soft tissue and bone windows. Reconstructed coronal and sagittal MPR images review ed. Images stored on PACS. All CT scanners at this facility use dose modulation, iterative reconstruction, and/or weight based d osing when appropriate to reduce radiation dose to as low as reasonably achievable (ALARA). [facility]: Dose Right [facility]: CareDose [facility]: Dose Right [facility]: Teradose 4D [facility]: [email or web address] RADIATION DOSE: CT Rad equipment meets quality standard of care and radiation dose reduction techniq ues were employed. CTDIvol: 23.7 mGy. DLP: 423 mGy-cm. mGy. LIMITATIONS: None. FINDINGS: ALIGNMENT: Anatomic. MINERALIZATION: Normal. VERTEBRAL BODIES: No fractures or dislocation. DISCS: No significant disc disease. FACETS, LATERAL MASSES, POSTERIOR ELEMENTS: Mild spina bifida at C1. No fractures. No dislocation. No acute findings. HARDWARE: None in the spine. VISUALIZED RIBS: No fractures. LUNG APICES AND SOFT TISSUES: See report of CT of the chest. OTHER: No other significant finding. IMPRESSION: NO ACUTE OR SIGNIFICANT FINDINGS IN THE CERVICAL SPINE. TECHNICAL DOCUMENTATION: JOB ID: [id number] Quality ID # [id number]: Final reports with documentation of one or more dose reduction techniques (e.g., Au tomated exposure control, adjustment of the mA and/or kV according to patient size, use of iterative reconstruction technique) 2010 [employer]- All Rights Reserved Reading location - IP/workstation name: [email or web address]
--- NOTE | 2017-05-17 13:23 | RADIOLOGY REPORT (SQ) ---
EXAM DESCRIPTION: CTA CHEST COMPLETED DATE/TIME: 05/17/2017 1:10 pm REASON FOR STUDY: tachypnea, hypoxia COMPARISON: CT chest 02/09/2013, 05/27/2015, 02/19/2017, 03/02/2017 TECHNIQUE: CT scan of the chest performed using helical scanning technique with dynamic intravenous contrast injection. Images reviewed with lung, soft tissue and bone windows. Reconstructed coronal and sagittal MPR images reviewed. Additional 3 dimensional post-processing performed to develop Maximal Intensity Projection images (VT P). All images stored on PACS. All CT scanners at this facility use dose modulation, iterative reconstruction, and/or weight based d osing when appropriate to reduce radiation dose to as low as reasonably achievable (ALARA). [facility]: Dose Right [facility]: CareDose [facility]: Dose Right [facility]: Teradose 4D [facility]: PandaBed CONTRAST TYPE AND DOSE: contrast/concentration: Isovue 370.00 mg/ml; Total Contrast Delivered: 77.0 ml; Total Saline Delivered: 91.0 ml Contrast bolus optimized for the pulmonary arteries. Not diagnostic for the aorta. RENAL FUNCTION: Creatinine 0.68 RADIATION DOSE: CT Rad equipment meets quality standard of care and radiation dose reduction techniq ues were employed. CTDIvol: 29.8 - 41.3 mGy. DLP: 939 mGy-cm. . LIMITATIONS: None. FINDINGS: LUNGS AND PLEURA: There is patchy ground-glass opacity throughout both lungs indicating mi ld pulmonary edema or fluid overload. No pleural effusion. No pneumothorax. No dense consolidation worrisome for pneumonia. Airways are patent. AORTA AND GREAT VESSELS: No aneurysm. Contrast bolus not optimized for the aorta. HEART: No pericardial effusion. Moderate cardiomegaly. No significant coronary artery calcifications . PULMONARY ARTERIES: No emboli visualized in the main pulmonary arteries or the segmental branches. HILAR AND MEDIASTINAL STRUCTURES: No identified masses or abnormal nodes. HARDWARE: None in the chest. UPPER ABDOMEN: Post cholecystectomy. Small hiatal hernia. Complex cystic lesion left upper pole kid delmer for which renal ultrasound is recommended. THYROID AND OTHER SOFT TISSUES: No masses. No adenopathy. BONES: Subacute T11 upper endplate compression deformity with minimal less than 10% loss of height. There is sclerosis in the upper half of the T11 vertebral body there is this is new compared to CT ch est 03/02/2017 3D MIPS: Confirm above findings. OTHER: No other significant finding. IMPRESSION: No CT angio evidence of acute pulmonary emboli Ground-glass opacity in both lungs worrisome for pulmonary edema or fluid overload Cardiomegaly Subacute upper endplate T11 compression deformity, new compared to prior CT angio chest 03/02/2017 COMMENT: Quality ID # 436: Final reports with documentation of one or more dose reduction techniques (e.g., Automated exposure control, adjustment of the mA and/or kV according to patient size, use of iterative reconstruction technique) TECHNICAL DOCUMENTATION: JOB ID: [id number] [employer]- All Rights Reserved Reading location - IP/workstation name: [email or web address]
[2017-05-17 14:00] LABS: APPEARANCE,URINE SLIGHTLY-CLOUDY; BILIRUBIN,URINE SMALL (NEGATIVE); GLUCOSE, URINE NEGATIVE (NEGATIVE); KETONES,URINE NEGATIVE (NEGATIVE); LEUKOCYTE ESTERASE,URINE MODERATE (NEGATIVE); NITRITE,URINE NEGATIVE (NEGATIVE); PROTEIN,URINE 30 mg/dL (NEGATIVE); URINE SPECIFIC GRAVITY 1.018
[2017-05-17 14:01] LABS: COLOR,URINE DARK YELLOW
[2017-05-17 14:08] LABS: VENOUS BLOOD BASE EXCESS 2.8 mmol/L; VENOUS BLOOD HCO3 32.6 mmol/L (20-32); VENOUS BLOOD PH 7.24 (7.30-7.42)
[2017-05-17 14:12] LABS: ABSOLUTE EOSINOPHILS # (AUTO) 0.1 10^3/uL (0.0-0.6); ABSOLUTE LYMPHOCYTES (AUTO) 1.6 10^3/uL (0.5-4.7); ABSOLUTE MONOCYTES (AUTO) 0.4 10^3/uL (0.1-1.4); ABSOLUTE NEUT (AUTO) 2.2 10^3/uL (1.7-8.2); BASOPHILS % (AUTO) 0.3 % (0-2); EOSINOPHILS % (AUTO) 3.1 % (0-6); HEMATOCRIT 35.7 % (36.0-47.0); HEMOGLOBIN 11.9 g/dL (12.0-15.5); LYMPHOCYTES % (AUTO) 36.8 % (13-45); MEAN CORPUSCULAR HEMOGLOBIN 31.2 pg (27.0-33.4); MEAN CORPUSCULAR HGB CONC 33.3 g/dL (32.0-36.0); MEAN CORPUSCULAR VOLUME 94 fl (80-97); MONOCYTES % (AUTO) 9.2 % (3-13); PLATELET COUNT 175 10^3/uL (150-450); RED BLOOD COUNT 3.82 10^6/uL (3.72-5.28); RED CELL DISTRIBUTION WIDTH 14.7 % (11.5-14.0); SEGMENTED NEUTROPHILS % (AUTO) 50.6 % (42-78); TOTAL CELLS COUNTED % (AUTO) 100 %; WHITE BLOOD COUNT 4.4 10^3/uL (4.0-10.5)
[2017-05-17 14:13] LABS: VENOUS BLOOD PCO2 78.1 mmHg (35-63)
[2017-05-17 14:18] LABS: INTERNATIONAL RATION (INR) 0.88; PROTHROMBIN TIME 12.6 SEC (11.4-15.4)
[2017-05-17 14:22] LABS: ALANINE AMINOTRANSFERASE 24 U/L (9-52); ALBUMIN 3.1 g/dL (3.5-5.0); ALKALINE PHOSPHATASE 55 U/L (38-126); ANION GAP 8 (5-19); ASPARTATE AMINO TRANSFERASE 24 U/L (14-36); BILIRUBIN,DIRECT 0.3 mg/dL (0.0-0.4); BILIRUBIN,TOTAL 0.3 mg/dL (0.2-1.3); BLOOD UREA NITROGEN 33 mg/dL (7-20); CALCIUM 8.9 mg/dL (8.4-10.2); CARBON DIOXIDE 32 mmol/L (22-30); CHLORIDE 97 mmol/L (98-107); CREATINE KINASE 25 U/L (30-135); GLUCOSE 83 mg/dL (75-110); LIPASE 95.6 U/L (23-300); POTASSIUM 5.3 mmol/L (3.6-5.0); SODIUM 137.1 mmol/L (137-145); TOTAL PROTEIN 6.7 g/dL (6.3-8.2)
[2017-05-17] MEDS ORDERED: CEFEPIME 2 GM/D5W RTU 2 GM/50 ML RTUPB IV ONE (14:24)
[2017-05-17 14:37] LABS: CREATINE KINASE MB 0.68 ng/mL (<4.55); TROPONIN I < 0.012 ng/mL
--- NOTE | 2017-05-17 16:39 | RADIOLOGY REPORT (SQ) ---
EXAM DESCRIPTION: MRI THORACIC SPINE WITHOUT COMPLETED DATE/TIME: 05/17/2017 4:18 pm REASON FOR STUDY: new T11 compression fracture on CT COMPARISON: CT chest 05/17/2017, 02/20/2017 CT abdomen pelvis 03/20/2017 TECHNIQUE: Sagittal and Axial imaging includes T1, T2, STIR and gradient echo sequences. LIMITATIONS: Motion artifact FINDINGS: Rapid imaging sequences were use. There is still significant motion artifact throughout t he study. At the T11 level, a 25% upper endplate compression is present with marrow edema on stir/T2 images. T his represents a subacute compression deformity. No retropulsion of bony fragments or significant ce ntral or foraminal encroachment. At the L1 level, a chronic appearing minimal upper endplate central depression is present with sclero sis and adjacent fatty marrow signal. No L1 vertebral body loss of height. This is unchanged from C T abdomen pelvis 03/20/2017 and likely represents a chronic endplate depression Very limited view of the thoracic cord and conus unremarkable. No gross central or foraminal encroac hment. Mild posterior disc bulging at T9-10. IMPRESSION: Very limited study due to patient motion artifact. T11 subacute upper endplate compression deformity with marrow edema present on the STIR images. Chronic appearing central upper endplate depression at L1 without overall loss of height of the verte bral body TECHNICAL DOCUMENTATION: JOB ID: [id number] [employer]- All Rights Reserved Reading location - IP/workstation name: [email or web address]
--- NOTE | 2017-05-17 16:59 | RADIOLOGY REPORT (SQ) ---
EXAM DESCRIPTION: U/S RETROPERITON (RENAL/AORTA) COMPLETED DATE/TIME: 05/17/2017 4:46 pm REASON FOR STUDY: elevated Cr, lesion seen on L kidney COMPARISON: CT chest 05/17/2017 CT abdomen pelvis 03/20/2017 TECHNIQUE: Dynamic and static grayscale images acquired of the kidneys and bladder and recorded on P ACS. Additional selected color Doppler and spectral images recorded. LIMITATIONS: Large body habitus FINDINGS: RIGHT KIDNEY: Normal size, 10.5 cm in length. Normal echogenicity. No solid or suspicious masses. Lobular contour right kidney. No hydronephrosis. No calcifications. LEFT KIDNEY: Normal size, 10.2 cm in length. Normal echogenicity. No solid or suspicious masses. 1. 5 cm cyst in the upper pole left kidney, correlates with the findings on CT earlier today. No hydron ephrosis. No calcifications. BLADDER: No masses. OTHER FINDINGS: No other significant finding. IMPRESSION: Left upper pole renal cortical cyst. TECHNICAL DOCUMENTATION: JOB ID: [id number] [employer]- All Rights Reserved Reading location - IP/workstation name: [email or web address]
[2017-05-17] MEDS ORDERED: DOCUSATE SODIUM 100 MG CAPSULE PO PRN (18:21)
[2017-05-17] MEDS ORDERED: BISMUTH SUBSALICYLATE 262 MG TAB.CHEW PO PRN (18:21)
[2017-05-17 18:30] LABS: ARTERIAL BLOOD BASE EXCESS -1.4 mmol/L; ARTERIAL BLOOD H2CO3 1.63 mmol/L (1.05-1.35); ARTERIAL BLOOD HCO3 25.6 mmol/L (20-26); ARTERIAL BLOOD O2 SATURATION 95.9 % (94-98); ARTERIAL BLOOD PCO2 54.2 mmHg (35-45); ARTERIAL BLOOD PH 7.29 (7.35-7.45); ARTERIAL BLOOD PO2 90.4 mmHg (80-100); ARTERIAL BLOOD TOTAL CO2 27.3 mmol/L (21-25)
[2017-05-17] MEDS ORDERED: FLUTICASONE NASAL SPRAY 50 MCG/SPRY 120 SPRAY/16 GM NASL SCH (18:30)
[2017-05-17] MEDS ORDERED: (PENDING PHARMACY ID) (Pantoprazole Sodium [Protonix] 20 MG) PO SCH (18:30)
[2017-05-17 18:57] LABS: ARTERIAL BLOOD FIO2 2L
[2017-05-17 19:22] LABS: LIPASE 81.3 U/L (23-300)
[2017-05-17 19:25] LABS: INTERNATIONAL RATION (INR) 0.91; PROTHROMBIN TIME 12.9 SEC (11.4-15.4)
[2017-05-17 19:26] LABS: PARTIAL THROMBOPLASTIN TIME 31.6 SEC (23.5-35.8)
[2017-05-17 19:41] LABS: CREATINE KINASE MB 0.78 ng/mL (<4.55)
[2017-05-17 19:43] LABS: FREE T4 (FREE THYROXINE) 2.24 ng/dL (0.78-2.19); TROPONIN I < 0.012 ng/mL
[2017-05-17 19:57] LABS: THYROID STIMULATING HORMONE 1.36 uIU/mL (0.47-4.68)
[2017-05-17] MEDS ORDERED: SITAGLIPTIN PHOSPHATE 50 MG TABLET PO ONE (20:00)
[2017-05-17] MEDS ORDERED: LISINOPRIL 10 MG TABLET PO ONE (20:00)
[2017-05-17] MEDS ORDERED: HALOPERIDOL 5 MG TABLET PO ONE (20:00)
[2017-05-17] MEDS ORDERED: (PENDING PHARMACY ID) (Haloperidol [Haloperidol] 10 MG) PO ONE (20:00)
[2017-05-17] MEDS: IPRATROPIUM/ALBUTEROL 0.5-2.5 MG/3 ML AMPUL NEB SCH (20:06)
[2017-05-17] MEDS ORDERED: FUROSEMIDE INJ/PF 40 MG/4 ML SDV IV ONE (20:30)
[2017-05-17] MEDS: DULOXETINE HCL 30 MG CAPSULE.DR PO SCH (22:33)
[2017-05-17] MEDS: MAGNESIUM OXIDE 400 MG TABLET PO SCH (22:33)
[2017-05-17] MEDS: DOXAZOSIN MESYLATE 2 MG TABLET PO SCH (22:34)
[2017-05-17] MEDS: DIVALPROEX SODIUM 500 MG TAB.SR.24H PO SCH (22:34)
[2017-05-17] MEDS: TRAZODONE HCL 50 MG TABLET PO SCH (22:34)
[2017-05-17] MEDS: BENZTROPINE MESYLATE 1 MG TABLET PO SCH (22:37)
[2017-05-17] MEDS: ATORVASTATIN CALCIUM 10 MG TABLET PO SCH (22:37)
[2017-05-17] MEDS: FLUTICASONE NASAL SPRAY 50 MCG/SPRY 120 SPRAY/16 GM NASL SCH (22:40)
--- NOTE | 2017-05-17 23:25 | EKG REPORT ---
SEVERITY:- OTHERWISE NORMAL ECG - SINUS RHYTHM BORDERLINE LEFT AXIS DEVIATION : Confirmed by: Parag Huntley 17-May-2017 23:24:52
--- NOTE | 2017-05-17 23:26 | EKG REPORT ---
SEVERITY:- ABNORMAL ECG - SINUS RHYTHM BORDERLINE LEFT AXIS DEVIATION NONSPECIFIC T ABNORMALITIES, LATERAL LEADS : Confirmed by: Parag Huntley 17-May-2017 23:25:04
[2017-05-18 01:41] LABS: CREATINE KINASE MB 0.43 ng/mL (<4.55)
[2017-05-18 01:45] LABS: TROPONIN I < 0.012 ng/mL
[2017-05-18] MEDS: LANSOPRAZOLE 15 MG TAB.RAP.DR PO SCH (05:13)
[2017-05-18 07:29] LABS: HEMATOCRIT 31.2 % (36.0-47.0); HEMOGLOBIN 10.7 g/dL (12.0-15.5); MEAN CORPUSCULAR HEMOGLOBIN 31.8 pg (27.0-33.4); MEAN CORPUSCULAR HGB CONC 34.1 g/dL (32.0-36.0); MEAN CORPUSCULAR VOLUME 93 fl (80-97); PLATELET COUNT 145 10^3/uL (150-450); RED BLOOD COUNT 3.35 10^6/uL (3.72-5.28); RED CELL DISTRIBUTION WIDTH 14.6 % (11.5-14.0); WHITE BLOOD COUNT 4.1 10^3/uL (4.0-10.5)
[2017-05-18 07:44] LABS: ALANINE AMINOTRANSFERASE 21 U/L (9-52); ALBUMIN 2.5 g/dL (3.5-5.0); ALKALINE PHOSPHATASE 33 U/L (38-126); ASPARTATE AMINO TRANSFERASE 18 U/L (14-36); BILIRUBIN,DIRECT 0.3 mg/dL (0.0-0.4); BILIRUBIN,TOTAL 0.3 mg/dL (0.2-1.3); BLOOD UREA NITROGEN 30 mg/dL (7-20); CHOLESTEROL 118.51 mg/dL (0-200); GLUCOSE 76 mg/dL (75-110); POTASSIUM 4.9 mmol/L (3.6-5.0); TOTAL PROTEIN 5.4 g/dL (6.3-8.2); TRIGLYCERIDES 187 mg/dL (<150)
[2017-05-18] MEDS: IPRATROPIUM/ALBUTEROL 0.5-2.5 MG/3 ML AMPUL NEB SCH ×3 (07:47→20:09)
[2017-05-18 07:48] LABS: ABSOLUTE LYMPHOCYTES# (MANUAL) 2.3 10^3/uL (0.5-4.7); ABSOLUTE MONOCYTES # (MANUAL) 0.1 10^3/uL (0.1-1.4); ABSOLUTE NEUTROPHILS# (MANUAL) 1.6 10^3/uL (1.7-8.2); BASOPHILS % (MANUAL) 1 % (0-2); EOSINOPHILS % (MANUAL) 3 % (0-6); LYMPHOCYTES % (MANUAL) 53 % (13-45); METAMYELOCYTES % (MANUAL) 2 % (0); MONOCYTES % (MANUAL) 2 % (3-13); PLATELET COMMENT ADEQUATE; POLYCHROMASIA SLIGHT; SEGMENTED NEUTROPHILS % (MAN) 37 % (42-78); TOTAL CELLS COUNTED 100; TOXIC GRANULATION SLIGHT; TOXIC VACUOLATION PRESENT
[2017-05-18 07:49] LABS: CARBON DIOXIDE 35 mmol/L (22-30); CHLORIDE 102 mmol/L (98-107); SODIUM 138.3 mmol/L (137-145)
[2017-05-18 07:53] LABS: CREATINE KINASE MB 0.35 ng/mL (<4.55)
[2017-05-18 07:55] LABS: DIRECT LDL 49 mg/dL (<100)
[2017-05-18 07:57] LABS: CREATINE KINASE < 20 U/L (30-135); TROPONIN I < 0.012 ng/mL; VLDL CHOLESTEROL 37.4 mg/dL (10-31)
[2017-05-18 07:59] LABS: ANION GAP 2 (5-19)
[2017-05-18] MEDS ORDERED: (PENDING PHARMACY ID) (Haloperidol [Haloperidol] 10 MG) PO SCH (10:00)
[2017-05-18] MEDS: ENOXAPARIN SODIUM INJ 40 MG/0.4 ML DISP.SYRIN SUBCUT SCH (10:31)
[2017-05-18] MEDS: SITAGLIPTIN PHOSPHATE 50 MG TABLET PO SCH (10:32)
[2017-05-18] MEDS: FLUTICASONE NASAL SPRAY 50 MCG/SPRY 120 SPRAY/16 GM NASL SCH ×2 (10:32→21:26)
[2017-05-18] MEDS: DULOXETINE HCL 30 MG CAPSULE.DR PO SCH ×2 (10:32→21:26)
[2017-05-18] MEDS: BENZTROPINE MESYLATE 1 MG TABLET PO SCH ×2 (10:32→21:26)
[2017-05-18] MEDS: HALOPERIDOL 5 MG TABLET PO SCH (10:32)
[2017-05-18] MEDS: LISINOPRIL 10 MG TABLET PO SCH (10:33)
[2017-05-18] MEDS ORDERED: LEVOFLOXACIN 750 MG/D5W RTU 750 MG/150 ML RTUPB IV SCH (14:00)
--- NOTE | 2017-05-18 15:11 | XCELERA REPORT ---
[address] [address] Transthoracic Echocardiogram Report Name: STEVE CONKLIN Age: 47 yrs Gender: Female : 1970 Patient Status: Inpatient Patient Location: [address] [place] [address] Study Date: 05/18/2017 09:08 AM Height: 60 in Weight: 177 lb BSA: 1.8 m2 Procedure: A complete two-dimensional transthoracic echocardiogram was performed (2D, M-mode, spectral and color flow Doppler). The study was technically adequate with some images being suboptimal in quality. Reason For Study: chf Ordering Physician: KATARINA URENA Performed By: Judi Frias Interpretation Summary The left ventricular ejection fraction is normal. There is normal left ventricular wall thickness. The left ventricle is grossly normal size. Doppler measurements suggest normal left ventricular diastolic function Wall motion cannot be accurately commented on, but no definite regional wall motion abnormalities noted. The right ventricle is grossly normal size. There is normal right ventricular wall thickness. There is a trace amount of mitral regurgitation There is no mitral valve stenosis. There is no aortic valve stenosis No aortic regurgitation is present. There is no tricuspid stenosis. No tricuspid regurgitation. The pulmonic valve is not well visualized. The aortic root is not well visualized but is probably normal size. The inferior vena cava appeared normal and decreased > 50% with respiration (RAP 5-10 mmHg) There is no pericardial effusion. MMode/2D Measurements & Calculations RVDd: 2.1 cm LVIDd: 4.0 cm FS: 42.3 % Ao root diam: 2.8 cm IVSd: 0.89 cm LVIDs: 2.3 cm EDV(Teich): 72.0 ml LVPWd: 0.87 cmESV(Teich): 18.8 ml Ao root area: 6.4 cm2 EF(Teich): 73.9 % LVOT diam: 2.1 cm LVOT area: 3.5 cm2 Doppler Measurements & Calculations MV E max brent: MV dec slope: Ao V2 max: LV V1 max P.0 cm/sec 470.4 cm/sec2 168.6 cm/sec 6.2 mmHg MV A max brent: MV dec time: Ao max PG: LV V1 max: 54.4 cm/sec 0.16 sec 11.4 mmHg 124.2 cm/sec MV E/A: 1.4 JOSE(V,D): 2.6 cm2 Left Ventricle The left ventricle is grossly normal size. There is normal left ventricular wall thickness. The left ventricular ejection fraction is normal. Doppler measurements suggest normal left ventricular diastolic function. Wall motion cannot be accurately commented on, but no definite regional wall motion abnormalities noted. Right Ventricle The right ventricle is grossly normal size. There is normal right ventricular wall thickness. The right ventricular systolic function is normal. Atria The right atrium is normal in size. The left atrial size is normal. Interarterial septum not well visualized and not well dopplered. Cannot comment on ASD/PFO presence. Mitral Valve The mitral valve is grossly normal. There is no mitral valve stenosis. There is a trace amount of mitral regurgitation. Aortic Valve The aortic valve is grossly normal. There is no aortic valve stenosis. No aortic regurgitation is present. Tricuspid Valve The tricuspid valve is not well visualized, but is grossly normal. There is no tricuspid stenosis. No tricuspid regurgitation. Pulmonic Valve The pulmonic valve is not well visualized. Great Vessels The aortic root is not well visualized but is probably normal size. The inferior vena cava appeared normal and decreased > 50% with respiration (RAP 5-10 mmHg). Effusions There is no pericardial effusion. : KATARINA URENA > Parag Huntley
[2017-05-18] MEDS ORDERED: NORMAL SALINE 1000 ML 1,000 ML IV PRN (16:28)
[2017-05-18] MEDS ORDERED: NORMAL SALINE 500 ML IV ONE (16:30)
--- NOTE | 2017-05-18 18:35 | PDOC H&P ---
History of Present Illness Admission Date/PCP: 05/17/17 15:33 History of Present Illness: STEVE CONKLIN is a 47 year old female.She came to the emergency room for the evaluation of confusion associated with fall. The history was that she fell twice at the assisted living facility where she resides. She was recently admitted in this hospital for the evaluation of acute hypercapnic respiratory failure that was felt to be associated with obesity hypoventilation syndrome, a noninvasive positive pressure ventilation with BiPAP was recommended on discharge but this could not be provided because patient could not make efforts to do spirometry which was a requirement before the vendor could released the device for the patient to take with to the facility. In the emergency room she was evaluated if venous blood gas was done, pH was 7.24, PCO2 78.1 bicarbonate 32.6. CTA chest was done this was compared to CTA chest from previous CT scan of the chest, this showed patchy ground glass opacity throughout both lungs indicating mild pulmonary edema or fluid overload no pulmonary emboli was visualized in the main pulmonary arteries or the segmental branches also found was a subacute T11 endplate compression deformity, there is sclerosis in the upper half of the T11 vertebral body this is new when compared to CT scan from .CT head was done without contrast as part of the evaluation for the fall, there was no evidence of fracture or intracranial hemorrhage there was persistent appearance of chronic left maxillary sinusitis. MRI of the thoracic spine was done without contrast, it did again confirm chronic appearing minimal upper endplate central depression at L1 level this is unchanged from CT scan of the abdomen and pelvis from 03/20/2017 and she will upper endplate compression with marrow edema at T11 this represent a subacute compression deformity.The BNP was 37 this virtually rule out CHF, a 2D echo was done, it showed normal ejection fraction of left ventricle, normal wall thickness. Past Medical History Cardiac Medical History: Reports: Hyperlipidema Pulmonary Medical History: Reports: Asthma, Chronic Obstructive Pulmonary Disease (COPD) Neurological Medical History: Reports: Migraine, Seizures Endocrine Medical History: Reports: Diabetes Mellitus Type 2 GI Medical History: Reports: Gastroesophageal Reflux Disease Psychiatric Medical History: Reports: Bipolar Disorder, Depression, Schizoaffective Disorder Past Surgical History Past Surgical History: Reports: Cholecystectomy Social History Smoking Status: Never Smoker Frequency of Alcohol Use: None Hx Recreational Drug Use: No Drugs: None Hx Prescription Drug Abuse: No Family History Family History: Reviewed & Not Pertinent Parental Family History Reviewed: Yes Children Family History Reviewed: Yes Sibling(s) Family History Reviewed.: Yes Medication/Allergy Home Medications: Albuterol Sulfate [Ventolin HFA MDI 18 GM] 2 puff IH Q4HP PRN 05/10/17 Atorvastatin Calcium [Lipitor 10 mg Tablet] 10 mg PO QHS 05/10/17 Benztropine Mesylate 1 mg PO Q12 05/10/17 Bismuth Subsalicylate [Bismuth] 262 mg PO Q4HP PRN 05/10/17 Cetirizine HCl [Zyrtec 10 mg Tablet] 10 mg PO DAILY 05/10/17 Clonazepam [Klonopin] 0.25 mg PO Q12 05/10/17 Diphenhydramine HCl [Benadryl 25 mg Capsule] 50 mg PO QHS 05/10/17 Divalproex Sodium [Divalproex Sodium ER] 2,000 mg PO QHS 05/10/17 Docusate Sodium [Colace 100 mg Capsule] 100 mg PO BIDP PRN 05/10/17 Doxazosin Mesylate [Cardura 2 mg Tablet] 2 mg PO QHS 05/10/17 Duloxetine HCl [Cymbalta] 60 mg PO Q12 05/10/17 Fluticasone Propionate [Flonase Nasal [place] 50 Mcg/[place] 16 gm] 2 sprays NASL Q12 05/10/17 Haloperidol 10 mg PO DAILY 05/10/17 Lisinopril [Prinivil 40 mg Tablet] 40 mg PO DAILY 05/10/17 Lorazepam [Ativan 1 mg Tablet] 1 mg PO Q4HP PRN 05/10/17 Metformin HCl [Glucophage] 1,000 mg PO Q12 05/10/17 Pantoprazole Sodium [Protonix] 20 mg PO DAILY 05/10/17 Prazosin HCl [Minipress] 1 mg PO QHS 05/10/17 Sitagliptin Phosphate [Januvia] 100 mg PO DAILY 05/10/17 Trazodone HCl [Desyrel 50 mg Tablet] 50 mg PO QHS 05/10/17 Zolpidem Tartrate [Ambien 5 mg Tablet] 5 mg PO HSP PRN 05/10/17 Nystatin [Mycostatin Topical Powder 15 gm] 1 applic TOP BID 05/17/17 Allergies/Adverse Reactions: ibuprofen [Ibuprofen] Allergy (Mild, Verified 05/17/17 12:04) lips swell acetaminophen [From Tylenol] Allergy (Verified 05/17/17 12:04) Lips swelled aspirin [Aspirin] Allergy (Verified 05/17/17 12:04) Lips swelled bee venom protein (honey bee) Allergy (Verified 05/17/17 12:04) Review of Systems Constitutional: ABSENT: chills, fever(s), headache(s), weight gain, weight loss Eyes: ABSENT: visual disturbances Ears: ABSENT: hearing changes Cardiovascular: ABSENT: chest pain, dyspnea on exertion, edema, orthropnea, palpitations Respiratory: ABSENT: cough, hemoptysis Gastrointestinal: ABSENT: abdominal pain, constipation, diarrhea, hematemesis, hematochezia, nausea, vomiting Genitourinary: ABSENT: dysuria, hematuria Musculoskeletal: ABSENT: joint swelling Integumentary: ABSENT: rash, wounds Neurological: PRESENT: confusion. ABSENT: abnormal gait, abnormal speech, dizziness, focal weakness, syncope Psychiatric: ABSENT: anxiety, depression, homidical ideation, suicidal ideation Endocrine: ABSENT: cold intolerance, heat intolerance, menstrual abnormalities, polydipsia, polyuria Hematologic/Lymphatic: ABSENT: easy bleeding, easy bruising, lymphadenopathy Physical Exam Vital Signs: Temp Pulse Resp BP Pulse Ox 97.9 F 83 18 105/57 L 99 05/18/17 15:51 05/18/17 15:51 05/18/17 15:51 05/18/17 15:51 05/18/17 15:51 Intake & Output 05/17/17 05/18/17 05/19/17 06:59 06:59 06:59 Intake Total 418 Balance 418 Weight 74.1 kg General appearance: PRESENT: no acute distress, well-developed, well-nourished Head exam: PRESENT: atraumatic, normocephalic Eye exam: PRESENT: conjunctiva pink, EOMI, PERRLA Ear exam: PRESENT: normal external ear exam Mouth exam: PRESENT: moist, tongue midline Neck exam: PRESENT: full ROM Respiratory exam: PRESENT: clear to auscultation kim Cardiovascular exam: PRESENT: RRR, +S1, +S2 Pulses: PRESENT: normal dorsalis pedis pul, +2 pedal pulses bilateral Vascular exam: PRESENT: normal capillary refill GI/Abdominal exam: PRESENT: normal bowel sounds, soft Rectal exam: PRESENT: deferred Neurological exam: PRESENT: altered Skin exam: PRESENT: dry, intact, warm Results Laboratory Results: 05/18/17 07:07 05/18/17 07:07 05/17/17 05/17/17 05/17/17 18:00 18:55 18:55 WBC RBC Hgb Hct MCV MCH MCHC RDW Plt Count Seg Neutrophils % Lymphocytes % Monocytes % Eosinophils % Basophils % Absolute Neutrophils Absolute Lymphocytes Absolute Monocytes Absolute Eosinophils Absolute Basophils Carbonic Acid 1.63 H HCO3/H2CO3 Ratio 15:1 ABG pH 7.29 L ABG pCO2 54.2 H ABG pO2 90.4 ABG HCO3 25.6 ABG O2 Saturation 95.9 ABG Base Excess -1.4 FiO2 2L Sodium Potassium Chloride Carbon Dioxide Anion Gap BUN Creatinine Est GFR ( Amer) Est GFR (Non-Af Amer) Glucose Calcium Phosphorus 5.0 H Magnesium 1.5 L Total Bilirubin AST ALT Alkaline Phosphatase Ammonia < 8.7 L Total Protein Albumin Triglycerides Cholesterol LDL Cholesterol Direct VLDL Cholesterol HDL Cholesterol Amylase 36 Lipase 81.3 TSH Free T4 05/17/17 05/18/17 05/18/17 18:55 07:07 07:07 WBC 4.1 RBC 3.35 L Hgb 10.7 L Hct 31.2 L MCV 93 MCH 31.8 MCHC 34.1 RDW 14.6 H Plt Count 145 L Seg Neutrophils % Not Reportable Lymphocytes % Not Reportable Monocytes % Not Reportable Eosinophils % Not Reportable Basophils % Not Reportable Absolute Neutrophils Not Reportable Absolute Lymphocytes Not Reportable Absolute Monocytes Not Reportable Absolute Eosinophils Not Reportable Absolute Basophils Not Reportable Carbonic Acid HCO3/H2CO3 Ratio ABG pH ABG pCO2 ABG pO2 ABG HCO3 ABG O2 Saturation ABG Base Excess FiO2 Sodium 138.3 Potassium 4.9 Chloride 102 Carbon Dioxide 35 H Anion Gap 2 L BUN 30 H Creatinine 0.88 Est GFR ( Amer) > 60 Est GFR (Non-Af Amer) > 60 Glucose 76 Calcium 9.0 Phosphorus Magnesium Total Bilirubin 0.3 AST 18 ALT 21 Alkaline Phosphatase 33 L Ammonia Total Protein 5.4 L Albumin 2.5 L Triglycerides 187 H Cholesterol 118.51 LDL Cholesterol Direct 49 VLDL Cholesterol 37.4 H HDL Cholesterol 28 L Amylase Lipase TSH 1.36 Free T4 2.24 H 05/17/17 05/17/17 05/17/17 18:55 18:55 18:55 Creatine Kinase 27 L CK-MB (CK-2) 0.78 Troponin I < 0.012 NT-Pro-B Natriuret Pep 36 05/18/17 05/18/17 05/18/17 01:00 01:00 07:07 Creatine Kinase < 20 L < 20 L CK-MB (CK-2) 0.43 Troponin I < 0.012 NT-Pro-B Natriuret Pep 05/18/17 07:07 Creatine Kinase CK-MB (CK-2) 0.35 Troponin I < 0.012 NT-Pro-B Natriuret Pep Impressions: Cervical Spine CT 05/17/17 11:23 IMPRESSION: NO ACUTE OR SIGNIFICANT FINDINGS IN THE CERVICAL SPINE. Chest/Abdomen CTA 05/17/17 11:23 IMPRESSION: No CT angio evidence of acute pulmonary emboli Ground-glass opacity in both lungs worrisome for pulmonary edema or fluid overload Cardiomegaly Subacute upper endplate T11 compression deformity, new compared to prior CT angio chest 03/02/[address] 05/17/17 11:23 IMPRESSION: No evidence of calvarial fracture or intracranial hemorrhage. Persistent appearance of chronic left maxillary sinusitis. EVIDENCE OF ACUTE STROKE: NO. Renal Ultrasound 05/17/17 14:54 IMPRESSION: Left upper pole renal cortical cyst. Thoracic Spine MRI 05/17/17 14:55 IMPRESSION: Very limited study due to patient motion artifact. T11 subacute upper endplate compression deformity with marrow edema present on the STIR images. Chronic appearing central upper endplate depression at L1 without overall loss of height of the vertebral body Assessment & Plan - Diagnosis (1) Acute hypercapnic respiratory failure Is this a current diagnosis for this admission?: Yes Plan: The CTA chest suggests patchy ground glass opacity throughout both lungs indicating mild pulmonary edema, the BNP was normal 2D echo was normal there was no dense consolidation worrisome for pneumonia the airways are patent, she was given a single dose of furosemide. She will required a noninvasive positive pressure ventilation with BiPAP (2) Acute respiratory acidosis Is this a current diagnosis for this admission?: Yes (3) Obesity hypoventilation syndrome Is this a current diagnosis for this admission?: Yes Plan: She has a history of obesity hypoventilation syndrome (4) Urinary tract infection Qualifiers: Urinary tract infection type: acute cystitis Hematuria presence: without hematuria Qualified Code(s): N30.00 - Acute cystitis without hematuria Is this a current diagnosis for this admission?: Yes
--- NOTE | 2017-05-18 18:47 | PDOC PROGRESS REPORT ---
Subjective Progress Note for:: 05/18/17 Subjective:: Patient was seen by the bedside, she has a low blood pressure today, she was given a bolus of normal saline, blood pressure is better controlled. The urine culture is growing negative rods, started on IV Levaquin for that Reason For Visit: ACUTE HYPERCAPNIC RESPIRATORY FAILURE,ACUTE Physical Exam Vital Signs: Temp Pulse Resp BP Pulse Ox 97.9 F 83 18 105/57 L 99 05/18/17 15:51 05/18/17 15:51 05/18/17 15:51 05/18/17 15:51 05/18/17 15:51 Intake & Output 05/17/17 05/18/17 05/19/17 06:59 06:59 06:59 Intake Total 418 430 Balance 418 430 Weight 74.1 kg General appearance: PRESENT: no acute distress Respiratory exam: PRESENT: clear to auscultation kim Cardiovascular exam: PRESENT: +S1, +S2 GI/Abdominal exam: PRESENT: soft Neurological exam: PRESENT: alert, CN II-XII grossly intact Results Laboratory Results: 05/18/17 07:07 05/18/17 07:07 05/17/17 05/17/17 05/17/17 18:00 18:55 18:55 WBC RBC Hgb Hct MCV MCH MCHC RDW Plt Count Seg Neutrophils % Lymphocytes % Monocytes % Eosinophils % Basophils % Absolute Neutrophils Absolute Lymphocytes Absolute Monocytes Absolute Eosinophils Absolute Basophils Carbonic Acid 1.63 H HCO3/H2CO3 Ratio 15:1 ABG pH 7.29 L ABG pCO2 54.2 H ABG pO2 90.4 ABG HCO3 25.6 ABG O2 Saturation 95.9 ABG Base Excess -1.4 FiO2 2L Sodium Potassium Chloride Carbon Dioxide Anion Gap BUN Creatinine Est GFR ( Amer) Est GFR (Non-Af Amer) Glucose Calcium Phosphorus 5.0 H Magnesium 1.5 L Total Bilirubin AST ALT Alkaline Phosphatase Ammonia < 8.7 L Total Protein Albumin Triglycerides Cholesterol LDL Cholesterol Direct VLDL Cholesterol HDL Cholesterol Amylase 36 Lipase 81.3 TSH Free T4 05/17/17 05/18/17 05/18/17 18:55 07:07 07:07 WBC 4.1 RBC 3.35 L Hgb 10.7 L Hct 31.2 L MCV 93 MCH 31.8 MCHC 34.1 RDW 14.6 H Plt Count 145 L Seg Neutrophils % Not Reportable Lymphocytes % Not Reportable Monocytes % Not Reportable Eosinophils % Not Reportable Basophils % Not Reportable Absolute Neutrophils Not Reportable Absolute Lymphocytes Not Reportable Absolute Monocytes Not Reportable Absolute Eosinophils Not Reportable Absolute Basophils Not Reportable Carbonic Acid HCO3/H2CO3 Ratio ABG pH ABG pCO2 ABG pO2 ABG HCO3 ABG O2 Saturation ABG Base Excess FiO2 Sodium 138.3 Potassium 4.9 Chloride 102 Carbon Dioxide 35 H Anion Gap 2 L BUN 30 H Creatinine 0.88 Est GFR ( Amer) > 60 Est GFR (Non-Af Amer) > 60 Glucose 76 Calcium 9.0 Phosphorus Magnesium Total Bilirubin 0.3 AST 18 ALT 21 Alkaline Phosphatase 33 L Ammonia Total Protein 5.4 L Albumin 2.5 L Triglycerides 187 H Cholesterol 118.51 LDL Cholesterol Direct 49 VLDL Cholesterol 37.4 H HDL Cholesterol 28 L Amylase Lipase TSH 1.36 Free T4 2.24 H 05/17/17 05/17/17 05/17/17 18:55 18:55 18:55 Creatine Kinase 27 L CK-MB (CK-2) 0.78 Troponin I < 0.012 NT-Pro-B Natriuret Pep 36 05/18/17 05/18/17 05/18/17 01:00 01:00 07:07 Creatine Kinase < 20 L < 20 L CK-MB (CK-2) 0.43 Troponin I < 0.012 NT-Pro-B Natriuret Pep 05/18/17 07:07 Creatine Kinase CK-MB (CK-2) 0.35 Troponin I < 0.012 NT-Pro-B Natriuret Pep Impressions: Cervical Spine CT 05/17/17 11:23 IMPRESSION: NO ACUTE OR SIGNIFICANT FINDINGS IN THE CERVICAL SPINE. Chest/Abdomen CTA 05/17/17 11:23 IMPRESSION: No CT angio evidence of acute pulmonary emboli Ground-glass opacity in both lungs worrisome for pulmonary edema or fluid overload Cardiomegaly Subacute upper endplate T11 compression deformity, new compared to prior CT angio chest 03/02/[address] 05/17/17 11:23 IMPRESSION: No evidence of calvarial fracture or intracranial hemorrhage. Persistent appearance of chronic left maxillary sinusitis. EVIDENCE OF ACUTE STROKE: NO. Renal Ultrasound 05/17/17 14:54 IMPRESSION: Left upper pole renal cortical cyst. Thoracic Spine MRI 05/17/17 14:55 IMPRESSION: Very limited study due to patient motion artifact. T11 subacute upper endplate compression deformity with marrow edema present on the STIR images. Chronic appearing central upper endplate depression at L1 without overall loss of height of the vertebral body Assessment & Plan - Diagnosis (1) Acute hypercapnic respiratory failure Is this a current diagnosis for this admission?: Yes (2) Acute respiratory acidosis Is this a current diagnosis for this admission?: Yes (3) Obesity hypoventilation syndrome Is this a current diagnosis for this admission?: Yes (4) Urinary tract infection Qualifiers: Urinary tract infection type: acute cystitis Hematuria presence: without hematuria Qualified Code(s): N30.00 - Acute cystitis without hematuria Is this a current diagnosis for this admission?: Yes (5) Hypotension Qualifiers: Hypotension type: other hypotension type Qualified Code(s): I95.89 - Other hypotension Is this a current diagnosis for this admission?: Yes Plan: Start IV fluid with normal saline at 70 cc/h
[2017-05-18] MEDS: TRAZODONE HCL 50 MG TABLET PO SCH (21:26)
[2017-05-18] MEDS: DIVALPROEX SODIUM 500 MG TAB.SR.24H PO SCH (21:26)
[2017-05-18] MEDS: ATORVASTATIN CALCIUM 10 MG TABLET PO SCH (21:26)
[2017-05-18] MEDS: MAGNESIUM OXIDE 400 MG TABLET PO SCH (21:26)
[2017-05-18] MEDS: DOXAZOSIN MESYLATE 2 MG TABLET PO SCH (22:49)
[2017-05-19] MEDS: NORMAL SALINE 1000 ML 1,000 ML IV PRN (03:46)
[2017-05-19 05:05] LABS: ABSOLUTE EOSINOPHILS # (AUTO) 0.1 10^3/uL (0.0-0.6); ABSOLUTE LYMPHOCYTES (AUTO) 2.1 10^3/uL (0.5-4.7); ABSOLUTE MONOCYTES (AUTO) 0.4 10^3/uL (0.1-1.4); ABSOLUTE NEUT (AUTO) 1.4 10^3/uL (1.7-8.2); BASOPHILS % (AUTO) 0.3 % (0-2); EOSINOPHILS % (AUTO) 3.1 % (0-6); HEMATOCRIT 30.7 % (36.0-47.0); HEMOGLOBIN 10.5 g/dL (12.0-15.5); LYMPHOCYTES % (AUTO) 52.2 % (13-45); MEAN CORPUSCULAR HEMOGLOBIN 31.7 pg (27.0-33.4); MEAN CORPUSCULAR HGB CONC 34.3 g/dL (32.0-36.0); MEAN CORPUSCULAR VOLUME 93 fl (80-97); MONOCYTES % (AUTO) 9.9 % (3-13); PLATELET COUNT 168 10^3/uL (150-450); RED BLOOD COUNT 3.32 10^6/uL (3.72-5.28); RED CELL DISTRIBUTION WIDTH 14.1 % (11.5-14.0); SEGMENTED NEUTROPHILS % (AUTO) 34.5 % (42-78); TOTAL CELLS COUNTED % (AUTO) 100 %
[2017-05-19] MEDS: LANSOPRAZOLE 15 MG TAB.RAP.DR PO SCH (05:14)
[2017-05-19 05:26] LABS: ALANINE AMINOTRANSFERASE 23 U/L (9-52); ALBUMIN 2.6 g/dL (3.5-5.0); ALKALINE PHOSPHATASE 36 U/L (38-126); ASPARTATE AMINO TRANSFERASE 17 U/L (14-36); BILIRUBIN,DIRECT 0.2 mg/dL (0.0-0.4); BILIRUBIN,TOTAL 0.2 mg/dL (0.2-1.3); BLOOD UREA NITROGEN 17 mg/dL (7-20); CALCIUM 9.1 mg/dL (8.4-10.2); CHLORIDE 101 mmol/L (98-107); GLUCOSE 70 mg/dL (75-110); POTASSIUM 4.7 mmol/L (3.6-5.0); TOTAL PROTEIN 5.5 g/dL (6.3-8.2)
[2017-05-19 05:32] LABS: CARBON DIOXIDE 36 mmol/L (22-30); SODIUM 139.5 mmol/L (137-145)
[2017-05-19 05:36] LABS: ANION GAP 3 (5-19)
[2017-05-19] MEDS: IPRATROPIUM/ALBUTEROL 0.5-2.5 MG/3 ML AMPUL NEB SCH ×3 (07:55→19:49)
--- NOTE | 2017-05-19 08:19 | CONSULT/HISTORY AND PHYSICAL E ---
Consultation/History and Physical PATIENT NAME: STEVE CONKLIN : 1970 AGE: 47Y DATE: 05/18/2017 ROOM: 305 CHIEF COMPLAINT: Not available. HISTORY OF PRESENT ILLNESS: The patient was readmitted yesterday for an unwitnessed fall at her nursing facility and scans and workup showed a new compression fracture at T11. We were unable to really arouse the patient from sleep today. Per the patient's nurse she was not complaining of any pain. Not currently prescribed any pain medications and not asking for anything either. But for a brief period of time where she was arousable she responded "no" when asked if she was having any pain in her back. PAST MEDICAL HISTORY: Hyperlipidemia, COPD, asthma, migraines, seizures, DM type 2, GERD, bipolar, depression, schizoaffective disorder. SURGICAL HISTORY: Cholecystectomy. SOCIAL HISTORY: No tobacco, alcohol, or illicit drug use. Lives in an assisted living facility. MEDICATIONS: See MAR. ALLERGIES: IBUPROFEN, TYLENOL, ASPIRIN ALL CAUSED HER LIPS TO SWELL IN THE PAST. REVIEW OF SYSTEMS: Per the HPI. DIAGNOSTICS: MRI of T-spine completed on 05/17, impression showed T11 subacute upper endplate compression deformity with marrow edema present on STIR images. There is also a chronic appearing central upper endplate depression at L1 without overall loss of height of the vertebral body which could be considered an old fracture. PHYSICAL EXAMINATION: VITAL SIGNS: Blood pressure was low at 82/30 left arm supine, pulse was 90, respirations 16, O2 is 96 on 2 liters of O2 via nasal cannula. GENERAL: A well-developed, well-nourished, obese female lying supine in the bed asleep. She was aroused with shaking but it was very brief and quickly returned to sleep. Physical exam otherwise limited due to lack of arousal. Respirations nonlabored and again she is on O2 via nasal cannula. ASSESSMENT: T11 compression fracture, acute, asymptomatic. PLAN: The patient reports no pain. No evident intervention needed. Consult as needed if develops pain. NERI Chao PA-C for Travon Michaels M.D. and Dorene Gerardo M.D. DICTATING PHYSICIAN: NERI CHAO PA-C [id number] PHY#: [id number] ID: [id number] JOB#: [id number] ACCT: [id number] cc:HANNAH CHAO M.D. > EUSEBIO
[2017-05-19] MEDS: HALOPERIDOL 5 MG TABLET PO SCH (10:42)
[2017-05-19] MEDS: BENZTROPINE MESYLATE 1 MG TABLET PO SCH ×2 (10:42→22:25)
[2017-05-19] MEDS: DULOXETINE HCL 30 MG CAPSULE.DR PO SCH ×2 (10:42→22:24)
[2017-05-19] MEDS: SITAGLIPTIN PHOSPHATE 50 MG TABLET PO SCH (10:42)
[2017-05-19] MEDS: ENOXAPARIN SODIUM INJ 40 MG/0.4 ML DISP.SYRIN SUBCUT SCH (10:43)
[2017-05-19] MEDS: FLUTICASONE NASAL SPRAY 50 MCG/SPRY 120 SPRAY/16 GM NASL SCH ×2 (10:43→22:27)
[2017-05-19] MEDS: LISINOPRIL 10 MG TABLET PO SCH (10:49)
--- NOTE | 2017-05-19 13:52 | PDOC PROGRESS REPORT ---
Subjective Progress Note for:: 05/19/17 Subjective:: Patient seen by the bedside, she is responding to treatment, discharge planning these making arrangement for placement in a [facility] home Reason For Visit: ACUTE HYPERCAPNIC RESPIRATORY FAILURE,ACUTE Physical Exam Vital Signs: Temp Pulse Resp BP Pulse Ox 98.0 F 80 16 107/66 93 05/19/17 11:56 05/19/17 13:35 05/19/17 13:35 05/19/17 11:56 05/19/17 13:35 Intake & Output 05/18/17 05/19/17 05/20/17 06:59 06:59 06:59 Intake Total 418 1530 0 Balance 418 1530 0 Weight 74.1 kg 74.2 kg General appearance: PRESENT: no acute distress Head exam: PRESENT: atraumatic, normocephalic Eye exam: PRESENT: conjunctiva pink, EOMI, PERRLA Ear exam: PRESENT: normal external ear exam Mouth exam: PRESENT: moist, tongue midline Neck exam: PRESENT: full ROM Respiratory exam: PRESENT: clear to auscultation kim Cardiovascular exam: PRESENT: RRR, +S1, +S2 Pulses: PRESENT: normal dorsalis pedis pul, +2 pedal pulses bilateral Vascular exam: PRESENT: normal capillary refill GI/Abdominal exam: PRESENT: normal bowel sounds, soft Rectal exam: PRESENT: deferred Neurological exam: PRESENT: alert, awake, oriented to person, oriented to place , oriented to time, oriented to situation, CN II-XII grossly intact. ABSENT: motor sensory deficit Psychiatric exam: PRESENT: appropriate affect, normal mood. ABSENT: homicidal ideation, suicidal ideation Skin exam: PRESENT: dry, intact, warm. ABSENT: cyanosis, rash Results Laboratory Results: 05/19/17 04:25 05/19/17 04:25 05/19/17 05/19/17 04:25 04:25 WBC 4.0 RBC 3.32 L Hgb 10.5 L Hct 30.7 L MCV 93 MCH 31.7 MCHC 34.3 RDW 14.1 H Plt Count 168 Seg Neutrophils % 34.5 L Lymphocytes % 52.2 H Monocytes % 9.9 Eosinophils % 3.1 Basophils % 0.3 Absolute Neutrophils 1.4 L Absolute Lymphocytes 2.1 Absolute Monocytes 0.4 Absolute Eosinophils 0.1 Absolute Basophils 0.0 Sodium 139.5 Potassium 4.7 Chloride 101 Carbon Dioxide 36 H Anion Gap 3 L BUN 17 Creatinine 0.67 Est GFR ( Amer) > 60 Est GFR (Non-Af Amer) > 60 Glucose 70 L Calcium 9.1 Total Bilirubin 0.2 AST 17 ALT 23 Alkaline Phosphatase 36 L Total Protein 5.5 L Albumin 2.6 L 05/17/17 05/17/17 05/17/17 18:55 18:55 18:55 Creatine Kinase 27 L CK-MB (CK-2) 0.78 Troponin I < 0.012 NT-Pro-B Natriuret Pep 36 05/18/17 05/18/17 05/18/17 01:00 01:00 07:07 Creatine Kinase < 20 L < 20 L CK-MB (CK-2) 0.43 Troponin I < 0.012 NT-Pro-B Natriuret Pep 05/18/17 07:07 Creatine Kinase CK-MB (CK-2) 0.35 Troponin I < 0.012 NT-Pro-B Natriuret Pep Impressions: Cervical Spine CT 05/17/17 11:23 IMPRESSION: NO ACUTE OR SIGNIFICANT FINDINGS IN THE CERVICAL SPINE. Chest/Abdomen CTA 05/17/17 11:23 IMPRESSION: No CT angio evidence of acute pulmonary emboli Ground-glass opacity in both lungs worrisome for pulmonary edema or fluid overload Cardiomegaly Subacute upper endplate T11 compression deformity, new compared to prior CT angio chest 03/02/[address] 05/17/17 11:23 IMPRESSION: No evidence of calvarial fracture or intracranial hemorrhage. Persistent appearance of chronic left maxillary sinusitis. EVIDENCE OF ACUTE STROKE: NO. Renal Ultrasound 05/17/17 14:54 IMPRESSION: Left upper pole renal cortical cyst. Thoracic Spine MRI 05/17/17 14:55 IMPRESSION: Very limited study due to patient motion artifact. T11 subacute upper endplate compression deformity with marrow edema present on the STIR images. Chronic appearing central upper endplate depression at L1 without overall loss of height of the vertebral body Assessment & Plan - Diagnosis (1) Acute hypercapnic respiratory failure Is this a current diagnosis for this admission?: Yes (2) Acute respiratory acidosis Is this a current diagnosis for this admission?: Yes (3) Obesity hypoventilation syndrome Is this a current diagnosis for this admission?: Yes (4) Urinary tract infection Qualifiers: Urinary tract infection type: acute cystitis Hematuria presence: without hematuria Qualified Code(s): N30.00 - Acute cystitis without hematuria Is this a current diagnosis for this admission?: Yes (5) Hypotension Qualifiers: Hypotension type: other hypotension type Qualified Code(s): I95.89 - Other hypotension Is this a current diagnosis for this admission?: Yes
[2017-05-19] MEDS: LEVOFLOXACIN 750 MG TABLET PO SCH (16:03)
[2017-05-19] MEDS: TRAZODONE HCL 50 MG TABLET PO SCH (22:24)
[2017-05-19] MEDS: DIVALPROEX SODIUM 500 MG TAB.SR.24H PO SCH (22:24)
[2017-05-19] MEDS: MAGNESIUM OXIDE 400 MG TABLET PO SCH (22:24)
[2017-05-19] MEDS: ATORVASTATIN CALCIUM 10 MG TABLET PO SCH (22:25)
[2017-05-19] MEDS: DOXAZOSIN MESYLATE 2 MG TABLET PO SCH (22:25)
[2017-05-20] MEDS: NORMAL SALINE 1000 ML 1,000 ML IV PRN ×2 (00:44→20:40)
[2017-05-20] MEDS: LANSOPRAZOLE 15 MG TAB.RAP.DR PO SCH (05:02)
[2017-05-20 05:41] LABS: ABSOLUTE EOSINOPHILS # (AUTO) 0.1 10^3/uL (0.0-0.6); ABSOLUTE LYMPHOCYTES (AUTO) 2.1 10^3/uL (0.5-4.7); ABSOLUTE MONOCYTES (AUTO) 0.4 10^3/uL (0.1-1.4); ABSOLUTE NEUT (AUTO) 1.4 10^3/uL (1.7-8.2); BASOPHILS % (AUTO) 0.2 % (0-2); EOSINOPHILS % (AUTO) 2.7 % (0-6); HEMATOCRIT 31.6 % (36.0-47.0); HEMOGLOBIN 10.8 g/dL (12.0-15.5); MEAN CORPUSCULAR HEMOGLOBIN 31.8 pg (27.0-33.4); MEAN CORPUSCULAR HGB CONC 34.3 g/dL (32.0-36.0); MEAN CORPUSCULAR VOLUME 93 fl (80-97); MONOCYTES % (AUTO) 9.2 % (3-13); PLATELET COUNT 168 10^3/uL (150-450); RED CELL DISTRIBUTION WIDTH 14.6 % (11.5-14.0); SEGMENTED NEUTROPHILS % (AUTO) 35.9 % (42-78); TOTAL CELLS COUNTED % (AUTO) 100 %
[2017-05-20 05:54] LABS: ALANINE AMINOTRANSFERASE 18 U/L (9-52); ALBUMIN 2.8 g/dL (3.5-5.0); ALKALINE PHOSPHATASE 37 U/L (38-126); ANION GAP 5 (5-19); ASPARTATE AMINO TRANSFERASE 18 U/L (14-36); BILIRUBIN,DIRECT 0.2 mg/dL (0.0-0.4); BILIRUBIN,TOTAL 0.2 mg/dL (0.2-1.3); BLOOD UREA NITROGEN 9 mg/dL (7-20); CALCIUM 9.3 mg/dL (8.4-10.2); CARBON DIOXIDE 31 mmol/L (22-30); CHLORIDE 101 mmol/L (98-107); GLUCOSE 73 mg/dL (75-110); POTASSIUM 4.8 mmol/L (3.6-5.0); SODIUM 137.4 mmol/L (137-145); TOTAL PROTEIN 5.7 g/dL (6.3-8.2)
[2017-05-20] MEDS: IPRATROPIUM/ALBUTEROL 0.5-2.5 MG/3 ML AMPUL NEB SCH ×3 (07:53→19:44)
[2017-05-20] MEDS: LISINOPRIL 10 MG TABLET PO SCH (10:07)
[2017-05-20] MEDS: DULOXETINE HCL 30 MG CAPSULE.DR PO SCH ×2 (10:07→21:31)
[2017-05-20] MEDS: HALOPERIDOL 5 MG TABLET PO SCH (10:07)
[2017-05-20] MEDS: BENZTROPINE MESYLATE 1 MG TABLET PO SCH ×2 (10:08→21:32)
[2017-05-20] MEDS: ENOXAPARIN SODIUM INJ 40 MG/0.4 ML DISP.SYRIN SUBCUT SCH (10:08)
[2017-05-20] MEDS: SITAGLIPTIN PHOSPHATE 50 MG TABLET PO SCH (10:08)
[2017-05-20] MEDS: FLUTICASONE NASAL SPRAY 50 MCG/SPRY 120 SPRAY/16 GM NASL SCH ×2 (10:10→21:32)
--- NOTE | 2017-05-20 13:20 | PDOC PROGRESS REPORT ---
Subjective Progress Note for:: 05/20/17 Subjective:: Nursing staff reported patient complain about right leg and back pain. Patient denied any chest pain or difficulty with breathing. No nausea, vomiting or abdominal pain. Tolerating oral feeding. No reported fever or chills. Reason For Visit: ACUTE HYPERCAPNIC RESPIRATORY FAILURE,ACUTE Physical Exam Vital Signs: Temp Pulse Resp BP Pulse Ox 98.0 F 119 H 18 106/91 H 98 05/20/17 11:04 05/20/17 11:04 05/20/17 11:04 05/20/17 11:04 05/20/17 11:04 Intake & Output 05/19/17 05/20/17 05/21/17 06:59 06:59 06:59 Intake Total 1530 1400 Balance 1530 1400 Weight 74.2 kg 73.4 kg General appearance: PRESENT: no acute distress, obese Head exam: PRESENT: atraumatic, normocephalic Eye exam: PRESENT: conjunctiva pink, EOMI, PERRLA. ABSENT: scleral icterus Mouth exam: PRESENT: moist Respiratory exam: PRESENT: clear to auscultation kim Cardiovascular exam: PRESENT: RRR. ABSENT: diastolic murmur, rubs, systolic murmur Vascular exam: PRESENT: normal capillary refill. ABSENT: pallor GI/Abdominal exam: PRESENT: normal bowel sounds, soft. ABSENT: distended, guarding, mass, organolmegaly, rebound, tenderness Rectal exam: PRESENT: deferred Extremities exam: ABSENT: pedal edema Musculoskeletal exam: PRESENT: normal inspection Neurological exam: PRESENT: alert, awake Psychiatric exam: ABSENT: agitated Skin exam: PRESENT: dry, warm, other - chapped lips Results Laboratory Results: 05/20/17 04:30 05/20/17 04:30 05/20/17 05/20/17 04:30 04:30 WBC 4.0 RBC 3.40 L Hgb 10.8 L Hct 31.6 L MCV 93 MCH 31.8 MCHC 34.3 RDW 14.6 H Plt Count 168 Seg Neutrophils % 35.9 L Lymphocytes % 52.0 H Monocytes % 9.2 Eosinophils % 2.7 Basophils % 0.2 Absolute Neutrophils 1.4 L Absolute Lymphocytes 2.1 Absolute Monocytes 0.4 Absolute Eosinophils 0.1 Absolute Basophils 0.0 Sodium 137.4 Potassium 4.8 Chloride 101 Carbon Dioxide 31 H Anion Gap 5 BUN 9 Creatinine 0.61 Est GFR ( Amer) > 60 Est GFR (Non-Af Amer) > 60 Glucose 73 L Calcium 9.3 Total Bilirubin 0.2 AST 18 ALT 18 Alkaline Phosphatase 37 L Total Protein 5.7 L Albumin 2.8 L 05/17/17 05/17/17 05/17/17 18:55 18:55 18:55 Creatine Kinase 27 L CK-MB (CK-2) 0.78 Troponin I < 0.012 NT-Pro-B Natriuret Pep 36 05/18/17 05/18/17 05/18/17 01:00 01:00 07:07 Creatine Kinase < 20 L < 20 L CK-MB (CK-2) 0.43 Troponin I < 0.012 NT-Pro-B Natriuret Pep 05/18/17 07:07 Creatine Kinase CK-MB (CK-2) 0.35 Troponin I < 0.012 NT-Pro-B Natriuret Pep Impressions: Cervical Spine CT 05/17/17 11:23 IMPRESSION: NO ACUTE OR SIGNIFICANT FINDINGS IN THE CERVICAL SPINE. Chest/Abdomen CTA 05/17/17 11:23 IMPRESSION: No CT angio evidence of acute pulmonary emboli Ground-glass opacity in both lungs worrisome for pulmonary edema or fluid overload Cardiomegaly Subacute upper endplate T11 compression deformity, new compared to prior CT angio chest 03/02/[address] 05/17/17 11:23 IMPRESSION: No evidence of calvarial fracture or intracranial hemorrhage. Persistent appearance of chronic left maxillary sinusitis. EVIDENCE OF ACUTE STROKE: NO. Renal Ultrasound 05/17/17 14:54 IMPRESSION: Left upper pole renal cortical cyst. Thoracic Spine MRI 05/17/17 14:55 IMPRESSION: Very limited study due to patient motion artifact. T11 subacute upper endplate compression deformity with marrow edema present on the STIR images. Chronic appearing central upper endplate depression at L1 without overall loss of height of the vertebral body Assessment & Plan - Diagnosis (1) Acute hypercapnic respiratory failure Is this a current diagnosis for this admission?: Yes Plan: See covering attending physician orders. (2) Traumatic compression fracture of T11 thoracic vertebra Qualifiers: Encounter type: initial encounter Fracture type: closed Qualified Code(s) : S22.080A - Wedge compression fracture of T11-T12 vertebra, initial encounter for closed fracture Is this a current diagnosis for this admission?: Yes Plan: See covering attending physician orders. She will benefit from Duloxetine therapy for her thoracic and lumbar spine compression fractures. Start on Acetaminophen 975 mg po tid prn pain. (3) Type 2 diabetes mellitus Qualifiers: Diabetes mellitus correction insulin use: without superintendent terminal use Diabetes mellitus complication status: with unspecified complications Qualified Code(s) : E11.8 - Type 2 diabetes mellitus with unspecified complications Is this a current diagnosis for this admission?: Yes Plan: See covering attending physician orders. (4) Schizophrenia Qualifiers: Schizophrenia type: unspecified Qualified Code(s): F20.9 - Schizophrenia, unspecified Is this a current diagnosis for this admission?: Yes Plan: See covering attending physician orders. (5) Obesity hypoventilation syndrome Is this a current diagnosis for this admission?: Yes Plan: See covering attending physician orders. (6) BMI 31.0-31.9,adult Is this a current diagnosis for this admission?: Yes Plan: See covering attending physician orders. - Time Time Spent with patient: 25-34 minutes Medications reviewed and adjusted accordingly: Yes Anticipated discharge: SNF Within: Other - Inpatient Certification Based on my medical assessment, after consideration of the patient's comorbidities, presenting symptoms, or acuity I expect that the services needed warrant INPATIENT care.: Yes I certify that my determination is in accordance with my understanding of Medicare's requirements for reasonable and necessary INPATIENT services [42 CFR 412.3e].: Yes Medical Necessity: Need Close Monitoring Due to Risk of Patient Decompensation, Need For Continuous Telemetry Monitoring, Risk of Complication if Not Cared For in Hospital Post Hospital Care: D/C or Transfer Summary - Plan Summary Plan Summary: See covering attending physician orders.
[2017-05-20] MEDS: LEVOFLOXACIN 750 MG TABLET PO SCH (15:49)
[2017-05-20] MEDS: DOXAZOSIN MESYLATE 2 MG TABLET PO SCH (21:31)
[2017-05-20] MEDS: MAGNESIUM OXIDE 400 MG TABLET PO SCH (21:32)
[2017-05-20] MEDS: DIVALPROEX SODIUM 500 MG TAB.SR.24H PO SCH (21:32)
[2017-05-20] MEDS: ATORVASTATIN CALCIUM 10 MG TABLET PO SCH (21:32)
[2017-05-20] MEDS: TRAZODONE HCL 50 MG TABLET PO SCH (21:32)
[2017-05-21] MEDS: LANSOPRAZOLE 15 MG TAB.RAP.DR PO SCH (06:13)
[2017-05-21] MEDS: IPRATROPIUM/ALBUTEROL 0.5-2.5 MG/3 ML AMPUL NEB SCH ×2 (07:55→13:53)
[2017-05-21] MEDS: LISINOPRIL 10 MG TABLET PO SCH (09:34)
[2017-05-21] MEDS: FLUTICASONE NASAL SPRAY 50 MCG/SPRY 120 SPRAY/16 GM NASL SCH ×2 (09:34→21:21)
[2017-05-21] MEDS: ENOXAPARIN SODIUM INJ 40 MG/0.4 ML DISP.SYRIN SUBCUT SCH (09:34)
[2017-05-21] MEDS: DULOXETINE HCL 30 MG CAPSULE.DR PO SCH ×2 (09:35→21:20)
[2017-05-21] MEDS: SITAGLIPTIN PHOSPHATE 50 MG TABLET PO SCH (09:35)
[2017-05-21] MEDS: HALOPERIDOL 5 MG TABLET PO SCH (09:35)
[2017-05-21] MEDS: BENZTROPINE MESYLATE 1 MG TABLET PO SCH ×2 (09:35→21:20)
--- NOTE | 2017-05-21 09:44 | PDOC PROGRESS REPORT ---
Subjective Progress Note for:: 05/21/17 Subjective:: Patient denied any chest pain or difficulty with breathing. No nausea, vomiting or abdominal pain. No reported fever or chills. No reported pain so far today. Reason For Visit: ACUTE HYPERCAPNIC RESPIRATORY FAILURE,ACUTE Physical Exam Vital Signs: Temp Pulse Resp BP Pulse Ox 97.8 F 82 18 114/70 92 05/21/17 08:11 05/21/17 08:11 05/21/17 08:11 05/21/17 08:11 05/21/17 08:11 Intake & Output 05/20/17 05/21/17 05/22/17 06:59 06:59 06:59 Intake Total 1400 1200 Balance 1400 1200 Weight 73.4 kg 73.5 kg Physical Exam: General appearance: PRESENT: no acute distress, obese Head exam: PRESENT: atraumatic, normocephalic Eye exam: PRESENT: conjunctiva pink, EOMI, PERRLA. ABSENT: scleral icterus Mouth exam: PRESENT: moist Respiratory exam: PRESENT: clear to auscultation kim Cardiovascular exam: PRESENT: RRR. ABSENT: diastolic murmur, rubs, systolic murmur GI/Abdominal exam: PRESENT: normal bowel sounds, soft. ABSENT: distended, guarding, mass, organomegaly, rebound, tenderness Rectal exam: PRESENT: deferred Extremities exam: ABSENT: pedal edema Musculoskeletal exam: PRESENT: normal inspection Neurological exam: PRESENT: alert, awake Psychiatric exam: ABSENT: agitated Skin exam: PRESENT: dry, warm, other - chapped lips Results Laboratory Results: 05/20/17 04:30 05/20/17 04:30 05/17/17 05/17/17 05/17/17 18:55 18:55 18:55 Creatine Kinase 27 L CK-MB (CK-2) 0.78 Troponin I < 0.012 NT-Pro-B Natriuret Pep 36 05/18/17 05/18/17 05/18/17 01:00 01:00 07:07 Creatine Kinase < 20 L < 20 L CK-MB (CK-2) 0.43 Troponin I < 0.012 NT-Pro-B Natriuret Pep 05/18/17 07:07 Creatine Kinase CK-MB (CK-2) 0.35 Troponin I < 0.012 NT-Pro-B Natriuret Pep Impressions: Cervical Spine CT 05/17/17 11:23 IMPRESSION: NO ACUTE OR SIGNIFICANT FINDINGS IN THE CERVICAL SPINE. Chest/Abdomen CTA 05/17/17 11:23 IMPRESSION: No CT angio evidence of acute pulmonary emboli Ground-glass opacity in both lungs worrisome for pulmonary edema or fluid overload Cardiomegaly Subacute upper endplate T11 compression deformity, new compared to prior CT angio chest 03/02/[address] 05/17/17 11:23 IMPRESSION: No evidence of calvarial fracture or intracranial hemorrhage. Persistent appearance of chronic left maxillary sinusitis. EVIDENCE OF ACUTE STROKE: NO. Renal Ultrasound 05/17/17 14:54 IMPRESSION: Left upper pole renal cortical cyst. Thoracic Spine MRI 05/17/17 14:55 IMPRESSION: Very limited study due to patient motion artifact. T11 subacute upper endplate compression deformity with marrow edema present on the STIR images. Chronic appearing central upper endplate depression at L1 without overall loss of height of the vertebral body Assessment & Plan - Diagnosis (1) Acute hypercapnic respiratory failure Is this a current diagnosis for this admission?: Yes (2) Traumatic compression fracture of T11 thoracic vertebra Qualifiers: Encounter type: initial encounter Fracture type: closed Qualified Code(s) : S22.080A - Wedge compression fracture of T11-T12 vertebra, initial encounter for closed fracture Is this a current diagnosis for this admission?: Yes (3) Type 2 diabetes mellitus Qualifiers: Diabetes mellitus technician terminal and repeater insulin use: without chcf use Diabetes mellitus complication status: with unspecified complications Qualified Code(s) : E11.8 - Type 2 diabetes mellitus with unspecified complications Is this a current diagnosis for this admission?: Yes (4) Schizophrenia Qualifiers: Schizophrenia type: unspecified Qualified Code(s): F20.9 - Schizophrenia, unspecified Is this a current diagnosis for this admission?: Yes (5) Obesity hypoventilation syndrome Is this a current diagnosis for this admission?: Yes (6) BMI 31.0-31.9,adult Is this a current diagnosis for this admission?: Yes (7) Pseudomonas aeruginosa infection Is this a current diagnosis for this admission?: Yes Plan: Continue Levofloxacin coverage for psuedomonas aeruginosa UTI management. - Time Time Spent with patient: 25-34 minutes Medications reviewed and adjusted accordingly: Yes Anticipated discharge: Other - Assisted living facility Within: Other - Inpatient Certification Based on my medical assessment, after consideration of the patient's comorbidities, presenting symptoms, or acuity I expect that the services needed warrant INPATIENT care.: Yes I certify that my determination is in accordance with my understanding of Medicare's requirements for reasonable and necessary INPATIENT services [42 CFR 412.3e].: Yes Medical Necessity: Need Close Monitoring Due to Risk of Patient Decompensation, Need For IV Fluids, Need For Continuous Telemetry Monitoring, Risk of Complication if Not Cared For in Hospital Post Hospital Care: D/C or Transfer Summary - Plan Summary Plan Summary: Continue current medication management.
[2017-05-21] MEDS: LEVOFLOXACIN 750 MG TABLET PO SCH (13:38)
[2017-05-21] MEDS ORDERED: IPRATROPIUM/ALBUTEROL 0.5-2.5 MG/3 ML AMPUL NEB PRN (14:05)
[2017-05-21] MEDS: NORMAL SALINE 1000 ML 1,000 ML IV PRN (18:08)
[2017-05-21] MEDS: DOXAZOSIN MESYLATE 2 MG TABLET PO SCH (21:20)
[2017-05-21] MEDS: DIVALPROEX SODIUM 500 MG TAB.SR.24H PO SCH (21:20)
[2017-05-21] MEDS: MAGNESIUM OXIDE 400 MG TABLET PO SCH (21:20)
[2017-05-21] MEDS: ATORVASTATIN CALCIUM 10 MG TABLET PO SCH (21:20)
[2017-05-21] MEDS: TRAZODONE HCL 50 MG TABLET PO SCH (21:20)
[2017-05-22] MEDS: LANSOPRAZOLE 15 MG TAB.RAP.DR PO SCH (06:16)
[2017-05-22] MEDS: BENZTROPINE MESYLATE 1 MG TABLET PO SCH ×2 (10:12→21:19)
[2017-05-22] MEDS: LISINOPRIL 10 MG TABLET PO SCH (10:12)
[2017-05-22] MEDS: HALOPERIDOL 5 MG TABLET PO SCH (10:12)
[2017-05-22] MEDS: DULOXETINE HCL 30 MG CAPSULE.DR PO SCH ×2 (10:13→21:21)
[2017-05-22] MEDS: FLUTICASONE NASAL SPRAY 50 MCG/SPRY 120 SPRAY/16 GM NASL SCH ×2 (10:13→21:22)
[2017-05-22] MEDS: ENOXAPARIN SODIUM INJ 40 MG/0.4 ML DISP.SYRIN SUBCUT SCH (10:13)
[2017-05-22] MEDS: SITAGLIPTIN PHOSPHATE 50 MG TABLET PO SCH (10:13)
[2017-05-22] MEDS: LEVOFLOXACIN 750 MG TABLET PO SCH (13:43)
--- NOTE | 2017-05-22 20:35 | PDOC TRANSFER SUMMARY ---
General - Admit/Disc Date/PCP Admission Date/Primary Care Provider: 05/17/17 15:33 Discharge Date: 05/23/17 - Discharge Diagnosis (1) Acute hypercapnic respiratory failure Is this a current diagnosis for this admission?: Yes (2) Acute respiratory acidosis Is this a current diagnosis for this admission?: Yes (3) Obesity hypoventilation syndrome Is this a current diagnosis for this admission?: Yes (4) Urinary tract infection Is this a current diagnosis for this admission?: Yes (5) Hypotension Is this a current diagnosis for this admission?: Yes - Additional Information Home Medications: Albuterol Sulfate [Ventolin HFA MDI 18 GM] 2 puff IH Q4HP PRN 05/10/17 Atorvastatin Calcium [Lipitor 10 mg Tablet] 10 mg PO QHS 05/10/17 Benztropine Mesylate 1 mg PO Q12 05/10/17 Bismuth Subsalicylate [Bismuth] 262 mg PO Q4HP PRN 05/10/17 Cetirizine HCl [Zyrtec 10 mg Tablet] 10 mg PO DAILY 05/10/17 Clonazepam [Klonopin] 0.25 mg PO Q12 05/10/17 Diphenhydramine HCl [Benadryl 25 mg Capsule] 50 mg PO QHS 05/10/17 Divalproex Sodium [Divalproex Sodium ER] 2,000 mg PO QHS 05/10/17 Docusate Sodium [Colace 100 mg Capsule] 100 mg PO BIDP PRN 05/10/17 Doxazosin Mesylate [Cardura 2 mg Tablet] 2 mg PO QHS 05/10/17 Duloxetine HCl [Cymbalta] 60 mg PO Q12 05/10/17 Fluticasone Propionate [Flonase Nasal Higgins 50 Mcg/Higgins 16 gm] 2 sprays NASL Q12 05/10/17 Haloperidol 10 mg PO DAILY 05/10/17 Lisinopril [Prinivil 40 mg Tablet] 40 mg PO DAILY 05/10/17 Lorazepam [Ativan 1 mg Tablet] 1 mg PO Q4HP PRN 05/10/17 Metformin HCl [Glucophage] 1,000 mg PO Q12 05/10/17 Pantoprazole Sodium [Protonix] 20 mg PO DAILY 05/10/17 Prazosin HCl [Minipress] 1 mg PO QHS 05/10/17 Sitagliptin Phosphate [Januvia] 100 mg PO DAILY 05/10/17 Trazodone HCl [Desyrel 50 mg Tablet] 50 mg PO QHS 05/10/17 Zolpidem Tartrate [Ambien 5 mg Tablet] 5 mg PO HSP PRN 05/10/17 Nystatin [Mycostatin Topical Powder 15 gm] 1 applic TOP BID 05/17/17 History of Present Illness Admission Date/PCP: 05/17/17 15:33 History of Present Illness: STEVE CONKLIN is a 47 year old female.She came to the emergency room for the evaluation of confusion associated with fall. The history was that she fell twice at the assisted living facility where she resides. She was recently admitted in this hospital for the evaluation of acute hypercapnic respiratory failure that was felt to be associated with obesity hypoventilation syndrome, a noninvasive positive pressure ventilation with BiPAP was recommended on discharge but this could not be provided because patient could not make efforts to do spirometry which was a requirement before the vendor could released the device for the patient to take with to the facility. In the emergency room she was evaluated if venous blood gas was done, pH was 7.24, PCO2 78.1 bicarbonate 32.6. CTA chest was done this was compared to CTA chest from previous CT scan of the chest, this showed patchy ground glass opacity throughout both lungs indicating mild pulmonary edema or fluid overload no pulmonary emboli was visualized in the main pulmonary arteries or the segmental branches also found was a subacute T11 endplate compression deformity, there is sclerosis in the upper half of the T11 vertebral body this is new when compared to CT scan from .CT head was done without contrast as part of the evaluation for the fall, there was no evidence of fracture or intracranial hemorrhage there was persistent appearance of chronic left maxillary sinusitis. MRI of the thoracic spine was done without contrast, it did again confirm chronic appearing minimal upper endplate central depression at L1 level this is unchanged from CT scan of the abdomen and pelvis from 03/20/2017 and she will upper endplate compression with marrow edema at T11 this represent a subacute compression deformity.The BNP was 37 this virtually rule out CHF, a 2D echo was done, it showed normal ejection fraction of left ventricle, normal wall thickness. Hospital Course Hospital Course: Patient was admitted for the management of acute hypercapnic respiratory failure due to obesity hypoventilation syndrome. She was managed with noninvasive positive pressure ventilation, BiPAP, she has underlining schizophrenia, she was not very compliant with the use of the BiPAP machine, she presently resides at assisted living facility at [facility], the plan is to transfer her to correction home for rehabilitation and probably long-term care. She was also empirically treated for UTI with IV antibiotic.She had episode of low blood pressure this was responsive to IV fluid therapy Physical Exam Vital Signs: Temp Pulse Resp BP Pulse Ox 98.1 F 94 19 110/65 94 05/22/17 19:41 05/22/17 19:41 05/22/17 19:41 05/22/17 19:41 05/22/17 19:41 Intake & Output 05/21/17 05/22/17 05/23/17 06:59 06:59 06:59 Intake Total 1200 2710 500 Balance 1200 2710 500 Weight 73.5 kg 78.7 kg General appearance: PRESENT: no acute distress, well-developed, well-nourished Head exam: PRESENT: atraumatic, normocephalic Eye exam: PRESENT: conjunctiva pink, EOMI, PERRLA Ear exam: PRESENT: normal external ear exam Mouth exam: PRESENT: moist, tongue midline Respiratory exam: PRESENT: clear to auscultation kim Cardiovascular exam: PRESENT: RRR, +S1, +S2 Pulses: PRESENT: normal dorsalis pedis pul Vascular exam: PRESENT: normal capillary refill GI/Abdominal exam: PRESENT: normal bowel sounds, soft Rectal exam: PRESENT: deferred Extremities exam: PRESENT: full ROM Neurological exam: PRESENT: alert Psychiatric exam: PRESENT: appropriate affect, normal mood Skin exam: PRESENT: dry, intact, warm. ABSENT: cyanosis, rash Results Laboratory Results: 05/20/17 04:30 05/20/17 04:30 05/17/17 05/17/17 05/17/17 18:55 18:55 18:55 Creatine Kinase 27 L CK-MB (CK-2) 0.78 Troponin I < 0.012 NT-Pro-B Natriuret Pep 36 05/18/17 05/18/17 05/18/17 01:00 01:00 07:07 Creatine Kinase < 20 L < 20 L CK-MB (CK-2) 0.43 Troponin I < 0.012 NT-Pro-B Natriuret Pep 05/18/17 07:07 Creatine Kinase CK-MB (CK-2) 0.35 Troponin I < 0.012 NT-Pro-B Natriuret Pep Impressions: Cervical Spine CT 05/17/17 11:23 IMPRESSION: NO ACUTE OR SIGNIFICANT FINDINGS IN THE CERVICAL SPINE. Chest/Abdomen CTA 05/17/17 11:23 IMPRESSION: No CT angio evidence of acute pulmonary emboli Ground-glass opacity in both lungs worrisome for pulmonary edema or fluid overload Cardiomegaly Subacute upper endplate T11 compression deformity, new compared to prior CT angio chest 03/02/[address] 05/17/17 11:23 IMPRESSION: No evidence of calvarial fracture or intracranial hemorrhage. Persistent appearance of chronic left maxillary sinusitis. EVIDENCE OF ACUTE STROKE: NO. Renal Ultrasound 05/17/17 14:54 IMPRESSION: Left upper pole renal cortical cyst. Thoracic Spine MRI 05/17/17 14:55 IMPRESSION: Very limited study due to patient motion artifact. T11 subacute upper endplate compression deformity with marrow edema present on the STIR images. Chronic appearing central upper endplate depression at L1 without overall loss of height of the vertebral body Qualifiers - * PATEINT BEING DISCHARGED WITH ANY OF THE FOLLOWING DIAGNOSIS?: No
[2017-05-22] MEDS: TRAZODONE HCL 50 MG TABLET PO SCH (21:21)
[2017-05-22] MEDS: DOXAZOSIN MESYLATE 2 MG TABLET PO SCH (21:21)
[2017-05-22] MEDS: ATORVASTATIN CALCIUM 10 MG TABLET PO SCH (21:21)
[2017-05-22] MEDS: MAGNESIUM OXIDE 400 MG TABLET PO SCH (21:21)
[2017-05-22] MEDS: DIVALPROEX SODIUM 500 MG TAB.SR.24H PO SCH (21:21)
[2017-05-23] MEDS: LANSOPRAZOLE 15 MG TAB.RAP.DR PO SCH (05:42)
[2017-05-23] MEDS: SITAGLIPTIN PHOSPHATE 50 MG TABLET PO SCH (09:38)
[2017-05-23] MEDS: BENZTROPINE MESYLATE 1 MG TABLET PO SCH ×2 (09:38→22:04)
[2017-05-23] MEDS: ENOXAPARIN SODIUM INJ 40 MG/0.4 ML DISP.SYRIN SUBCUT SCH (09:38)
[2017-05-23] MEDS: DULOXETINE HCL 30 MG CAPSULE.DR PO SCH ×2 (09:38→22:04)
[2017-05-23] MEDS: FLUTICASONE NASAL SPRAY 50 MCG/SPRY 120 SPRAY/16 GM NASL SCH ×2 (09:39→22:05)
[2017-05-23] MEDS: LISINOPRIL 10 MG TABLET PO SCH (09:39)
[2017-05-23] MEDS: HALOPERIDOL 5 MG TABLET PO SCH (09:39)
[2017-05-23] MEDS: LEVOFLOXACIN 750 MG TABLET PO SCH (14:39)
[2017-05-23] MEDS: DIVALPROEX SODIUM 500 MG TAB.SR.24H PO SCH (22:04)
[2017-05-23] MEDS: MAGNESIUM OXIDE 400 MG TABLET PO SCH (22:04)
[2017-05-23] MEDS: TRAZODONE HCL 50 MG TABLET PO SCH (22:04)
[2017-05-23] MEDS: ATORVASTATIN CALCIUM 10 MG TABLET PO SCH (22:04)
[2017-05-23] MEDS: DOXAZOSIN MESYLATE 2 MG TABLET PO SCH (22:05)
[2017-05-24] MEDS: LANSOPRAZOLE 15 MG TAB.RAP.DR PO SCH (05:44)
[2017-05-24] MEDS: ENOXAPARIN SODIUM INJ 40 MG/0.4 ML DISP.SYRIN SUBCUT SCH (09:37)
[2017-05-24] MEDS: LISINOPRIL 10 MG TABLET PO SCH (09:38)
[2017-05-24] MEDS: SITAGLIPTIN PHOSPHATE 50 MG TABLET PO SCH (09:38)
[2017-05-24] MEDS: FLUTICASONE NASAL SPRAY 50 MCG/SPRY 120 SPRAY/16 GM NASL SCH ×2 (09:38→21:54)
[2017-05-24] MEDS: DULOXETINE HCL 30 MG CAPSULE.DR PO SCH ×2 (09:38→21:55)
[2017-05-24] MEDS: HALOPERIDOL 5 MG TABLET PO SCH (09:38)
[2017-05-24] MEDS: BENZTROPINE MESYLATE 1 MG TABLET PO SCH ×2 (09:38→21:55)
[2017-05-24] MEDS: LEVOFLOXACIN 750 MG TABLET PO SCH (13:32)
[2017-05-24] MEDS: DIVALPROEX SODIUM 500 MG TAB.SR.24H PO SCH (21:54)
[2017-05-24] MEDS: TRAZODONE HCL 50 MG TABLET PO SCH (21:54)
[2017-05-24] MEDS: MAGNESIUM OXIDE 400 MG TABLET PO SCH (21:54)
[2017-05-24] MEDS: ATORVASTATIN CALCIUM 10 MG TABLET PO SCH (21:55)
[2017-05-24] MEDS: DOXAZOSIN MESYLATE 2 MG TABLET PO SCH (21:55)
[2017-05-25] MEDS: LANSOPRAZOLE 15 MG TAB.RAP.DR PO SCH (06:18)
[2017-05-25] MEDS: LISINOPRIL 10 MG TABLET PO SCH (09:39)
[2017-05-25] MEDS: DULOXETINE HCL 30 MG CAPSULE.DR PO SCH ×2 (09:39→21:53)
[2017-05-25] MEDS: BENZTROPINE MESYLATE 1 MG TABLET PO SCH ×2 (09:40→22:00)
[2017-05-25] MEDS: FLUTICASONE NASAL SPRAY 50 MCG/SPRY 120 SPRAY/16 GM NASL SCH ×2 (09:40→22:00)
[2017-05-25] MEDS: HALOPERIDOL 5 MG TABLET PO SCH (09:40)
[2017-05-25] MEDS: SITAGLIPTIN PHOSPHATE 50 MG TABLET PO SCH (09:40)
[2017-05-25] MEDS: ENOXAPARIN SODIUM INJ 40 MG/0.4 ML DISP.SYRIN SUBCUT SCH (09:41)
[2017-05-25] MEDS: LEVOFLOXACIN 750 MG TABLET PO SCH (13:37)
[2017-05-25] MEDS: TRAZODONE HCL 50 MG TABLET PO SCH (21:53)
[2017-05-25] MEDS: MAGNESIUM OXIDE 400 MG TABLET PO SCH (21:53)
[2017-05-25] MEDS: DOXAZOSIN MESYLATE 2 MG TABLET PO SCH (22:00)
[2017-05-25] MEDS: DIVALPROEX SODIUM 500 MG TAB.SR.24H PO SCH (22:00)
[2017-05-25] MEDS: ATORVASTATIN CALCIUM 10 MG TABLET PO SCH (22:00)
[2017-05-26] MEDS: LANSOPRAZOLE 15 MG TAB.RAP.DR PO SCH (06:02)
[2017-05-26] MEDS: ENOXAPARIN SODIUM INJ 40 MG/0.4 ML DISP.SYRIN SUBCUT SCH (10:28)
[2017-05-26] MEDS: DULOXETINE HCL 30 MG CAPSULE.DR PO SCH ×2 (10:28→21:56)
[2017-05-26] MEDS: BENZTROPINE MESYLATE 1 MG TABLET PO SCH ×2 (10:28→21:54)
[2017-05-26] MEDS: SITAGLIPTIN PHOSPHATE 50 MG TABLET PO SCH (10:28)
[2017-05-26] MEDS: HALOPERIDOL 5 MG TABLET PO SCH (10:28)
[2017-05-26] MEDS: FLUTICASONE NASAL SPRAY 50 MCG/SPRY 120 SPRAY/16 GM NASL SCH ×2 (10:38→21:59)
[2017-05-26] MEDS: LISINOPRIL 10 MG TABLET PO SCH (10:39)
[2017-05-26] MEDS: DOXAZOSIN MESYLATE 2 MG TABLET PO SCH (21:53)
[2017-05-26] MEDS: TRAZODONE HCL 50 MG TABLET PO SCH (21:54)
[2017-05-26] MEDS: DIVALPROEX SODIUM 500 MG TAB.SR.24H PO SCH (21:55)
[2017-05-26] MEDS: MAGNESIUM OXIDE 400 MG TABLET PO SCH (21:55)
[2017-05-26] MEDS: ATORVASTATIN CALCIUM 10 MG TABLET PO SCH (21:55)
[2017-05-27] MEDS: LANSOPRAZOLE 15 MG TAB.RAP.DR PO SCH (06:49)
[2017-05-27] MEDS: HALOPERIDOL 5 MG TABLET PO SCH (09:58)
[2017-05-27] MEDS: SITAGLIPTIN PHOSPHATE 50 MG TABLET PO SCH (09:58)
[2017-05-27] MEDS: BENZTROPINE MESYLATE 1 MG TABLET PO SCH ×2 (09:58→22:26)
[2017-05-27] MEDS: ENOXAPARIN SODIUM INJ 40 MG/0.4 ML DISP.SYRIN SUBCUT SCH (09:59)
[2017-05-27] MEDS: DULOXETINE HCL 30 MG CAPSULE.DR PO SCH ×2 (09:59→22:26)
[2017-05-27] MEDS: FLUTICASONE NASAL SPRAY 50 MCG/SPRY 120 SPRAY/16 GM NASL SCH ×2 (10:03→22:27)
[2017-05-27] MEDS: LISINOPRIL 10 MG TABLET PO SCH (10:03)
[2017-05-27] MEDS: DIVALPROEX SODIUM 500 MG TAB.SR.24H PO SCH (22:25)
[2017-05-27] MEDS: ATORVASTATIN CALCIUM 10 MG TABLET PO SCH (22:26)
[2017-05-27] MEDS: MAGNESIUM OXIDE 400 MG TABLET PO SCH (22:26)
[2017-05-27] MEDS: DOXAZOSIN MESYLATE 2 MG TABLET PO SCH (22:27)
[2017-05-27] MEDS: TRAZODONE HCL 50 MG TABLET PO SCH (22:27)
[2017-05-28] MEDS: LANSOPRAZOLE 15 MG TAB.RAP.DR PO SCH (06:03)
[2017-05-28] MEDS: ENOXAPARIN SODIUM INJ 40 MG/0.4 ML DISP.SYRIN SUBCUT SCH (09:11)
[2017-05-28] MEDS: DULOXETINE HCL 30 MG CAPSULE.DR PO SCH ×2 (09:12→21:31)
[2017-05-28] MEDS: HALOPERIDOL 5 MG TABLET PO SCH (09:12)
[2017-05-28] MEDS: BENZTROPINE MESYLATE 1 MG TABLET PO SCH ×2 (09:12→21:31)
[2017-05-28] MEDS: FLUTICASONE NASAL SPRAY 50 MCG/SPRY 120 SPRAY/16 GM NASL SCH ×2 (09:12→21:30)
[2017-05-28] MEDS: SITAGLIPTIN PHOSPHATE 50 MG TABLET PO SCH (09:12)
[2017-05-28] MEDS: LISINOPRIL 10 MG TABLET PO SCH (09:12)
--- NOTE | 2017-05-28 15:27 | PDOC PROGRESS REPORT ---
Subjective Progress Note for:: 05/28/17 Subjective:: Patient still awaiting placement, no acute events to address. Patient is already discharged. She is constipated Reason For Visit: ACUTE HYPERCAPNIC RESPIRATORY FAILURE,ACUTE Physical Exam Vital Signs: Temp Pulse Resp BP Pulse Ox 98.4 F 78 15 92/58 L 94 05/28/17 11:36 05/28/17 11:36 05/28/17 11:36 05/28/17 11:36 05/28/17 11:36 Intake & Output 05/27/17 05/28/17 05/29/17 06:59 06:59 06:59 Intake Total 707 571 118 Balance 707 571 118 Weight 72.3 kg 72.6 kg Results Laboratory Results: 05/20/17 04:30 05/20/17 04:30 05/17/17 05/17/17 05/17/17 18:55 18:55 18:55 Creatine Kinase 27 L CK-MB (CK-2) 0.78 Troponin I < 0.012 NT-Pro-B Natriuret Pep 36 05/18/17 05/18/17 05/18/17 01:00 01:00 07:07 Creatine Kinase < 20 L < 20 L CK-MB (CK-2) 0.43 Troponin I < 0.012 NT-Pro-B Natriuret Pep 05/18/17 07:07 Creatine Kinase CK-MB (CK-2) 0.35 Troponin I < 0.012 NT-Pro-B Natriuret Pep Impressions: Cervical Spine CT 05/17/17 11:23 IMPRESSION: NO ACUTE OR SIGNIFICANT FINDINGS IN THE CERVICAL SPINE. Chest/Abdomen CTA 05/17/17 11:23 IMPRESSION: No CT angio evidence of acute pulmonary emboli Ground-glass opacity in both lungs worrisome for pulmonary edema or fluid overload Cardiomegaly Subacute upper endplate T11 compression deformity, new compared to prior CT angio chest 03/02/[address] 05/17/17 11:23 IMPRESSION: No evidence of calvarial fracture or intracranial hemorrhage. Persistent appearance of chronic left maxillary sinusitis. EVIDENCE OF ACUTE STROKE: NO. Renal Ultrasound 05/17/17 14:54 IMPRESSION: Left upper pole renal cortical cyst. Thoracic Spine MRI 05/17/17 14:55 IMPRESSION: Very limited study due to patient motion artifact. T11 subacute upper endplate compression deformity with marrow edema present on the STIR images. Chronic appearing central upper endplate depression at L1 without overall loss of height of the vertebral body Assessment & Plan - Diagnosis (1) Acute hypercapnic respiratory failure Is this a current diagnosis for this admission?: Yes (2) Acute respiratory acidosis Is this a current diagnosis for this admission?: Yes (3) Obesity hypoventilation syndrome Is this a current diagnosis for this admission?: Yes (4) Urinary tract infection Qualifiers: Urinary tract infection type: acute cystitis Hematuria presence: without hematuria Qualified Code(s): N30.00 - Acute cystitis without hematuria Is this a current diagnosis for this admission?: Yes (5) Hypotension Qualifiers: Hypotension type: other hypotension type Qualified Code(s): I95.89 - Other hypotension Is this a current diagnosis for this admission?: Yes
[2017-05-28] MEDS: DIVALPROEX SODIUM 500 MG TAB.SR.24H PO SCH (21:30)
[2017-05-28] MEDS: ATORVASTATIN CALCIUM 10 MG TABLET PO SCH (21:31)
[2017-05-28] MEDS: DOXAZOSIN MESYLATE 2 MG TABLET PO SCH (21:32)
[2017-05-28] MEDS: TRAZODONE HCL 50 MG TABLET PO SCH (21:32)
[2017-05-28] MEDS: MAGNESIUM OXIDE 400 MG TABLET PO SCH (21:32)
[2017-05-29] MEDS: LANSOPRAZOLE 15 MG TAB.RAP.DR PO SCH (06:33)
[2017-05-29] MEDS: LISINOPRIL 10 MG TABLET PO SCH (09:32)
[2017-05-29] MEDS: FLUTICASONE NASAL SPRAY 50 MCG/SPRY 120 SPRAY/16 GM NASL SCH (09:32)
[2017-05-29] MEDS: HALOPERIDOL 5 MG TABLET PO SCH (09:32)
[2017-05-29] MEDS: DULOXETINE HCL 30 MG CAPSULE.DR PO SCH (09:33)
[2017-05-29] MEDS: BENZTROPINE MESYLATE 1 MG TABLET PO SCH (09:33)
[2017-05-29] MEDS: SITAGLIPTIN PHOSPHATE 50 MG TABLET PO SCH (09:33)
[2017-05-29] MEDS: ENOXAPARIN SODIUM INJ 40 MG/0.4 ML DISP.SYRIN SUBCUT SCH (09:34)
[2017-05-29 09:47] VITALS: BP 100/62
== END 2017-05-29 17:34 | DRG 189 ==
LOC: ER 11:09 → EH 15:33 → 3N 17:49
PROVIDERS: ADMIT Internal Medicine; ATTEND Internal Medicine
PROC: 5A09557 Assistance with Respiratory Ventilation, Greater than 96 Consecutive Hours, Continuous Positive Airway Pressure (ICD-10-PCS; principal; 2017-05-17)
DX: J96.02 Acute respiratory failure with hypercapnia (principal); S22.080A Wedge compression fracture of T11-T12 vertebra, initial encounter for closed fracture; E66.2 Morbid (severe) obesity with alveolar hypoventilation; E87.2 Acidosis; G95.89 Other specified diseases of spinal cord; N39.0 Urinary tract infection, site not specified; N17.9 Acute kidney failure, unspecified; Z68.32 Body mass index [BMI] 32.0-32.9, adult; J32.0 Chronic maxillary sinusitis; E78.5 Hyperlipidemia, unspecified; J44.9 Chronic obstructive pulmonary disease, unspecified; E11.9 Type 2 diabetes mellitus without complications; K21.9 Gastro-esophageal reflux disease without esophagitis; F31.9 Bipolar disorder, unspecified; F25.9 Schizoaffective disorder, unspecified; G43.909 Migraine, unspecified, not intractable, without status migrainosus; Z90.49 Acquired absence of other specified parts of digestive tract; Z79.51 Long term (current) use of inhaled steroids; Z79.899 Other long term (current) drug therapy; Z88.6 Allergy status to analgesic agent; Z91.030 Bee allergy status; I95.89 Other hypotension; B96.5 Pseudomonas (aeruginosa) (mallei) (pseudomallei) as the cause of diseases classified elsewhere; W19.XXXA Unspecified fall, initial encounter; Y92.129 Unspecified place in nursing home as the place of occurrence of the external cause; Z79.84 Long term (current) use of oral hypoglycemic drugs
CPT/HCPCS: 36415; 36600; 51701; 70450; 71275; 72125; 72146; 76770; 80048; 80053; 80061; 80076; 80164; 81001; 82140; 82150; 82550; 82553; 82803; 82962; 83036; 83605; 83690; 83735; 83880; 84100; 84439; 84443; 84484; 85025; 85610; 85730; 87040; 87086; 87088; 87186; 93005; 93010; 93306; 94640; 94660; 96361; 96365; 99285; G0378; J0692; J1650; J1940; J1956; J3490; J7030; J7040; J7620; L0120

== ENCOUNTER 2020-02-10 13:46 | Inpatient (IN) | payer MEDICARE, MEDICAID ==
--- NOTE | 2020-02-10 15:20 | ER Document Report ---
ED Medical Screen (RME) - General Chief Complaint: Medical Complaint Stated Complaint: MEDICAL COMPLAINT Time Seen by Provider: 02/10/20 15:12 Primary Care Provider: MARY SOLO ANP [Primary Care Provider] - Follow up as needed Mode of Arrival: Medic Information source: Patient Notes: 49-year-old female was sent over from the [facility] for altered mental status and not getting up for meals. When she did arrive to the ER she did have a low-grade fever of 100.7. Patient only states that she has been cold and that is why she came. We will get blood urine and have her assessed by another provider. I have greeted and performed a rapid initial assessment of this patient. A comprehensive ED assessment and evaluation of the patient, analysis of test results and completion of medical decision making process will be conducted by an additional ED providers. TRAVEL OUTSIDE OF THE [place] IN LAST 30 DAYS: No - Related Data Allergies/Adverse Reactions: ibuprofen [Ibuprofen] Allergy (Mild, Verified 05/17/17 12:04) lips swell acetaminophen [From Tylenol] Allergy (Verified 05/17/17 12:04) Lips swelled aspirin [Aspirin] Allergy (Verified 05/17/17 12:04) Lips swelled bee venom protein (honey bee) Allergy (Verified 05/17/17 12:04) Past Medical History - Past Medical History Cardiac Medical History: Reports: Hx Hypercholesterolemia Pulmonary Medical History: Reports: Hx Asthma, Hx COPD Neurological Medical History: Reports: Hx Migraine, Hx Seizures Endocrine Medical History: Reports: Hx Diabetes Mellitus Type 2 Renal/ Medical History: Reports: Hx Kidney Stones. Denies: Hx Peritoneal Dialysis GI Medical History: Reports: Hx Gastroesophageal Reflux Disease Musculoskeltal Medical History: Reports Hx Musculoskeletal Trauma Psychiatric Medical History: Reports: Hx Anxiety, Hx Bipolar Disorder, Hx Depression, Hx Schizoaffective Disorder, Hx Schizophrenia Past Surgical History: Reports: Hx Cholecystectomy, Hx Kidney (Renal Surgery) - stone procedure - Immunizations Immunizations up to date: Yes Hx Diphtheria, Pertussis, Tetanus Vaccination: Yes Physical Exam - Vital signs Vitals: Temp Pulse Resp BP Pulse Ox 100.7 F H 54 L 18 110/47 L 93 02/10/20 14:26 02/10/20 14:26 02/10/20 14:26 02/10/20 14:26 02/10/20 14:26 Course - Vital Signs Vital signs: Temp Pulse Resp BP Pulse Ox 100.7 F H 54 L 18 110/47 L 93 02/10/20 14:26 02/10/20 14:26 02/10/20 14:26 02/10/20 14:26 02/10/20 14:26 Doctor's Discharge - Discharge Referrals: MARY SOLO, ANP [Primary Care Provider] - Follow up as needed
[2020-02-10] MEDS ORDERED: NORMAL SALINE 1000 ML 1,000 ML IV ONE (15:21)
--- NOTE | 2020-02-10 15:44 | RADIOLOGY REPORT (SQ) ---
EXAM DESCRIPTION: CHEST SINGLE VIEW IMAGES COMPLETED DATE/TIME: 02/10/2020 3:34 pm REASON FOR STUDY: Fever COMPARISON: 01/02/2017. EXAM PARAMETERS: NUMBER OF VIEWS: One view. TECHNIQUE: Single frontal radiographic view of the chest acquired. RADIATION DOSE: NA LIMITATIONS: None. FINDINGS: LUNGS AND PLEURA: No opacities, masses or pneumothorax. No pleural effusion. MEDIASTINUM AND HILAR STRUCTURES: No masses. Contour normal. HEART AND VASCULAR STRUCTURES: Heart normal in size. Normal vasculature. BONES: No acute findings. HARDWARE: None in the chest. OTHER: No other significant finding. IMPRESSION: NO ACUTE RADIOGRAPHIC FINDING IN THE CHEST. TECHNICAL DOCUMENTATION: JOB ID: [id number] [employer]- All Rights Reserved Reading location - IP/workstation name: [email or web address]
--- NOTE | 2020-02-10 17:05 | ER Document Report ---
ED General - General Chief Complaint: Altered Mental Status Stated Complaint: MEDICAL COMPLAINT Time Seen by Provider: 02/10/20 15:12 Mode of Arrival: Medic TRAVEL OUTSIDE OF THE [place] IN LAST 30 DAYS: No - HPI Notes: 49-year-old female arrives for concerns of altered mental status. Patient states "I'm fine" and denies complaints. Information obtained from [facility] where patient resides, apparently she did not get up for breakfast or lunch today, she appeared confused and shaky. Patient states "I didn't know I could" when asked why she did not go to her meals today. She denies shortness of breath, chest pain, vomiting diarrhea or abdominal pain. HPI/ROS limited as patient is poor historian. - Related Data Allergies/Adverse Reactions: ibuprofen [Ibuprofen] Allergy (Mild, Verified 05/17/17 12:04) lips swell acetaminophen [From Tylenol] Allergy (Verified 05/17/17 12:04) Lips swelled aspirin [Aspirin] Allergy (Verified 05/17/17 12:04) Lips swelled bee venom protein (honey bee) Allergy (Verified 05/17/17 12:04) Home Medications: metformin, atorvastatin, buspirone, gabapentin, hydroxyzine, lisinopril, lorazepam, naproxen, prazosin, tramadol, trazodone Past Medical History - General Information source: Patient - Social History Smoking Status: Unknown if Ever Smoked Family History: Reviewed & Not Pertinent - Past Medical History Cardiac Medical History: Reports: Hx Hypercholesterolemia Pulmonary Medical History: Reports: Hx Asthma, Hx COPD Neurological Medical History: Reports: Hx Migraine, Hx Seizures Endocrine Medical History: Reports: Hx Diabetes Mellitus Type 2 Renal/ Medical History: Reports: Hx Kidney Stones. Denies: Hx Peritoneal Dialysis GI Medical History: Reports: Hx Gastroesophageal Reflux Disease Musculoskeletal Medical History: Reports Hx Musculoskeletal Trauma Psychiatric Medical History: Reports: Hx Anxiety, Hx Bipolar Disorder, Hx Depression, Hx Schizoaffective Disorder, Hx Schizophrenia Past Surgical History: Reports: Hx Cholecystectomy, Hx Kidney (Renal Surgery) - stone procedure - Immunizations Immunizations up to date: Yes Hx Diphtheria, Pertussis, Tetanus Vaccination: Yes Hx Pneumococcal Vaccination: 12/08/16 Review of Systems - Review of Systems -: Yes ROS unobtainable due to patient's medical condition Physical Exam - Vital signs Vitals: Temp Pulse Resp BP Pulse Ox 100.7 F H 54 L 18 110/47 L 93 02/10/20 14:26 02/10/20 14:26 02/10/20 14:26 02/10/20 14:26 02/10/20 14:26 - General In distress: None - HEENT Head: Normocephalic, Atraumatic Extraocular movements intact: Yes Pupils: PERRL - Respiratory Respiratory status: Tachypnea. No: Labored Chest status: Nontender Breath sounds: No: Rales, Wheezing - Cardiovascular Rhythm: Tachycardia Heart sounds: Normal auscultation Normal capillary refill: Yes - Abdominal Inspection: Obese Distension: No distension Tenderness: Nontender - Extremities General lower extremity: No: Edema - Neurological Notes: Patient is alert and makes eye contact. Her face is symmetric and speech is clear. 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 Toe touch is symmetric bilaterally. Sensation is grossly intact. Patient is overall disoriented to place and time. Unable to answer compound questions - Psychological Associated symptoms: Other - Unable to assess - Skin Skin Temperature: Warm Skin Color: Pale Course - Re-evaluation Re-evalutation: 49-year-old female arrives from [facility] with concerns for altered mental status after she did not attend to meals today. On arrival patient is alert and has no gross focal neuro deficits, though she is noted to be altered and fairly disoriented. She is febrile to 100.7F, mild tachycardia, no hypotension. She appears to be tachypneic, lung sounds are fairly clear, may be decreased at the bases. Abdomen is soft without focal area tenderness. Will start infectious work-up, will look for sources such as pneumonia, UTI, or viral infection. 02/10/20 18:05 Temperature has now increased to 102.7F, unfortunately patient has allergies with "lip swelling" listed to ibuprofen, acetaminophen and aspirin. Patient is not able to tell me what happens when she takes these medications. Have ordered external cooling measures. 02/10/20 18:10 Patient's MAR available from [facility]. Med list reviewed. Includes: Atorvastatin, benztropine, buspirone, iron, gabapentin, hydroxyzine, lactulose, lisinopril, lorazepam, Metformin, naproxen, pramipexole, prazosin, tramadol, trazodone, Trintellix. I have reviewed the MAR and looks like she has refused lactulose January 14, January 23, January 29 through current. Will consider using naproxen for fever reducing seeing how external measures go if no response 02/10/20 21:33 Potassium 6.0, no EKG changes, repeat EKG obtained which again does not show any peaked T waves. Shifting medications ordered, will recheck value. Have also ordered a repeat chest x-ray. Will trial a dose of Naprosyn given this is a home med for her 02/10/20 22:14 Repeat chest x-ray with left consolidation, have started treatment with Rocephin/azithromycin. Went to check on patient to discuss results. Tachycardic but otherwise hemodynamically stable 02/10/20 22:21 And patient seems to have somewhat improved, patient states that she is in light household because she is unable to take care of herself. Bedside ultrasound performed which does not demonstrate any large pericardial effusion 02/10/20 22:[address] Oliva for admission - Vital Signs Vital signs: Temp Pulse Resp BP Pulse Ox 98.9 F 114 H 22 H 105/46 L 90 L 02/11/20 00:58 02/11/20 00:58 02/11/20 00:58 02/11/20 00:58 02/11/20 00:58 - Laboratory Results Result Diagrams: 02/10/20 19:00 02/10/20 23:05 Laboratory Results Interpreted: 02/10/20 02/10/20 02/10/20 18:07 19:00 19:00 WBC 14.2 H RBC 3.51 L Hgb 10.4 L Hct 31.5 L Seg Neuts % (Manual) 89 H Lymphocytes % (Manual) 4 L Abs Neuts (Manual) 13.2 H Sodium 135.6 L Potassium 6.0 H* Anion Gap 4 L BUN 34 H Creatinine 1.51 H Est GFR ( Amer) 45 L Est GFR (MDRD) Non-Af 37 L Glucose 189 H POC Glucose Ammonia Total Protein 6.0 L Albumin 3.2 L Urine Protein 30 H 02/10/20 02/10/20 19:00 21:04 WBC RBC Hgb Hct Seg Neuts % (Manual) Lymphocytes % (Manual) Abs Neuts (Manual) Sodium Potassium Anion Gap BUN Creatinine Est GFR ( Amer) Est GFR (MDRD) Non-Af Glucose POC Glucose 193 H Ammonia < 8.7 L Total Protein Albumin Urine Protein Critical Laboratory Results Reviewed: No Critical Results - Radiology Results Critical Radiology Results Reviewed: No Critical Results - EKG Interpretation by Me Additional EKG results interpreted by me: EKG is interpreted by me. Sinus tachycardia, rate 114. Narrow QRS, QTC within normal limits. T wave inversion aVL. No ST segment elevations or depressions. 02/10/20 21:35 Repeat EKG obtained. Sinus tachycardia, rate 121. Narrow QRS, QTC within normal limits. No peaked T waves. No STEMI. Discharge - Discharge Clinical Impression: SERENE (acute kidney injury), Hyperkalemia, Delirium Pneumonia Qualifiers: Pneumonia type: due to unspecified organism Laterality: left Lung location: lower lobe of lung Qualified Code(s): J18.9 - Pneumonia, unspecified organism Disposition: ADMITTED INPATIENT Admitting Provider: Hazel (Hospitalist) Unit Admitted: Medical Floor
[2020-02-10 18:22] LABS: APPEARANCE,URINE CLEAR; BILIRUBIN,URINE NEGATIVE (NEGATIVE); COLOR,URINE YELLOW; GLUCOSE, URINE NEGATIVE (NEGATIVE); KETONES,URINE NEGATIVE (NEGATIVE); LEUKOCYTE ESTERASE,URINE NEGATIVE (NEGATIVE); NITRITE,URINE NEGATIVE (NEGATIVE); PROTEIN,URINE 30 mg/dL (NEGATIVE); URINE SPECIFIC GRAVITY 1.015; UROBILINOGEN,URINE NEGATIVE mg/dL (<2.0)
--- NOTE | 2020-02-10 19:00 | RADIOLOGY REPORT (SQ) ---
EXAM DESCRIPTION: CT HEAD WITHOUT IMAGES COMPLETED DATE/TIME: 02/10/2020 5:44 pm REASON FOR STUDY: AMS COMPARISON: 05/17/2017 TECHNIQUE: Axial images acquired through the brain without intravenous contrast. Images reviewed wi th bone, brain and subdural windows. Additional sagittal and coronal reconstructions were generated. Images stored on PACS. All CT scanners at this facility use dose modulation, iterative reconstruction, and/or weight based d osing when appropriate to reduce radiation dose to as low as reasonably achievable (ALARA). [facility]: Dose Right [facility]: CareDose [facility]: Dose Right [facility]: Teradose 4D [facility]: Smart [employer] RADIATION DOSE: CT Rad equipment meets quality standard of care and radiation dose reduction techniq ues were employed. CTDIvol: 53.2 mGy. DLP: 1017 mGy-cm. mGy. LIMITATIONS: None. FINDINGS: VENTRICLES: Normal size and contour. CEREBRUM: No masses. No hemorrhage. No midline shift. No evidence for acute infarction. Normal gra y/white matter differentiation. No areas of low density in the white matter. CEREBELLUM: No masses. No hemorrhage. No alteration of density. No evidence for acute infarction. EXTRAAXIAL SPACES: No fluid collections. No masses. ORBITS AND GLOBE: No intra- or extraconal masses. Normal contour of globe without masses. CALVARIUM: No fracture. PARANASAL SINUSES: Small amount of fluid in the left maxillary sinus. Antral window. SOFT TISSUES: No mass or hematoma. OTHER: No other significant finding. IMPRESSION: Mild left maxillary sinus disease with surgical changes. No acute intracranial imaging finding. EVIDENCE OF ACUTE STROKE: NO. COMMENT: Quality ID # [id number]: Final reports with documentation of one or more dose reduction techniques (e.g., Automated exposure control, adjustment of the mA and/or kV according to patient size, use of iterative reconstruction technique) TECHNICAL DOCUMENTATION: JOB ID: [id number] 2010 [employer]- All Rights Reserved Reading location - IP/workstation name: [email or web address]
[2020-02-10 19:17] LABS: HEMATOCRIT 31.5 % (36.0-47.0); HEMOGLOBIN 10.4 g/dL (12.0-15.5); MEAN CORPUSCULAR HEMOGLOBIN 29.6 pg (27.0-33.4); MEAN CORPUSCULAR HGB CONC 32.9 g/dL (32.0-36.0); MEAN CORPUSCULAR VOLUME 90 fl (80-97); PLATELET COUNT 292 10^3/uL (150-450); RED BLOOD COUNT 3.51 10^6/uL (3.72-5.28); RED CELL DISTRIBUTION WIDTH 13.6 % (11.5-14.0); WHITE BLOOD COUNT 14.2 10^3/uL (4.0-10.5)
[2020-02-10 19:38] LABS: ALBUMIN 3.2 g/dL (3.5-5.0); ALKALINE PHOSPHATASE 50 U/L (38-126); ASPARTATE AMINO TRANSFERASE 15 U/L (14-36); BILIRUBIN,DIRECT 0.3 mg/dL (0.0-0.4); BILIRUBIN,TOTAL 0.5 mg/dL (0.2-1.3); BLOOD UREA NITROGEN 34 mg/dL (7-20); CALCIUM 8.9 mg/dL (8.4-10.2); GLUCOSE 189 mg/dL (75-110)
[2020-02-10 19:41] LABS: ABSOLUTE LYMPHOCYTES# (MANUAL) 0.6 10^3/uL (0.5-4.7); ABSOLUTE MONOCYTES # (MANUAL) 0.4 10^3/uL (0.1-1.4); BAND NEUTROPHILS % (MANUAL) 4 % (3-5); BASOPHILS % (MANUAL) 0 % (0-2); EOSINOPHILS % (MANUAL) 0 % (0-6); LYMPHOCYTES % (MANUAL) 4 % (13-45); MONOCYTES % (MANUAL) 3 % (3-13); SEGMENTED NEUTROPHILS % (MAN) 89 % (42-78); TOTAL CELLS COUNTED 100
[2020-02-10 19:42] LABS: PLATELET COMMENT ADEQUATE; RBC MORPHOLOGY COMMENT NORMO-CYTIC/CHROMIC
[2020-02-10 19:44] LABS: ANION GAP 4 (5-19); CARBON DIOXIDE 26 mmol/L (22-30); CHLORIDE 106 mmol/L (98-107)
[2020-02-10] MEDS ORDERED: DEXTROSE 50%-WATER 25 GM/50 ML DISP.SYRIN IV ONE (19:57)
[2020-02-10] MEDS ORDERED: INSULIN REG, HUMAN 100 UNIT/ML 3 ML VIAL (PYX) IV ONE (19:57)
[2020-02-10] MEDS ORDERED: RINGERS SOLUTION,LACTATED 1,000 ML IV ONE (19:58)
[2020-02-10] MEDS ORDERED: CALCIUM GLUCONATE 1000 MG/10 ML INJ IV ONE (19:58)
[2020-02-10] MEDS ORDERED: NAPROXEN 250 MG TABLET PO ONE (21:23)
--- NOTE | 2020-02-10 21:46 | RADIOLOGY REPORT (SQ) ---
EXAM DESCRIPTION: XR CHEST 1 VIEW 8:54 PM COMPLETED DATE/TME: 02/10/2020 21:03 CLINICAL HISTORY: 49 years, Female, eval consolidation COMPARISON: Chest x-ray from today at 3:[address] chest 05/17/2017. TECHNIQUE: Upright portable chest x-ray FINDINGS: Limited study due to body habitus and overpenetration. Cardiomegaly. Mediastinal widening probably from fat. Mild infiltrate left lower lobe retrocardiac region. Lungs are otherwise clear. IMPRESSION: Cardiomegaly. Small left lower lobe infiltrate or atelectasis. Limited evaluation due to body habitus and overpenetration
[2020-02-10] MEDS ORDERED: AZITHROMYCIN INJ 500 MG VIAL IV ONE (22:12)
[2020-02-10] MEDS ORDERED: CEFTRIAXONE 1 GM/D5W RTU 1 GM/50 ML RTUPB IV ONE (22:40)
[2020-02-10 23:48] LABS: BLOOD UREA NITROGEN 30 mg/dL (7-20); CALCIUM 8.6 mg/dL (8.4-10.2); GLUCOSE 192 mg/dL (75-110); POTASSIUM 5.3 mmol/L (3.6-5.0)
[2020-02-10 23:53] LABS: ANION GAP 5 (5-19); CARBON DIOXIDE 24 mmol/L (22-30); CHLORIDE 107 mmol/L (98-107)
[2020-02-11] MEDS ORDERED: PROMETHAZINE HCL INJ 25 MG/1 ML VIAL IV PRN (00:15)
[2020-02-11] MEDS ORDERED: ONDANSETRON 4 MG TAB.RAPDIS PO PRN (00:15)
[2020-02-11] MEDS ORDERED: ONDANSETRON HCL INJ/PF 4 MG/2 ML SDV IV PRN (00:15)
[2020-02-11] MEDS ORDERED: TEMAZEPAM 7.5 MG CAPSULE PO PRN (00:15)
[2020-02-11] MEDS ORDERED: IPRATROPIUM/ALBUTEROL 0.5-2.5 MG/3 ML AMPUL NEB PRN (00:15)
[2020-02-11] MEDS ORDERED: MAG HYDROX/AL HYDROX/SIMETH SUSP 30 ML UDCUP PO PRN (00:15)
[2020-02-11] MEDS ORDERED: OXYCODONE HCL IR 5 MG TABLET PO PRN (00:20)
[2020-02-11] MEDS ORDERED: DEXTROSE 40% GEL 15 GM TUBE PO PRN ×2 (00:21)
[2020-02-11] MEDS ORDERED: DEXTROSE 50%-WATER 25 GM/50 ML DISP.SYRIN IV PRN ×2 (00:21)
[2020-02-11] MEDS ORDERED: GLUCAGON,HUMAN RECOMB 1 MG INJ IM PRN (00:21)
[2020-02-11] MEDS ORDERED: CEFTRIAXONE 1 GM/D5W RTU 1 GM/50 ML RTUPB IV ONE (01:34)
[2020-02-11] MEDS ORDERED: SODIUM POLYSTYRENE SULFONATE 15 GM/60 ML PO ONE ×2 (03:06→05:30)
--- NOTE | 2020-02-11 03:25 | PDOC H&P ---
History of Present Illness Admission Date/PCP: 02/10/20 22:47 RAFAEL SWEET History of Present Illness: STEVE CONKLIN is a 49 year old female resident of [facility] with past medical history of COPD, asthma, schizophrenia, depression, seizure disorder, diabetes, morbid obesity, brought to ED by EMS after being noted by [facility] staff that she appeared confused, shaky and less active, unfortunately patient herself is not very poor historian when asked why she is in ED she is stating because of hypertension, when asked how she is feeling she says she is feeling fine when asked why she is living in [facility] she states that because of her diabetes and also because she does not have any living family members to take care of her, on review of systems patient denies any fever, chills, nausea, vomiting, chest pain, abdominal pain, diarrhea, c onstipation or any urinary symptoms.. In ED she was noted to be hypoxic, tachypneic, acute cardiac, with neutrophilic leukocytosis and bandemia, hyperkalemia and elevated creatinine level, she tested negative for COVID-19 and influenza, chest x-ray was positive for small left lower lobe infiltrate, CT head was negative for any acute abnormalities. Hospitalist was consulted for admission. Past Medical History Cardiac Medical History: Reports: Hyperlipidema Pulmonary Medical History: Reports: Asthma, Chronic Obstructive Pulmonary Disease (COPD) Neurological Medical History: Reports: Migraine, Seizures Endocrine Medical History: Reports: Diabetes Mellitus Type 2 GI Medical History: Reports: Gastroesophageal Reflux Disease Psychiatric Medical History: Reports: Bipolar Disorder, Depression, Schizoaffective Disorder Past Surgical History Past Surgical History: Reports: Cholecystectomy Social History Smoking Status: Unknown if Ever Smoked Frequency of Alcohol Use: None Hx Recreational Drug Use: No Drugs: None Hx Prescription Drug Abuse: No Family History Family History: Reviewed & Not Pertinent Parental Family History Reviewed: Yes Children Family History Reviewed: Yes Sibling(s) Family History Reviewed.: Yes Medication/Allergy Home Medications: Albuterol Sulfate [Ventolin HFA MDI 18 GM] 2 puff IH Q4HP PRN 05/10/17 Atorvastatin Calcium [Lipitor 10 mg Tablet] 10 mg PO QHS 05/10/17 Benztropine Mesylate 1 mg PO Q12 05/10/17 Bismuth Subsalicylate [Bismuth] 262 mg PO Q4HP PRN 05/10/17 Cetirizine HCl [Zyrtec 10 mg Tablet] 10 mg PO DAILY 05/10/17 Clonazepam [Klonopin] 0.25 mg PO Q12 05/10/17 Diphenhydramine HCl [Benadryl 25 mg Capsule] 50 mg PO QHS 05/10/17 Divalproex Sodium [Divalproex Sodium ER] 2,000 mg PO QHS 05/10/17 Docusate Sodium [Colace 100 mg Capsule] 100 mg PO BIDP PRN 05/10/17 Doxazosin Mesylate [Cardura 2 mg Tablet] 2 mg PO QHS 05/10/17 Duloxetine HCl [Cymbalta] 60 mg PO Q12 05/10/17 Fluticasone Propionate [Flonase Nasal [place] 50 Mcg/[place] 16 gm] 2 sprays NASL Q12 05/10/17 Haloperidol 10 mg PO DAILY 05/10/17 Lisinopril [Prinivil 40 mg Tablet] 40 mg PO DAILY 05/10/17 Lorazepam [Ativan 1 mg Tablet] 1 mg PO Q4HP PRN 05/10/17 Metformin HCl [Glucophage] 1,000 mg PO Q12 05/10/17 Pantoprazole Sodium [Protonix] 20 mg PO DAILY 05/10/17 Prazosin HCl [Minipress] 1 mg PO QHS 05/10/17 Sitagliptin Phosphate [Januvia] 100 mg PO DAILY 05/10/17 Trazodone HCl [Desyrel 50 mg Tablet] 50 mg PO QHS 05/10/17 Zolpidem Tartrate [Ambien 5 mg Tablet] 5 mg PO HSP PRN 05/10/17 Nystatin [Mycostatin Topical Powder 15 gm] 1 applic TOP BID 05/17/17 Allergies/Adverse Reactions: ibuprofen [Ibuprofen] Allergy (Mild, Verified 05/17/17 12:04) lips swell acetaminophen [From Tylenol] Allergy (Verified 05/17/17 12:04) Lips swelled aspirin [Aspirin] Allergy (Verified 05/17/17 12:04) Lips swelled bee venom protein (honey bee) Allergy (Verified 05/17/17 12:04) Review of Systems Review of Systems: as per hpi Physical Exam Vital Signs: Temp Pulse Resp BP Pulse Ox 98.9 F 114 H 22 H 105/46 L 90 L 02/11/20 00:58 02/11/20 00:58 02/11/20 00:58 02/11/20 00:58 02/11/20 00:58 Intake & Output 02/09/20 02/10/20 02/11/20 06:59 06:59 06:59 Intake Total 1999 Balance 1999 Weight 112.1 kg General appearance: PRESENT: no acute distress, morbidly obese, well-developed, well-nourished Head exam: PRESENT: atraumatic, normocephalic Neck exam: ABSENT: carotid bruit, JVD, lymphadenopathy, thyromegaly Respiratory exam: PRESENT: clear to auscultation kim. ABSENT: rales, rhonchi, wheezes Cardiovascular exam: PRESENT: RRR. ABSENT: diastolic murmur, rubs, systolic murmur GI/Abdominal exam: PRESENT: normal bowel sounds, soft. ABSENT: distended, guarding, mass, organolmegaly, rebound, tenderness Extremities exam: PRESENT: full ROM. ABSENT: calf tenderness, clubbing, pedal edema Neurological exam: PRESENT: alert, awake, oriented to person, CN II-XII grossly intact. ABSENT: motor sensory deficit Psychiatric exam: PRESENT: depressed, unusual affect Skin exam: PRESENT: dry, intact, warm. ABSENT: cyanosis, rash Results Laboratory Results: 02/10/20 19:00 02/10/20 23:05 02/10/20 02/10/20 02/10/20 18:07 19:00 19:00 WBC 14.2 H RBC 3.51 L Hgb 10.4 L Hct 31.5 L MCV 90 MCH 29.6 MCHC 32.9 RDW 13.6 Plt Count 292 Seg Neutrophils % Not Reportable Sodium 135.6 L Potassium 6.0 H* Chloride 106 Carbon Dioxide 26 Anion Gap 4 L BUN 34 H Creatinine 1.51 H Est GFR ( Amer) 45 L Glucose 189 H Lactic Acid Calcium 8.9 Total Bilirubin 0.5 AST 15 Alkaline Phosphatase 50 Ammonia Total Protein 6.0 L Albumin 3.2 L Lipase 61.9 Urine Color YELLOW Urine Appearance CLEAR Urine pH 5.0 Ur Specific Kiefer 1.015 Urine Protein 30 H Urine Glucose (UA) NEGATIVE Urine Ketones NEGATIVE Urine Blood NEGATIVE Urine Nitrite NEGATIVE Ur Leukocyte Esterase NEGATIVE Urine WBC (Auto) 1 Urine RBC (Auto) 0 02/10/20 02/10/20 02/10/20 19:00 19:00 23:05 WBC RBC Hgb Hct MCV MCH MCHC RDW Plt Count Seg Neutrophils % Sodium 135.5 L Potassium 5.3 H Chloride 107 Carbon Dioxide 24 Anion Gap 5 BUN 30 H Creatinine 1.21 Est GFR ( Amer) 57 L Glucose 192 H Lactic Acid 1.1 Calcium 8.6 Total Bilirubin AST Alkaline Phosphatase Ammonia < 8.7 L Total Protein Albumin Lipase Urine Color Urine Appearance Urine pH Ur Specific Kiefer Urine Protein Urine Glucose (UA) Urine Ketones Urine Blood Urine Nitrite Ur Leukocyte Esterase Urine WBC (Auto) Urine RBC (Auto) Impressions: Head CT 02/10/20 17:22 IMPRESSION: Mild left maxillary sinus disease with surgical changes. No acute intracranial imaging finding. EVIDENCE OF ACUTE STROKE: NO. Chest X-Ray 02/10/20 20:38 IMPRESSION: Cardiomegaly. Small left lower lobe infiltrate or atelectasis. Limited evaluation due to body habitus and overpenetration Assessment and Plan - Diagnosis (1) Acute respiratory failure with hypoxia Is this a current diagnosis for this admission?: Yes Plan: Due to community acquired pneumonia, healthcare associated pneumonia is also pos sibility as patient is a resident of [facility]. Presenting with leukocytosis, hypoxia, tachypnea and tachycardia. Chest x-ray positive for left lower lobe infiltrate. COVID-19 serology negative. Admit to floor, empiric broad-spectrum IV antibiotics, as needed DuoNebs, supplemental oxygen, as needed BiPAP, sputum culture, blood culture, flutter valve, incentive spirometry, pulmonary toileting. (2) Acute metabolic encephalopathy Is this a current diagnosis for this admission?: Yes Plan: Possibly due to acute illness. CT head negative for any acute changes. Not sure of baseline mental status. Patient is a resident of [facility]. Continue supportive measures. Treat underlying pneumonia. Monitor electrolytes and vitals. Differential measures. (3) Seizure disorder Is this a current diagnosis for this admission?: Yes Plan: History of seizure disorder, CT head negative for any acute abnormalities. Resume home meds, monitor electrolytes, monitor vitals, fall, aspiration and seizure precautions. Outpatient PCP and neurology follow-up. (4) SERENE (acute kidney injury) Is this a current diagnosis for this admission?: Yes Plan: Likely prerenal, presenting with creatinine of 1.52 and hyperkalemia. Nonoliguric. Cautious volume resuscitation guided by volume status, strict in and out, monitor volume status, monitor electrolytes and correct as needed. Avoid nephrotoxic meds. Consider renal ultrasound if no improvement and consult nephrology. (5) Morbid obesity Is this a current diagnosis for this admission?: Yes Plan: Diet and lifestyle modification recommended. Will obtain TSH. (6) Schizophrenia Qualifiers: Is this a current diagnosis for this admission?: Yes Plan: Resume home meds. Outpatient PCP and psychiatry follow-up. (7) Type 2 diabetes mellitus Qualifiers: Diabetes mellitus custodial insulin use: without terminal carman use Is this a current diagnosis for this admission?: Yes Plan: Hemoglobin A1c 4.7% 05/18/2017. On oral hypoglycemics. Diabetic diet, diabetic diet, Accu-Chek, hypoglycemia protocol. Basal, prandial and correctional insulin. We will obtain new hemoglobin A1c. Hold metformin given recent SERENE resume if renal function improves. (8) Hyperkalemia Is this a current diagnosis for this admission?: Yes Plan: Likely due to SERENE. No acute EKG changes. Admit to telemetry, hyperkalemia protocol. - Time Time Spent with patient: 35 or more minutes Medications reviewed and adjusted accordingly: Yes Anticipated Discharge Disposition: Assisted Living with Home Health Services Anticipated Discharge Timeframe: within 48 hours
[2020-02-11] MEDS: HEPARIN SOD (PORCINE) 5,000 UNIT/ML 1 ML VIAL SUBCUT SCH ×3 (05:44→21:30)
[2020-02-11] MEDS: INSULIN LISPRO 100 UNIT/ML 3 ML VIAL SUBCUT SCH ×4 (07:20→21:15)
--- NOTE | 2020-02-11 09:05 | EKG REPORT ---
SEVERITY:- ABNORMAL ECG - SINUS TACHYCARDIA BORDERLINE LEFT AXIS DEVIATION NONSPECIFIC T ABNORMALITIES, LATERAL LEADS : Confirmed by: Emery Liu MD 11-Feb-2020 09:05:03
--- NOTE | 2020-02-11 09:05 | EKG REPORT ---
SEVERITY:- OTHERWISE NORMAL ECG - SINUS TACHYCARDIA BORDERLINE LEFT AXIS DEVIATION : Confirmed by: Emrey Liu MD 11-Feb-2020 09:05:12
[2020-02-11] MEDS: DOCUSATE SODIUM 100 MG CAPSULE PO SCH (09:40)
[2020-02-11] MEDS: FAMOTIDINE 20 MG TABLET PO SCH ×2 (09:41→21:29)
[2020-02-11] MEDS: CEFTRIAXONE 1 GM/D5W RTU 1 GM/50 ML RTUPB IV SCH (09:42)
[2020-02-11] MEDS: NORMAL SALINE 1000 ML 1,000 ML IV PRN ×3 (09:45→23:45)
[2020-02-11 10:35] LABS: ABSOLUTE LYMPHOCYTES (AUTO) 1.2 10^3/uL (0.5-4.7); ABSOLUTE MONOCYTES (AUTO) 0.3 10^3/uL (0.1-1.4); ABSOLUTE NEUT (AUTO) 8.3 10^3/uL (1.7-8.2); BASOPHILS % (AUTO) 0.4 % (0-2); EOSINOPHILS % (AUTO) 0.2 % (0-6); HEMATOCRIT 27.2 % (36.0-47.0); HEMOGLOBIN 9.1 g/dL (12.0-15.5); LYMPHOCYTES % (AUTO) 12.3 % (13-45); MEAN CORPUSCULAR HEMOGLOBIN 29.5 pg (27.0-33.4); MEAN CORPUSCULAR HGB CONC 33.5 g/dL (32.0-36.0); MEAN CORPUSCULAR VOLUME 88 fl (80-97); MONOCYTES % (AUTO) 3.1 % (3-13); PLATELET COUNT 225 10^3/uL (150-450); RED BLOOD COUNT 3.08 10^6/uL (3.72-5.28); RED CELL DISTRIBUTION WIDTH 13.6 % (11.5-14.0); TOTAL CELLS COUNTED % (AUTO) 100 %; WHITE BLOOD COUNT 9.9 10^3/uL (4.0-10.5)
[2020-02-11 10:39] LABS: ALBUMIN 2.2 g/dL (3.5-5.0); ALKALINE PHOSPHATASE 40 U/L (38-126); ASPARTATE AMINO TRANSFERASE 20 U/L (14-36); BILIRUBIN,DIRECT 0.2 mg/dL (0.0-0.4); BILIRUBIN,TOTAL 0.3 mg/dL (0.2-1.3); BLOOD UREA NITROGEN 27 mg/dL (7-20); CALCIUM 8.2 mg/dL (8.4-10.2); GLUCOSE 154 mg/dL (75-110); POTASSIUM 5.1 mmol/L (3.6-5.0); TOTAL PROTEIN 4.4 g/dL (6.3-8.2)
[2020-02-11 10:45] LABS: CARBON DIOXIDE 23 mmol/L (22-30); CHLORIDE 111 mmol/L (98-107)
[2020-02-11 10:50] LABS: ANION GAP 2 (5-19)
[2020-02-11] MEDS ORDERED: METHYL SALICYLATE TP PRN ×2 (12:47→14:10)
[2020-02-11] MEDS ORDERED: MENTHOL TP PRN ×2 (12:47→14:10)
[2020-02-11] MEDS ORDERED: HYDROXYZINE HCL 10 MG TABLET PO PRN (12:47)
--- NOTE | 2020-02-11 12:51 | PDOC PROGRESS REPORT ---
Subjective Date:: 02/11/20 Subjective:: 49 year old female resident of [facility] with past medical history of COPD, asthma, schizophrenia, depression, seizure disorder, diabetes, morbid obesity, brought to ED by EMS after being noted by [facility] staff that she appeared confused, shaky and less active, unfortunately patient herself is not very poor historian when asked why she is in ED she is stating because of hypertension, when asked how she is feeling she says she is feeling fine when as ked why she is living in [facility] she states that because of her diabetes and also because she does not have any living family members to take care of her, on review of systems patient denies any fever, chills, nausea, vomiting, chest pain, abdominal pain, diarrhea, constipation or any urinary symptoms.. In ED she was noted to be hypoxic, tachypneic, acute cardiac, with neutrophilic leukocytosis and bandemia, hyperkalemia and elevated creatinine level, she tested negative for COVID-19 and influenza, chest x-ray was positive for small left lower lobe infiltrate, CT head was negative for any acute abnormalities. Hospitalist was consulted for admission. [id number]-old female came from a assisted living she has history of COPD, asthma, schizophrenia, depression, seizure disorder, diabetes mellitus, morbid obesity. COVID-19 is negative on admission WBC count is 14,000 chest x- ray indicated for possible pneumonia. Serum potassium is elevated at the time of admission and the patient also has a acute kidney injury. Serum potassium is improved to 5.1, creatinine improved slightly compared to admission labs. Patient is receiving IV Rocephin at this time. WBC count improved from 14,000- 9900 today. Afebrile. Reason For Visit: PNEUMONIA,AMS Physical Exam Vital Signs: Temp Pulse Resp BP Pulse Ox 97.9 F 107 H 18 143/70 H 99 02/11/20 08:23 02/11/20 08:23 02/11/20 08:23 02/11/20 08:23 02/11/20 08:23 Intake & Output 02/10/20 02/11/20 02/12/20 06:59 06:59 06:59 Intake Total 2175 Output Total 400 Balance 1775 Weight 112.1 kg General appearance: PRESENT: no acute distress, cooperative, morbidly obese Head exam: PRESENT: atraumatic Eye exam: PRESENT: PERRLA Mouth exam: PRESENT: moist, tongue midline Teeth exam: PRESENT: poor dentation Neck exam: ABSENT: carotid bruit, JVD, lymphadenopathy, thyromegaly Respiratory exam: PRESENT: decreased breath sounds Cardiovascular exam: PRESENT: RRR. ABSENT: diastolic murmur, rubs, systolic murmur GI/Abdominal exam: PRESENT: normal bowel sounds, soft. ABSENT: distended, guarding, mass, organolmegaly, rebound, tenderness Rectal exam: PRESENT: deferred Extremities exam: PRESENT: full ROM. ABSENT: calf tenderness, clubbing, pedal edema Neurological exam: PRESENT: alert, awake, oriented to person, oriented to place, oriented to time, oriented to situation, CN II-XII grossly intact. ABSENT: motor sensory deficit Psychiatric exam: PRESENT: appropriate affect, normal mood. ABSENT: homicidal ideation, suicidal ideation Results Laboratory Results: 02/11/20 09:45 02/11/20 09:45 02/10/20 02/10/20 02/10/20 18:07 19:00 19:00 WBC 14.2 H RBC 3.51 L Hgb 10.4 L Hct 31.5 L MCV 90 MCH 29.6 MCHC 32.9 RDW 13.6 Plt Count 292 Seg Neutrophils % Not Reportable Sodium 135.6 L Potassium 6.0 H* Chloride 106 Carbon Dioxide 26 Anion Gap 4 L BUN 34 H Creatinine 1.51 H Est GFR ( Amer) 45 L Glucose 189 H Lactic Acid Calcium 8.9 Magnesium Total Bilirubin 0.5 AST 15 Alkaline Phosphatase 50 Ammonia Total Protein 6.0 L Albumin 3.2 L Lipase 61.9 Urine Color YELLOW Urine Appearance CLEAR Urine pH 5.0 Ur Specific Lyons 1.015 Urine Protein 30 H Urine Glucose (UA) NEGATIVE Urine Ketones NEGATIVE Urine Blood NEGATIVE Urine Nitrite NEGATIVE Ur Leukocyte Esterase NEGATIVE Urine WBC (Auto) 1 Urine RBC (Auto) 0 02/10/20 02/10/20 02/10/20 19:00 19:00 23:05 WBC RBC Hgb Hct MCV MCH MCHC RDW Plt Count Seg Neutrophils % Sodium 135.5 L Potassium 5.3 H Chloride 107 Carbon Dioxide 24 Anion Gap 5 BUN 30 H Creatinine 1.21 Est GFR ( Amer) 57 L Glucose 192 H Lactic Acid 1.1 Calcium 8.6 Magnesium Total Bilirubin AST Alkaline Phosphatase Ammonia < 8.7 L Total Protein Albumin Lipase Urine Color Urine Appearance Urine pH Ur Specific Lyons Urine Protein Urine Glucose (UA) Urine Ketones Urine Blood Urine Nitrite Ur Leukocyte Esterase Urine WBC (Auto) Urine RBC (Auto) 02/11/20 02/11/20 09:45 09:45 WBC 9.9 RBC 3.08 L Hgb 9.1 L Hct 27.2 L MCV 88 MCH 29.5 MCHC 33.5 RDW 13.6 Plt Count 225 Seg Neutrophils % 84.0 H Sodium 136.4 L Potassium 5.1 H Chloride 111 H Carbon Dioxide 23 Anion Gap 2 L BUN 27 H Creatinine 1.14 Est GFR ( Amer) > 60 Glucose 154 H Lactic Acid Calcium 8.2 L Magnesium 1.4 L Total Bilirubin 0.3 AST 20 Alkaline Phosphatase 40 Ammonia Total Protein 4.4 L Albumin 2.2 L Lipase Urine Color Urine Appearance Urine pH Ur Specific Lyons Urine Protein Urine Glucose (UA) Urine Ketones Urine Blood Urine Nitrite Ur Leukocyte Esterase Urine WBC (Auto) Urine RBC (Auto) Impressions: Head CT 02/10/20 17:22 IMPRESSION: Mild left maxillary sinus disease with surgical changes. No acute intracranial imaging finding. EVIDENCE OF ACUTE STROKE: NO. Chest X-Ray 02/10/20 20:38 IMPRESSION: Cardiomegaly. Small left lower lobe infiltrate or atelectasis. Limited evaluation due to body habitus and overpenetration Assessment and Plan - Diagnosis (1) Acute respiratory failure with hypoxia Is this a current diagnosis for this admission?: Yes Plan: Due to community acquired pneumonia, healthcare associated pneumonia is also possibility as [facility] is a [facility]. Presenting with leukocytosis, hypoxia, tachypnea and tachycardia. Chest x-ray positive for left lower lobe infiltrate. COVID-19 serology negative. Admit to floor, empiric broad-spectrum IV antibiotics, as needed DuoNebs, supplemental oxygen, as needed BiPAP, sputum culture, blood culture, flutter valve, incentive spirometry, pulmonary toileting. 02/10/2096-12-jnhz-old female admitted with acute hypoxic respiratory failure secondary to pneumonia. Pulse ox this morning is 98% room air. Acute hypoxic restaurant failure resolving. (2) Acute metabolic encephalopathy Is this a current diagnosis for this admission?: Yes Plan: Possibly due to acute illness. CT head negative for any acute changes. Not sure of baseline mental status. [facility] is a [facility] of [facility]. Continue supportive measures. Treat underlying pneumonia. Monitor electrolytes and vitals. Differential measures. 02/11/2020-patient admitted with acute metabolic encephalopathy resolved. In my opinion her mental status is back to baseline. It may be secondary to acute hypoxic respiratory failure secondary to pneumonia. (3) Seizure disorder Is this a current diagnosis for this admission?: No Plan: History of seizure disorder, CT head negative for any acute abnormalities. Resume home meds, monitor electrolytes, monitor vitals, fall, aspiration and seizure precautions. Outpatient PCP and neurology follow-up. (4) Hyperkalemia Is this a current diagnosis for this admission?: Yes Plan: Likely due to SERENE. No acute EKG changes. Admit to telemetry, hyperkalemia protocol. 02/11/2020-serum potassium improved from 5.3-5.1. Plan is to repeat the labs tomorrow. (5) SERENE (acute kidney injury) Is this a current diagnosis for this admission?: Yes Plan: Likely prerenal, presenting with creatinine of 1.52 and hyperkalemia. Nonoliguric. Cautious volume resuscitation guided by volume status, strict in and out, monitor volume status, monitor electrolytes and correct as needed. Avoid nephrotoxic meds. Consider renal ultrasound if no improvement and consult nephrology. [id number]-patient admitted with acute kidney injury. On admission serum creatinine is 1.2 improved to 1.14 today. GFR is more than 60. Plan is to closely monitor the labs. (6) Type 2 diabetes mellitus Qualifiers: Diabetes mellitus senior living insulin use: without buttermaker helper use Is this a current diagnosis for this admission?: No Plan: Hemoglobin A1c 4.7% 05/18/2017. On oral hypoglycemics. Diabetic diet, diabetic diet, Accu-Chek, hypoglycemia protocol. Basal, prandial and correctional insulin. We will obtain new hemoglobin A1c. Hold metformin given recent SERENE resume if renal function improves. (7) Morbid obesity Is this a current diagnosis for this admission?: Yes Plan: Diet and lifestyle modification recommended. Will obtain TSH. (8) Pneumonia Qualifiers: Pneumonia type: due to unspecified organism Laterality: left Lung location: lower lobe of lung Qualified Code(s): J18.9 - Pneumonia, unspecified organism Is this a current diagnosis for this admission?: Yes Plan: 02/11/2020-patient admitted with shortness of breath, elevated WBC count, and IV Rocephin. Blood cultures are pending. Pulse ox is 98% on room air. - Time Anticipated Discharge [facility]position: [facility] Anticipated Discharge Timeframe: within 72 hours
[2020-02-11] MEDS ORDERED: [UNRECOGNIZED DRUG - REMARK] IM SCH (13:00)
[2020-02-11] MEDS: LORAZEPAM 1 MG TABLET PO SCH (17:03)
[2020-02-11] MEDS: GABAPENTIN 100 MG CAPSULE PO SCH (21:28)
[2020-02-11] MEDS: BENZTROPINE MESYLATE 1 MG TABLET PO SCH (21:29)
[2020-02-11] MEDS: TRAMADOL HCL 50 MG TABLET PO SCH (21:29)
[2020-02-11] MEDS ORDERED: PRAZOSIN HCL 1 MG PO SCH (22:00)
[2020-02-11] MEDS ORDERED: BUSPIRONE HCL 10 MG TABLET PO SCH ×3 (22:00)
[2020-02-11] MEDS ORDERED: ATORVASTATIN CALCIUM 10 MG TABLET PO SCH (22:00)
[2020-02-11] MEDS ORDERED: PRAMIPEXOLE DI-HCL 0.5 MG TABLET PO SCH (22:00)
[2020-02-11] MEDS ORDERED: TRAZODONE HCL 50 MG TABLET PO SCH (22:00)
[2020-02-11] MEDS ORDERED: (PENDING PHARMACY ID) (Buspirone Hcl [Buspirone Hcl] 5 MG Tablet) PO SCH (22:00)
[2020-02-12] MEDS: HEPARIN SOD (PORCINE) 5,000 UNIT/ML 1 ML VIAL SUBCUT SCH ×2 (05:48→13:14)
[2020-02-12] MEDS: NORMAL SALINE 1000 ML 1,000 ML IV PRN (06:42)
[2020-02-12 07:20] LABS: ABSOLUTE BASOPHILS # (AUTO) 0.1 10^3/uL (0.0-0.2); ABSOLUTE EOSINOPHILS # (AUTO) 0.2 10^3/uL (0.0-0.6); ABSOLUTE LYMPHOCYTES (AUTO) 1.9 10^3/uL (0.5-4.7); ABSOLUTE MONOCYTES (AUTO) 0.5 10^3/uL (0.1-1.4); ABSOLUTE NEUT (AUTO) 5.9 10^3/uL (1.7-8.2); BASOPHILS % (AUTO) 0.8 % (0-2); EOSINOPHILS % (AUTO) 2.4 % (0-6); HEMATOCRIT 25.8 % (36.0-47.0); HEMOGLOBIN 8.5 g/dL (12.0-15.5); LYMPHOCYTES % (AUTO) 21.8 % (13-45); MEAN CORPUSCULAR HEMOGLOBIN 29.8 pg (27.0-33.4); MEAN CORPUSCULAR HGB CONC 33.2 g/dL (32.0-36.0); MEAN CORPUSCULAR VOLUME 90 fl (80-97); MONOCYTES % (AUTO) 6.2 % (3-13); PLATELET COUNT 228 10^3/uL (150-450); RED BLOOD COUNT 2.87 10^6/uL (3.72-5.28); RED CELL DISTRIBUTION WIDTH 13.8 % (11.5-14.0); SEGMENTED NEUTROPHILS % (AUTO) 68.8 % (42-78); TOTAL CELLS COUNTED % (AUTO) 100 %; WHITE BLOOD COUNT 8.6 10^3/uL (4.0-10.5)
[2020-02-12 07:57] LABS: ALBUMIN 2.3 g/dL (3.5-5.0); ALKALINE PHOSPHATASE 42 U/L (38-126); ASPARTATE AMINO TRANSFERASE 21 U/L (14-36); BILIRUBIN,DIRECT 0.2 mg/dL (0.0-0.4); BILIRUBIN,TOTAL 0.2 mg/dL (0.2-1.3); BLOOD UREA NITROGEN 19 mg/dL (7-20); CALCIUM 8.1 mg/dL (8.4-10.2); GLUCOSE 103 mg/dL (75-110); POTASSIUM 5.3 mmol/L (3.6-5.0); TOTAL PROTEIN 4.7 g/dL (6.3-8.2); TRIGLYCERIDES 158 mg/dL (<150)
[2020-02-12] MEDS: INSULIN LISPRO 100 UNIT/ML 3 ML VIAL SUBCUT SCH ×2 (07:59→11:32)
[2020-02-12 08:01] LABS: CARBON DIOXIDE 22 mmol/L (22-30); CHLORIDE 113 mmol/L (98-107)
[2020-02-12 08:07] LABS: DIRECT LDL 78 mg/dL (<100)
[2020-02-12 08:08] LABS: ANION GAP 3 (5-19); VLDL CHOLESTEROL 31.6 mg/dL (10-31)
[2020-02-12] MEDS ORDERED: LISINOPRIL 40 MG PO SCH (10:00)
[2020-02-12] MEDS ORDERED: VORTIOXETINE HYDROBROMIDE 10 MG PO SCH (10:00)
[2020-02-12] MEDS ORDERED: FERROUS SULFATE 325 MG TABLET PO SCH (10:00)
[2020-02-12] MEDS ORDERED: LACTULOSE SYRUP 20 GM/30 ML UDCUP PO SCH (10:00)
[2020-02-12] MEDS ORDERED: LISINOPRIL 10 MG TABLET PO SCH (10:00)
[2020-02-12] MEDS ORDERED: BUSPIRONE HCL 10 MG TABLET PO SCH (10:00)
[2020-02-12] MEDS: FAMOTIDINE 20 MG TABLET PO SCH (10:20)
[2020-02-12] MEDS: GABAPENTIN 100 MG CAPSULE PO SCH (10:21)
[2020-02-12] MEDS: BENZTROPINE MESYLATE 1 MG TABLET PO SCH (10:21)
[2020-02-12] MEDS: TRAMADOL HCL 50 MG TABLET PO SCH (10:22)
[2020-02-12] MEDS: DOCUSATE SODIUM 100 MG CAPSULE PO SCH (10:22)
[2020-02-12] MEDS: LORAZEPAM 1 MG TABLET PO SCH (10:23)
[2020-02-12] MEDS: CEFTRIAXONE 1 GM/D5W RTU 1 GM/50 ML RTUPB IV SCH (10:23)
--- NOTE | 2020-02-12 13:16 | PDOC TRANSFER SUMMARY ---
Impression - Admit/DC Date/PCP Admission Date/Primary Care Provider: 02/10/20 22:47 RAFAEL SWEET Discharge Date: 02/12/20 - Discharge Diagnosis (1) Acute respiratory failure with hypoxia Is this a current diagnosis for this admission?: Yes (2) Acute metabolic encephalopathy Is this a current diagnosis for this admission?: Yes (3) Seizure disorder Is this a current diagnosis for this admission?: No (4) Hyperkalemia Is this a current diagnosis for this admission?: Yes (5) SERENE (acute kidney injury) Is this a current diagnosis for this admission?: Yes (6) Type 2 diabetes mellitus Is this a current diagnosis for this admission?: No (7) Morbid obesity Is this a current diagnosis for this admission?: Yes (8) Pneumonia Is this a current diagnosis for this admission?: Yes - Assessment Summary: (1) Acute respiratory failure with hypoxia Is this a current diagnosis for this admission?: Yes Plan: Due to community acquired pneumonia, healthcare associated pneumonia is also possibility as patient is a resident of long-term. Presenting with leukocytosis, hypoxia, tachypnea and tachycardia. Chest x-ray positive for left lower lobe infiltrate. COVID-19 serology negative. Admit to floor, empiric broad-spectrum IV antibiotics, as needed DuoNebs, supplemental oxygen, as needed BiPAP, sputum culture, blood culture, flutter valve, incentive spirometry, pulmonary toileting. 02/10/2063-19-vght-old female admitted with acute hypoxic respiratory failure secondary to pneumonia. Pulse ox this morning is 98% room air. Acute hypoxic restaurant failure resolving. 02/12/2020-acute hypoxic respiratory failure resolved. Pulse ox is 96% room air. (2) Acute metabolic encephalopathy Is this a current diagnosis for this admission?: Yes Plan: Possibly due to acute illness. CT head negative for any acute changes. Not sure of baseline mental status. Patient is a resident of long-term. Continue supportive measures. Treat underlying pneumonia. Monitor electrolytes and vitals. Differential measures. 02/11/2020-patient admitted with acute metabolic encephalopathy resolved. In my opinion her mental status is back to baseline. It may be secondary to acute hypoxic respiratory failure secondary to pneumonia. 02/12/2020-acute metabolic encephalopathy secondary to hypoxia resolved. (3) Seizure disorder Is this a current diagnosis for this admission?: No Plan: History of seizure disorder, CT head negative for any acute abnormalities. Resume home meds, monitor electrolytes, monitor vitals, fall, aspiration and seizure precautions. Outpatient PCP and neurology follow-up. (4) Hyperkalemia Is this a current diagnosis for this admission?: Yes Plan: Likely due to SERENE. No acute EKG changes. Admit to telemetry, hyperkalemia protocol. 02/11/2020-serum potassium improved from 5.3-5.1. Plan is to repeat the labs tomorrow. 02/12/2020-serum potassium is 5.3 today. Lisinopril is discontinued. (5) SERENE (acute kidney injury) Is this a current diagnosis for this admission?: Yes Plan: Likely prerenal, presenting with creatinine of 1.52 and hyperkalemia. Nonoliguric. Cautious volume resuscitation guided by volume status, strict in and out, monitor volume status, monitor electrolytes and correct as needed. Avoid nephrotoxic meds. Consider renal ultrasound if no improvement and consult nephrology. 2920-patient admitted with acute kidney injury. On admission serum creatinine is 1.2 improved to 1.14 today. GFR is more than 60. Plan is to closely monitor the labs. 02/12/2020-serum creatinine today's 1.11. Acute kidney injury resolving. 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 On oral hypoglycemics. Diabetic diet, diabetic diet, Accu-Chek, hypoglycemia protocol. Basal, prandial and correctional insulin. We will obtain new hemoglobin A1c. Hold metformin given recent SERENE resume if renal function improves. (7) Morbid obesity Is this a current diagnosis for this admission?: Yes Plan: Diet and lifestyle modification recommended. Will obtain TSH. (8) Pneumonia Qualifiers: Pneumonia type: due to unspecified organism Laterality: left Lung location: lower lobe of lung Qualified Code(s): J18.9 - Pneumonia, unspecified organism Is this a current diagnosis for this admission?: Yes Plan: 02/11/2020-patient admitted with shortness of breath, elevated WBC count, and IV Rocephin. Blood cultures are pending. Pulse ox is 98% on room air. 3020-acute hypoxic respiratory failure resolved, wBC count is normalized patient is afebrile and she is going back to assisted living on doxycycline milligrams p.o. twice daily for 1 week. - Additional Information Discharge Diet: Diabetic Discharge Activity: Activity As Tolerated Referrals: [facility] [Outside] Prescriptions: Doxycycline Hyclate 100 mg PO BID #14 tablet. Home Medications: Atorvastatin Calcium [Lipitor 10 mg Tablet] 10 mg PO QHS 05/10/17 Benztropine Mesylate 1 mg PO Q12 05/10/17 Lisinopril [Prinivil 40 mg Tablet] 40 mg PO DAILY 05/10/17 Lorazepam [Ativan 1 mg Tablet] 1 mg PO BID 05/10/17 Metformin HCl [Glucophage] 1,000 mg PO Q12 05/10/17 Prazosin HCl [Minipress] 2 mg PO QHS 05/10/17 Trazodone HCl [Desyrel 50 mg Tablet] 150 mg PO QHS 05/10/17 Buspirone HCl 5 mg PO QHS 02/11/20 Buspirone HCl [Buspar 10 mg Tablet] 10 mg PO Q12 02/11/20 Ferrous Sulfate [Feosol 325 mg Tablet] 325 mg PO DAILY 02/11/20 Gabapentin [Neurontin 100 mg Capsule] 200 mg PO Q12 02/11/20 Hydroxyzine HCl [Atarax 10 mg Tablet] 50 mg PO BIDP PRN 02/11/20 Invega Sustenna 1.5 ml IM .[id number] 02/11/20 Lactulose [Cephulac Syrup 20 gm/30 ml Udcup] 10 gm PO DAILY 02/11/20 Methyl Salicylate/Menthol [Icy Hot Cream] 1 applic TP TIDP PRN 02/11/20 Pramipexole Di-HCl [Mirapex 0.5 mg Tablet] 0.5 mg PO QHS 02/11/20 Tramadol HCl [Ultram 50 mg Tablet] 50 mg PO Q12 02/11/20 Vortioxetine Hydrobromide [Trintellix] 10 mg PO DAILY 02/11/20 Doxycycline Hyclate 100 mg PO BID #14 tablet. 02/12/20 Ipratropium/Albuterol Sulfate [Duoneb 3 ml Ampul] 3 ml NEB [id number] PRN vial.neb 02/12/20 History of Present Illiness History of Present Illness: STEVE CONKLIN is a 49 year old female 49 year old female resident of [facility] with past medical history of COPD, asthma, schizophrenia, depression, seizure disorder, diabetes, morbid obesity, brought to ED by EMS after being noted by long-term staff that she appeared confused, shaky and less active, unfortunately patient herself is not very poor historian when asked why she is in ED she is stating because of hypertension, when asked how she is feeling she says she is feeling fine when asked why she is living in [facility] she states that because of her diabetes and also because she does not have any living family members to take care of her, on review of systems patient denies any fever, chills, nausea, vomiting, chest pain, abdominal pain, diarrhea, constipation or any urinary sym ptoms.. In ED she was noted to be hypoxic, tachypneic, acute cardiac, with neutrophilic leukocytosis and bandemia, hyperkalemia and elevated creatinine level, she tested negative for COVID-19 and influenza, chest x-ray was positive for small left lower lobe infiltrate, CT head was negative for any acute abnormalities. Hospitalist was consulted for admission. Hospital Course Hospital Course: 49 year old female resident of [facility] with past medical history of COPD, asthma, schizophrenia, depression, seizure disorder, diabetes, morbid obesity, brought to ED by EMS after being noted by long-term staff that she appeared confused, shaky and less active, unfortunately patient herself is not very poor historian when asked why she is in ED she is stating because of hypertension, when asked how she is feeling she says she is feeling fine when asked why she is living in [facility] she states that because of her diabetes and also because she does not have any living family members to take care of her, on review of systems patient denies any fever, chills, nausea, vomiting, chest pain, abdominal pain, diarrhea, constipation or any urinary symptoms.. In ED she was noted to be hypoxic, tachypneic, acute cardiac, with neutrophilic leukocytosis and bandemia, hyperkalemia and elevated creatinine level, she tested negative for COVID-19 and influenza, chest x-ray was positive for small left lower lobe infiltrate, CT head was negative for any acute abnormalities. Hospitalist was consulted for admission. 02/11/[id number]-ntaf-old female came from a assisted living she has history of COPD, asthma, schizophrenia, depression, seizure disorder, diabetes mellitus, morbid obesity. COVID-19 is negative on admission WBC count is 14,000 chest x- ray indicated for possible pneumonia. Serum potassium is elevated at the time of admission and the patient also has a acute kidney injury. Serum potassium is improved to 5.1, creatinine improved slightly compared to admission labs. Patient is receiving IV Rocephin at this time. WBC count improved from 14,000- 9900 today. Afebrile. 02/12/2020-patient is afebrile. Blood pressure stable. She is expressing desire to go back to [facility] today. Blood cultures are negative. Please patient with given for doxycycline 100 mg p.o. twice daily for 1 week. Physical Exam Vital Signs: Temp Pulse Resp BP Pulse Ox 97.7 F 89 20 116/81 98 02/12/20 10:59 02/12/20 10:59 02/12/20 10:59 02/12/20 10:59 02/12/20 10:59 Intake & Output 02/11/20 02/12/20 02/13/20 06:59 06:59 06:59 Intake Total 2175 4491 1088 Output Total 400 Balance 1775 4491 1088 Weight 112.1 kg 112.5 kg General appearance: PRESENT: no acute distress, cooperative, morbidly obese Head exam: PRESENT: atraumatic Eye exam: PRESENT: PERRLA Ear exam: PRESENT: normal external ear exam Mouth exam: PRESENT: neck supple Teeth exam: PRESENT: poor dentation Neck exam: ABSENT: carotid bruit, JVD, lymphadenopathy, thyromegaly Respiratory exam: PRESENT: decreased breath sounds Cardiovascular exam: PRESENT: RRR. ABSENT: diastolic murmur, rubs, systolic murmur GI/Abdominal exam: PRESENT: normal bowel sounds, soft. ABSENT: distended, guarding, mass, organolmegaly, rebound, tenderness Rectal exam: PRESENT: deferred Extremities exam: PRESENT: full ROM. ABSENT: calf tenderness, clubbing, pedal edema Neurological exam: PRESENT: alert, awake, oriented to person, oriented to place, oriented to time, oriented to situation, CN II-XII grossly intact. ABSENT: motor sensory deficit Skin exam: PRESENT: dry, intact, warm. ABSENT: cyanosis, rash Results Laboratory Results: WBC 8.6 10^3/uL (4.0-10.5) 02/12/20 05:42 RBC 2.87 10^6/uL (3.72-5.28) L 02/12/20 05:42 Hgb 8.5 g/dL (12.0-15.5) L 02/12/20 05:42 Hct 25.8 % (36.0-47.0) L 02/12/20 05:42 MCV 90 fl (80-97) 02/12/20 05:42 MCH 29.8 pg (27.0-33.4) 02/12/20 05:42 MCHC 33.2 g/dL (32.0-36.0) 02/12/20 05:42 RDW 13.8 % (11.5-14.0) 02/12/20 05:42 Plt Count 228 10^3/uL (150-450) 02/12/20 05:42 Lymph % (Auto) 21.8 % (13-45) 02/12/20 05:42 [place] % (Auto) 6.2 % (3-13) 02/12/20 05:42 Eos % (Auto) 2.4 % (0-6) 02/12/20 05:42 Baso % (Auto) 0.8 % (0-2) 02/12/20 05:42 Absolute Neuts (auto) 5.9 10^3/uL (1.7-8.2) 02/12/20 05:42 Absolute Lymphs (auto) 1.9 10^3/uL (0.5-4.7) 02/12/20 05:42 Absolute Monos (auto) 0.5 10^3/uL (0.1-1.4) 02/12/20 05:42 Absolute Eos (auto) 0.2 10^3/uL (0.0-0.6) 02/12/20 05:42 Absolute Basos (auto) 0.1 10^3/uL (0.0-0.2) 02/12/20 05:42 Total Counted 100 02/10/20 19:00 Seg Neutrophils % 68.8 % (42-78) 02/12/20 05:42 Seg Neuts % (Manual) 89 % (42-78) H 02/10/20 19:00 Band Neutrophils % 4 % (3-5) 02/10/20 19:00 Lymphocytes % (Manual) 4 % (13-45) L 02/10/20 19:00 Monocytes % (Manual) 3 % (3-13) 02/10/20 19:00 Eosinophils % (Manual) 0 % (0-6) 02/10/20 19:00 Basophils % (Manual) 0 % (0-2) 02/10/20 19:00 Abs Neuts (Manual) 13.2 10^3/uL (1.7-8.2) H 02/10/20 19:00 Abs Lymphs (Manual) 0.6 10^3/uL (0.5-4.7) 02/10/20 19:00 Abs Monocytes (Manual) 0.4 10^3/uL (0.1-1.4) 02/10/20 19:00 Absolute Eos (Manual) 0.0 10^3/uL (0.0-0.6) 02/10/20 19:00 Abs Basophils (Manual) 0.0 10^3/uL (0.0-0.2) 02/10/20 19:00 Platelet Comment ADEQUATE 02/10/20 19:00 RBC Morph Comment NORMO-CYTIC/CHROMIC 02/10/20 19:00 Sodium 138.2 mmol/L (137-145) 02/12/20 05:42 Potassium 5.3 mmol/L (3.6-5.0) H 02/12/20 05:42 Chloride 113 mmol/L (98-107) H 02/12/20 05:42 Carbon Dioxide 22 mmol/L (22-30) 02/12/20 05:42 Anion Gap 3 (5-19) L 02/12/20 05:42 BUN 19 mg/dL (7-20) 02/12/20 05:42 Creatinine 1.11 mg/dL (0.52-1.25) 02/12/20 05:42 Est GFR ( Amer) > 60 (>60) 02/12/20 05:42 Est GFR (MDRD) Non-Af 52 (>60) L 02/12/20 05:42 Glucose 103 mg/dL (75-110) 02/12/20 05:42 POC Glucose 135 mg/dL (70-110) H 02/12/20 11:07 Hemoglobin A1c % 4.5 % (4.7-6.0) L 02/12/20 05:42 Lactic Acid 1.1 mmol/L (0.7-2.1) 02/10/20 19:00 Calcium 8.1 mg/dL (8.4-10.2) L 02/12/20 05:42 Magnesium 1.5 mg/dL (1.6-2.3) L 02/12/20 05:42 Total Bilirubin 0.2 mg/dL (0.2-1.3) 02/12/20 05:42 Direct Bilirubin 0.2 mg/dL (0.0-0.4) 02/12/20 05:42 Neonat Total Bilirubin Not Reportable 02/12/20 05:42 Neonat Direct Bilirubin Not Reportable 02/12/20 05:42 Neonat Indirect Bili Not Reportable 02/12/20 05:42 AST 21 U/L (14-36) 02/12/20 05:42 ALT 11 U/L (<35) 02/12/20 05:42 Alkaline Phosphatase 42 U/L (38-126) 02/12/20 05:42 Ammonia < 8.7 umol/L (9-33) L 02/10/20 19:00 Total Protein 4.7 g/dL (6.3-8.2) L 02/12/20 05:42 Albumin 2.3 g/dL (3.5-5.0) L 02/12/20 05:42 Triglycerides 158 mg/dL (<150) H 02/12/20 05:42 Cholesterol 140.60 mg/dL (0-200) 02/12/20 05:42 LDL Cholesterol Direct 78 mg/dL (<100) 02/12/20 05:42 VLDL Cholesterol 31.6 mg/dL (10-31) H 02/12/20 05:42 HDL Cholesterol 34 mg/dL (>40) L 02/12/20 05:42 Lipase 61.9 U/L (23-300) 02/10/20 19:00 Urine Color YELLOW 02/10/20 18:07 Urine Appearance CLEAR 02/10/20 18:07 Urine pH 5.0 (5.0-9.0) 02/10/20 18:07 Ur Specific [place] 1.015 02/10/20 18:07 Urine Protein 30 mg/dL (NEGATIVE) H 02/10/20 18:07 Urine Glucose (UA) NEGATIVE mg/dL (NEGATIVE) 02/10/20 18:07 Urine Ketones NEGATIVE mg/dL (NEGATIVE) 02/10/20 18:07 Urine Blood NEGATIVE (NEGATIVE) 02/10/20 18:07 Urine Nitrite NEGATIVE (NEGATIVE) 02/10/20 18:07 Urine Bilirubin NEGATIVE (NEGATIVE) 02/10/20 18:07 Urine Urobilinogen NEGATIVE mg/dL (<2.0) 02/10/20 18:07 Ur Leukocyte Esterase NEGATIVE (NEGATIVE) 02/10/20 18:07 Urine WBC (Auto) 1 /HPF 02/10/20 18:07 Urine RBC (Auto) 0 /HPF 02/10/20 18:07 Squamous Epi Cells Auto <1 /HPF 02/10/20 18:07 Urine Mucus (Auto) RARE /LPF 02/10/20 18:07 Urine Ascorbic Acid NEGATIVE (NEGATIVE) 02/10/20 18:07 [place] Human Metapneumo PCR NOT DETECTED (NOT DETECT) 02/10/20 20:30 Adenovirus (PCR) NOT DETECTED (NOT DETECT) 02/10/20 20:30 B. pertussis DNA (PCR) NOT DETECTED (NOT DETECT) 02/10/20 20:30 B.parapertussis DNA PCR NOT DETECTED (NOT DETECT) 02/10/20 20:30 C. pneumoniae DNA (PCR) NOT DETECTED (NOT DETECT) 02/10/20 20:30 Coronavirus OC43 (PCR) NOT DETECTED (NOT DETECT) 02/10/20 20:30 Coronavirus HKU1 (PCR) NOT DETECTED (NOT DETECT) 02/10/20 20:30 Coronavirus 229E (PCR) NOT DETECTED (NOT DETECT) 02/10/20 20:30 Coronavirus NL63 (PCR) NOT DETECTED (NOT DETECT) 02/10/20 20:30 Influenza A (RT-PCR) NEGATIVE (NEGATIVE) 02/10/20 20:30 Influenza A (H1) PCR NOT DETECTED (NOT DETECT) 02/10/20 20:30 Influ A (H1N1/09) PCR NOT DETECTED (NOT DETECT) 02/10/20 20:30 Influenza A (H3) PCR NOT DETECTED (NOT DETECT) 12/28/20 20:30 Influenza Type A (PCR) NOT DETECTED (NOT DETECT) 02/10/20 20:30 Influenza B (RT-PCR) NEGATIVE (NEGATIVE) 02/10/20 20:30 Influenza Type B (PCR) NOT DETECTED (NOT DETECT) 02/10/20 20:30 M. pneumoniae (PCR) NOT DETECTED (NOT DETECT) 02/10/20 20:30 Parainfluenza 1 (PCR) NOT DETECTED (NOT DETECT) 02/10/20 20:30 Parainfluenza 2 (PCR) NOT DETECTED (NOT DETECT) 02/10/20 20:30 Parainfluenza 3 (PCR) NOT DETECTED (NOT DETECT) 02/10/20 20:30 Parainfluenza 4 (PCR) NOT DETECTED (NOT DETECT) 02/10/20 20:30 RSV (RT-PCR) NEGATIVE (NEGATIVE) 02/10/20 20:30 RSV (PCR) NOT DETECTED (NOT DETECT) 02/10/20 20:30 Entero/Rhino (PCR) NOT DETECTED (NOT DETECT) 02/10/20 20:30 SARS-CoV-2 (PCR) NOT DETECTED (NOT DETECT) 02/10/20 20:30 SARS-CoV-2 Rap RNA(RT-PCR) NEGATIVE (NEGATIVE) 02/10/20 20:30 Impressions: Chest X-Ray 02/10/20 15:21 IMPRESSION: NO ACUTE RADIOGRAPHIC FINDING IN THE CHEST. Head CT 02/10/20 17:22 IMPRESSION: Mild left maxillary sinus disease with surgical changes. No acute intracranial imaging finding. EVIDENCE OF ACUTE STROKE: NO. Chest X-Ray 02/10/20 20:38 IMPRESSION: Cardiomegaly. Small left lower lobe infiltrate or atelectasis. Limited evaluation due to body habitus and overpenetration Plan Time Spent: Greater than 30 Minutes Stroke Is this a Stroke Patient?: No Acute Heart Failure Is this a Heart Failure Patient?: No
[2020-02-12 13:44] VITALS: BP 105/46
== END 2020-02-12 14:14 | DRG 193 ==
LOC: ER 13:46 → EH 22:47 → 4W 02-11 00:30
PROVIDERS: ADMIT Internal Medicine; ATTEND Internal Medicine
DX: J18.9 Pneumonia, unspecified organism (principal); J96.01 Acute respiratory failure with hypoxia; G93.41 Metabolic encephalopathy; N17.9 Acute kidney failure, unspecified; J44.9 Chronic obstructive pulmonary disease, unspecified; G40.909 Epilepsy, unspecified, not intractable, without status epilepticus; E87.5 Hyperkalemia; E11.9 Type 2 diabetes mellitus without complications; E66.01 Morbid (severe) obesity due to excess calories; F20.9 Schizophrenia, unspecified; E78.5 Hyperlipidemia, unspecified; K21.9 Gastro-esophageal reflux disease without esophagitis; F31.9 Bipolar disorder, unspecified; Z11.59 Encounter for screening for other viral diseases; Z79.84 Long term (current) use of oral hypoglycemic drugs; Z79.899 Other long term (current) drug therapy; Z88.6 Allergy status to analgesic agent; Z91.030 Bee allergy status
CPT/HCPCS: 0202U; 36415; 70450; 71045; 80053; 80061; 81001; 82140; 82962; 83036; 83605; 83690; 83735; 85025; 87040; 87086; 93005; 93010; 96361; 96374; 96375; 99285; 0241U; C9803; J0456; J0610; J0696; J1644; J1815; J3490; J7030; J7120